=== PATIENT | female | born 1950 | race Caucasian/White ===

== ENCOUNTER 2020-10-28 12:54 | Outpatient (REF) | payer MEDICARE, MEDICAID, SELFPAY ==
--- NOTE | ~2020-10-28 | MM_ITS ---
EXAMINATION: MM SCREENING DIGITAL BREAST TOMOSYNTHESIS, BILATERAL CLINICAL INFORMATION: Screening. Asymptomatic. The lifetime risk of breast cancer based on the Tyrer-Cuzick Model is 3%. COMPARISON: Mammography: 02/25/2019, 12/25/2017, 11/30/2016 TECHNIQUE: Digital breast tomosynthesis is performed in both the craniocaudal and mediolateral oblique views along with computer-aided detection (CAD). Synthesized 2D images are generated from the tomosynthesis. FINDINGS: There are scattered areas of fibroglandular density (ACR BI-RADS breast composition Category b). There are new loosely grouped segmental calcifications mid 3:00 left breast. Patient will be recalled for additional imaging. The remainder of the bilateral breasts show no abnormal calcifications. There is no mass or architectural abnormality or developing density. The axilla and skin contours are unremarkable. MM/MM tomosynthesis screening BI IMPRESSION: 1. Left: New calcifications mid 3:00 left breast. 2. Right: No mammographic evidence of malignancy. ASSESSMENT: BI-RADS 0: Incomplete - Need Additional Imaging Evaluation RECOMMENDATION: 1. Additional views of the left breast (magnification CC, magnification ML). 2. Radiology department staff will contact the patient for additional imaging. This patient's information was entered into a reminder system with a target due date for their next mammogram.
== END 2020-10-28 12:55 | disposition home or self-care (01) ==
LOC: HO.MAMMO 12:54
PROVIDERS: Visit Provider Internal Medicine
DX: Z12.31 Encounter for screening mammogram for malignant neoplasm of breast (principal)
CPT/HCPCS: 77063; 77067

== ENCOUNTER → 2020-10-29 09:23 | Outpatient (BNVA) | payer MEDICARE, MEDICAID, SELFPAY | PROVIDERS: PCP Internal Medicine; Visit Provider Advanced Practice Midwife ==

== ENCOUNTER 2020-10-29 10:33 | Outpatient (REF) | payer MEDICARE, MEDICAID, SELFPAY ==
[2020-11-03 15:46] LABS: HPV mRNA E6/E7 rflx Not Detected (Not Detected)
== END 2020-10-29 10:34 | disposition home or self-care (01) ==
LOC: HO.LNP 10:33
PROVIDERS: Visit Provider Advanced Practice Midwife
DX: Z12.4 Encounter for screening for malignant neoplasm of cervix (principal); Z11.51 Encounter for screening for human papillomavirus (HPV)
CPT/HCPCS: 87624; 88142

== ENCOUNTER 2020-11-01 09:45 | Outpatient (REF) | payer MEDICARE, MEDICAID, SELFPAY ==
--- NOTE | ~2020-11-01 | XR_ITS ---
EXAMINATION: XR ABDOMEN KUB CLINICAL INDICATION: Diverticulitis COMPARISON: CT abdomen pelvis June 07, 2019 TECHNIQUE: AP view of the abdomen. FINDINGS: No dilated air-filled loops of small bowel to suggest an obstructive process. There is a mild stool burden throughout the colon. Mild dextroscoliosis of the lumbar spine. Vascular calcifications of the pelvis. XR/XR abdomen 1V IMPRESSION: Nonobstructing bowel gas pattern.
[2020-11-01 17:27] LABS: MANUAL DIFF FLAG NO
[2020-11-01 17:31] LABS: Basophils Percent Auto 0.4 % (0-2); Eosinophils Absolute Auto 0.1 X10*3/uL (0.0-0.4); Eosinophils Percent Auto 2.2 % (0-4); Hematocrit 26.1 % (37-47); Hemoglobin 8.2 g/dl (12.0-16.0); Imm Gran Abs Auto 0.02 X10*3/uL (0.00-0.03); Imm Gran Pct Auto 0.4 % (0.0-0.4); Lymphocytes Absolute Auto 0.9 X10*3/uL (1.2-4.9); Lymphocytes Percent Auto 16.7 % (20-40); Mean Corpuscular HGB Conc 31.4 g/dl (31.0-35.0); Mean Corpuscular Hemoglobin 30.1 pg (27.0-33.0); Mean Platelet Volume 12.6 fL (9.4-12.3); Monocytes Absolute Auto 0.4 X10*3/uL (0.1-1.2); Monocytes Percent Auto 7.3 % (2-11); Red Blood Count 2.72 X10*6/uL (4.20-5.50); Red Cell Distribution Width 15.7 % (11.0-16.0); White Blood Count 5.5 X10*3/uL (4.8-10.8)
[2020-11-01 17:32] LABS: Platelet Count 73 X10*3/uL (160-400)
[2020-11-01 17:40] LABS: Estimated Average Glucose 137 mg/dL; Hemoglobin A1c % 6.4 %
[2020-11-01 18:13] LABS: Alanine Aminotransferase 33 U/L (0-31); Albumin Level 3.4 g/dL (3.5-5.0); Alkaline Phosphatase 473 U/L (39-117); Anion Gap 20 (12-20); Aspartate Amino Transferase 25 U/L (5-31); Bilirubin Total 0.6 mg/dL (0.0-1.0); Calcium 8.7 mg/dL (8.4-10.2); Carbon Dioxide 29 mmol/L (22-29); Chloride 93 mmol/L (96-108); Estimated Glomerular Filt Rate 5; Glucose Random 142 mg/dL (60-115); Potassium 5.4 mmol/L (3.3-5.1); Sodium 137 mmol/L (135-145); Total Protein 6.1 g/dL (6.5-8.0)
[2020-11-01 18:22] LABS: TSH reflex Free T4 0.75 uIU/mL (0.32-4.0)
[2020-11-01 18:43] LABS: Erythrocyte Sedimentation Rate 75 MM/HR (0-20)
[2020-11-01 19:11] LABS: Blood Urea Nitrogen 81 mg/dL (9-16)
== END 2020-11-01 09:46 | disposition home or self-care (01) ==
LOC: HO.LAB 09:45
PROVIDERS: Absent Provider Internal Medicine; PCP Internal Medicine; Visit Provider Internal Medicine
DX: K57.92 Diverticulitis of intestine, part unspecified, without perforation or abscess without bleeding (principal); I12.9 Hypertensive chronic kidney disease with stage 1 through stage 4 chronic kidney disease, or unspecified chronic kidney disease; E11.22 Type 2 diabetes mellitus with diabetic chronic kidney disease; N18.9 Chronic kidney disease, unspecified; E78.00 Pure hypercholesterolemia, unspecified; M79.7 Fibromyalgia
CPT/HCPCS: 36415; 74018; 80053; 83036; 84443; 85025; 85652; 88142

== ENCOUNTER 2020-11-03 09:04 | Outpatient (REF) | payer MEDICARE, MEDICAID, SELFPAY ==
--- NOTE | ~2020-11-03 | MM_ITS ---
EXAMINATION: MM DIAGNOSTIC DIGITAL MAMMOGRAPHY, LEFT CLINICAL INFORMATION: Calcifications COMPARISON: Mammography: October 28, 2020 and studies dating back to February 14, 2012 TECHNIQUE: Digital mammography is performed in the following views: Spot magnification views in craniocaudal and 90 degree mediolateral injections. FINDINGS: There are scattered areas of fibroglandular density (ACR BI-RADS breast composition Category b). The grouping of calcifications within the upper outer aspect of the left breast have indeterminate appearance without evidence of tea cupping. Stereotactic biopsy is recommended. Results are discussed with the patient at time of visit. Leelee at the referring provider's office was notified of the above recommendation. MM/MM added views LT IMPRESSION: Indeterminate calcifications left breast for which stereotactic core biopsy is recommended. ASSESSMENT: BI-RADS 4: Suspicious RECOMMENDATION: Stereotactic core biopsy This patient's information was entered into a reminder system with a target due date for their next mammogram.
== END 2020-11-03 09:05 | disposition home or self-care (01) ==
LOC: HO.MAMMO 09:04
PROVIDERS: Visit Provider Internal Medicine
DX: R92.1 Mammographic calcification found on diagnostic imaging of breast (principal)
CPT/HCPCS: 77065; 99202

== ENCOUNTER 2020-11-05 07:58 | Outpatient (REF) | payer MEDICARE, MEDICAID, SELFPAY ==
--- NOTE | ~2020-11-05 | MM_ITS ---
EXAMINATION: STEREOTACTIC TOMOSYNTHESIS-GUIDED VACUUM-ASSISTED BREAST BIOPSY, LEFT SPECIMEN RADIOGRAPH, LEFT POST PROCEDURE DIGITAL MAMMOGRAM, LEFT CLINICAL INFORMATION: New punctate segmental calcifications mid 3:00 left breast. COMPARISON: Mammography 11/03/2020, 10/28/2020, 02/25/2019. TECHNIQUE/PROCEDURE: Informed consent was obtained from the patient after discussion of the benefits, risks, and alternatives to biopsy today. Patient appeared to understand. Gave opportunity for questions. Patient signed consent form. Hospital provided conference interpreter assisted for the consent and throughout the procedure. BIOPSY TABLE: ScubaTribe Prone Biopsy System. LESION: Calcifications mid 3:00 position. LOCAL ANESTHESIA: 8 mL 1% lidocaine; 10 mL 1% lidocaine with epinephrine. DERMATOTOMY: Single skin pepito dermatotomy performed. NEEDLE: SpinGoiva 9-gauge vacuum assisted core biopsy device. APPROACH: lateral medial. TARGETING: Digital breast tomosynthesis used for targeting. CORES: 6. CLIP: [employer] SecurMark Buckle-shaped marker. SPECIMEN RADIOGRAPH: Specimen radiograph is taken in separate room using digital mammography. The index calcifications are in the excised cores. There are over 15 calcifications in the cores. POST PROCEDURE UNILATERAL DIGITAL MAMMOGRAM: The post biopsy mammogram is performed in separate room using separate digital mammography equipment from the biopsy procedure. CC and ML views are obtained. There are scattered areas of fibroglandular density (breast composition category: b). The clip marker is in position. The calcifications are decreased at the biopsy site. No gross hematoma. The patient tolerated the procedure well. No immediate complications. Home instructions reviewed with the patient. Final pathology results are pending. MM/MM stereotactic biopsy LT IMPRESSION: 1. Digital tomosynthesis-guided core biopsy left breast with clip placement. 2. Specimen radiograph taken and post procedure mammogram. There is satisfactory positioning of the biopsy clip. 3. Final pathology results pending. An addendum report will be issued.
== END 2020-11-05 07:59 | disposition home or self-care (01) ==
LOC: HO.MAMMO 07:58
PROVIDERS: Visit Provider Surgery
DX: C50.812 Malignant neoplasm of overlapping sites of left female breast (principal); R92.0 Mammographic microcalcification found on diagnostic imaging of breast
CPT/HCPCS: 19081; 88305; 88341; 88342; 88360; A4648

== ENCOUNTER → 2020-11-10 15:51 | Outpatient (BNVA) | payer MEDICARE, MEDICAID, SELFPAY | PROVIDERS: PCP Internal Medicine; Referring Provider Internal Medicine; Visit Provider Surgery | DX: D05.12 Intraductal carcinoma in situ of left breast (principal) | CPT/HCPCS: 99212 ==

== ENCOUNTER 2020-11-16 14:47 | Emergency (ER) | payer MEDICARE, MEDICAID, SELFPAY ==
[2020-11-16 15:12] VITALS: BP 96/56; PULSE 80; RESP 18; TEMP 36.6; O2SAT 98; BMI 23.6
--- NOTE | 2020-11-16 15:51 | ED_ITS ---
HPI - Extremity Problem General Chief complaint: Extremity Problem Stated complaint: TOE INFECTION Time Seen by Provider: 11/16/20 15:51 History of Present Illness HPI Narrative: Patient complains of pain in left big toe from ingrown nail for several weeks getting gradually worse and worse, no fever no chills no injury Related Data Home Medications Medication Instructions Recorded Confirmed insulin aspart U-100 100 unit/mL 2 - 12 unit SUBCUT TID ml 08/02/20 11/16/20 (3 mL) subcutaneous pen miscellaneous medical supply #1 08/02/20 11/16/20 sevelamer carbonate 800 mg tablet 800 mg PO DAILY tab 08/02/20 11/16/20 omeprazole 20 mg capsule,delayed 20 mg PO DAILY 11/01/20 11/16/20 release insulin glargine [Lantus U-100 5 unit SUBCUT DAILY 11/16/20 11/16/20 Insulin] Previous Rx's Medication Instructions Recorded gabapentin 300 mg capsule 300 mg PO TID #90 cap 04/26/20 atorvastatin 80 mg tablet 80 mg PO BEDTIME #90 tab 06/30/20 blood sugar diagnostic #10 ea 08/02/20 blood-glucose meter #1 ea 08/02/20 LIGHTWEIGHT MANUAL WHEELCHAIR #1 ea 11/05/20 ergocalciferol (vitamin D2) 1,250 1,250 mcg PO QWEEK #14 cap 11/17/20 mcg (50,000 unit) capsule insulin syringe-needle U-100 0.5 #100 ea 11/17/20 mL 31 gauge x 5/16 diaper,brief,adult,disposable #100 ea 11/19/20 incontinence pad, liner, disp #100 ea 11/19/20 pen needle, diabetic 32 gauge x #100 ea 11/24/20 5/32 Allergies Allergy/AdvReac Type Severity Reaction Status Date / Time No Known Allergies Allergy Verified 11/10/20 15:59 Review of Systems Review of Systems: Left big toe ingrown the pain Negative no fever no chills no dizziness no weakness no numbness weakness or tingling no chest pain no shortness of breath no joint swelling no rash Yes all other systems are reviewed and are negative PMFSH Past Medical History Source: nursing notes reviewed Medical History (Updated 11/17/20 @ 02:19 by Uzair Huffman MD) Anxiety and depression Artery stenosis Arthritis Balance problem Breast calcification, left CAD (coronary artery disease) Cardiomyopathy CHF (congestive heart failure) COVID-19 vaccine series completed Diabetes mellitus Diabetic neuropathy Diverticulitis Ductal carcinoma in situ (DCIS) of left breast End stage renal disease Fistula Hemodialysis patient History of CVA (cerebrovascular accident) Hx of myocardial infarction Hypercholesteremia Hypertension Incontinence Peripheral vascular disease Urinary and bowel incontinence Surgical History (Updated 11/16/20 @ 15:18 by Mary Smith MD) Hx of CABG Hx of colonoscopy Hx of lumpectomy Hx of tubal ligation Family History Family History Paternal Grandmother Breast cancer Social History Social History (Updated 11/16/20 @ 14:01 by Cnoi Boss) Are you a primary in home caregiver to a significant other at home: No Alcohol intake: former Cigarette Packs Per Day: 1 Physical Exam Vital Signs: Vital Signs: Last Vital Signs Temp 97.8 F 11/16/20 15:12 Pulse 80 11/16/20 15:12 Resp 18 11/16/20 15:12 BP 96/56 L 11/16/20 15:12 Pulse Ox 98 11/16/20 15:12 Body Mass Index 23.6 General appearance no acute distress Head is normocephalic atraumatic Neck is supple Respiratory no distress Extremities the left big toe has ingrown sections of both medial and lateral, there is swelling, no redness no discharge, full range of motion in all joints Skin no obvious rash Neuro no gross motor deficit Course Course Course Narrative: Left big toe anesthesia is a digital block with good anesthesia, cleansed with Betadine, using scissors and forceps large ingrown sections of nail were removed both medial and lateral, no pus no discharge no signs of infection no antibiotics given at this time Discharge Plan Discharge Clinical Impression: Ingrown left big toenail Patient Disposition: Home, Self-Care Additional Instructions: I removed ingrown sections of both sides of the nail, there were large ingrown piece of the nail but there was no sign of any infection Follow with dietary clerk Return any time for redness swelling fever any sign of infection Prescriptions: No Action gabapentin 300 mg capsule 300 mg PO TID Qty: 90 RF: 2 atorvastatin 80 mg tablet 80 mg PO BEDTIME Qty: 90 RF: 5 (DME) LIGHTWEIGHT MANUAL WHEELCHAIR See Rx Instructions .Route .MEDSUPPLY Qty: 1 RF: 0 ergocalciferol (vitamin D2) 1,250 mcg (50,000 unit) capsule 1,250 mcg PO QWEEK Qty: 14 RF: 1 (DME) insulin syringe-needle U-100 [BD Insulin Syringe Ultra-Fine] 0.5 mL 31 gauge x 5/16 syringe See Rx Instructions .ROUTE .MEDSUPPLY Qty: 100 RF: 0 (DME) incontinence pad, liner, disp Pad See Rx Instructions .ROUTE .MEDSUPPLY Qty: 100 RF: 12 (DME) diaper,brief,adult,disposable Misc See Rx Instructions .ROUTE .MEDSUPPLY Qty: 100 RF: 12 (DME) pen needle, diabetic [BD Anna 2nd Gen Pen Needle] 32 gauge x 5 needle See Rx Instructions .ROUTE .MEDSUPPLY Qty: 100 RF: 12 Lantus U-100 Insulin 100 unit/mL Cartridge 5 unit SUBCUT DAILY RF: 0 omeprazole 20 mg capsule,delayed release(DR/EC) 20 mg PO DAILY RF: 0 sevelamer carbonate [Renvela] 800 mg tablet 800 mg PO DAILY RF: 0 insulin aspart U-100 [Novolog Flexpen U-100 Insulin] 100 unit/mL (3 mL) insulin pen 2 - 12 unit subcut TID RF: 0 (DME) miscellaneous medical supply Unit See Rx Instructions .ROUTE .MEDSUPPLY Qty: 1 RF: 0 (DME) blood-glucose meter [FreeStyle Lite Meter] Kit See Rx Instructions .ROUTE .MEDSUPPLY Qty: 1 RF: 0 (DME) Freestyle InsuLinx Test Strips Strip See Rx Instructions .ROUTE .MEDSUPPLY Qty: 10 RF: 0 Referrals: Sagar New [Physician] - 2 days (Diabetic with the painful toenail) Interventions: ED Discharge Assessment Last Done: 11/16/20 16:59 Discharge Date/Time: 11/16/20 17:01
[2020-11-16] MEDS: Lidocaine HCl 1 % MPF 5 ML VIAL SUBCUT ×2 (16:06)
== END 2020-11-16 17:01 | disposition home or self-care (01) ==
PROVIDERS: Emergency Provider Emergency Medicine; PCP Internal Medicine
DX: L60.0 Ingrowing nail (principal); M79.675 Pain in left toe(s); E11.22 Type 2 diabetes mellitus with diabetic chronic kidney disease; I13.2 Hypertensive heart and chronic kidney disease with heart failure and with stage 5 chronic kidney disease, or end stage renal disease; I50.9 Heart failure, unspecified; N18.6 End stage renal disease; Z99.2 Dependence on renal dialysis; Z79.4 Long term (current) use of insulin; Z86.73 Personal history of transient ischemic attack (TIA), and cerebral infarction without residual deficits
CPT/HCPCS: 11730; 99283; 99284

== ENCOUNTER 2020-12-21 07:03 | Day surgery (SDC) | payer MEDICARE, MEDICAID, SELFPAY ==
[2020-12-14 12:36] VITALS: BMI 22.8
--- NOTE | 2020-12-14 12:56 | P.CONAN_ITS ---
Documented by User: Ame Chappellney 12/14/20 12:59 HPI - Anesthesia Eval Consult details Narrative: 70yo F for Left Breast lumpectomy, needle loc Per cardiology, high risk, no further testing needed prior to surgery ESRD with HD (TuThSat - pt's daughter trying to reschedule dialysis for Mon before surgery) with RUE fistula PMFSH Active Problems Active Problems: All Active Problems (Updated 12/14/20 @ 12:41 by Isabella Robins) Ductal carcinoma in situ (DCIS) of left breast (Acute) Breast calcification, left (Acute) Urinary and bowel incontinence (Acute) CAD (coronary artery disease) (Acute) Cardiomyopathy (Acute) Diverticulitis (Acute) Diabetes mellitus (Acute) Past Medical History Medical History (Updated 12/14/20 @ 12:41 by Isabella Robins) Anxiety and depression Artery stenosis Arthritis Balance problem Breast calcification, left CAD (coronary artery disease) Cardiomyopathy CHF (congestive heart failure) COVID-19 vaccine series completed Diabetes mellitus Diabetic neuropathy Diverticulitis Ductal carcinoma in situ (DCIS) of left breast End stage renal disease Fistula Hemodialysis patient History of CVA (cerebrovascular accident) Hx of myocardial infarction Hypercholesteremia Hypertension Incontinence Peripheral vascular disease Urinary and bowel incontinence Family History Family History Paternal Grandmother Breast cancer Surgical History Surgical History (Updated 11/16/20 @ 15:18 by Mary Smith MD) Hx of CABG Hx of colonoscopy Hx of lumpectomy Hx of tubal ligation Social History Social History (Updated 11/16/20 @ 14:01 by Coni Boss) Are you a primary healthcare manager to a significant other at home: No Do you presently have visiting nurse or other home services: Yes ([facility] home care) Alcohol intake: former Patient Tobacco Use Status: Former Tobacco user Quit Date: years ago Tobacco use type: Cigarette Cigarette Packs Per Day: 1 Have you been hit, kicked, punched, or otherwise hurt by someone within the past year? If so, by whom?: No Are you DNR?: No Advance Directives: No Advance Directives Information Provided: No Advance Directives on File: No Recently lost weight without trying: No Meds Allergies Allergy/AdvReac Type Severity Reaction Status Date / Time No Known Allergies Allergy Verified 11/10/20 15:59 Home Medications Medication Instructions Recorded Confirmed Last Taken Type miscellaneous medical supply #1 08/02/20 11/16/20 Unknown History sevelamer carbonate 800 mg tablet 800 mg PO DAILY tab 08/02/20 11/16/20 Unknown History omeprazole 20 mg capsule,delayed 20 mg PO DAILY 11/01/20 11/16/20 12/21/20 History release insulin glargine [Lantus U-100 5 unit SUBCUT DAILY 11/16/20 11/16/20 Unknown History Insulin] fluoxetine 1 cap PO QAM 12/21/20 12/21/20 12/21/20 History Exam Exam Date and Time: December 14, 2020 1256 Height,Weight and Vital Signs: Height 5 ft 1 in Weight 54.885 kg Narrative Narrative: EKG 11/2020 SR with PACs @ 81 ?LAE T wave inversion (less evident than previous EKG) ECHO 2017 LVEF 55-60% No RWMA NO obvious valve pathology Assessment and Plan Assessment Anesthesia Assessment: Chart Reviewed Documented by User: Cory Garces MD 12/21/20 09:04 [facility] Past Medical History Medical History (Updated 12/14/20 @ 12:41 by Isabella Robins) Anxiety and depression Artery stenosis Arthritis Balance problem Breast calcification, left CAD (coronary artery disease) Cardiomyopathy CHF (congestive heart failure) COVID-19 vaccine series completed Diabetes mellitus Diabetic neuropathy Diverticulitis Ductal carcinoma in situ (DCIS) of left breast End stage renal disease Fistula Hemodialysis patient History of CVA (cerebrovascular accident) Hx of myocardial infarction Hypercholesteremia Hypertension Incontinence Peripheral vascular disease Urinary and bowel incontinence Family History Family History Paternal Grandmother Breast cancer Surgical History Surgical History (Updated 11/16/20 @ 15:18 by Mary Smith MD) Hx of CABG Hx of colonoscopy Hx of lumpectomy Hx of tubal ligation Social History Social History (Updated 11/16/20 @ 14:01 by Coni Boss) Are you a primary healthcare manager to a significant other at home: No Do you presently have visiting nurse or other home services: Yes ([facility]) Alcohol intake: former Patient Tobacco Use Status: Former Tobacco user Quit Date: years ago Tobacco use type: Cigarette Cigarette Packs Per Day: 1 Have you been hit, kicked, punched, or otherwise hurt by someone within the past year? If so, by whom?: No Are you DNR?: No Advance Directives: No Advance Directives Information Provided: No Advance Directives on File: No Recently lost weight without trying: No Meds Allergies Allergy/AdvReac Type Severity Reaction Status Date / Time No Known Allergies Allergy Verified 11/10/20 15:59 Home Medications Medication Instructions Recorded Confirmed Last Taken Type miscellaneous medical supply #1 08/02/20 11/16/20 Unknown History sevelamer carbonate 800 mg tablet 800 mg PO DAILY tab 08/02/20 11/16/20 Unknown History omeprazole 20 mg capsule,delayed 20 mg PO DAILY 11/01/20 11/16/20 12/21/20 History release insulin glargine [Lantus U-100 5 unit SUBCUT DAILY 11/16/20 11/16/20 Unknown History Insulin] fluoxetine 1 cap PO QAM 12/21/20 12/21/20 12/21/20 History Assessment and Plan Assessment Anesthesia Assessment: Anesthesia Plan Discussed and Chart Reviewed Final Anesthetic Review NPO: Yes ASA Class: IV Final Preanesthetic Review: No Changes in Pt Med Stat, Meds/Allgs Chart Reviewed, Consent Obtained/Reviewed and Anes Risks/Benef Reviewed Patient Risk: High Procedure Risk: Low Anesthetic Plan Anesthetic Plan: GA Disposition: Standard PACU
[2020-12-21] VITALS (7 sets, daily range): BP systolic 113–145; BP diastolic 62–86; PULSE 74–96; RESP 14–16; TEMP 36.4–36.6; O2SAT 96–100
--- NOTE | ~2020-12-21 | MM_ITS ---
EXAMINATION: MM MAMMOGRAM GUIDED NEEDLE LOCALIZATION BREAST, LEFT MM NEEDLE LOCALIZATION SPECIMEN FROM THE LEFT BREAST CLINICAL INFORMATION: Left breast DCIS with necrosis. COMPARISON: Mammography 10/28/2020, 11/03/2020, stereotactic biopsy 11/05/2020. TECHNIQUE NEEDLE LOC: Proper informed consent is obtained from the patient after discussion of the procedure, potential risks and complications, and alternatives including declining the procedure today. Patient was given an opportunity for questions. The patient appeared to understand. The patient consented to the procedure and signed the consent form. Hospital provided health care analyst assisted for the consent and throughout the procedure. GUIDANCE: Digital mammography. APPROACH: Lateral Medial. TARGET: Prior to the localization, digital mammography is performed in the CC and LM views in order to determine if there are segmental calcifications remaining for bracketing. These views fail to show calcifications to bracket. Therefore, the biopsy clip marker (Buckle-shaped) is used as the target. ANESTHESIA: lidocaine 1%: 7 mL. LOCALIZATION MARKER: [employer]. 7.5 cm length. The skin is prepped and local anesthesia administered. The needle is positioned and position assessed with mammography. The wire is hooked into position. [place] needle protector placed. The patient tolerated the procedure well and had no immediate complication. Procedure localization results discussed with Dr. Marin prior to surgery. TECHNIQUE SPECIMEN RADIOGRAPH: Imaging of the excised specimen is performed using digital mammography in 1 view. FINDINGS SPECIMEN RADIOGRAPH: The specimen shows the distal needle and distal hookwire are delivered intact. The biopsy clip marker resides in the periphery of the specimen. There are numerous fine punctate calcifications around the clip marker and adjacent to the localization wire. Results were called to Dr. Nikolas Marin in the operating room at the time of imaging. MM/MM needle loc LT IMPRESSION: 1. Status post left breast needle localization with wire hooked into position. 2. Post operative specimen radiograph obtained.
--- NOTE | 2020-12-21 07:31 | PC.NURSE ---
+ thrill and +brui to right arm. labs being drawn
[2020-12-21 07:51] LABS: Glucose, Whole Blood 151 mg/dL (60-115)
--- NOTE | 2020-12-21 08:04 | PC.NURSE ---
off unit for needle loc
[2020-12-21 08:14] LABS: Anion Gap 13 (12-20); Carbon Dioxide 33 mmol/L (22-29); Chloride 99 mmol/L (96-108); Potassium 3.4 mmol/L (3.3-5.1); Sodium 142 mmol/L (135-145)
--- NOTE | 2020-12-21 08:25 | MHC.SHP ---
Pre-Procedural Eval Section B Chief Complaint: intraductal carcinoma in situ Details of Present Illness: Had ductal carcinoma in situ on biopsy of left breast calcifications, no palpable mass. The patient had seen the radiation oncologist and oncologist prior to for her surgery. Relevant Family History (Specify if Yes): No Relevant Social History: None Present Medications: see Short Stay Collaborative assessment Medical History: Significant History (Diabetes, cardiomyopathy) History of Previous Operations: Relevant previous surgery/procedure and date(s) (Biopsy) Allergies: Allergies Allergy/AdvReac Type Severity Reaction Status Date / Time No Known Allergies Allergy Verified 11/10/20 15:59 Review of Systems Sugical H&P ROS: Negative: Constitution, Cardiovascular, Respiratory, Neurological, Psychiatric, Hem-Onc, Allergic/Immunologic, Gastrointestinal, Genitourinary, Musculoskeletal, Integumentary, Endocrine and Eyes/Ears/Nose/Throat Exam Surgical H&P Exam: Normal: HEENT, Normal: Heart, Normal: Lungs, Normal: Extremities, Normal: Abdomen, Normal: Skin and Normal: Neurological Plan Diagnosis/Plan: Unchanged I have reviewed the history and physical and performed a pertinent physical examination on my patient. No changes have occurred unless specified.
--- NOTE | 2020-12-21 08:52 | PC.NURSE ---
miguel back from needle loc.
[2020-12-21] MEDS: 0.9 % Sodium Chloride 1,000 ML 50 ML IVCONT (08:55)
--- NOTE | 2020-12-21 10:43 | P.OP_ITS ---
Operative Note Operative Note Date of Service: 12/21/20 Narrative: Preop diagnosis: DCIS left breast Postop diagnosis: DCIS left breast Procedure: Left breast lumpectomy with needle localization Surgeon: Nikolas Marin MD No school bus driver/teacher assistant The patient is a 70-year-old female who had a recent biopsy of left breast calcifications which turned out to be DCIS. I therefore schedule her for lumpectomy with needle localization as discussed with her and her daughter. He understood the technique of the procedure the. They were aware of the risks, benefits, and alternatives The patient was brought to the operating room after needle localization. The localizing wire was seen entering from laterally going medially. The localization images were discussed with the radiologist as well. She was placed under general anesthesia via laryngeal mask airway. The left breast was prepped and draped in the usual sterile fashion. A surgical time-out was done. Patient received cefazolin 2 g IV preoperatively. I infiltrated the planned line of incision using lidocaine 1%. The incision was made using a blade 15 tangential to the needle entry. This was carried down through the full-thickness of the skin and subcutaneous fat with electrocautery. I then proceeded to gently lift up the skin with retractors to expose the breast tissue. I used the curved León to divide through the breast tissue surrounding the needle. We followed the direction of the needle carefully as we advanced with dissection. I periodically palpated for the needle to make sure that we were including the entire needle itself way past the tip. I made sure that we had generous margins of breast tissue surrounding the needle. I continued to divide with León scissors scissors all the way past the the localizing wire. I marked the superior and lateral margins with sutures for orientation. I then completed dissection and the entire lumpectomy specimen was sent for immediate re-ray as well as for immediate gross exam. I proceeded to observe for hemostasis. I cauterized all visible oozing areas. The patient had significant oozing from the raw surfaces likely because of her end-stage renal disease. I had to apply multiple figure-eight sutures to achieve hemostasis on these oozing areas. There was no particular bleeding vessel that could be seen on any of these oozing areas. I then reapposed the deep breast tissue with interrupted Dexon 3- 0 sutures. We then waited for a call from the radiologist as well as from the pathologist. Eventually received a call from the radiologist confirming that the biopsy clip was the specimen and that the entire wire was in place. It appeared we had good margins radiographically. I then received a call from the pathologist stating that we may be close on the superior lateral margins although the margins appeared negative grossly. I then decided to open up the incision again and removed more margins on the superior and lateral aspect. This was sent as additional margins I then proceeded to insert hemostasis with electrocautery and figure-eight Dexon 3-0 sutures. Once hemostasis appeared adequate, I proceeded to reappose the deep tissues with Dexon 3-0 interrupted sutures. Skin closure was achieved with Dexon 4-0 subcuticular running stitch. I infiltrated the area with Marcaine 0.5% for postop ALANNA. Steri-Strips and dressings were applied and the procedure was completed. The patient tolerated procedure well with no complication noted. Initial fine counts of sponges and instruments were correct. Estimated blood loss was about 75 cc. The patient was extubated without difficulty and transferred to the recovery room with stable vital signs.
--- NOTE | 2020-12-21 10:52 | P.BOP_ITS ---
Brief Operative Note Date of Service: 12/21/20 Pre-op diagnosis: DCIS left breast Post-op diagnosis: same Procedure: Left breast lumpectomy with needle localization Surgeon: Nikolas Marin MD Anesthesia: GLMA Was an [employer] Writer used for this Procedure?: No Estimated blood loss (mL): 75 Pathology: other (Lumpectomy) Condition: stable Disposition: PACU
== END 2020-12-21 12:34 | disposition home or self-care (01) ==
PROVIDERS: Nurse Practitioner; PCP Internal Medicine; Visit Provider Surgery
PROC: (CPT 19301; principal; 2020-12-21 09:00)
PROC: (CPT 19301; 2020-12-21 09:00)
DX: D05.12 Intraductal carcinoma in situ of left breast (principal); Z17.0 Estrogen receptor positive status [ER+]; F32.9 Major depressive disorder, single episode, unspecified; R26.9 Unspecified abnormalities of gait and mobility; I13.2 Hypertensive heart and chronic kidney disease with heart failure and with stage 5 chronic kidney disease, or end stage renal disease; I50.9 Heart failure, unspecified; N18.6 End stage renal disease; E11.22 Type 2 diabetes mellitus with diabetic chronic kidney disease; E11.40 Type 2 diabetes mellitus with diabetic neuropathy, unspecified; I73.9 Peripheral vascular disease, unspecified; Z99.2 Dependence on renal dialysis; Z79.4 Long term (current) use of insulin; Z79.899 Other long term (current) drug therapy; Z87.891 Personal history of nicotine dependence
CPT/HCPCS: 19301; 19281; 36415; 80051; 82947; 88307; 88329; A4648; J0690; J1100; J2250; J2370; J2405; J3010

== ENCOUNTER → 2020-12-30 10:46 | Outpatient (BNVA) | payer MEDICARE, MEDICAID, SELFPAY | PROVIDERS: PCP Internal Medicine; Referring Provider Internal Medicine; Visit Provider Surgery | DX: D05.12 Intraductal carcinoma in situ of left breast (principal) | CPT/HCPCS: 99212 ==

== ENCOUNTER 2021-02-18 09:00 | Outpatient (REF) | payer MEDICARE, MEDICAID, SELFPAY ==
--- NOTE | ~2021-02-18 | XR_ITS ---
EXAMINATION: XR HAND, LEFT CLINICAL INFORMATION: Left thumb pain. Evaluate for a fracture. COMPARISON: None TECHNIQUE: PA, lateral, and oblique views of the left hand. FINDINGS: No acute fracture or dislocation. Minimal joint space narrowing with tiny marginal osteophytes at the 1st carpometacarpal, 1st metacarpophalangeal and 1st interphalangeal joints. No osseous erosion. No abnormal soft tissue calcification. XR/XR hand LT min 3V IMPRESSION: Minimal degenerative arthritis at the 1st carpometacarpal, 1st metacarpal phalangeal, and 1st interphalangeal joints.
== END 2021-02-18 09:01 | disposition home or self-care (01) ==
LOC: HO.XRAY 09:00
PROVIDERS: PCP Internal Medicine; Visit Provider Internal Medicine
DX: M79.645 Pain in left finger(s) (principal)
CPT/HCPCS: 73130

== ENCOUNTER 2021-04-14 10:00 | Outpatient (RCR) | payer MEDICARE, MEDICAID, SELFPAY | END 2021-05-03 15:34 | disposition home or self-care (01) | LOC: HO.PT 10:00 | PROVIDERS: PCP Internal Medicine; Visit Provider Podiatrist | DX: R26.81 Unsteadiness on feet (principal) | CPT/HCPCS: 97110; 97162; 97530 ==

== ENCOUNTER 2021-05-26 07:28 | Outpatient (REF) | payer MEDICARE, MEDICAID, SELFPAY ==
--- NOTE | ~2021-05-26 | MM_ITS ---
EXAMINATION: BONE DENSITOMETRY CLINICAL INDICATION: Encounter for screening for osteoporosis. Starting therapy. COMPARISON: Baseline BD dated 03/22/2012. TECHNIQUE: Using a [employer] DXA System (software version: 13.1) manufactured by [employer], dual-energy x-ray absorptiometry was performed of the lumbar spine and left hip. The images are of good technical quality. Summary results are attached. FINDINGS: AP SPINE L1-L4: Current: BMD 0.913 g/cm2, Z-score -0.2, T-score -2.2, osteopenia, 2.2% increase from baseline (<5% change is not significant). Baseline: BMD 0.893 g/cm2. LEFT FEMUR, NECK: Current: BMD 0.621 g/cm2, Z-score -1.1, T-score -3.0, osteoporosis. Baseline: BMD 0.702 g/cm2. LEFT FEMUR, TOTAL: Current: BMD 0.649 g/cm2, Z-score -1.2, T-score -2.8, osteoporosis, 11.8% decrease from baseline (<5% change is not significant). Baseline: BMD 0.736 g/cm2. IDENTIFIED RISK FACTORS: Rheumatoid arthritis, renal, recurrent falls. Early menopause, secondary osteoporosis, anticonvulsant. HISTORY OF FRACTURE: None listed. MEDICATIONS: Vitamin D. MM/XR DEXA axial skeleton IMPRESSION: 1. DIAGNOSIS: Osteoporosis based on the lowest T-score value of -3.0 in the femoral neck applying World Health Organization criteria. 2. 10 10-YEAR FRACTURE RISK PREDICTION, FRAX: According to the guidelines, FRAX calculation should only be performed on patients in the osteopenia bone density category. 3. Treatment Recommendations: NOF guidelines recommend consideration for treatment in postmenopausal women and men age 50 and older presenting with the following: -A hip or vertebral (clinical or morphometric) fracture. -T-score less than or equal to -2.5 at the femoral neck or spine after appropriate evaluation to exclude secondary causes. -Low bone mass at the hip or spine and a 10-year fracture probability by FRAX of greater than or equal to 3% for hip fracture or greater than or equal to 20% for major osteoporotic fracture based on the [place] adapted WHO algorithm. 4. Other Recommendations: All treatment decisions require clinical judgment and consideration of individual patient factors, including patient preferences, comorbidities, previous drug use, risk factors not captured in the FRAX model (e.g. frailty, falls, vitamin D deficiency, increased bone turnover, interval significant decline in bone density) and possible under or overestimation of fracture risk by FRAX. Additional medical evaluation for secondary cause of low bone mineral density may be appropriate. FUTURE SCAN RECOMMENDATION: People with diagnosed cases of osteoporosis or at high risk for fracture should have regular bone mineral density tests. For patients eligible for Medicare, routine testing is allowed once every 2 years. The testing frequency can be increased to one year for patients who have rapidly progressing disease, those who are receiving or discontinuing medical therapy to restore bone mass, or have additional risk factors.
== END 2021-05-26 07:29 | disposition home or self-care (01) ==
LOC: HO.MAMMO 07:28
PROVIDERS: Visit Provider Internal Medicine
DX: Z13.820 Encounter for screening for osteoporosis (principal); M81.0 Age-related osteoporosis without current pathological fracture; Z78.0 Asymptomatic menopausal state; Z79.899 Other long term (current) drug therapy
CPT/HCPCS: 77080

== ENCOUNTER 2021-09-06 13:50 | Outpatient (REF) | payer MEDICARE, MEDICAID, SELFPAY ==
--- NOTE | ~2021-09-06 | MM_ITS ---
EXAMINATION: MM DIAGNOSTIC DIGITAL BREAST TOMOSYNTHESIS, BILATERAL CLINICAL INFORMATION: Due for yearly. Left lumpectomy for DCIS 12/21/2020. COMPARISON: Needle localization 12/21/2020, stereotactic biopsy 11/05/2020; mammography 11/03/2020, 10/28/2020, 02/25/2019, 12/25/2017, 11/30/2016. TECHNIQUE: Digital breast tomosynthesis is performed in both the craniocaudal and mediolateral oblique views along with computer-aided detection (CAD). Synthesized 2D images are generated from the tomosynthesis. Additional views are obtained: Left MLO, magnification left CC x2, magnification left ML. FINDINGS: There are scattered areas of fibroglandular density (ACR BI-RADS breast composition Category b). There are post therapy changes left breast with mild reduced breast size and minor scarring. Neither breast shows interval mass or significant architectural changes or abnormal calcifications. The axilla are unremarkable. Right breast again shows benign heavily calcified nodule and some adjacent coarse calcifications subareolar region. Results are provided to the patient at time of visit by the technologist. MM/MM tomosynthesis diagnostic BI IMPRESSION: No mammographic evidence of malignancy. Post therapy changes left breast. ASSESSMENT: BI-RADS 2: Benign RECOMMENDATION: Annual bilateral mammography. This patient's information was entered into a reminder system with a target due date for their next mammogram.
== END 2021-09-06 13:51 | disposition home or self-care (01) ==
LOC: HO.MAMMO 13:50
PROVIDERS: Visit Provider Internal Medicine
DX: D05.12 Intraductal carcinoma in situ of left breast (principal)
CPT/HCPCS: 77062; 77066

== ENCOUNTER 2021-09-10 07:26 | Outpatient (REF) | payer MEDICARE, MEDICAID, SELFPAY ==
[2021-09-10 07:41] LABS: MANUAL DIFF FLAG NO
[2021-09-10 07:57] LABS: Basophils Percent Auto 0.4 % (0-2); Eosinophils Absolute Auto 0.1 X10*3/uL (0.0-0.4); Eosinophils Percent Auto 2.1 % (0-4); Hematocrit 29.1 % (37.0-47.0); Hemoglobin 8.8 g/dl (12.0-16.0); Imm Gran Abs Auto 0.01 X10*3/uL (0.00-0.03); Imm Gran Pct Auto 0.4 % (0.0-0.4); Lymphocytes Absolute Auto 0.5 X10*3/uL (1.2-4.9); Lymphocytes Percent Auto 16.4 % (20-40); Mean Corpuscular HGB Conc 30.2 g/dl (31.0-35.0); Mean Corpuscular Hemoglobin 31.1 pg (27.0-33.0); Mean Corpuscular Volume 102.8 fL (80.0-98.0); Mean Platelet Volume 12.6 fL (9.4-12.3); Monocytes Absolute Auto 0.4 X10*3/uL (0.1-1.2); Monocytes Percent Auto 12.9 % (2-11); Neutrophils Absolute Auto 1.9 x10*3/uL (2.0-8.3); Neutrophils Percent Auto 67.8 % (45-73); Red Blood Count 2.83 X10*6/uL (4.20-5.50); Red Cell Distribution Width 17.8 % (11.0-16.0); White Blood Count 2.8 X10*3/uL (4.8-10.8)
[2021-09-10 07:58] LABS: Platelet Count 65 X10*3/uL (160-400)
[2021-09-10 08:10] LABS: Estimated Average Glucose 171 mg/dL; Hemoglobin A1C 148.9512 umol/L; Hemoglobin A1c % 7.6 %
[2021-09-10 08:33] LABS: Alanine Aminotransferase 27 U/L (0-31); Albumin Level 3.1 g/dL (3.5-5.0); Alkaline Phosphatase 328 U/L (39-117); Anion Gap 17 (12-20); Aspartate Amino Transferase 28 U/L (5-31); Bilirubin Total 0.7 mg/dL (0.0-1.0); Blood Urea Nitrogen 33 mg/dL (9-16); Calcium 8.6 mg/dL (8.4-10.2); Carbon Dioxide 32 mmol/L (22-29); Chloride 95 mmol/L (96-108); Cholesterol 193 mg/dL; Glucose Random 289 mg/dL (60-115); HDL Cholesterol 81 mg/dL; LDL Cholesterol Calculated 100 mg/dl; Sodium 140 mmol/L (135-145); Total Protein 6.5 g/dL (6.5-8.0); Triglycerides 60 mg/dL
[2021-09-10 09:08] LABS: Estimated Glomerular Filt Rate 10
== END 2021-09-10 07:27 | disposition home or self-care (01) ==
LOC: HO.LAB 07:26
PROVIDERS: PCP Internal Medicine; Visit Provider Internal Medicine
DX: E11.319 Type 2 diabetes mellitus with unspecified diabetic retinopathy without macular edema (principal); E11.40 Type 2 diabetes mellitus with diabetic neuropathy, unspecified; E78.00 Pure hypercholesterolemia, unspecified; F32.89 Other specified depressive episodes; Z99.2 Dependence on renal dialysis
CPT/HCPCS: 36415; 80053; 80061; 83036; 85025

== ENCOUNTER → 2021-09-20 09:00 | Outpatient (BNVA) | payer MEDICARE, MEDICAID, SELFPAY | PROVIDERS: PCP Internal Medicine; Visit Provider Physician Assistant | DX: Z12.11 Encounter for screening for malignant neoplasm of colon (principal); K92.1 Melena; Z78.9 Other specified health status | CPT/HCPCS: 99202 ==

== ENCOUNTER → 2021-10-04 14:28 | Outpatient (BNVA) | payer MEDICARE, MEDICAID, SELFPAY | PROVIDERS: PCP Internal Medicine; Referring Provider Internal Medicine; Visit Provider Physician Assistant | DX: Z13.89 Encounter for screening for other disorder (principal) ==

== ENCOUNTER 2021-10-05 16:31 | Inpatient (IN) | payer MEDICARE, MEDICAID, SELFPAY ==
--- NOTE | ~2021-10-05 | US_ITS ---
EXAMINATION: ULTRASOUND-GUIDED PARACENTESIS CLINICAL INFORMATION: Ascites COMPARISON: Previous CT of the abdomen and pelvis from yesterday TECHNIQUE: Procedure and risks and benefits including bleeding and infection were discussed with the patient through an diplomatic interpreter/translator and informed consent was obtained. The right lower quadrant was prepped and draped in the usual sterile fashion. Skin and soft tissues were anesthetized with 1% lidocaine plain. Using ultrasound guidance and a 5 Serbian rapid centesis catheter, access to the ascitic fluid was obtained. 100 mL of clear yellow fluid was removed. Diagnostic specimen was sent as requested by the ordering physician. FINDINGS: There is a small amount of ascites. US/US paracentesis abd w/image IMPRESSION: Ultrasound-guided paracentesis.
--- NOTE | ~2021-10-05 | CT_ITS ---
EXAMINATION: CT BRAIN, CT CERVICAL SPINE, CT CHEST, ABDOMEN PELVIS. CLINICAL INFORMATION: Fall, neck pain, right chest wall pain and right-sided abdominal pain. Head strike. COMPARISON: CT brain 04/21/[address] abdomen pelvis 06/07/2019. TECHNIQUE: 5 mm thin axial and reformatted 2 mm thin sagittal coronal images of brain were obtained without contrast. Axial 3 mm thin and reformatted 2 mm thin sagittal coronal images of cervical spine were obtained without contrast. Lastly axial 5 minutes thin and reformatted 3 minutes thin sagittal coronal images of chest, abdomen and pelvis were obtained without contrast. DLP [id number]. FINDINGS: Brain: There is no acute intra-axial, extra-axial bleed, masses or midline shift. There is a subtle hypodensity in the left frontal cortical gyrus likely subacute or old infarct. It is unchanged since 2018. No acute infarction in evolution. No edema. There is a small lacunar infarction right posterior limb of internal capsule. The lateral ventricles are symmetrical in size and configuration but enlarged. There is diffuse periventricular hypodensity suggestive of chronic small vessel ischemic changes. Bone windows reveal no calvarial abnormality. There is no scalp soft tissue abnormality. Bilateral paranasal sinuses and mastoid air cells are well-aerated with mild mucoperiosteal thickening left maxillary sinus.. Cervical spine: On sagittal reconstructed images there is mild straightening of cervical lordosis. There is no visible acute fracture, dislocation or subluxation seen. The craniovertebral junction and the C1-C2 alignment is normal. There is no visible acute fracture, dislocation or subluxation seen. The prevertebral and paravertebral soft tissues are normal. The airway is widely patent. The lung apices are clear. No abnormal neck lymph nodes or mass seen. CHEST: The lungs are hyperinflated with patchy ill-defined opacities in left lower lobe, lingula and left upper lobe anterior segment likely atelectasis. Filled air bronchograms are seen in the left upper lobe anterior segment. No lung mass, contusion, pleural effusion or pneumothorax seen. The thyroid lobes are symmetrical and normal. The airway is widely patent. There is atherosclerotic changes of abdominal aorta without aneurysmal dilatation. No large mass or lymph nodes seen in the mediastinum. Moderate coronary artery calcifications are present. No pericardial effusion seen. The axilla and chest wall appears unremarkable. The right axillary stent in place. Abdomen and pelvis: There is diffuse ascites. There is mild splenomegaly with spleen measuring 12 cm in length. The liver is normal size with slightly lobulated contour. There is a calcification in the gallbladder fossa likely small gallstones. Visualized pancreas and bilateral adrenal glands unremarkable. The left kidney is small in the right with no radiopaque calculi seen. There is a hypodense cortical lesion lower pole right kidney measuring 1.2 x 1.5 cm. A smaller hypodense lesion is seen in the upper pole right kidney. There is scattered stool and gas seen throughout the colon without any distention. There is diffuse colonic diverticulosis with mild mural thickening. The small bowel loops are normal caliber. The appendix is likely normal caliber. The abdominal wall appears unremarkable. The uterus is retroverted and appears unremarkable. The urinary bladder is nondistended. Bone windows reveal spondylosis throughout dorsal and lumbar spine. No compression fracture. Endplate Schmorl's node with sclerosis of L5 vertebra is noted. CT/CT cervical spine wo con IMPRESSION: No acute intracranial process seen. There is old infarct left precentral frontal lobe and a lacunar infarction right posterior limb internal capsule unchanged since 04/21/2019. There is minimal mucoperiosteal thickening left maxillary sinus. There is no acute fracture, dislocation or subluxation of the cervical spine. There are degenerative disc changes. Hyperinflation with patchy opacities in left lower lobe, lingula and left upper lobe anterior segment. There is some air bronchogram in the left upper lobe question early infiltrate. Diffuse ascites. Suspect cirrhosis with splenomegaly. Cholelithiasis. Hypodense lesions in the upper and lower pole right kidney is likely a complex hemorrhagic or proteinaceous cyst.
--- NOTE | ~2021-10-05 | XR_ITS ---
EXAMINATION: XR KNEE, RIGHT CLINICAL INFORMATION: Fall with right knee pain COMPARISON: None TECHNIQUE: 5 views of the right knee. FINDINGS: Bones and soft tissues are unremarkable. No fracture or joint effusion. Alignment is anatomic. Joint spaces are well maintained. No abnormal soft tissue calcification. Marked vascular calcifications are seen. A single surgical clip is noted in the region of the great saphenous vein at the knee joint. XR/XR knee RT 4V IMPRESSION: No acute traumatic injury is seen.
--- NOTE | ~2021-10-05 | US_ITS ---
EXAMINATION: US ABDOMEN COMPLETE CLINICAL INFORMATION: Rule out portal vein thrombosis. COMPARISON: CT scan of the abdomen and pelvis dated 10/05/2021. TECHNIQUE: Real-time imaging of the abdominal viscera. FINDINGS: PANCREAS: Visualized portions unremarkable. ABDOMINAL AORTA: Unremarkable. INFERIOR VENA CAVA: Unremarkable. LIVER: Cirrhosis without focal abnormality. GALLBLADDER: Incompletely distended with moderate diffuse mural thickening. An echogenic focus near the neck measures 0.9 cm (image 52, series 1). COMMON BILE DUCT: Normal in caliber measuring 0.3 cm in diameter. RIGHT KIDNEY: 8.0 cm. Renal cortical thinning and increased echotexture. Anechoic cyst in the upper pole measuring 1.3 cm. Interpolar cyst measuring 2.2 cm. LEFT KIDNEY: 5.9 cm. Mild renal cortical thinning. Small anechoic cysts in the interpolar region measuring 0.9 cm. SPLEEN: 16.8 cm (image 97, series 1). Unremarkable. The splenic vein is patent. FREE FLUID: Mild peritoneal ascites. VASCULAR: The portal vein is patent demonstrating normal direction of flow. The hepatic arteries are patent. The hepatic veins are patent with normal direction of flow. US/US abdomen complete IMPRESSION: 1. No evidence for portal vein thrombosis. 2. Hepatic cirrhosis without focal abnormality. 3. Cholelithiasis. Mural thickening is likely secondary to distention/ascites. 4. Bilateral renal cortical atrophy with small cysts demonstrating benign features. 5. Splenomegaly.
--- NOTE | 2021-10-05 16:42 | ED_ITS ---
HPI - Fall General Chief Complaint: Fall Stated Complaint: FALL T-1,COMING FROM [facility](COMPLETED) PER EMS Time Seen by Provider: 10/05/21 16:37 Source: patient Mode of arrival: EMS Limitations: no limitations History of Present Illness HPI Narrative: This is a 71-year-old female past medical history significant for coronary artery disease, ductal carcinoma in situ, end-stage renal disease on dialysis Wednesdays, diabetes presenting to the emergency department with complaints of right-sided knee pain, right-sided anterior chest wall pain and right-sided abdominal pain status post fall X2 days. Patient tells me she fell yesterday down a few stairs approximately 4 stairs when she was leaving her doctor's appointment. She tells me when she fell she did not hit her head she does not think. She tells me that once she got home she fell again. She tells me both times she tripped and fell. No preceding symptoms. She is being brought in from dialysis where she was complaining of right-sided knee pain and right-sided anterior chest wall pain. Patient is not on blood thinners. She denies headache, dizziness, vision changes, neck pain, shortness of breath, chest pain, nausea, vomiting, abdominal pain. MD complaint: fall Onset (ago): day(s) (2) Fall from: standing Fall witnessed: no Place fall occurred: home and other ([facility] [address]) Loss of consciousness: none Prolonged down time: no Symptoms prior to fall: none Context: tripped/slipped Location of injury: chest, abdomen and other (Right knee) Severity: moderate Quality: sharp Associated symptoms (after fall): denies Related Data Home Medications Medication Instructions Recorded Confirmed miscellaneous medical supply #1 08/02/20 09/20/21 sevelamer carbonate 800 mg tablet 800 mg PO DAILY tab 08/02/20 09/20/21 (Renvela) insulin glargine 100 unit/mL 5 unit SUBCUT DAILY 11/16/20 09/20/21 subcutaneous cartridge fluoxetine 20 mg capsule 1 cap PO QAM 12/21/20 09/20/21 Previous Rx's Medication Instructions Recorded blood-glucose meter (FreeStyle #1 ea 08/02/20 Lite Meter) LIGHTWEIGHT MANUAL WHEELCHAIR #1 ea 11/05/20 ergocalciferol (vitamin D2) 1,250 1,250 mcg PO QWEEK #14 cap 11/17/20 mcg (50,000 unit) capsule insulin syringe-needle U-100 0.5 #100 ea 11/17/20 mL 31 gauge x 5/16 (BD Insulin Syringe Ultra-Fine) diaper,brief,adult,disposable #100 ea 11/19/20 incontinence pad, liner, disp #100 ea 11/19/20 pen needle, diabetic 32 gauge x #100 ea 11/24/20 5/32 (BD Anna 2nd Gen Pen Needle) oxycodone-acetaminophen 5 mg-325 1 - 2 tab PO Q4-6H PRN #30 tab 12/21/20 mg tablet (Percocet) omeprazole 20 mg capsule,delayed 20 mg PO DAILY 90 Days #90 cap 04/12/21 release blood sugar diagnostic (Accu-Chek 1 strip MISCELLANEOUS TID 90 Days 06/14/21 Salud Plus test strp) #300 strip atorvastatin 80 mg tablet 80 mg PO BEDTIME #90 tab 07/25/21 folic acid 1 mg tablet 1 mg PO DAILY #90 tab 08/19/21 gabapentin 300 mg capsule 300 mg PO TID #90 cap 08/19/21 tamoxifen 10 mg tablet 20 mg PO DAILY #30 tab 09/06/21 loperamide 2 mg capsule (Imodium 2 mg PO Q6H PRN #30 cap 09/20/21 A-D) peg 3350 240 gram-electrolytes 240 ml PO Q10M #4000 ml 09/26/21 22.72 gram-6.72 g-5.84 g powdr for soln insulin aspart U-100 100 unit/mL 2 - 12 unit (0.02 - 0.12 mL) 09/30/21 (3 mL) subcutaneous pen (Novolog SUBCUT TID #15 ml Flexpen U-100 Insulin aspart) loratadine 10 mg tablet 10 mg PO DAILY 90 Days #90 tab 09/30/21 Allergies Allergy/AdvReac Type Severity Reaction Status Date / Time No Known Allergies Allergy Verified 10/05/21 16:46 Review of Systems Review of Systems: Constitutional : No Weight loss, No Fever, No Chills, No Fatigue, No Malaise ENT/Mouth : No sore throat, No Rhinorrhea Eyes: No Eye Pain, No Swelling, No Redness Cardiovascular : No Chest Pain, No SOB, No Dyspnea on Exertion, No Orthopnea, No Edema, No Palpitations, + chest wall pain Respiratory : No Cough, No Sputum, No Wheezing Gastrointestinal : No Nausea, No Vomiting, No Diarrhea, No Constipation, No abdominal Pain, No Hematochezia, No Melena Genitourinary : No Dysuria, No Urinary Frequency, No Hematuria, Musculoskeletal : + joint pain, No Myalgias, No Joint Swelling Skin : No Skin Lesions, No rash Neuro : No Weakness, No Numbness, No Dizziness, No Headache Psych : No Anxiety/Panic, No Depression All other systems reviewed and are negative Yes all other systems are reviewed and are negative [facility] Past Medical History Attestation statement: The following information was validated with the patient. Source: old records reviewed and nursing notes reviewed Medical History (Updated 10/05/21 @ 19:31 by WES Prieto) Anxiety and depression Artery stenosis Arthritis Balance problem Breast calcification, left CAD (coronary artery disease) Cardiomyopathy CHF (congestive heart failure) COVID-19 vaccine series completed Diabetes mellitus Diabetic neuropathy Diverticulitis Ductal carcinoma in situ (DCIS) of left breast End stage renal disease Fistula Hemodialysis patient History of CVA (cerebrovascular accident) Hx of myocardial infarction Hypercholesteremia Hypertension Incontinence Melena Peripheral vascular disease Urinary and bowel incontinence Surgical History Hx of CABG Hx of colonoscopy Hx of lumpectomy Hx of tubal ligation Family History Family History Paternal Grandmother Breast cancer Social History Social History Are you a primary manager progressive care to a significant other at home: No Do you presently have visiting nurse or other home services: Yes ([facility]) Alcohol intake: former Patient Tobacco Use Status: Former Tobacco user Quit Date: years ago Tobacco use type: Cigarette Cigarette Packs Per Day: 1 Advance Directives: Yes Advance Directives on File: Yes Advance Directives Date on File: 10/06/20 Physical Exam Vital Signs: Vital Signs: Last Vital Signs Pulse 100 10/05/21 16:43 Resp 16 10/05/21 16:43 Pulse Ox 97 10/05/21 16:43 BMI result Body Mass Index 25.7 vss Appearance: Alert.? Oriented X3.? No acute distress.? Head: Normocephalic, atraumatic, no step-offs or deformities Eyes: Pupils equal, round and reactive to light.? ENT: Pharynx normal.? Neck: Normal inspection.? Neck supple.? CVS: Normal heart rate and rhythm.? Pulses normal.?+ pain with palpation to right anterior chest wall. No flail chest. Respiratory: No respiratory distress.? Breath sounds normal.? Abdomen: Soft and + tenderness to ruq & distended. Skin: Skin warm and dry.? Normal skin color.? Normal skin turgor.? Extremities: No lower extremity edema.? No calf ttp. Global/diffuse weakness. Back: No midline tenderness, no C-spine tenderness, full range of motion, no CVA tenderness bilaterally Neuro: Oriented X 3.? No motor deficit.? No sensory deficit. CN 2-12 intact Course Reevaluation(s) Reevaluation #1: Patient noted to have a chronic leukopenia, she is also noted to be anemic hemoglobin 6.7 hematocrit 21.9 she has been anemic in the past however this does not appear to be her baseline. She tells me she is not having any sort of re ctal bleeding that she knows of, she has had a colonoscopy which has been nondiagnostic per patient. At this time in OBS has been done and pending. Platelets are also noted to be chronically low. X-ray of right knee with no acute traumatic injury. Chemistry pending. CT of head, chest, abdomen and cervical spine pending. Time: 18:26 Reevaluation #2: OBS +, type and screen pending. Trop pending likely secondary to renal failure, repeat trop pending EKG non ischemic. I do not suspect ACS. Time: 19:06 Reevaluation #3: Repeat troponin pending. UA clean. Patient will be transfused with 1 unit packed red blood cells. CT shows no acute intracranial process. No acute fractures in the cervical spine or subluxations. Hyperinflation with patchy opacities in the left lower lobe. Patient tells me she always has shortness of breath, but she is not having any new symptoms, no upper respiratory symptoms at this time. Patient noted to have diffuse ascites with suspected cirrhosis and splenomegaly. Cholelithiasis noted. There is a hypodense lesion in upper and lower pole of the right kidney which is likely a complex hemorrhagic or protein aceous cyst. Patient will be admitted to the hospitalist team. Time: 19:29 MDM - Fall MDM Narrative Medical decision making narrative: 1645 71 yo f presents status post 2 falls over the past 2 days. Reporting right anterior chest wall pain, abdominal pain and right knee pain. Not on blood thinners. Physical exam significant for diffuse/global weakness, patient alert and oriented x4. Lungs clear. Regular rate and rhythm. Abdomen soft and tender to the right upper quadrant, distended. Reports pain to palpation of right anterior chest wall. No signs of flail chest. Unlikely that this is a pneumothorax. No neck pain. Unlikely cervical fracture. Plan at this time is to rule out ICH, fractures, rib fractures. Plan imaging, lab work, will rule out UTI and infection as well. Will rule out ACS. Medical Records Attestation: I reviewed the patient's medical records. Lab Data Attestation: I reviewed the patient's lab results. Result diagrams: 10/05/21 18:02 10/05/21 18:02 Labs: Lab Results 10/05/21 10/05/21 10/05/21 Range/Units 18:02 18:02 18:02 WBC 2.6 L (4.8-10.8) X10*3/uL RBC 2.15 L D (4.20-5.50) X10*6/uL Hgb 6.7 L* D (12.0-16.0) g/dl Hct 21.9 L D (37.0-47.0) % MCV 101.9 H (80.0-98.0) fL MCH 31.6 (27.0-33.0) pg MCHC 31.1 (31.0-35.0) g/dl RDW 15.5 (11.0-16.0) % Plt Count 72 L (160-400) X10*3/uL MPV 11.9 (9.4-12.3) fL Immature Gran % (Auto) 0.0 (0.0-0.4) % Neut % (Auto) 70.3 (45-73) % Lymph % (Auto) 18.7 L (20-40) % [place] % (Auto) 9.5 (2-11) % Eos % (Auto) 1.1 (0-4) % Baso % (Auto) 0.4 (0-2) % Lymph # (Auto) 0.5 L (1.2-4.9) X10*3/uL [place] # (Auto) 0.3 (0.1-1.2) X10*3/uL Eos # (Auto) 0.0 (0.0-0.4) X10*3/uL Baso # (Auto) 0.0 (0.0-0.2) X10*3/uL Abs Immat Gran (auto) 0.00 (0.00-0.03) X10*3/uL Absolute Neuts (auto) 1.8 L (2.0-8.3) x10*3/uL Absolute Nucleated RBC 0.000 (0.0-0.012) X10*3/uL Nucleated RBC % (auto) 0.0 (0.0-0.2) /100WBC Sodium 136 (135-145) mmol/L Potassium 3.3 (3.3-5.1) mmol/L Chloride 95 L (96-108) mmol/L Carbon Dioxide 33 H (22-29) mmol/L Anion Gap 11 L (12-20) BUN 29 H (9-16) mg/dL Creatinine 3.41 H (0.5-1.4) mg/dL Estim Creat Clear Calc 12.9 Estimated GFR 13 POC Glucose (60-115) mg/dL Random Glucose 366 H* (60-115) mg/dL Calcium 7.8 L D (8.4-10.2) mg/dL Magnesium 2.0 (1.6-2.6) mg/dL Total Bilirubin 0.5 (0.0-1.0) mg/dL AST 25 (5-31) U/L ALT 22 (0-31) U/L Alkaline Phosphatase 286 H (39-117) U/L Troponin I High Sens 64.7 H* (<3.5-17.0) ng/L Total Protein 5.6 L (6.5-8.0) g/dL Albumin 2.7 L (3.5-5.0) g/dL Stool Occult Blood (NEGATIVE) 10/05/21 10/05/21 Range/Units 18:38 18:41 WBC (4.8-10.8) X10*3/uL RBC (4.20-5.50) X10*6/uL Hgb (12.0-16.0) g/dl Hct (37.0-47.0) % MCV (80.0-98.0) fL MCH (27.0-33.0) pg MCHC (31.0-35.0) g/dl RDW (11.0-16.0) % Plt Count (160-400) X10*3/uL MPV (9.4-12.3) fL Immature Gran % (Auto) (0.0-0.4) % Neut % (Auto) (45-73) % Lymph % (Auto) (20-40) % [place] % (Auto) (2-11) % Eos % (Auto) (0-4) % Baso % (Auto) (0-2) % Lymph # (Auto) (1.2-4.9) X10*3/uL [place] # (Auto) (0.1-1.2) X10*3/uL Eos # (Auto) (0.0-0.4) X10*3/uL Baso # (Auto) (0.0-0.2) X10*3/uL Abs Immat Gran (auto) (0.00-0.03) X10*3/uL Absolute Neuts (auto) (2.0-8.3) x10*3/uL Absolute Nucleated RBC (0.0-0.012) X10*3/uL Nucleated RBC % (auto) (0.0-0.2) /100WBC Sodium (135-145) mmol/L Potassium (3.3-5.1) mmol/L Chloride (96-108) mmol/L Carbon Dioxide (22-29) mmol/L Anion Gap (12-20) BUN (9-16) mg/dL Creatinine (0.5-1.4) mg/dL Estim Creat Clear Calc Estimated GFR POC Glucose 312 H (60-115) mg/dL Random Glucose (60-115) mg/dL Calcium (8.4-10.2) mg/dL Magnesium (1.6-2.6) mg/dL Total Bilirubin (0.0-1.0) mg/dL AST (5-31) U/L ALT (0-31) U/L Alkaline Phosphatase (39-117) U/L Troponin I High Sens (<3.5-17.0) ng/L Total Protein (6.5-8.0) g/dL Albumin (3.5-5.0) g/dL Stool Occult Blood POSITIVE (NEGATIVE) ECG Data Attestation: I personally reviewed and interpreted this ECG as follows: ECG interpretation date: 10/05/21 ECG interpretation time: 17:10 Prior ECG tracings: available for review Interpretation: Ventricular rate of 95, NC normal, QRS normal, QT/QTC prolonged, EKG shows normal sinus rhythm with possible left atrial enlargement and left ventricular hypertrophy. QT is noted to be prolonged, no significant changes when compared to EKG from June 07 2020 Critical Care Time Critical Care Time Critical Care Time: Yes Total Critical Care Time: 35 Attestation: I attest to this time spent taking care of the patient, obtaining history, physical, reviewing labs, imaging, obtaining type and screen, giving blood products. Discharge Plan Discharge Clinical Impression: Fall, Knee pain, right, Prolonged QT interval, GI bleed, Chest wall pain, Anemia, Kidney lesion, Cholelithiasis, Ascites Patient Disposition: Admitted As Inpatient
[2021-10-05 16:43] VITALS: BP 120/69; BP 93/56; PULSE 100; PULSE 84; PULSE 98; RESP 14; RESP 16; TEMP 37.1; O2SAT 100; O2SAT 97; BMI 25.7
--- NOTE | 2021-10-05 16:44 | ECG_ITS ---
Test Reason : FALL Blood Pressure : / mmHG Vent. Rate : 095 BPM Atrial Rate : 095 BPM P-R Int : 138 ms QRS Dur : 096 ms QT Int : 400 ms P-R-T Axes : 055 -14 118 degrees QTc Int : 502 ms Normal sinus rhythm Possible Left atrial enlargement Left ventricular hypertrophy with repolarization abnormality ( R in aVL , Sokolow-Cavanaugh , Kyree product ) Prolonged QT Abnormal ECG When compared with ECG of 07-JUN-2019 03:13, ST more depressed Lateral leads T wave inversion more evident in Lateral leads Referred By: Baron Abreu Electronically Signed By:JANA RECINOS
[2021-10-05 18:18] LABS: Basophils Percent Auto 0.4 % (0-2); Lymphocytes Absolute Auto 0.5 X10*3/uL (1.2-4.9); Monocytes Absolute Auto 0.3 X10*3/uL (0.1-1.2); Neutrophils Absolute Auto 1.8 x10*3/uL (2.0-8.3); PLT CLUMP 1; SCAN SMEAR FLAG 1
[2021-10-05 18:19] LABS: Eosinophils Percent Auto 1.1 % (0-4); Hematocrit 21.9 % (37.0-47.0); Lymphocytes Percent Auto 18.7 % (20-40); Mean Corpuscular HGB Conc 31.1 g/dl (31.0-35.0); Mean Corpuscular Hemoglobin 31.6 pg (27.0-33.0); Mean Corpuscular Volume 101.9 fL (80.0-98.0); Mean Platelet Volume 11.9 fL (9.4-12.3); Monocytes Percent Auto 9.5 % (2-11); Neutrophils Percent Auto 70.3 % (45-73); Red Blood Count 2.15 X10*6/uL (4.20-5.50); Red Cell Distribution Width 15.5 % (11.0-16.0); White Blood Count 2.6 X10*3/uL (4.8-10.8)
[2021-10-05 18:22] LABS: Platelet Count 72 X10*3/uL (160-400)
[2021-10-05 18:23] LABS: Hemoglobin 6.7 g/dl (12.0-16.0); MANUAL DIFF FLAG NO
[2021-10-05 18:41] LABS: Alanine Aminotransferase 22 U/L (0-31); Albumin Level 2.7 g/dL (3.5-5.0); Alkaline Phosphatase 286 U/L (39-117); Anion Gap 11 (12-20); Aspartate Amino Transferase 25 U/L (5-31); Bilirubin Total 0.5 mg/dL (0.0-1.0); Blood Urea Nitrogen 29 mg/dL (9-16); Calcium 7.8 mg/dL (8.4-10.2); Carbon Dioxide 33 mmol/L (22-29); Chloride 95 mmol/L (96-108); Creatinine Clr Calc Pharmacy 12.9; Estimated Glomerular Filt Rate 13; Glucose Random 366 mg/dL (60-115); Potassium 3.3 mmol/L (3.3-5.1); Sodium 136 mmol/L (135-145); Total Protein 5.6 g/dL (6.5-8.0); Troponin-I High Sensitivity 64.7 ng/L (<3.5-17.0)
[2021-10-05 18:41] LABS: Glucose, Whole Blood 312 mg/dL (60-115)
[2021-10-05 18:49] LABS: OBS Int Ctl Valid YES; OBS1 POSITIVE (NEGATIVE)
--- NOTE | 2021-10-05 19:48 | PM.IMHP ---
History of Present Illness Date of Service: 10/05/21 Chief Complaint: Chest wall pain 71-year-old female with a past medical history of hyperlipidemia, diabetes, CAD, CHF, ESRD on hemodialysis, history of CVA, peripheral vascular disease, anxiety, depression, arthritis, history of GI bleed, anemia presented to the hospital today with a chief complaint of Right lateral chest wall pain. Patient reported that she fell of the states couple days ago; since that she has been having right lateral chest wall pain, worsens with deep inspiration. Denies any fever chills cough or sputum production. Today she went to have her routine hemodialysis session and post dialysis she was told to go to the ER for further evaluation. Patient denies any head strike or loss of consciousness when she had the fall. Denies any numbness tingling or focal weakness. Denies any GI symptoms. Review of all other systems is negative except mentioned above ER course: Per ER team patient exam was benign; noted to have reproducible chest pain on the right lateral chest wall; EKG was nonischemic; troponins are indeterminate-admitted to the reduced clearance from renal insufficiency. Imaging showed no acute fracture. On labs noted to have hemoglobin of 6.7. Stool guaiac was positive. Being transfused 1 unit of blood. Admitted for further management. [facility] Medical History (Updated 10/05/21 @ 19:49 by Lei Sneed MD) Anxiety and depression Artery stenosis Arthritis Balance problem Breast calcification, left CAD (coronary artery disease) Cardiomyopathy CHF (congestive heart failure) COVID-19 vaccine series completed Diabetes mellitus Diabetic neuropathy Diverticulitis Ductal carcinoma in situ (DCIS) of left breast End stage renal disease Fistula Hemodialysis patient History of CVA (cerebrovascular accident) Hx of myocardial infarction Hypercholesteremia Hypertension Incontinence Melena Peripheral vascular disease Urinary and bowel incontinence Family History Paternal Grandmother Breast cancer Surgical History Hx of CABG Hx of colonoscopy Hx of lumpectomy Hx of tubal ligation Social History Are you a primary manager progressive care to a significant other at home: No Do you presently have visiting nurse or other home services: Yes ([facility] care) Alcohol intake: former Patient Tobacco Use Status: Former Tobacco user Quit Date: years ago Tobacco use type: Cigarette Cigarette Packs Per Day: 1 Advance Directives: Yes Advance Directives on File: Yes Advance Directives Date on File: 10/06/20 Meds Allergies Allergy/AdvReac Type Severity Reaction Status Date / Time No Known Allergies Allergy Verified 10/05/21 16:46 Active Medications: Current Medications Acetaminophen (Acetaminophen 325 Mg Tablet) 650 mg PO Q6H PRN PRN Reason: Pain, Mild (Pain Scale 1-3) Dextrose (Dextrose 50 % 25 Gm/50 Ml Vial) 25 gm IVPUSH Q15M PRN; Protocol PRN Reason: per Hypoglycemia Standing Ord. Glucose (Glucose Gel 15 Gm Gel..Gram.) 15 gm PO Q15M PRN; Protocol PRN Reason: per Hypoglycemia Standing Ord. Hydromorphone HCl (Hydromorphone Hcl 1 Mg/Ml Syringe) 0.5 mg IVPUSH Q4H PRN; Protocol PRN Reason: Pain, Severe (Pain Scale 7-10) Insulin Human Lispro (Insulin Lispro 100 Unit/Ml 3 Ml Vial) 0 [facility]; Protocol Melatonin (Melatonin 3 Mg Tablet) 6 mg PO BEDTIME PRN PRN Reason: Insomnia Pantoprazole Sodium (Pantoprazole Sodium 40 Mg/10 Ml Vial) 40 mg IVPUSH DAILY@0630 [facility] Pharmacy Consult (Consult Rx Perform Med Rec) 1 each MISCELLANE ONCE STA Stop: 10/05/21 19:29 Senna (Sennosides 8.6 Mg Tablet) 17.2 mg PO BEDTIME PRN PRN Reason: Constipation Sodium Chloride (0.9 % Sodium Chloride Flush 3 Ml Syringe) 3 [facility] Home Medications Medication Instructions Recorded Confirmed Last Taken Type miscellaneous medical supply #1 08/02/20 09/20/21 Unknown History sevelamer carbonate 800 mg tablet 800 mg PO BID@0800,1200 tab 08/02/20 10/05/21 Unknown History (Renvela) insulin glargine 100 unit/mL 5 unit SUBCUT DAILY 11/16/20 09/20/21 Unknown History subcutaneous cartridge fluoxetine 20 mg capsule 1 cap PO QAM 12/21/20 09/20/21 12/21/20 History sevelamer carbonate 800 mg tablet 1,600 mg PO DAILY@1700 10/05/21 10/05/21 Unknown History Physical Exam Vital Signs and Narrative: Vital Signs: Last Vital Signs Pulse 100 10/05/21 16:43 Resp 16 10/05/21 16:43 Pulse Ox 97 10/05/21 16:43 BMI result Body Mass Index 25.7 Gen: Appears be in no acute distress HEENT: NCAT, Moist mucosa. Pulmonary: Vesicular breath sounds, fair air entry CVS: Normal S1-S2 Abdomen: BS+, Soft, Nontender Extremities: Warm well perfused Neuro: Alert and awake. Results Labs CBC and Chem 7: 10/05/21 18:02 10/05/21 18:02 Labs: Laboratory Results - last 24 hr 10/05/21 10/05/21 10/05/21 18:02 18:02 18:02 MCV 101.9 H MCH 31.6 MCHC 31.1 RDW 15.5 Plt Count 72 L MPV 11.9 Immature Gran % (Auto) 0.0 Neut % (Auto) 70.3 Lymph % (Auto) 18.7 L [place] % (Auto) 9.5 Eos % (Auto) 1.1 Baso % (Auto) 0.4 Lymph # (Auto) 0.5 L [place] # (Auto) 0.3 Eos # (Auto) 0.0 Baso # (Auto) 0.0 Abs Immat Gran (auto) 0.00 Absolute Neuts (auto) 1.8 L Absolute Nucleated RBC 0.000 Nucleated RBC % (auto) 0.0 Anion Gap 11 L Estim Creat Clear Calc 12.9 Estimated GFR 13 POC Glucose Random Glucose 366 H* Calcium 7.8 L D Magnesium 2.0 Total Bilirubin 0.5 AST 25 ALT 22 Alkaline Phosphatase 286 H Troponin I High Sens 64.7 H* Total Protein 5.6 L Albumin 2.7 L Stool Occult Blood 10/05/21 10/05/21 18:38 18:41 MCV MCH MCHC RDW Plt Count MPV Immature Gran % (Auto) Neut % (Auto) Lymph % (Auto) [place] % (Auto) Eos % (Auto) Baso % (Auto) Lymph # (Auto) [place] # (Auto) Eos # (Auto) Baso # (Auto) Abs Immat Gran (auto) Absolute Neuts (auto) Absolute Nucleated RBC Nucleated RBC % (auto) Anion Gap Estim Creat Clear Calc Estimated GFR POC Glucose 312 H Random Glucose Calcium Magnesium Total Bilirubin AST ALT Alkaline Phosphatase Troponin I High Sens Total Protein Albumin Stool Occult Blood POSITIVE Imaging Radiologist's Impressions: Impressions Abdomen/Pelvis CT 10/05/21 17:46 IMPRESSION: No acute intracranial process seen. There is old infarct left precentral frontal lobe and a lacunar infarction right posterior limb internal capsule unchanged since 04/21/2019. There is minimal mucoperiosteal thickening left maxillary sinus. There is no acute fracture, dislocation or subluxation of the cervical spine. There are degenerative disc changes. Hyperinflation with patchy opacities in left lower lobe, lingula and left upper lobe anterior segment. There is some air bronchogram in the left upper lobe question early infiltrate. Diffuse ascites. Suspect cirrhosis with splenomegaly. Cholelithiasis. Hypodense lesions in the upper and lower pole right kidney is likely a complex hemorrhagic or proteinaceous cyst. Cervical Spine CT 10/05/21 17:46 IMPRESSION: No acute intracranial process seen. There is old infarct left precentral frontal lobe and a lacunar infarction right posterior limb internal capsule unchanged since 04/21/2019. There is minimal mucoperiosteal thickening left maxillary sinus. There is no acute fracture, dislocation or subluxation of the cervical spine. There are degenerative disc changes. Hyperinflation with patchy opacities in left lower lobe, lingula and left upper lobe anterior segment. There is some air bronchogram in the left upper lobe question early infiltrate. Diffuse ascites. Suspect cirrhosis with splenomegaly. Cholelithiasis. Hypodense lesions in the upper and lower pole right kidney is likely a complex hemorrhagic or proteinaceous cyst. Chest CT 10/05/21 17:46 IMPRESSION: No acute intracranial process seen. There is old infarct left precentral frontal lobe and a lacunar infarction right posterior limb internal capsule unchanged since 04/21/2019. There is minimal mucoperiosteal thickening left maxillary sinus. There is no acute fracture, dislocation or subluxation of the cervical spine. There are degenerative disc changes. Hyperinflation with patchy opacities in left lower lobe, lingula and left upper lobe anterior segment. There is some air bronchogram in the left upper lobe question early infiltrate. Diffuse ascites. Suspect cirrhosis with splenomegaly. Cholelithiasis. Hypodense lesions in the upper and lower pole right kidney is likely a complex hemorrhagic or proteinaceous cyst. Head CT 10/05/21 17:46 IMPRESSION: No acute intracranial process seen. There is old infarct left precentral frontal lobe and a lacunar infarction right posterior limb internal capsule unchanged since 04/21/2019. There is minimal mucoperiosteal thickening left maxillary sinus. There is no acute fracture, dislocation or subluxation of the cervical spine. There are degenerative disc changes. Hyperinflation with patchy opacities in left lower lobe, lingula and left upper lobe anterior segment. There is some air bronchogram in the left upper lobe question early infiltrate. Diffuse ascites. Suspect cirrhosis with splenomegaly. Cholelithiasis. Hypodense lesions in the upper and lower pole right kidney is likely a complex hemorrhagic or proteinaceous cyst. Knee X-Ray 10/05/21 17:55 IMPRESSION: No acute traumatic injury is seen. Assessment and Plan (1) GI bleed: Status: Acute (2) Kidney lesion: Status: Acute (3) Anemia: Status: Acute (4) Chest wall pain: Status: Acute (5) Hemodialysis patient: Status: Acute (6) Diabetes mellitus: Qualifiers: Chronic kidney disease stage: unspecified stage Diabetes mellitus complication detail: with chronic kidney disease Diabetes mellitus complication status: with kidney complications Diabetes mellitus termite renewal inspector insulin use: with termite renewal inspector use Diabetes mellitus type: type 2 Qualified Code(s): E11.22 - Type 2 diabetes mellitus with diabetic chronic kidney disease; Z79.4 - intermediate (current) use of insulin Status: Acute Plan 71-year-old female with a past medical history of hyperlipidemia, diabetes, CAD, CHF, ESRD on hemodialysis, history of CVA, peripheral vascular disease, anxiety, depression, arthritis, history of GI bleed, anemia presented to the hospital today with a chief complaint of chest pain. Noted to have following Right lateral Chest pain: reproducible Atypical in nature. Initial troponin elevated to 64. Repeat troponin pending. EKG unchanged from prior. Troponin elevation likely reduced clearance from renal insufficiency. Pain control. Anemia: Baseline hemoglobin around 8.5. On presentation hemoglobin noted to be 6.7. Vitals stable. Likely secondary to occult GI bleed. Stool guaiac positive. IV ppi. GI consult. Patient being transfused 1 unit of blood. Will monitor for signs of fluid overload. Will also obtain iron studies, folate, B12. Diffuse ascites/cirrhosis as noted on the CT scan. GI follow-up. Right kidney cyst: Appears complex with hemorrhagic versus proteinaceous cyst. Nephrology follow-up. ESRD: Patient on hemodialysis. Sunday. Nephrology consult. Continue home sevelamer ?PNA: Patient denies any cough or sputum production. Will follow the fever curve. Will hold of antibiotics for now. Fall: Mechanical in nature. CT head and CT cervical spine showed no acute findings. Knee x-ray showed no acute findings. Exam grossly nonfocal History of diabetes: Insulin sliding scale. DVT prophylaxis: SCD boots. Code status: Full code Quality Stroke Does the patient have a stroke diagnosis?: No VTE Prior VTE?: No VTE Risk Level:: Medical - moderate - high VTE Device Contraindication: N/A - Device Ordered VTE Drug Contraindication: Treatment Not Indicated
[2021-10-05 20:26] VITALS: BP 106/71; PULSE 92; RESP 13; TEMP 36.9; O2SAT 96
[2021-10-05 20:56] LABS: Glucose, Whole Blood 292 mg/dL (60-115)
[2021-10-05 21:00] VITALS: BP 108/61; PULSE 88; RESP 15; TEMP 37.1
--- NOTE | 2021-10-05 21:02 | PHA.MEDREC ---
Patient does not know her medications, uses [facility], will try to contact in am, put in some meds based on pharmacy fill history Pharmacy Consult ? Medication Reconciliation Pharmacy has completed the medication reconciliation.
[2021-10-05 21:18] VITALS: BP 116/54; PULSE 88; RESP 15; TEMP 37.1
[2021-10-05 22:29] VITALS: BP 126/60; PULSE 87; RESP 14; TEMP 37.1
[2021-10-06] VITALS (8 sets, daily range): BP systolic 96–119; BP diastolic 49–71; PULSE 81–94; RESP 14–18; TEMP 36.6–37.6; O2SAT 90–99
[2021-10-06 00:15] LABS: Troponin-I High Sensitivity 84.2 ng/L (<3.5-17.0)
[2021-10-06] MEDS: 0.9 % Sodium Chloride Flush 3 ML SYRINGE IVFLUSH ×3 (00:32→21:35)
[2021-10-06 03:26] LABS: Iron 279 mcg/dL (30-160); Percent Iron Saturation 91 % (15-50); Total Iron Binding Capacity 305 mcg/dL (228-428); Unsaturated Iron Binding 26 ug/dL
[2021-10-06 03:35] LABS: COVID-19 Test Negative (Negative)
[2021-10-06 03:46] LABS: MANUAL DIFF FLAG NO
[2021-10-06 03:47] LABS: Basophils Percent Auto 0.7 % (0-2); Eosinophils Percent Auto 1.4 % (0-4); Hematocrit 26.7 % (37.0-47.0); Hemoglobin 8.4 g/dl (12.0-16.0); Imm Gran Abs Auto 0.01 X10*3/uL (0.00-0.03); Imm Gran Pct Auto 0.3 % (0.0-0.4); Lymphocytes Absolute Auto 0.5 X10*3/uL (1.2-4.9); Lymphocytes Percent Auto 15.4 % (20-40); Mean Corpuscular HGB Conc 31.5 g/dl (31.0-35.0); Mean Corpuscular Volume 98.5 fL (80.0-98.0); Mean Platelet Volume 11.7 fL (9.4-12.3); Monocytes Absolute Auto 0.3 X10*3/uL (0.1-1.2); Monocytes Percent Auto 8.6 % (2-11); Neutrophils Absolute Auto 2.2 x10*3/uL (2.0-8.3); Neutrophils Percent Auto 73.6 % (45-73); Red Blood Count 2.71 X10*6/uL (4.20-5.50); Red Cell Distribution Width 16.4 % (11.0-16.0); White Blood Count 2.9 X10*3/uL (4.8-10.8)
[2021-10-06 03:52] LABS: Platelet Count 69 X10*3/uL (160-400)
[2021-10-06 04:18] LABS: Anion Gap 16 (12-20); Blood Urea Nitrogen 36 mg/dL (9-16); Calcium 7.9 mg/dL (8.4-10.2); Carbon Dioxide 31 mmol/L (22-29); Chloride 96 mmol/L (96-108); Glucose Random 275 mg/dL (60-115); Potassium 3.6 mmol/L (3.3-5.1); Sodium 139 mmol/L (135-145)
[2021-10-06 04:19] LABS: Creatinine Clr Calc Pharmacy 10.5; Estimated Glomerular Filt Rate 11
[2021-10-06 04:29] LABS: Ferritin 1715 ng/mL (10-250)
[2021-10-06 05:20] LABS: Folate 9.7 ng/mL (> or = 4.0); Vitamin B12 652 pg/mL (200-900)
[2021-10-06] MEDS: Pantoprazole Sodium 40 MG/10 ML VIAL IVPUSH (06:59)
--- NOTE | 2021-10-06 08:28 | PC.NURSE ---
pt in bed in no outward distress. she remains NPO. spoke with pts daughter/HCP and provided an update.
[2021-10-06 08:42] LABS: Glucose, Whole Blood 233 mg/dL (60-115)
[2021-10-06] MEDS: Insulin Lispro 100 UNIT/ML 3 ML VIAL SUBCUT ×2 (09:36→20:52)
--- NOTE | 2021-10-06 10:45 | MHC.CM.PN ---
Met with patient and molder trimmer in regards to discharge planning. Patient lives with her son and [id number], ambulates with a walker, has a BELT MEASURER and goes to dialysis at [facility] on Sunday, and Sun. PCP verified. Patient received 3 Covid vaccines. Patient has a HCP at home and will attempt to obtain a copy. IMM explained and signed. Patient will need BLS transport when medically stable. Continue to monitor for d/c needs.
[2021-10-06 11:27] LABS: Glucose, Whole Blood 153 mg/dL (60-115)
--- NOTE | 2021-10-06 12:16 | PC.NURSE ---
TO [facility] FOR PENDING [facility] ADMISSION
[2021-10-06 13:42] LABS: Glucose, Whole Blood 120 mg/dL (60-115)
--- NOTE | 2021-10-06 15:58 | HO.PM.IMPN ---
Subjective Subjective Date of Service: 10/06/21 Interval History: being followed for right-sided chest pain after fall and anemia, patient awake alert complaining of right-sided chest discomfort with deep breathing and with palpation, provide history of on and off the dark-colored stools, denies hematemesis, no melena, denies fever chills. Review of Systems Review of Systems: Yes all other systems are reviewed and are negative Physical Exam Vital Signs: Vital Signs: Last Vital Signs Temp 98.7 F 10/06/21 11:38 Pulse 82 10/06/21 11:38 Resp 15 10/06/21 11:38 BP 109/49 L 10/06/21 11:38 Pulse Ox 99 10/06/21 11:38 BMI result Body Mass Index 25.7 Const: Other: General awake alert, in no acute distress. Neck supple no JVD. CVS regular rate rhythm, Respiratory lungs clear to auscultation, no respiratory distress, no wheeze, no rhonchi. Gastrointestinal abdomen soft, nontender, bowel sounds audible, no guarding , no rigidity. Extremities no edema. Neuro nonfocal , speech clear. Skin no rash psych appropriate affect musculoskeletal no deformity Objective Data Active Medications Acetaminophen (Acetaminophen 325 Mg Tablet) 650 mg PO Q6H PRN PRN Reason: Pain, Mild (Pain Scale 1-3) Dextrose (Dextrose 50 % 25 Gm/50 Ml Vial) 25 gm IVPUSH Q15M PRN; Protocol PRN Reason: per Hypoglycemia Standing Ord. Glucose (Glucose Gel 15 Gm Gel..Gram.) 15 gm PO Q15M PRN; Protocol PRN Reason: per Hypoglycemia Standing Ord. Hydromorphone HCl (Hydromorphone Hcl 1 Mg/Ml Syringe) 0.5 mg IVPUSH Q4H PRN; Protocol PRN Reason: Pain, Severe (Pain Scale 7-10) Insulin Human Lispro (Insulin Lispro 100 Unit/Ml 3 Ml Vial) 0 unit SUBCUT QIDACHS [facility]; Protocol Last Admin: 10/06/21 11:33 Dose: Not Given Documented by: SHANNON Non-Admin Reason: NPO Melatonin (Melatonin 3 Mg Tablet) 6 mg PO BEDTIME PRN PRN Reason: Insomnia Pantoprazole Sodium (Pantoprazole Sodium 40 Mg/10 Ml Vial) 40 mg IVPUSH DAILY@0630 [facility] Last Admin: 10/06/21 06:59 Dose: 40 mg Documented by: ARUN Senna (Sennosides 8.6 Mg Tablet) 17.2 mg PO BEDTIME PRN PRN Reason: Constipation Sodium Chloride (0.9 % Sodium Chloride Flush 3 Ml Syringe) 3 ml IVFLUSH QSHIFT [facility] Last Admin: 10/06/21 09:40 Dose: 3 ml Documented by: SHANNON Labs CBC & Chem 7: 10/06/21 03:41 10/06/21 03:41 Labs: Laboratory Results - last 24 hr 10/05/21 10/05/21 10/05/21 18:02 18:02 18:02 MCV 101.9 H MCH 31.6 MCHC 31.1 RDW 15.5 Plt Count 72 L MPV 11.9 Immature Gran % (Auto) 0.0 Neut % (Auto) 70.3 Lymph % (Auto) 18.7 L [place] % (Auto) 9.5 Eos % (Auto) 1.1 Baso % (Auto) 0.4 Lymph # (Auto) 0.5 L [place] # (Auto) 0.3 Eos # (Auto) 0.0 Baso # (Auto) 0.0 Abs Immat Gran (auto) 0.00 Absolute Neuts (auto) 1.8 L Absolute Nucleated RBC 0.000 Nucleated RBC % (auto) 0.0 Anion Gap 11 L Estim Creat Clear Calc 12.9 Estimated GFR 13 POC Glucose Random Glucose 366 H* Calcium 7.8 L D Magnesium 2.0 Iron 279 H TIBC 305 % Saturation 91 H Unsat Iron Binding 26 Ferritin 1715 H Total Bilirubin 0.5 AST 25 ALT 22 Alkaline Phosphatase 286 H Troponin I High Sens 64.7 H* Total Protein 5.6 L Albumin 2.7 L Vitamin B12 Folate Stool Occult Blood COVID-19 ([facility]) COVID-19 Clin Com Blood Type Antibody Screen Crossmatch 10/05/21 10/05/21 10/05/21 18:02 18:38 18:41 MCV MCH MCHC RDW Plt Count MPV Immature Gran % (Auto) Neut % (Auto) Lymph % (Auto) [place] % (Auto) Eos % (Auto) Baso % (Auto) Lymph # (Auto) [place] # (Auto) Eos # (Auto) Baso # (Auto) Abs Immat Gran (auto) Absolute Neuts (auto) Absolute Nucleated RBC Nucleated RBC % (auto) Anion Gap Estim Creat Clear Calc Estimated GFR POC Glucose 312 H Random Glucose Calcium Magnesium Iron TIBC % Saturation Unsat Iron Binding Ferritin Total Bilirubin AST ALT Alkaline Phosphatase Troponin I High Sens Total Protein Albumin Vitamin B12 652 Folate 9.7 Stool Occult Blood POSITIVE COVID-19 ([facility]) COVID-19 [facility] Com Blood Type Antibody Screen Crossmatch 10/05/21 10/05/21 10/05/21 19:36 20:51 23:48 MCV MCH MCHC RDW Plt Count MPV Immature Gran % (Auto) Neut % (Auto) Lymph % (Auto) [place] % (Auto) Eos % (Auto) Baso % (Auto) Lymph # (Auto) [place] # (Auto) Eos # (Auto) Baso # (Auto) Abs Immat Gran (auto) Absolute Neuts (auto) Absolute Nucleated RBC Nucleated RBC % (auto) Anion Gap Estim Creat Clear Calc Estimated GFR POC Glucose 292 H Random Glucose Calcium Magnesium Iron TIBC % Saturation Unsat Iron Binding Ferritin Total Bilirubin AST ALT Alkaline Phosphatase Troponin I High Sens 84.2 H* Total Protein Albumin Vitamin B12 Folate Stool Occult Blood COVID-19 ([facility]) COVID-19 [facility] Com Blood Type A Positive Antibody Screen NEGATIVE Crossmatch See Detail 10/06/21 10/06/21 10/06/21 03:17 03:41 03:41 MCV 98.5 H MCH 31.0 MCHC 31.5 RDW 16.4 H Plt Count 69 L MPV 11.7 Immature Gran % (Auto) 0.3 Neut % (Auto) 73.6 H Lymph % (Auto) 15.4 L [place] % (Auto) 8.6 Eos % (Auto) 1.4 Baso % (Auto) 0.7 Lymph # (Auto) 0.5 L [place] # (Auto) 0.3 Eos # (Auto) 0.0 Baso # (Auto) 0.0 Abs Immat Gran (auto) 0.01 Absolute Neuts (auto) 2.2 Absolute Nucleated RBC 0.000 Nucleated RBC % (auto) 0.0 Anion Gap 16 Estim Creat Clear Calc 10.5 Estimated GFR 11 POC Glucose Random Glucose 275 H Calcium 7.9 L Magnesium Iron TIBC % Saturation Unsat Iron Binding Ferritin Total Bilirubin AST ALT Alkaline Phosphatase Troponin I High Sens Total Protein Albumin Vitamin B12 Folate Stool Occult Blood COVID-19 ([facility]) Negative COVID-19 Clin Com See Note Blood Type Antibody Screen Crossmatch 10/06/21 10/06/21 10/06/21 08:35 11:23 13:38 MCV MCH MCHC RDW Plt Count MPV Immature Gran % (Auto) Neut % (Auto) Lymph % (Auto) [place] % (Auto) Eos % (Auto) Baso % (Auto) Lymph # (Auto) [place] # (Auto) Eos # (Auto) Baso # (Auto) Abs Immat Gran (auto) Absolute Neuts (auto) Absolute Nucleated RBC Nucleated RBC % (auto) Anion Gap Estim Creat Clear Calc Estimated GFR POC Glucose 233 H 153 H 120 H Random Glucose Calcium Magnesium Iron TIBC % Saturation Unsat Iron Binding Ferritin Total Bilirubin AST ALT Alkaline Phosphatase Troponin I High Sens Total Protein Albumin Vitamin B12 Folate Stool Occult Blood COVID-19 ([facility]) COVID-19 Clin Com Blood Type Antibody Screen Crossmatch Assessment and Plan (1) Anemia: Status: Acute Plan 71-year-old female with a past medical history of hyperlipidemia, diabetes, CAD, CHF, ESRD on hemodialysis, history of CVA, peripheral vascular disease, anxiety, depression, arthritis, history of GI bleed, anemia presented to the hospital today with a chief complaint of chest pain.? Noted to have following Right lateral Chest pain: likely musculoskeletal due to fall, chest x-ray showed no acute fractures, elevated troponin likely due to renal injury, good pain control, continue analgesics, no further cardiac workup acute on chronic Anemia:? likely due to chronic kidney disease and chronic GI loss, no acute GI bleed noted patient is status post extensive negative GI workup in the past Baseline hemoglobin around 8.5.? On presentation hemoglobin noted to be 6.7 status post blood transfusion hematocrit improved.? Vitals stable. normal iron studies B12 and folate on IV Protonix will transition to by mouth PPI Diffuse ascites/cirrhosis as noted on the CT scan.? no nausea vomiting, no abdominal pain,as per patient history of hepatitis-C previously treated , abdomen soft, no shortness of breath will discuss further management with GI and Nephrology Right kidney cyst:? Appears complex with hemorrhagic versus proteinaceous cyst.? Nephrology follow-up. ESRD:? continue hemodialysis.? Sunday.? Nephrology consult.? early infiltrate left lower lobe ? PNA:? Patient asymptomatic, no fevers, no cough or sputum production.? Will follow clinical course, hold of antibiotics for now. Fall: Mechanical in nature.? CT head and CT cervical spine showed no acute findings.? Knee x-ray showed no acute findings.? Exam grossly nonfocal, obtain PT eval History of diabetes: stable blood sugars continue? Insulin sliding scale, hold Lantus. hyperlipidemia continue Lipitor mood disorder no acute decompensation continue home meds DVT prophylaxis:? SCD boots. Code status: Full code Quality Stroke Does the patient have a stroke diagnosis?: No VTE Prior VTE?: No VTE Risk Level:: Medical - moderate - high VTE Device Contraindication: N/A - Device Ordered VTE Drug Contraindication: Treatment Not Indicated
[2021-10-06 17:09] LABS: Glucose, Whole Blood 145 mg/dL (60-115)
[2021-10-06] MEDS: Sevelamer Carbonate Tablet 800 MG TABLET 1600 MG PO (18:02)
--- NOTE | 2021-10-06 20:38 | PC.NURSE ---
PATIENT WAS ASSISTED TO BEDSIDE COMMODE WITH 2 ASST ,PATIENT VOID AND HAD LARGE BOWEL MOVEMENT .
[2021-10-06 20:51] LABS: Glucose, Whole Blood 175 mg/dL (60-115)
[2021-10-06] MEDS: Melatonin 3 MG TABLET 6 MG PO (20:52)
[2021-10-06] MEDS: Gabapentin 300 MG CAPSULE PO (20:52)
[2021-10-06] MEDS: Tamoxifen Citrate 10 MG TABLET PO (20:52)
[2021-10-06] MEDS: Atorvastatin Calcium 80 MG TABLET PO (20:52)
[2021-10-07 03:56] VITALS: BP 111/60; PULSE 97; RESP 13; TEMP 37.4; O2SAT 95
[2021-10-07] MEDS: Pantoprazole Sodium 40 MG/10 ML VIAL IVPUSH (05:37)
--- NOTE | 2021-10-07 06:56 | PM.GICN ---
History of Present Illness Data of Consult Service Date: 10/07/21 Requesting physician: Anson Grijalva Primary Care Provider: Unknown Physician HPI Reason for consult: anemia 71-year-old female with a past medical history of hyperlipidemia, diabetes, CAD, CHF, ESRD on hemodialysis, history of CVA, peripheral vascular disease, anxiety, depression, arthritis, chronic anemia and breast cancer with rx with XRT and tamoxifen who i am asked to see for assessment for anemia She had a mechanical fall few days ago onto her right side (slipped on the stairs without LOC) and since then has had lateral lower chest/abdominal wall pain, worse with breathing and movement. No fever, chills, cough or sputum. Denies LOC, limb weakness, back pain. she denies rectal bleeding, but does have periodic dark stools, no hematuria. As part of work up labs were checked and HGB was 6.7 g/dl. She has a hx of chronic recurrent anemia for many years and had seen Dr Clay in past. She has colonoscopy 2011 with small polyps removed. I could not find an EGD on file. Imaging this time also revealed a lobular appearing liver which is new as well as ascites and gallstones.. She did receive a unit of blood and hgb incremented appropriately to around 8. Trop has remained elevated. I saw the stool in the commode and appeared to be goo like and dark brown in color Ascites tapped and neg for SBP Review of Systems Review of Systems: Constitutional : No Weight loss, No Fever, No Chills, No Fatigue, No Malaise ENT/Mouth : No sore throat, No Rhinorrhea Eyes: No Eye Pain, No Swelling, No Redness Cardiovascular : No Chest Pain, No SOB, No Dyspnea on Exertion, No Orthopnea, No Edema, No Palpitations, + chest wall pain Respiratory : No Cough, No Sputum, No Wheezing Gastrointestinal : No Nausea, No Vomiting, No Diarrhea, No Constipation, No abdominal Pain, No Hematochezia, No Melena Genitourinary : No Dysuria, No Urinary Frequency, No Hematuria, Musculoskeletal : + joint pain, No Myalgias, No Joint Swelling Skin : No Skin Lesions, No rash Neuro : No Weakness, No Numbness, No Dizziness, No Headache Psych : No Anxiety/Panic, No Depression All other systems reviewed and are negative Yes all other systems are reviewed and are negative [facility] Past Medical History Medical History (Updated 10/05/21 @ 19:49 by Lei Sneed MD) Anxiety and depression Artery stenosis Arthritis Balance problem Breast calcification, left CAD (coronary artery disease) Cardiomyopathy CHF (congestive heart failure) COVID-19 vaccine series completed Diabetes mellitus Diabetic neuropathy Diverticulitis Ductal carcinoma in situ (DCIS) of left breast End stage renal disease Fistula Hemodialysis patient History of CVA (cerebrovascular accident) Hx of myocardial infarction Hypercholesteremia Hypertension Incontinence Melena Peripheral vascular disease Urinary and bowel incontinence Family History Family History Paternal Grandmother Breast cancer Surgical History Surgical History Hx of CABG Hx of colonoscopy Hx of lumpectomy Hx of tubal ligation Social History Social History Household Members: Children Household Members Other:: son Housing: House Are you a primary health care specialist to a significant other at home: No Do you presently have visiting nurse or other home services: Yes (DIRECTOR OF FIELD COORDINATION) Alcohol intake: former Patient Tobacco Use Status: Former Tobacco user Quit Date: years ago Tobacco use type: Cigarette Cigarette Packs Per Day: 1 Advance Directives Date on File: 10/06/20 service: No Current occupational status: disabled Meds Allergies Allergy/AdvReac Type Severity Reaction Status Date / Time No Known Allergies Allergy Verified 10/05/21 16:46 Active Medications: Current Medications Acetaminophen (Acetaminophen 325 Mg Tablet) 650 mg PO Q6H PRN PRN Reason: Pain, Mild (Pain Scale 1-3) Atorvastatin Calcium (Atorvastatin Calcium 80 Mg Tablet) 80 mg PO BEDTIME [facility] Last Admin: 10/06/21 20:52 Dose: 80 mg Documented by: Dextrose (Dextrose 50 % 25 Gm/50 Ml Vial) 25 gm IVPUSH Q15M PRN; Protocol PRN Reason: per Hypoglycemia Standing Ord. Ergocalciferol (Ergocalciferol (Vitamin D2) 1,250 Mcg Capsule) 1,250 mcg PO Sa [facility] Fluoxetine HCl (Fluoxetine Hcl 20 Mg Capsule) 20 mg PO DAILY [facility] Folic Acid (Folic Acid 1 Mg Tablet) 1 mg PO DAILY [facility] Gabapentin (Gabapentin 300 Mg Capsule) 300 mg PO TID [facility] Last Admin: 10/06/21 20:52 Dose: 300 mg Documented by: Glucose (Glucose Gel 15 Gm Gel..Gram.) 15 gm PO Q15M PRN; Protocol PRN Reason: per Hypoglycemia Standing Ord. Hydromorphone HCl (Hydromorphone Hcl 1 Mg/Ml Syringe) 0.5 mg IVPUSH Q4H PRN; Protocol PRN Reason: Pain, Severe (Pain Scale 7-10) Insulin Human Lispro (Insulin Lispro 100 Unit/Ml 3 Ml Vial) 0 unit SUBCUT QIDACHS [facility]; Protocol Last Admin: 10/06/21 20:52 Dose: 2 unit Documented by: Loratadine (Loratadine 10 Mg Tablet) 10 mg PO DAILY [facility] Melatonin (Melatonin 3 Mg Tablet) 6 mg PO BEDTIME PRN PRN Reason: Insomnia Last Admin: 10/06/21 20:52 Dose: 6 mg Documented by: Pantoprazole Sodium (Pantoprazole Sodium 40 Mg/10 Ml Vial) 40 mg IVPUSH DAILY@0630 [facility] Last Admin: 10/07/21 05:37 Dose: 40 mg Documented by: Senna (Sennosides 8.6 Mg Tablet) 17.2 mg PO BEDTIME PRN PRN Reason: Constipation Sevelamer Carbonate (Sevelamer Carbonate Tablet 800 Mg Tablet) 1,600 mg PO DAILY@1700 [facility] Last Admin: 10/06/21 18:02 Dose: 1,600 mg Documented by: Sevelamer Carbonate (Sevelamer Carbonate Tablet 800 Mg Tablet) 800 mg PO BID@0800,1200 [facility] Sodium Chloride (0.9 % Sodium Chloride Flush 3 Ml Syringe) 3 ml IVFLUSH QSHIFT [facility] Last Admin: 10/06/21 21:35 Dose: 3 ml Documented by: Tamoxifen Citrate (Tamoxifen Citrate 10 Mg Tablet) 10 mg PO BID [facility] Last Admin: 10/06/21 20:52 Dose: 10 mg Documented by: Home Medications Medication Instructions Recorded Confirmed Last Taken Type miscellaneous medical supply #1 08/02/20 09/20/21 Unknown History sevelamer carbonate 800 mg tablet 800 mg PO BID@0800,1200 tab 08/02/20 10/05/21 Unknown History (Renvela) insulin glargine 100 unit/mL 10 unit SUBCUT DAILY 11/16/20 10/06/21 Unknown History subcutaneous cartridge fluoxetine 20 mg capsule 1 cap PO QAM 12/21/20 10/06/21 10/05/21 History sevelamer carbonate 800 mg tablet 1,600 mg PO DAILY@1700 10/05/21 10/05/21 Unknown History insulin aspart U-100 100 unit/mL 2 - 10 unit SUBCUT TID 10/06/21 10/06/21 Unknown History (3 mL) subcutaneous pen (Novolog Flexpen U-100 Insulin aspart) tamoxifen 10 mg tablet 10 mg PO BID 10/06/21 10/06/21 Unknown History Physical Exam Vital Signs: Vital Signs: Last Vital Signs Temp 99.3 F 10/07/21 03:56 Pulse 97 10/07/21 03:56 Resp 13 10/07/21 03:56 BP 111/60 10/07/21 03:56 Pulse Ox 95 10/07/21 03:56 BMI result Body Mass Index 25.7 EXAM: GENERAL: The patient is well developed and nontoxic. VITAL SIGNS:see workflow HEENT: Nonicteric sclerae, PERRLA, EOMI. Oropharynx clear. Moist mucous membranes. Conjunctivae appear well perfused. No thyroid mass. CHEST: Chest wall is nontender. HEART: Regular rate and rhythm without murmurs. LUNGS: Clear to auscultation bilaterally. ABDOMEN: Soft, positive bowel sounds, tender, lower chest and upper lateral abdominal flank on right side, small bruise noted, no organomegaly.no flank tenderness SKIN: No rash, no excessive bruising, petechiae, or purpura. NEUROLOGIC: Cranial nerves II-XII intact without motor/sensory deficit. Psych-nml affect Const: Other: General awake alert, in no acute distress. Neck supple no JVD. CVS regular rate rhythm, Respiratory lungs clear to auscultation, no respiratory distress, no wheeze, no rhonchi. Gastrointestinal abdomen soft, nontender, bowel sounds audible, no guarding , no rigidity. Extremities no edema. Neuro nonfocal , speech clear. Skin no rash psych appropriate affect musculoskeletal no deformity Results Labs CBC & Chem 7: 10/06/21 03:41 10/06/21 03:41 Labs: Short CBC 10/05/21 10/05/21 Range/Units 18:02 23:48 Troponin I High Sens 64.7 H* 84.2 H* (<3.5-17.0) ng/L Assessment and Plan (1) Anemia: Status: Acute (2) Ascites: Status: Acute Plan 1/ Recurrent anemia, has pancytopenia, with raised MCV maybe related to nutritional def, bone marrow aplasia, or myelodysplasia. Imaging suggesting possible cirrhosis with ascites, but INR is nml range. Hypersplenism from portal htn can also cause pancytopenia but I would expect her INR to be much worse too. Portal veinous thrombosis also possible as is drug related reactions. PLAN: 1/ Will arrange EGD to assess for varices, or other lesions such as PUD, AVM for Sunday 2/ check folic acid, b12, iron studies, peripheral smear, haptoglobin, LDH 3/ check Hep B,C and HIV, MOISES, SMA, A1AT, Ig, celiac serologies 4/US doppler to r/o portal vein thrombosis 5/ consider hematology assessment Procedures Date of Service Date of Service: 10/07/21
[2021-10-07 07:20] VITALS: BP 109/59; PULSE 102; RESP 19; TEMP 37.6; O2SAT 96
[2021-10-07 07:35] LABS: Glucose, Whole Blood 161 mg/dL (60-115)
[2021-10-07] MEDS: 0.9 % Sodium Chloride Flush 3 ML SYRINGE IVFLUSH ×3 (08:19→20:45)
[2021-10-07] MEDS: Acetaminophen 325 MG TABLET 650 MG PO ×2 (08:21→17:12)
[2021-10-07] MEDS: Tamoxifen Citrate 10 MG TABLET PO ×2 (08:21→20:42)
[2021-10-07] MEDS: Folic Acid 1 MG TABLET PO (08:21)
[2021-10-07] MEDS: FLUoxetine HCl 20 MG CAPSULE PO (08:21)
[2021-10-07] MEDS: Loratadine 10 MG TABLET PO (08:21)
[2021-10-07] MEDS: Gabapentin 300 MG CAPSULE PO ×3 (08:21→20:42)
--- NOTE | 2021-10-07 10:10 | MHC.CM.PN ---
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 CM will follow.
--- NOTE | 2021-10-07 10:58 | CONS_ITS ---
DATE OF SERVICE: 10/06/2021 REASON FOR CONSULTATION: I was asked to see patient to assist in evaluation and management of patient's dialysis needs in the setting of presenting to the hospital with episode of falling and some chest discomfort from her falling episode. HISTORY OF PRESENT ILLNESS: In summary, patient is a 71-year-old ESRD patient, normally dialyzed Sunday, Sunday, Sunday at the [facility] and normally gets her care with the [facility] of Dr. Watson. I was asked to see the patient because the group was unable to get over to see the patient and so I saw her and I will arrange for dialysis tomorrow and continue to follow her in the hospital before she gets discharged and then hand her back off to Dr. Watson from [facility]. In summary, she is a 71-year-old female again with end-stage renal disease, dialyzed Sunday, Sunday, Sunday with multiple chronic medical problems including hyperlipidemia, diabetes, coronary artery disease, CHF, history of CVA, peripheral vascular disease, anxiety, depression, history of GI bleed, anemia, and hepatitis C in the past. Patient is a poor historian, but I did call the outpatient dialysis unit and they stated that she had a falling episode and she admits to having had a falling episode. It is unclear what precipitated the falling episode. There was no loss of consciousness with the falling episode. In the emergency room, she had some chest discomfort that seemed to be musculoskeletal in nature perhaps where she had a falling episode. She had x-rays, which showed no acute fracture. She was noted to have hemoglobin of 6.7 and she was transfused. PAST MEDICAL HISTORY: As noted above. MEDICATIONS: Her medications on admission are noted in the admitting notes. Her current medications are on the SEP. SOCIAL HISTORY: She is an ex-smoker as well as ex-alcohol user. REVIEW OF SYSTEMS: As noted above. ALLERGIES: SHE HAS NO KNOWN DRUG ALLERGIES. PHYSICAL EXAMINATION: VITAL SIGNS: Blood pressure of 96/65 with a heart rate in the 90s. Room air saturations are 97%. HEAD: Atraumatic, normocephalic. NECK: Supple. Mucous membranes are moist. LUNGS: Breath sounds bilaterally diminished at the bases. CARDIAC: Regular rate and rhythm. ABDOMEN: Soft. EXTREMITIES: Show no edema. LABORATORY DATA: Show hemoglobin 8.4, hematocrit 26.7 after 1 unit of packed red blood cells. White blood cell count 2.9, platelet count 69. Sodium 139, potassium 3.6, chloride 96, bicarb 31, BUN 36, creatinine 4.1. Reviewing outpatient records, her white blood cell count has been running in the 2 to 3 range going back to April of last year. Likewise, her platelet count has been running 50 to 75 over the past year. As part of workup, she had a CAT scan of the abdomen and pelvis. There is mention made of diffuse ascites and I suspect cirrhosis with splenomegaly. IMPRESSION: END-STAGE RENAL DISEASE PATIENT ADMITTED AFTER FALLING EPISODES WELL SIGNIFICANT ANEMIA AND GENERAL WEAKNESS. 1. End-stage renal disease. We will dialyze her tomorrow. Keep her on her Sunday, Sunday, Sunday schedule. 2. Anemia. She was transfused. We will need to continue monitoring hemoglobins. 3. Ascites. Would consider further evaluation including a diagnostic paracentesis. This may be due to cirrhosis as there is mention made that she appears to have cirrhosis and splenomegaly. 4. Unsteady gait. We will need to further evaluate. She needs to be safe to go home or needs to go to rehab because of the falling episodes. SUGGESTIONS: At this time include dialysis tomorrow. Monitor her labs. Consider diagnostic paracentesis. We will need to assess her gait to see if she is safe. We will follow the patient in the hospital for her dialysis needs and kidney care issues until she is discharged and then handed back off to Dr. 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 MD DEANA Bender/COOPER / [id number]
[2021-10-07 13:25] VITALS: BP 113/69; PULSE 92; RESP 18; TEMP 37.4; O2SAT 98
[2021-10-07 13:32] LABS: Glucose, Whole Blood 106 mg/dL (60-115)
--- NOTE | 2021-10-07 13:40 | HO.PM.IMPN ---
Subjective Subjective Date of Service: 10/07/21 Interval History: complaining of right lateral chest wall pain worse with movement and deep breathing, denies left-sided chest pain, no shortness of breath, noted to have black colored stools, no hematemesis, no melena, no abdominal pain, no other acute issues overnight. Review of Systems Review of Systems: Yes all other systems are reviewed and are negative Physical Exam Vital Signs: Vital Signs: Last Vital Signs Temp 99.4 F 10/07/21 13:25 Pulse 92 10/07/21 13:25 Resp 18 10/07/21 13:25 BP 113/69 10/07/21 13:25 Pulse Ox 98 10/07/21 13:25 BMI result Body Mass Index 25.7 Const: Other: General? awake jatinder rt, no acute distr ess.? Neck? supple no JVD. CVS? regu lar rate rhythm, R espiratory lungs c lear to auscultati on, no respiratory distress, no whee ze, no rhonchi. Ga strointestinal abd omen soft, nontend er, non distended, bowel sounds dutch ble, no guarding , no rigidity. Extr emities no edema. Neuro nonfocal , s peech clear. Skin no rash, small br uise right lateral chest wall psych appropriate affect musculoskeletal n o deformity Objective Data Active Medications Acetaminophen (Acetaminophen 325 Mg Tablet) 650 mg PO Q6H PRN PRN Reason: Pain, Mild (Pain Scale 1-3) Last Admin: 10/07/21 08:21 Dose: 650 mg Documented by: KATINA Atorvastatin Calcium (Atorvastatin Calcium 80 Mg Tablet) 80 mg PO BEDTIME [facility] Last Admin: 10/06/21 20:52 Dose: 80 mg Documented by: CALEB Dextrose (Dextrose 50 % 25 Gm/50 Ml Vial) 25 gm IVPUSH Q15M PRN; Protocol PRN Reason: per Hypoglycemia Standing Ord. Ergocalciferol (Ergocalciferol (Vitamin D2) 1,250 Mcg Capsule) 1,250 mcg PO [facility] Fluoxetine HCl (Fluoxetine Hcl 20 Mg Capsule) 20 mg PO DAILY [facility] Last Admin: 10/07/21 08:21 Dose: 20 mg Documented by: KATINA Folic Acid (Folic Acid 1 Mg Tablet) 1 mg PO DAILY [facility] Last Admin: 10/07/21 08:21 Dose: 1 mg Documented by: KATINA Gabapentin (Gabapentin 300 Mg Capsule) 300 mg PO TID [facility] Last Admin: 10/07/21 08:21 Dose: 300 mg Documented by: KATINA Glucose (Glucose Gel 15 Gm Gel..Gram.) 15 gm PO Q15M PRN; Protocol PRN Reason: per Hypoglycemia Standing Ord. Hydromorphone HCl (Hydromorphone Hcl 1 Mg/Ml Syringe) 0.5 mg IVPUSH Q4H PRN; Protocol PRN Reason: Pain, Severe (Pain Scale 7-10) Insulin Human Lispro (Insulin Lispro 100 Unit/Ml 3 Ml Vial) 0 unit SUBCUT QIDACHS [facility]; Protocol Last Admin: 10/07/21 13:24 Dose: Not Given Documented by: BRYAN Non-Admin Reason: Off unit: Dialysis Loratadine (Loratadine 10 Mg Tablet) 10 mg PO DAILY [facility] Last Admin: 10/07/21 08:21 Dose: 10 mg Documented by: KATINA Melatonin (Melatonin 3 Mg Tablet) 6 mg PO BEDTIME PRN PRN Reason: Insomnia Last Admin: 10/06/21 20:52 Dose: 6 mg Documented by: CALEB Pantoprazole Sodium (Pantoprazole Sodium 40 Mg/10 Ml Vial) 40 mg IVPUSH DAILY@0630 [facility] Last Admin: 10/07/21 05:37 Dose: 40 mg Documented by: ANTOIC Senna (Sennosides 8.6 Mg Tablet) 17.2 mg PO BEDTIME PRN PRN Reason: Constipation Sevelamer Carbonate (Sevelamer Carbonate Tablet 800 Mg Tablet) 1,600 mg PO DAILY@1700 [facility] Last Admin: 10/06/21 18:02 Dose: 1,600 mg Documented by: ROSEANNE Sevelamer Carbonate (Sevelamer Carbonate Tablet 800 Mg Tablet) 800 mg PO BID@0800,1200 [facility] Last Admin: 10/07/21 08:21 Dose: Not Given Documented by: KATINA Non-Admin Reason: NPO Sodium Chloride (0.9 % Sodium Chloride Flush 3 Ml Syringe) 3 ml IVFLUSH QSHIFT [facility] Last Admin: 10/07/21 08:19 Dose: 3 ml Documented by: KATINA Tamoxifen Citrate (Tamoxifen Citrate 10 Mg Tablet) 10 mg PO BID [facility] Last Admin: 10/07/21 08:21 Dose: 10 mg Documented by: KATINA Labs CBC & Chem 7: 10/06/21 03:41 10/06/21 03:41 Labs: Laboratory Results - last 24 hr 10/06/21 10/06/21 10/06/21 13:38 17:06 20:42 POC Glucose 120 H 145 H 175 H 10/07/21 10/07/21 07:22 13:28 POC Glucose 161 H 106 Assessment and Plan (1) Anemia: Status: Acute Plan 71-year-old female with a past medical history of hyperlipidemia, diabetes, CAD, CHF, ESRD on hemodialysis, history of CVA, peripheral vascular disease, anxiety, depression, arthritis, history of GI bleed, anemia presented to the hospital today with a chief complaint of chest pain.? Noted to have following Right lateral Chest pain: likely musculoskeletal due to fall, chest x-ray showed no acute fractures, elevated troponin likely due to renal injury, good pain control, continue analgesics, no further cardiac workup encourage out of bed to chair and incentive spirometry. acute on chronic Anemia likely due to chronic kidney disease and chronic GI loss, no acute GI bleed noted patient ,status post extensive negative GI workup in the past, noted to have dark stools this morning, stool guaiac positive Baseline hemoglobin around 8.5.? On presentation hemoglobin noted to be 6.7 status post blood transfusion hematocrit improved.? Vitals stable. normal iron studies B12 and folate cont.by mouth PPI seen by Dr. Wong, he recommend to follow CBC and if patient noted to have drop in hematocrit he recommend Octrretide drip since bleeding likely due to AVM/ and he will proceed with upper endoscopy early next week. Diffuse ascites/cirrhosis as noted on the CT scan.? no nausea vomiting, no abdominal pain,as per patient history of hepatitis-C previously treated , abdomen soft, no shortness of breath. low albumin added supplements/inr 1.1 discussed management with GI and Nephrology will proceed with diagnostic paracentesis. Right kidney cyst:? Appears complex with hemorrhagic versus proteinaceous cyst, await Nephrology input.? ESRD:? continue hemodialysis.? Sunday.? await Nephrology input. Early infiltrate left lower lobe ? PNA:? Patient asymptomatic, no fevers, no cough or sputum production,?follow clinical course, hold of antibiotics for now, encourage incentive spirometry. Fall: Mechanical in nature patient slipped from stairs, CT head and CT cervical spine showed no acute findings, Knee x-ray showed no acute findings.? Exam grossly nonfocal, obtain PT eval prior to discharge History of diabetes: stable blood sugars continue? Insulin sliding scale, hold Lantus. takes Lantus 10 units at night pre meal insulin hyperlipidemia continue Lipitor pancytopenia seems chronic likely related to history hepatitis-C / breast CA/ chronic kidney disease, no active bleed noted History of left breast DCIS completed adjuvant radiation therapy from 03/02/2021 to 03/30/2021 at [facility], being followed by Dr. Smith on tamoxifen. mood disorder no acute decompensation continue home meds. DVT prophylaxis:? SCD boots. Code status: Full code patient will need continued inpatient hospitalization due to ongoing dark-colored stools, need close follow-up on hemoglobin hematocrit and GI evaluation/ undergoing workup for ascites Quality Stroke Does the patient have a stroke diagnosis?: No VTE Prior VTE?: No VTE Risk Level:: Medical - moderate - high VTE Device Contraindication: N/A - Device Ordered VTE Drug Contraindication: Treatment Not Indicated
[2021-10-07 14:08] LABS: Lactate Dehydrogenase 308 U/L (122-220)
[2021-10-07 14:09] LABS: INTERNATIONAL NORM RATIO 1.1 (0.9-1.1)
--- NOTE | 2021-10-07 14:37 | PM.PNNEP ---
Subjective Subjective Date of Service: 10/07/21 Interval history: evaluated on HD Physical Exam Vital Signs: Vital Signs: Last Vital Signs Temp 99.4 F 10/07/21 13:25 Pulse 92 10/07/21 13:25 Resp 18 10/07/21 13:25 BP 113/69 10/07/21 13:25 Pulse Ox 98 10/07/21 13:25 BMI result Body Mass Index 25.7 Const: Other: General? awake jatinder rt, no acute distr ess.? Neck? supple no JVD. CVS? regu lar rate rhythm, R espiratory lungs c lear to auscultati on, no respiratory distress, no whee ze, no rhonchi. Ga strointestinal abd omen soft, nontend er, non distended, bowel sounds dutch ble, no guarding , no rigidity. Extr emities no edema. Neuro nonfocal , s peech clear. Skin no rash, small br uise right lateral chest wall psych appropriate affect musculoskeletal n o deformity Objective Data Labs CBC & Chem 7: 10/06/21 03:41 10/06/21 03:41 Labs: Laboratory Results - last 24 hr 10/06/21 10/06/21 10/07/21 17:06 20:42 07:22 PT INR POC Glucose 145 H 175 H 161 H Lactate Dehydrogenase Total Protein 10/07/21 10/07/21 10/07/21 13:28 13:46 13:46 PT 12.0 INR 1.1 POC Glucose 106 Lactate Dehydrogenase 308 H Total Protein 6.0 L Procedures Date of Service Date of Service: 10/07/21 Assessment & Plan Assessment and plan (1) Anemia: Status: Acute Plan 71-year-old female with a past medical history of hyperlipidemia, diabetes, CAD, CHF, ESRD on hemodialysis, history of CVA, peripheral vascular disease, anxiety, depression, arthritis, history of GI bleed, anemia presented to the hospital with chest pain. 1. End-stage renal disease.?HD MWF schedule. Follows Dr Watson in community for dialysis. 2. Anemia.? She was transfused.?EPO 20,000 dosed Time Spent With Patient Time: Total time spent is greater than 50% in coordination of care (as documented) at patient's floor/unit and/or counseling patient: Progress Note: Quality Stroke Does the patient have a stroke diagnosis?: No
[2021-10-07] MEDS: Lidocaine HCl 1 % MPF 5 ML VIAL SUBCUT (15:27)
[2021-10-07 15:31] VITALS: BP 112/65; PULSE 95; RESP 17; TEMP 36.9; O2SAT 98
[2021-10-07 15:44] LABS: MN% 46.6 %; PMN% 53.4 %; WBC Peritoneal Fluid 0.602 X10*3/uL
[2021-10-07 15:48] LABS: RBC Peritoneal Fluid < 0.002 X10*6/uL
[2021-10-07 16:01] LABS: BF Shift QC OK YES
[2021-10-07 16:02] LABS: Glucose, Whole Blood 126 mg/dL (60-115)
[2021-10-07 16:02] LABS: Lymphocyte Peritoneal Fl 10 %; Monocytes Peritoneal Fl 40 %; Neutrophils Peritoneal Fluid 45 %; Other Peritioneal Fl 5 %
[2021-10-07] MEDS: Omeprazole 20 MG CAPSULE.DR PO (17:07)
[2021-10-07 18:39] LABS: Hematocrit 31.8 % (37.0-47.0); Hemoglobin 9.8 g/dl (12.0-16.0); Mean Corpuscular HGB Conc 30.8 g/dl (31.0-35.0); Mean Corpuscular Volume 100.6 fL (80.0-98.0); Mean Platelet Volume 12.9 fL (9.4-12.3); Platelet Count 115 X10*3/uL (160-400); Red Blood Count 3.16 X10*6/uL (4.20-5.50); Red Cell Distribution Width 16.5 % (11.0-16.0); White Blood Count 5.1 X10*3/uL (4.8-10.8)
[2021-10-07 18:43] LABS: PLT ABN DIST 1
[2021-10-07 19:32] VITALS: BP 132/67; PULSE 98; RESP 17; TEMP 37.2; O2SAT 98
[2021-10-07 19:47] LABS: Glucose, Whole Blood 130 mg/dL (60-115)
[2021-10-07] MEDS: Atorvastatin Calcium 80 MG TABLET PO (20:42)
[2021-10-07 23:42] VITALS: BP 103/50; PULSE 84; RESP 17; TEMP 37.2; O2SAT 94
[2021-10-08] VITALS (9 sets, daily range): BP systolic 91–111; BP diastolic 58–67; PULSE 86–93; RESP 17–18; TEMP 36.9–37.4; O2SAT 95–100
[2021-10-08] MEDS: Omeprazole 20 MG CAPSULE.DR PO ×2 (05:47→16:57)
[2021-10-08] MEDS: HYDROmorphone HCl 1 MG/ML SYRINGE 0.5 MG IVPUSH ×2 (05:51→23:26)
[2021-10-08 07:10] LABS: Albumin Peritoneal Fluid 0.9
[2021-10-08 07:12] LABS: Hematocrit 29.5 % (37.0-47.0); Hemoglobin 9.2 g/dl (12.0-16.0); Mean Corpuscular HGB Conc 31.2 g/dl (31.0-35.0); Mean Corpuscular Hemoglobin 31.6 pg (27.0-33.0); Mean Corpuscular Volume 101.4 fL (80.0-98.0); Platelet Count 107 X10*3/uL (160-400); Red Blood Count 2.91 X10*6/uL (4.20-5.50); Red Cell Distribution Width 16.3 % (11.0-16.0); White Blood Count 4.2 X10*3/uL (4.8-10.8)
[2021-10-08 07:31] LABS: Glucose, Whole Blood 128 mg/dL (60-115)
--- NOTE | 2021-10-08 08:37 | P.PNIM_ITS ---
Subjective Subjective Date of Service: 10/08/21 Interval History: CC: f/u on GIB, chest pain Interval hisotry: has dark stool but no active bleeding, no chest ain, H/H stable. Review of Systems no abdominal pain, no chest pain, dark stools Physical Exam Vital Signs: Vital Signs: Last Vital Signs Temp 99.3 F 10/08/21 07:15 Pulse 86 10/08/21 07:15 Resp 18 10/08/21 07:15 BP 111/59 L 10/08/21 07:15 Pulse Ox 95 10/08/21 07:15 BMI result Body Mass Index 25.7 Const: Other: General: AO X 3, no acute distress Resp: CTA bilateral CVS: S1,S2,RRR GI: +BS, NT, no distention Skin: No rash Neuro: motor grossly intact Psych: appropriate affect Objective Data Active Medications Acetaminophen (Acetaminophen 325 Mg Tablet) 650 mg PO Q6H PRN PRN Reason: Pain, Mild (Pain Scale 1-3) Last Admin: 10/07/21 17:12 Dose: 650 mg Documented by: KATINA Atorvastatin Calcium (Atorvastatin Calcium 80 Mg Tablet) 80 mg PO BEDTIME [facility] Last Admin: 10/07/21 20:42 Dose: 80 mg Documented by: GERONIMO Dextrose (Dextrose 50 % 25 Gm/50 Ml Vial) 25 gm IVPUSH Q15M PRN; Protocol PRN Reason: per Hypoglycemia Standing Ord. Ergocalciferol (Ergocalciferol (Vitamin D2) 1,250 Mcg Capsule) 1,250 mcg PO [facility] Fluoxetine HCl (Fluoxetine Hcl 20 Mg Capsule) 20 mg PO DAILY [facility] Last Admin: 10/07/21 08:21 Dose: 20 mg Documented by: KATINA Folic Acid (Folic Acid 1 Mg Tablet) 1 mg PO DAILY [facility] Last Admin: 10/07/21 08:21 Dose: 1 mg Documented by: KATINA Gabapentin (Gabapentin 300 Mg Capsule) 300 mg PO TID [facility] Last Admin: 10/07/21 20:42 Dose: 300 mg Documented by: GERONIMO Glucose (Glucose Gel 15 Gm Gel..Gram.) 15 gm PO Q15M PRN; Protocol PRN Reason: per Hypoglycemia Standing Ord. Hydromorphone HCl (Hydromorphone Hcl 1 Mg/Ml Syringe) 0.5 mg IVPUSH Q4H PRN; Protocol PRN Reason: Pain, Severe (Pain Scale 7-10) Last Admin: 10/08/21 05:51 Dose: 0.5 mg Documented by: GERONIMO Insulin Human Lispro (Insulin Lispro 100 Unit/Ml 3 Ml Vial) 0 unit SUBCUT QIDACHS [facility]; Protocol Last Admin: 10/08/21 08:02 Dose: Not Given Documented by: BRYAN Non-Admin Reason: No Insulin Coverage Loratadine (Loratadine 10 Mg Tablet) 10 mg PO DAILY [facility] Last Admin: 10/07/21 08:21 Dose: 10 mg Documented by: KATINA Melatonin (Melatonin 3 Mg Tablet) 6 mg PO BEDTIME PRN PRN Reason: Insomnia Last Admin: 10/06/21 20:52 Dose: 6 mg Documented by: CALEB Omeprazole (Omeprazole 20 Mg Capsule.Dr) 20 mg PO BID@0630,1630 [facility] Last Admin: 10/08/21 05:47 Dose: 20 mg Documented by: GERONIMO Senna (Sennosides 8.6 Mg Tablet) 17.2 mg PO BEDTIME PRN PRN Reason: Constipation Sevelamer Carbonate (Sevelamer Carbonate Tablet 800 Mg Tablet) 1,600 mg PO DAILY@1700 [facility] Last Admin: 10/07/21 16:54 Dose: Not Given Documented by: KATINA Non-Admin Reason: NPO Sevelamer Carbonate (Sevelamer Carbonate Tablet 800 Mg Tablet) 800 mg PO BID@0800,1200 [facility] Last Admin: 10/07/21 15:05 Dose: Not Given Documented by: KATINA Non-Admin Reason: Off unit: Dialysis Sodium Chloride (0.9 % Sodium Chloride Flush 3 Ml Syringe) 3 ml IVFLUSH QSHIFT [facility] Last Admin: 10/07/21 20:45 Dose: 3 ml Documented by: GERONIMO Tamoxifen Citrate (Tamoxifen Citrate 10 Mg Tablet) 10 mg PO BID [facility] Last Admin: 10/07/21 20:42 Dose: 10 mg Documented by: GERONIMO Labs CBC & Chem 7: 10/08/21 06:19 10/06/21 03:41 Labs: Laboratory Results - last 24 hr 10/07/21 10/07/21 10/07/21 13:28 13:42 13:42 MCV MCH MCHC RDW Plt Count MPV Absolute Nucleated RBC Nucleated RBC % (auto) PT INR POC Glucose 106 Lactate Dehydrogenase Total Protein Peritoneal WBC 0.602 Peritoneal RBC < 0.002 Periton Neutrophils 45 Periton Lymphocytes 10 Peritoneal Monocytes 40 Peritoneal Other Cells 5 Peritoneal Albumin 0.9 10/07/21 10/07/21 10/07/21 13:46 13:46 14:04 MCV 100.6 H MCH 31.0 MCHC 30.8 L RDW 16.5 H Plt Count 115 L D MPV 12.9 H Absolute Nucleated RBC 0.000 Nucleated RBC % (auto) 0.0 PT 12.0 INR 1.1 POC Glucose Lactate Dehydrogenase 308 H Total Protein 6.0 L Peritoneal WBC Peritoneal RBC Periton Neutrophils Periton Lymphocytes Peritoneal Monocytes Peritoneal Other Cells Peritoneal Albumin 10/07/21 10/07/21 10/08/21 15:56 19:42 06:19 MCV 101.4 H MCH 31.6 MCHC 31.2 RDW 16.3 H Plt Count 107 L MPV 12.0 Absolute Nucleated RBC 0.000 Nucleated RBC % (auto) 0.0 PT INR POC Glucose 126 H 130 H Lactate Dehydrogenase Total Protein Peritoneal WBC Peritoneal RBC Periton Neutrophils Periton Lymphocytes Peritoneal Monocytes Peritoneal Other Cells Peritoneal Albumin 10/08/21 07:15 MCV MCH MCHC RDW Plt Count MPV Absolute Nucleated RBC Nucleated RBC % (auto) PT INR POC Glucose 128 H Lactate Dehydrogenase Total Protein Peritoneal WBC Peritoneal RBC Periton Neutrophils Periton Lymphocytes Peritoneal Monocytes Peritoneal Other Cells Peritoneal Albumin Microbiology Microbiology Results: Microbiology 10/07/21 13:42 Gram Stain - Final Peritoneal Fluid Assessment and Plan (1) Anemia: Status: Acute Plan 71-year-old female with a past medical history of hyperlipidemia, diabetes, CAD, CHF, ESRD on hemodialysis, history of CVA, peripheral vascular disease, anxiety, depression, arthritis, history of GI bleed, anemia presented to the hospital today with a chief complaint of chest pain.? Noted to have following #Right lateral Chest pain: likely musculoskeletal due to fall, chest x-ray showed no acute fractures, elevated troponin likely due to renal injury, good pain control, continue analgesics, no further cardiac workup encourage out of bed to chair and incentive spirometry. #acute on chronic Anemia likely due to chronic kidney disease and chronic GI loss, no acute GI bleed noted patient ,status post extensive negative GI workup in the past, noted to have dark stools this morning, stool guaiac positive Baseline hemoglobin around 8.5.? On presentation hemoglobin noted to be 6.7 status post blood transfusion hematocrit improved.? Vitals stable. normal iron studies B12 and folate cont.by mouth PPI seen by Dr. Wong, he recommend to follow CBC and if patient noted to have drop in hematocrit he recommend Octrretide drip since bleeding likely due to AVM/ and he will proceed with upper endoscopy on tuesday 10/10 Diffuse ascites/cirrhosis as noted on the CT scan.? no nausea vomiting, no abdominal pain,as per patient history of hepatitis-C previously treated , abdomen soft, no shortness of breath. low albumin added supplements/inr 1.1 discussed management with GI and Nephrology. Had diagnostic paracentesis on 10/07 results pending Right kidney cyst:? Appears complex with hemorrhagic versus proteinaceous cyst, Nephrology following ESRD:? continue hemodialysis.? Sunday.? await Nephrology input. Early infiltrate left lower lobe ? PNA:? Patient asymptomatic, no fevers, no cough or sputum production,?follow clinical course, hold of antibiotics for now, encourage incentive spirometry. Fall: Mechanical in nature patient slipped from stairs, CT head and CT cervical spine showed no acute findings, Knee x-ray showed no acute findings.? Exam grossly nonfocal, obtain PT eval prior to discharge History of diabetes: stable blood sugars continue? Insulin sliding scale, hold Lantus. takes Lantus 10 units at night pre meal insulin hyperlipidemia continue Lipitor pancytopenia seems chronic likely related to history hepatitis-C / breast CA/ chronic kidney disease, no active bleed noted History of left breast DCIS completed adjuvant radiation therapy from 03/02/2021 to 03/30/2021 at [facility], being followed by Dr. Smith on tamoxifen. mood disorder no acute decompensation continue home meds. DVT prophylaxis:? SCD boots. Code status: Full code patient will need continued inpatient hospitalization due to ongoing dark- colored stools, need close follow-up on hemoglobin hematocrit and GI evaluation/ undergoing workup for ascites Quality Stroke Does the patient have a stroke diagnosis?: No VTE Prior VTE?: No VTE Risk Level:: Medical - moderate - high VTE Device Contraindication: N/A - Device Ordered VTE Drug Contraindication: Treatment Not Indicated
[2021-10-08] MEDS: 0.9 % Sodium Chloride Flush 3 ML SYRINGE IVFLUSH ×3 (10:35→21:01)
[2021-10-08] MEDS: Gabapentin 300 MG CAPSULE PO ×3 (10:35→21:01)
[2021-10-08] MEDS: Folic Acid 1 MG TABLET PO (10:35)
[2021-10-08] MEDS: Acetaminophen 325 MG TABLET 650 MG PO ×2 (10:35→21:01)
[2021-10-08] MEDS: FLUoxetine HCl 20 MG CAPSULE PO (10:35)
[2021-10-08] MEDS: Loratadine 10 MG TABLET PO (10:36)
[2021-10-08] MEDS: Tamoxifen Citrate 10 MG TABLET PO ×2 (10:36→21:01)
[2021-10-08 11:09] LABS: Glucose, Whole Blood 152 mg/dL (60-115)
--- NOTE | 2021-10-08 14:26 | PM.PNNEP ---
Subjective Subjective Date of Service: 10/08/21 Interval history: no events EPO started Physical Exam Vital Signs: Vital Signs: Last Vital Signs Temp 98.9 F 10/08/21 10:59 Pulse 93 10/08/21 10:59 Resp 18 10/08/21 10:59 BP 100/64 10/08/21 10:59 Pulse Ox 98 10/08/21 10:59 BMI result Body Mass Index 25.7 Const: Other: General? awake jatinder rt, no acute distr ess.? Neck? supple no JVD. CVS? regu lar rate rhythm, R espiratory lungs c lear to auscultati on, no respiratory distress, no whee ze, no rhonchi. Ga strointestinal abd omen soft, nontend er, non distended, bowel sounds dutch ble, no guarding , no rigidity. Extr emities no edema. Neuro nonfocal , s peech clear. Skin no rash, small br uise right lateral chest wall psych appropriate affect musculoskeletal n o deformity Objective Data Labs CBC & Chem 7: 10/08/21 06:19 10/06/21 03:41 Labs: Laboratory Results - last 24 hr 10/07/21 10/07/21 10/07/21 13:42 13:42 14:04 WBC 5.1 RBC 3.16 L Hgb 9.8 L Hct 31.8 L MCV 100.6 H MCH 31.0 MCHC 30.8 L RDW 16.5 H Plt Count 115 L D MPV 12.9 H Absolute Nucleated RBC 0.000 Nucleated RBC % (auto) 0.0 POC Glucose Peritoneal WBC 0.602 Peritoneal RBC < 0.002 Periton Neutrophils 45 Periton Lymphocytes 10 Peritoneal Monocytes 40 Peritoneal Other Cells 5 Peritoneal Albumin 0.9 10/07/21 10/07/21 10/08/21 15:56 19:42 06:19 WBC 4.2 L RBC 2.91 L Hgb 9.2 L Hct 29.5 L MCV 101.4 H MCH 31.6 MCHC 31.2 RDW 16.3 H Plt Count 107 L MPV 12.0 Absolute Nucleated RBC 0.000 Nucleated RBC % (auto) 0.0 POC Glucose 126 H 130 H Peritoneal WBC Peritoneal RBC Periton Neutrophils Periton Lymphocytes Peritoneal Monocytes Peritoneal Other Cells Peritoneal Albumin 10/08/21 10/08/21 07:15 10:57 WBC RBC Hgb Hct MCV MCH MCHC RDW Plt Count MPV Absolute Nucleated RBC Nucleated RBC % (auto) POC Glucose 128 H 152 H Peritoneal WBC Peritoneal RBC Periton Neutrophils Periton Lymphocytes Peritoneal Monocytes Peritoneal Other Cells Peritoneal Albumin Microbiology Microbiology Results: Microbiology 10/07/21 13:42 Peritoneal Fluid Gram Stain - Final 10/07/21 13:42 Peritoneal Fluid Anaerobic Culture - Preliminary No growth to date. 10/07/21 13:42 Peritoneal Fluid Body Fluid Culture - Preliminary No growth to date. Procedures Date of Service Date of Service: 10/08/21 Assessment & Plan Assessment and plan (1) Anemia: Status: Acute Plan 71-year-old female with a past medical history of hyperlipidemia, diabetes, CAD, CHF, ESRD on hemodialysis, history of CVA, peripheral vascular disease, anxiety, depression, arthritis, history of GI bleed, anemia presented to the hospital with chest pain. 1. End-stage renal disease.?HD MWF schedule. Follows Dr Watson in on license of [facility] for dialysis. 2. Anemia.? She was transfused.?EPO 20,000 will be dosed Time Spent With Patient Time: Total time spent is greater than 50% in coordination of care (as documented) at patient's floor/unit and/or counseling patient: Progress Note: Quality Stroke Does the patient have a stroke diagnosis?: No
[2021-10-08 16:11] LABS: Glucose, Whole Blood 216 mg/dL (60-115)
[2021-10-08] MEDS: Insulin Lispro 100 UNIT/ML 3 ML VIAL SUBCUT ×2 (16:57→21:06)
[2021-10-08] MEDS: Ergocalciferol (Vitamin D2) 1,250 MCG CAPSULE 1250 MCG PO (16:58)
[2021-10-08] MEDS: Sevelamer Carbonate Tablet 800 MG TABLET 1600 MG PO (16:58)
[2021-10-08 21:00] LABS: Glucose, Whole Blood 201 mg/dL (60-115)
[2021-10-08] MEDS: Atorvastatin Calcium 80 MG TABLET PO (21:01)
[2021-10-09 04:00] VITALS: BP 106/72; PULSE 94; RESP 18; TEMP 37.6; O2SAT 97
[2021-10-09 06:06] LABS: Hematocrit 28.9 % (37.0-47.0); Hemoglobin 8.9 g/dl (12.0-16.0); Mean Corpuscular HGB Conc 30.8 g/dl (31.0-35.0); Mean Corpuscular Hemoglobin 31.8 pg (27.0-33.0); Mean Corpuscular Volume 103.2 fL (80.0-98.0); Mean Platelet Volume 11.9 fL (9.4-12.3); Platelet Count 104 X10*3/uL (160-400); Red Cell Distribution Width 16.3 % (11.0-16.0); White Blood Count 3.6 X10*3/uL (4.8-10.8)
[2021-10-09] MEDS: Omeprazole 20 MG CAPSULE.DR PO ×2 (06:16→17:53)
[2021-10-09 07:01] VITALS: BP 101/68; PULSE 86; RESP 18; TEMP 36.9; O2SAT 97
[2021-10-09 07:17] LABS: Glucose, Whole Blood 185 mg/dL (60-115)
[2021-10-09] MEDS: 0.9 % Sodium Chloride Flush 3 ML SYRINGE IVFLUSH ×2 (08:32→17:54)
[2021-10-09] MEDS: Tamoxifen Citrate 10 MG TABLET PO ×2 (08:32→21:40)
[2021-10-09] MEDS: Insulin Lispro 100 UNIT/ML 3 ML VIAL SUBCUT ×3 (08:32→21:40)
[2021-10-09] MEDS: Gabapentin 300 MG CAPSULE PO ×3 (08:33→21:40)
[2021-10-09] MEDS: Folic Acid 1 MG TABLET PO (08:33)
[2021-10-09] MEDS: Sevelamer Carbonate Tablet 800 MG TABLET PO ×2 (08:33→12:39)
[2021-10-09] MEDS: Loratadine 10 MG TABLET PO (08:33)
[2021-10-09] MEDS: FLUoxetine HCl 20 MG CAPSULE PO (08:33)
--- NOTE | 2021-10-09 10:53 | HO.PM.IMPN ---
Subjective Subjective Date of Service: 10/09/21 Interval History: CC: f/u on GIB, chest pain Interval hisotry: no bleeding, no other complaints Review of Systems no chest pain no sob Physical Exam Vital Signs: Vital Signs: Last Vital Signs Temp 98.5 F 10/09/21 07:01 Pulse 86 10/09/21 07:01 Resp 18 10/09/21 07:01 BP 101/68 10/09/21 07:01 Pulse Ox 97 10/09/21 07:01 BMI result Body Mass Index 25.7 Const: Other: General? awake jatinder rt, no acute distr ess.? Neck? supple no JVD. CVS? regu lar rate rhythm, R espiratory lungs c lear to auscultati on, no respiratory distress, no whee ze, no rhonchi. Ga strointestinal abd omen soft, nontend er, non distended, bowel sounds dutch ble, no guarding , no rigidity. Extr emities no edema. Neuro nonfocal , s peech clear. Skin no rash, small br uise right lateral chest wall psych appropriate affect musculoskeletal n o deformity Objective Data Active Medications Acetaminophen (Acetaminophen 325 Mg Tablet) 650 mg PO Q6H PRN PRN Reason: Pain, Mild (Pain Scale 1-3) Last Admin: 10/08/21 21:01 Dose: 650 mg Documented by: GERONIMO Atorvastatin Calcium (Atorvastatin Calcium 80 Mg Tablet) 80 mg PO BEDTIME [facility] Last Admin: 10/08/21 21:01 Dose: 80 mg Documented by: GERONIMO Dextrose (Dextrose 50 % 25 Gm/50 Ml Vial) 25 gm IVPUSH Q15M PRN; Protocol PRN Reason: per Hypoglycemia Standing Ord. Epoetin Lincoln (Epoetin Lincoln 20,000 Unit/Ml Vial) 20,000 unit IVPUSH MoWeFr@1600 [facility] Ergocalciferol (Ergocalciferol (Vitamin D2) 1,250 Mcg Capsule) 1,250 mcg PO Sa [facility] Last Admin: 10/08/21 16:58 Dose: 1,250 mcg Documented by: BRYAN Fluoxetine HCl (Fluoxetine Hcl 20 Mg Capsule) 20 mg PO DAILY [facility] Last Admin: 10/09/21 08:33 Dose: 20 mg Documented by: BRYAN Folic Acid (Folic Acid 1 Mg Tablet) 1 mg PO DAILY [facility] Last Admin: 10/09/21 08:33 Dose: 1 mg Documented by: BRYAN Gabapentin (Gabapentin 300 Mg Capsule) 300 mg PO TID [facility] Last Admin: 10/09/21 08:33 Dose: 300 mg Documented by: BRYAN Glucose (Glucose Gel 15 Gm Gel..Gram.) 15 gm PO Q15M PRN; Protocol PRN Reason: per Hypoglycemia Standing Ord. Hydromorphone HCl (Hydromorphone Hcl 1 Mg/Ml Syringe) 0.5 mg IVPUSH Q4H PRN; Protocol PRN Reason: Pain, Severe (Pain Scale 7-10) Last Admin: 10/08/21 23:26 Dose: 0.5 mg Documented by: GERONIMO Insulin Human Lispro (Insulin Lispro 100 Unit/Ml 3 Ml Vial) [address] [facility]; Protocol Last Admin: 10/09/21 08:32 Dose: 2 unit Documented by: BRYAN Loratadine (Loratadine 10 Mg Tablet) 10 mg PO DAILY [facility] Last Admin: 10/09/21 08:33 Dose: 10 mg Documented by: BRYAN Melatonin (Melatonin 3 Mg Tablet) 6 mg PO BEDTIME PRN PRN Reason: Insomnia Last Admin: 10/06/21 20:52 Dose: 6 mg Documented by: CALEB Omeprazole (Omeprazole 20 Mg Capsule.Dr) 20 mg PO BID@0630,1630 [facility] Last Admin: 10/09/21 06:16 Dose: 20 mg Documented by: GERONIMO Senna (Sennosides 8.6 Mg Tablet) 17.2 mg PO BEDTIME PRN PRN Reason: Constipation Sevelamer Carbonate (Sevelamer Carbonate Tablet 800 Mg Tablet) 1,600 mg PO DAILY@1700 [facility] Last Admin: 10/08/21 16:58 Dose: 1,600 mg Documented by: BRYAN Sevelamer Carbonate (Sevelamer Carbonate Tablet 800 Mg Tablet) 800 mg PO BID@0800,1200 [facility] Last Admin: 10/09/21 08:33 Dose: 800 mg Documented by: BRYAN Sodium Chloride (0.9 % Sodium Chloride Flush 3 Ml Syringe) [facility] Last Admin: 10/09/21 08:32 Dose: 3 ml Documented by: BRYAN Tamoxifen Citrate (Tamoxifen Citrate 10 Mg Tablet) 10 mg PO BID [facility] Last Admin: 10/09/21 08:32 Dose: 10 mg Documented by: BRYAN Labs CBC & Chem 7: 10/09/21 05:58 10/06/21 03:41 Labs: Laboratory Results - last 24 hr 10/08/21 10/08/21 10/08/21 10:57 16:04 20:52 MCV MCH MCHC RDW Plt Count MPV Absolute Nucleated RBC Nucleated RBC % (auto) POC Glucose 152 H 216 H 201 H 10/09/21 10/09/21 05:58 07:02 MCV 103.2 H MCH 31.8 MCHC 30.8 L RDW 16.3 H Plt Count 104 L MPV 11.9 Absolute Nucleated RBC 0.000 Nucleated RBC % (auto) 0.0 POC Glucose 185 H Microbiology Microbiology Results: Microbiology 10/07/21 13:42 Gram Stain - Final Peritoneal Fluid Anaerobic Culture - Preliminary No growth to date. Body Fluid Culture - Preliminary No growth to date. Assessment and Plan (1) Anemia: Status: Acute Plan 71-year-old female with a past medical history of hyperlipidemia, diabetes, CAD, CHF, ESRD on hemodialysis, history of CVA, peripheral vascular disease, anxiety, depression, arthritis, history of GI bleed, anemia presented to the hospital today with a chief complaint of chest pain.? Noted to have following #Right lateral Chest pain: likely musculoskeletal due to fall, chest x-ray showed no acute fractures, elevated troponin likely due to renal injury, good pain control, continue analgesics, no further cardiac workup encourage out of bed to chair and incentive spirometry. #acute on chronic Anemia likely due to chronic kidney disease and chronic GI loss, no acute GI bleed noted patient ,status post extensive negative GI workup in the past, noted to have dark stools this morning, stool guaiac positive Baseline hemoglobin around 8.5.? On presentation hemoglobin noted to be 6.7 status post blood transfusion hematocrit improved.? Vitals stable. normal iron studies B12 and folate cont.by mouth PPI seen by Dr. Wong, he recommend to follow CBC and if patient noted to have drop in hematocrit he recommend Octrretide drip since bleeding likely due to AVM/ and he will proceed with upper endoscopy on tuesday 10/10 Diffuse ascites/cirrhosis as noted on the CT scan.? no nausea vomiting, no abdominal pain,as per patient history of hepatitis-C previously treated , abdomen soft, no shortness of breath. low albumin added supplements/inr 1.1 discussed management with GI and Nephrology. Had diagnostic paracentesis on 10/07 results pending Right kidney cyst:? Appears complex with hemorrhagic versus proteinaceous cyst, Nephrology following ESRD:? continue hemodialysis.? Sunday.? await Nephrology input. Early infiltrate left lower lobe ? PNA:? Patient asymptomatic, no fevers, no cough or sputum production,?follow clinical course, hold of antibiotics for now, encourage incentive spirometry. Fall: Mechanical in nature patient slipped from stairs, CT head and CT cervical spine showed no acute findings, Knee x-ray showed no acute findings.? Exam grossly nonfocal, obtain PT eval prior to discharge History of diabetes: stable blood sugars continue? Insulin sliding scale, hold Lantus. 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 Smith on tamoxifen. mood disorder no acute decompensation continue home meds. DVT prophylaxis:? SCD boots. Code status: Full code patient will need continued inpatient hospitalization due to ongoing dark-colored stools, need close follow-up on hemoglobin hematocrit and GI evaluation/ undergoing workup for ascites, probaly home tomorrow Quality Stroke Does the patient have a stroke diagnosis?: No VTE Prior VTE?: No VTE Risk Level:: Medical - moderate - high VTE Device Contraindication: N/A - Device Ordered VTE Drug Contraindication: Treatment Not Indicated
[2021-10-09 11:06] VITALS: BP 112/59; PULSE 88; RESP 18; TEMP 37.2; O2SAT 97
[2021-10-09 11:21] LABS: Glucose, Whole Blood 306 mg/dL (60-115)
--- NOTE | 2021-10-09 14:33 | PM.PNNEP ---
Subjective Subjective Date of Service: 10/09/21 Interval history: No overnight events Physical Exam Vital Signs: Vital Signs: Last Vital Signs Temp 98.9 F 10/09/21 11:06 Pulse 88 10/09/21 11:06 Resp 18 10/09/21 11:06 BP 112/59 L 10/09/21 11:06 Pulse Ox 97 10/09/21 11:06 BMI result Body Mass Index 25.7 Const: Other: General? awake jatinder rt, no acute distr ess.? Neck? supple no JVD. CVS? regu lar rate rhythm, R espiratory lungs c lear to auscultati on, no respiratory distress, no whee ze, no rhonchi. Ga strointestinal abd omen soft, nontend er, non distended, bowel sounds dutch ble, no guarding , no rigidity. Extr emities no edema. Neuro nonfocal , s peech clear. Skin no rash, small br uise right lateral chest wall psych appropriate affect musculoskeletal n o deformity Objective Data Labs CBC & Chem 7: 10/09/21 05:58 10/06/21 03:41 Labs: Laboratory Results - last 24 hr 10/08/21 10/08/21 10/09/21 16:04 20:52 05:58 WBC 3.6 L RBC 2.80 L Hgb 8.9 L Hct 28.9 L MCV 103.2 H MCH 31.8 MCHC 30.8 L RDW 16.3 H Plt Count 104 L MPV 11.9 Absolute Nucleated RBC 0.000 Nucleated RBC % (auto) 0.0 POC Glucose 216 H 201 H 10/09/21 10/09/21 07:02 11:08 WBC RBC Hgb Hct MCV MCH MCHC RDW Plt Count MPV Absolute Nucleated RBC Nucleated RBC % (auto) POC Glucose 185 H 306 H Microbiology Microbiology Results: Microbiology 10/07/21 13:42 Peritoneal Fluid Gram Stain - Final 10/07/21 13:42 Peritoneal Fluid Anaerobic Culture - Preliminary No growth to date. 10/07/21 13:42 Peritoneal Fluid Body Fluid Culture - Preliminary No growth to date. Procedures Date of Service Date of Service: 10/09/21 Assessment & Plan Assessment and plan (1) Anemia: Status: Acute Plan 71-year-old female with a past medical history of hyperlipidemia, diabetes, CAD, CHF, ESRD on hemodialysis, history of CVA, peripheral vascular disease, anxiety, depression, arthritis, history of GI bleed, anemia presented to the hospital with chest pain. 1. End-stage renal disease.?HD MWF schedule. Follows Dr Watson in community for dialysis. 2. Anemia.? She was transfused.?EPO 20,000 will be dosed 3x weekly Time Spent With Patient Time: Total time spent is greater than 50% in coordination of care (as documented) at patient's floor/unit and/or counseling patient: Progress Note: Quality Stroke Does the patient have a stroke diagnosis?: No
[2021-10-09 15:42] VITALS: BP 106/61; PULSE 90; RESP 17; TEMP 36.2; O2SAT 98
[2021-10-09 16:09] LABS: Glucose, Whole Blood 134 mg/dL (60-115)
[2021-10-09] MEDS: Sevelamer Carbonate Tablet 800 MG TABLET 1600 MG PO (17:53)
[2021-10-09 19:51] VITALS: BP 131/84; PULSE 92; RESP 17; TEMP 37.7; O2SAT 97
[2021-10-09 20:50] LABS: Glucose, Whole Blood 235 mg/dL (60-115)
[2021-10-09] MEDS: Atorvastatin Calcium 80 MG TABLET PO (21:40)
[2021-10-09] MEDS: HYDROmorphone HCl 1 MG/ML SYRINGE 0.5 MG IVPUSH (21:42)
[2021-10-10] VITALS (12 sets, daily range): BP systolic 101–159; BP diastolic 55–98; PULSE 62–109; RESP 14–21; TEMP 36.1–37.6; O2SAT 92–98
[2021-10-10 07:40] LABS: Glucose, Whole Blood 177 mg/dL (60-115)
[2021-10-10] MEDS: 0.9 % Sodium Chloride Flush 3 ML SYRINGE IVFLUSH ×3 (08:05→20:57)
--- NOTE | 2021-10-10 08:09 | PC.NURSE ---
Patient scheduled for EGD today, has been NPO since midnight, per Dr. Grijalva morning medication held
--- NOTE | 2021-10-10 10:00 | PM.PNNEP ---
Subjective Subjective Date of Service: 10/10/21 Interval history: Currently on HD. Hemodynamics stable on HD. D/W HD RN Physical Exam Vital Signs: Vital Signs: Last Vital Signs Temp 98.2 F 10/10/21 07:21 Pulse 95 10/10/21 07:21 Resp 20 10/10/21 07:21 BP 115/59 L 10/10/21 07:21 Pulse Ox 95 10/10/21 07:21 BMI result Body Mass Index 25.7 Const: General: no acute distress Orientation/consciousness: patient oriented x3 Eyes: EOM: EOMs intact bilaterally Neck: Neck: Yes supple Resp: Auscultation: diminished lung sounds Cardio: Rate: regular rate GI: Palpation (GI): Soft to palpation Neuro: General: patient oriented x3 Objective Data Labs CBC & Chem 7: 10/09/21 05:58 10/06/21 03:41 Labs: Laboratory Results - last 24 hr 10/09/21 10/09/21 10/09/21 11:08 15:59 20:46 POC Glucose 306 H 134 H 235 H 10/10/21 07:20 POC Glucose 177 H Microbiology Microbiology Results: Microbiology 10/07/21 13:42 Peritoneal Fluid Gram Stain - Final 10/07/21 13:42 Peritoneal Fluid Anaerobic Culture - Preliminary No growth to date. 10/07/21 13:42 Peritoneal Fluid Body Fluid Culture - Final No growth after 2 days Procedures Date of Service Date of Service: 10/10/21 Assessment & Plan Assessment and plan (1) ESRD (end stage renal disease) on dialysis: Status: Acute Assessment and Plan: 71-year-old female with a past medical history of hyperlipidemia, diabetes, CAD, CHF, ESRD on hemodialysis, history of CVA, peripheral vascular disease, anxiety, depression, arthritis, history of GI bleed, anemia presented to the hospital with chest pain. 1. End-stage renal disease.?HD MWF schedule. Seen on HD. Tolerating HD. 2. Anemia.? She was transfused.?EPO 20,000 3x weekly as ordered Time Spent With Patient Time: Total time spent is greater than 50% in coordination of care (as documented) at patient's floor/unit and/or counseling patient: Progress Note: Quality Stroke Does the patient have a stroke diagnosis?: No
--- NOTE | 2021-10-10 12:08 | P.CONAN_ITS ---
HPI - Anesthesia Eval Consult details Narrative: Anemia w guiac pos stool. For EGD. 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) Breast calcification, left (Acute) Urinary and bowel incontinence (Acute) CAD (coronary artery disease) (Acute) Cardiomyopathy (Acute) Diverticulitis (Acute) Diabetes mellitus (Acute) Past Medical History Medical History (Updated 10/10/21 @ 10:02 by Uche Harrington MD) Anxiety and depression Artery stenosis Arthritis Balance problem Breast calcification, left CAD (coronary artery disease) Cardiomyopathy CHF (congestive heart failure) COVID-19 vaccine series completed Diabetes mellitus Diabetic neuropathy Diverticulitis Ductal carcinoma in situ (DCIS) of left breast End stage renal disease Fistula Hemodialysis patient History of CVA (cerebrovascular accident) Hx of myocardial infarction Hypercholesteremia Hypertension Incontinence Melena Peripheral vascular disease Urinary and bowel incontinence Patient : No Family History Family History Paternal Grandmother Breast cancer Family history of problems with anesthesia: No Surgical History Surgical History Hx of CABG Hx of colonoscopy Hx of lumpectomy Hx of tubal ligation History of Problems with Anesthesia: No Social History Social History Household Members: Children Household Members Other:: son Housing: House Are you a primary complex care nurse to a significant other at home: No Do you presently have 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) Alcohol intake: former Patient Tobacco Use Status: Former Tobacco user Quit Date: years ago Tobacco use type: Cigarette Cigarette Packs Per Day: 1 Advance Directives Date on File: 10/06/20 service: No Current occupational status: disabled Meds Allergies Allergy/AdvReac Type Severity Reaction Status Date / Time No Known Allergies Allergy Verified 10/05/21 16:46 Active Medications: Current Medications Acetaminophen (Acetaminophen 325 Mg Tablet) 650 mg PO Q6H PRN PRN Reason: Pain, Mild (Pain Scale 1-3) Last Admin: 10/08/21 21:01 Dose: 650 mg Documented by: Atorvastatin Calcium (Atorvastatin Calcium 80 Mg Tablet) 80 mg PO BEDTIME [facility] Last Admin: 10/09/21 21:40 Dose: 80 mg Documented by: Dextrose (Dextrose 50 % 25 Gm/50 Ml Vial) 25 gm IVPUSH Q15M PRN; Protocol PRN Reason: per Hypoglycemia Standing Ord. Epoetin Lincoln (Epoetin Lincoln 20,000 Unit/Ml Vial) 20,000 unit IVPUSH MoWeFr@1600 [facility] Ergocalciferol (Ergocalciferol (Vitamin D2) 1,250 Mcg Capsule) 1,250 mcg PO Sa [facility] Last Admin: 10/08/21 16:58 Dose: 1,250 mcg Documented by: Fluoxetine HCl (Fluoxetine Hcl 20 Mg Capsule) 20 mg PO DAILY [facility] Last Admin: 10/10/21 08:07 Dose: Not Given Documented by: Folic Acid (Folic Acid 1 Mg Tablet) 1 mg PO DAILY [facility] Last Admin: 10/10/21 08:07 Dose: Not Given Documented by: Gabapentin (Gabapentin 300 Mg Capsule) 300 mg PO TID [facility] Last Admin: 10/10/21 08:08 Dose: Not Given Documented by: Glucose (Glucose Gel 15 Gm Gel..Gram.) 15 gm PO Q15M PRN; Protocol PRN Reason: per Hypoglycemia Standing Ord. Hydromorphone HCl (Hydromorphone Hcl 1 Mg/Ml Syringe) 0.5 mg IVPUSH Q4H PRN; Protocol PRN Reason: Pain, Severe (Pain Scale 7-10) Last Admin: 10/09/21 21:42 Dose: 0.5 mg Documented by: Insulin Human Lispro (Insulin Lispro 100 Unit/Ml 3 Ml Vial) 0 unit SUBCUT QIDACHS [facility]; Protocol Last Admin: 10/10/21 11:38 Dose: Not Given Documented by: Loratadine (Loratadine 10 Mg Tablet) 10 mg PO DAILY [facility] Last Admin: 10/10/21 08:08 Dose: Not Given Documented by: Melatonin (Melatonin 3 Mg Tablet) 6 mg PO BEDTIME PRN PRN Reason: Insomnia Last Admin: 10/06/21 20:52 Dose: 6 mg Documented by: Omeprazole (Omeprazole 20 Mg Capsule.Dr) 20 mg PO BID@0630,1630 [facility] Last Admin: 10/10/21 01:33 Dose: Not Given Documented by: Senna (Sennosides 8.6 Mg Tablet) 17.2 mg PO BEDTIME PRN PRN Reason: Constipation Sevelamer Carbonate (Sevelamer Carbonate Tablet 800 Mg Tablet) 1,600 mg PO DAILY@1700 [facility] Last Admin: 10/09/21 17:53 Dose: 1,600 mg Documented by: Sevelamer Carbonate (Sevelamer Carbonate Tablet 800 Mg Tablet) 800 mg PO BID@0800,1200 [facility] Last Admin: 10/10/21 11:39 Dose: Not Given Documented by: Sodium Chloride (0.9 % Sodium Chloride Flush 3 Ml Syringe) 3 ml IVFLUSH QSHIFT [facility] Last Admin: 10/10/21 08:05 Dose: 3 ml Documented by: Tamoxifen Citrate (Tamoxifen Citrate 10 Mg Tablet) 10 mg PO BID [facility] Last Admin: 10/10/21 08:08 Dose: Not Given Documented by: Home Medications Medication Instructions Recorded Confirmed Last Taken Type miscellaneous medical supply #1 08/02/20 09/20/21 Unknown History sevelamer carbonate 800 mg tablet 800 mg PO BID@0800,1200 tab 08/02/20 10/05/21 Unknown History (Renvela) insulin glargine 100 unit/mL 10 unit SUBCUT DAILY 11/16/20 10/06/21 Unknown History subcutaneous cartridge fluoxetine 20 mg capsule 1 cap PO QAM 12/21/20 10/06/21 10/05/21 History sevelamer carbonate 800 mg tablet 1,600 mg PO DAILY@1700 10/05/21 10/05/21 Unknown History insulin aspart U-100 100 unit/mL 2 - 10 unit SUBCUT TID 10/06/21 10/06/21 Unknown History (3 mL) subcutaneous pen (Novolog Flexpen U-100 Insulin aspart) tamoxifen 10 mg tablet 10 mg PO BID 10/06/21 10/06/21 Unknown History Exam Exam Date and Time: October 10, 2021 1208 Height,Weight and Vital Signs: Height 5 ft 1 in Weight 61.9 kg Last Vital Signs Temp 98.2 F 10/10/21 07:21 Pulse 95 10/10/21 07:21 Resp 20 10/10/21 07:21 BP 115/59 L 10/10/21 07:21 Pulse Ox 95 10/10/21 07:21 Pertinent Lab Results Pertinent Lab Results: Laboratory Tests 10/05/21 10/05/21 10/05/21 18:02 18:02 18:02 WBC 2.6 L RBC 2.15 L D Hgb 6.7 L* D Hct 21.9 L D MCV 101.9 H MCH 31.6 MCHC 31.1 RDW 15.5 Plt Count 72 L MPV 11.9 Immature Gran % (Auto) 0.0 Neut % (Auto) 70.3 Lymph % (Auto) 18.7 L [place] % (Auto) 9.5 Eos % (Auto) 1.1 Baso % (Auto) 0.4 Lymph # (Auto) 0.5 L [place] # (Auto) 0.3 Eos # (Auto) 0.0 Baso # (Auto) 0.0 Abs Immat Gran (auto) 0.00 Absolute Neuts (auto) 1.8 L Absolute Nucleated RBC 0.000 Nucleated RBC % (auto) 0.0 PT INR Sodium 136 Potassium 3.3 Chloride 95 L Carbon Dioxide 33 H Anion Gap 11 L BUN 29 H Creatinine 3.41 H Estim Creat Clear Calc 12.9 Estimated GFR 13 POC Glucose Random Glucose 366 H* Calcium 7.8 L D Magnesium 2.0 Iron 279 H TIBC 305 % Saturation 91 H Unsat Iron Binding 26 Ferritin 1715 H Total Bilirubin 0.5 AST 25 ALT 22 Alkaline Phosphatase 286 H Lactate Dehydrogenase Troponin I High Sens 64.7 H* Total Protein 5.6 L Albumin 2.7 L Vitamin B12 Folate Peritoneal WBC Peritoneal RBC Periton Neutrophils Periton Lymphocytes Peritoneal Monocytes Peritoneal Other Cells Peritoneal Albumin Stool Occult Blood COVID-19 ([facility]) COVID-19 Clin Com Blood Type Antibody Screen Crossmatch 10/05/21 10/05/21 10/05/21 18:02 18:38 18:41 WBC RBC Hgb Hct MCV MCH MCHC RDW Plt Count MPV Immature Gran % (Auto) Neut % (Auto) Lymph % (Auto) [place] % (Auto) Eos % (Auto) Baso % (Auto) Lymph # (Auto) [place] # (Auto) Eos # (Auto) Baso # (Auto) Abs Immat Gran (auto) Absolute Neuts (auto) Absolute Nucleated RBC Nucleated RBC % (auto) PT INR Sodium Potassium Chloride Carbon Dioxide Anion Gap BUN Creatinine Estim Creat Clear Calc Estimated GFR POC Glucose 312 H Random Glucose Calcium Magnesium Iron TIBC % Saturation Unsat Iron Binding Ferritin Total Bilirubin AST ALT Alkaline Phosphatase Lactate Dehydrogenase Troponin I High Sens Total Protein Albumin Vitamin B12 652 Folate 9.7 Peritoneal WBC Peritoneal RBC Periton Neutrophils Periton Lymphocytes Peritoneal Monocytes Peritoneal Other Cells Peritoneal Albumin Stool Occult Blood POSITIVE COVID-19 ([facility]) COVID-[address] [facility] Blood Type Antibody Screen Crossmatch 10/05/21 10/05/21 10/05/21 19:36 20:51 23:48 WBC RBC Hgb Hct MCV MCH MCHC RDW Plt Count MPV Immature Gran % (Auto) Neut % (Auto) Lymph % (Auto) [place] % (Auto) Eos % (Auto) Baso % (Auto) Lymph # (Auto) [place] # (Auto) Eos # (Auto) Baso # (Auto) Abs Immat Gran (auto) Absolute Neuts (auto) Absolute Nucleated RBC Nucleated RBC % (auto) PT INR Sodium Potassium Chloride Carbon Dioxide Anion Gap BUN Creatinine Estim Creat Clear Calc Estimated GFR POC Glucose 292 H Random Glucose Calcium Magnesium Iron TIBC % Saturation Unsat Iron Binding Ferritin Total Bilirubin AST ALT Alkaline Phosphatase Lactate Dehydrogenase Troponin I High Sens 84.2 H* Total Protein Albumin Vitamin B12 Folate Peritoneal WBC Peritoneal RBC Periton Neutrophils Periton Lymphocytes Peritoneal Monocytes Peritoneal Other Cells Peritoneal Albumin Stool Occult Blood COVID-19 ([facility]) COVID-[address] [facility] Blood Type A Positive Antibody Screen NEGATIVE Crossmatch See Detail 10/06/21 10/06/21 10/06/21 03:17 03:41 03:41 WBC 2.9 L RBC 2.71 L D Hgb 8.4 L D Hct 26.7 L D MCV 98.5 H MCH 31.0 MCHC 31.5 RDW 16.4 H Plt Count 69 L MPV 11.7 Immature Gran % (Auto) 0.3 Neut % (Auto) 73.6 H Lymph % (Auto) 15.4 L [place] % (Auto) 8.6 Eos % (Auto) 1.4 Baso % (Auto) 0.7 Lymph # (Auto) 0.5 L [place] # (Auto) 0.3 Eos # (Auto) 0.0 Baso # (Auto) 0.0 Abs Immat Gran (auto) 0.01 Absolute Neuts (auto) 2.2 Absolute Nucleated RBC 0.000 Nucleated RBC % (auto) 0.0 PT INR Sodium 139 Potassium 3.6 Chloride 96 Carbon Dioxide 31 H Anion Gap 16 BUN 36 H Creatinine 4.17 H* Estim Creat Clear Calc 10.5 Estimated GFR 11 POC Glucose Random Glucose 275 H Calcium 7.9 L Magnesium Iron TIBC % Saturation Unsat Iron Binding Ferritin Total Bilirubin AST ALT Alkaline Phosphatase Lactate Dehydrogenase Troponin I High Sens Total Protein Albumin Vitamin B12 Folate Peritoneal WBC Peritoneal RBC Periton Neutrophils Periton Lymphocytes Peritoneal Monocytes Peritoneal Other Cells Peritoneal Albumin Stool Occult Blood COVID-19 ([facility]) Negative COVID-19 Clin Com See Note Blood Type Antibody Screen Crossmatch 10/06/21 10/06/21 10/06/21 08:35 11:23 13:38 WBC RBC Hgb Hct MCV MCH MCHC RDW Plt Count MPV Immature Gran % (Auto) Neut % (Auto) Lymph % (Auto) [place] % (Auto) Eos % (Auto) Baso % (Auto) Lymph # (Auto) [place] # (Auto) Eos # (Auto) Baso # (Auto) Abs Immat Gran (auto) Absolute Neuts (auto) Absolute Nucleated RBC Nucleated RBC % (auto) PT INR Sodium Potassium Chloride Carbon Dioxide Anion Gap BUN Creatinine Estim Creat Clear Calc Estimated GFR POC Glucose 233 H 153 H 120 H Random Glucose Calcium Magnesium Iron TIBC % Saturation Unsat Iron Binding Ferritin Total Bilirubin AST ALT Alkaline Phosphatase Lactate Dehydrogenase Troponin I High Sens Total Protein Albumin Vitamin B12 Folate Peritoneal WBC Peritoneal RBC Periton Neutrophils Periton Lymphocytes Peritoneal Monocytes Peritoneal Other Cells Peritoneal Albumin Stool Occult Blood COVID-19 ([facility]) COVID-19 [facility] Blood Type Antibody Screen Crossmatch 10/06/21 10/06/21 10/07/21 17:06 20:42 07:22 WBC RBC Hgb Hct MCV MCH MCHC RDW Plt Count MPV Immature Gran % (Auto) Neut % (Auto) Lymph % (Auto) [place] % (Auto) Eos % (Auto) Baso % (Auto) Lymph # (Auto) [place] # (Auto) Eos # (Auto) Baso # (Auto) Abs Immat Gran (auto) Absolute Neuts (auto) Absolute Nucleated RBC Nucleated RBC % (auto) PT INR Sodium Potassium Chloride Carbon Dioxide Anion Gap BUN Creatinine Estim Creat Clear Calc Estimated GFR POC Glucose 145 H 175 H 161 H Random Glucose Calcium Magnesium Iron TIBC % Saturation Unsat Iron Binding Ferritin Total Bilirubin AST ALT Alkaline Phosphatase Lactate Dehydrogenase Troponin I High Sens Total Protein Albumin Vitamin B12 Folate Peritoneal WBC Peritoneal RBC Periton Neutrophils Periton Lymphocytes Peritoneal Monocytes Peritoneal Other Cells Peritoneal Albumin Stool Occult Blood COVID-19 ([facility]) COVID-19 [facility] Blood Type Antibody Screen Crossmatch 10/07/21 10/07/21 10/07/21 13:28 13:42 13:42 WBC RBC Hgb Hct MCV MCH MCHC RDW Plt Count MPV Immature Gran % (Auto) Neut % (Auto) Lymph % (Auto) [place] % (Auto) Eos % (Auto) Baso % (Auto) Lymph # (Auto) [place] # (Auto) Eos # (Auto) Baso # (Auto) Abs Immat Gran (auto) Absolute Neuts (auto) Absolute Nucleated RBC Nucleated RBC % (auto) PT INR Sodium Potassium Chloride Carbon Dioxide Anion Gap BUN Creatinine Estim Creat Clear Calc Estimated GFR POC Glucose 106 Random Glucose Calcium Magnesium Iron TIBC % Saturation Unsat Iron Binding Ferritin Total Bilirubin AST ALT Alkaline Phosphatase Lactate Dehydrogenase Troponin I High Sens Total Protein Albumin Vitamin B12 Folate Peritoneal WBC 0.602 Peritoneal RBC < 0.002 Periton Neutrophils 45 Periton Lymphocytes 10 Peritoneal Monocytes 40 Peritoneal Other Cells 5 Peritoneal Albumin 0.9 Stool Occult Blood COVID-19 ([facility]) COVID-19 [facility] Blood Type Antibody Screen Crossmatch 10/07/21 10/07/21 10/07/21 13:46 13:46 14:04 WBC 5.1 RBC 3.16 L Hgb 9.8 L Hct 31.8 L MCV 100.6 H MCH 31.0 MCHC 30.8 L RDW 16.5 H Plt Count 115 L D MPV 12.9 H Immature Gran % (Auto) Neut % (Auto) Lymph % (Auto) [place] % (Auto) Eos % (Auto) Baso % (Auto) Lymph # (Auto) [place] # (Auto) Eos # (Auto) Baso # (Auto) Abs Immat Gran (auto) Absolute Neuts (auto) Absolute Nucleated RBC 0.000 Nucleated RBC % (auto) 0.0 PT 12.0 INR 1.1 Sodium Potassium Chloride Carbon Dioxide Anion Gap BUN Creatinine Estim Creat Clear Calc Estimated GFR POC Glucose Random Glucose Calcium Magnesium Iron TIBC % Saturation Unsat Iron Binding Ferritin Total Bilirubin AST ALT Alkaline Phosphatase Lactate Dehydrogenase 308 H Troponin I High Sens Total Protein 6.0 L Albumin Vitamin B12 Folate Peritoneal WBC Peritoneal RBC Periton Neutrophils Periton Lymphocytes Peritoneal Monocytes Peritoneal Other Cells Peritoneal Albumin Stool Occult Blood COVID-19 ([facility]) COVID-19 [facility] Blood Type Antibody Screen Crossmatch 10/07/21 10/07/21 10/08/21 15:56 19:42 06:19 WBC 4.2 L RBC 2.91 L Hgb 9.2 L Hct 29.5 L MCV 101.4 H MCH 31.6 MCHC 31.2 RDW 16.3 H Plt Count 107 L MPV 12.0 Immature Gran % (Auto) Neut % (Auto) Lymph % (Auto) [place] % (Auto) Eos % (Auto) Baso % (Auto) Lymph # (Auto) [place] # (Auto) Eos # (Auto) Baso # (Auto) Abs Immat Gran (auto) Absolute Neuts (auto) Absolute Nucleated RBC 0.000 Nucleated RBC % (auto) 0.0 PT INR Sodium Potassium Chloride Carbon Dioxide Anion Gap BUN Creatinine Estim Creat Clear Calc Estimated GFR POC Glucose 126 H 130 H Random Glucose Calcium Magnesium Iron TIBC % Saturation Unsat Iron Binding Ferritin Total Bilirubin AST ALT Alkaline Phosphatase Lactate Dehydrogenase Troponin I High Sens Total Protein Albumin Vitamin B12 Folate Peritoneal WBC Peritoneal RBC Periton Neutrophils Periton Lymphocytes Peritoneal Monocytes Peritoneal Other Cells Peritoneal Albumin Stool Occult Blood COVID-19 ([facility]) COVID-19 [facility] Blood Type Antibody Screen Crossmatch 10/08/21 10/08/21 10/08/21 07:15 10:57 16:04 WBC RBC Hgb Hct MCV MCH MCHC RDW Plt Count MPV Immature Gran % (Auto) Neut % (Auto) Lymph % (Auto) [place] % (Auto) Eos % (Auto) Baso % (Auto) Lymph # (Auto) [place] # (Auto) Eos # (Auto) Baso # (Auto) Abs Immat Gran (auto) Absolute Neuts (auto) Absolute Nucleated RBC Nucleated RBC % (auto) PT INR Sodium Potassium Chloride Carbon Dioxide Anion Gap BUN Creatinine Estim Creat Clear Calc Estimated GFR POC Glucose 128 H 152 H 216 H Random Glucose Calcium Magnesium Iron TIBC % Saturation Unsat Iron Binding Ferritin Total Bilirubin AST ALT Alkaline Phosphatase Lactate Dehydrogenase Troponin I High Sens Total Protein Albumin Vitamin B12 Folate Peritoneal WBC Peritoneal RBC Periton Neutrophils Periton Lymphocytes Peritoneal Monocytes Peritoneal Other Cells Peritoneal Albumin Stool Occult Blood COVID-19 ([facility]) [employer]19 [facility] Blood Type Antibody Screen Crossmatch 10/08/21 10/09/21 10/09/21 20:52 05:58 07:02 WBC 3.6 L RBC 2.80 L Hgb 8.9 L Hct 28.9 L MCV 103.2 H MCH 31.8 MCHC 30.8 L RDW 16.3 H Plt Count 104 L MPV 11.9 Immature Gran % (Auto) Neut % (Auto) Lymph % (Auto) [place] % (Auto) Eos % (Auto) Baso % (Auto) Lymph # (Auto) [place] # (Auto) Eos # (Auto) Baso # (Auto) Abs Immat Gran (auto) Absolute Neuts (auto) Absolute Nucleated RBC 0.000 Nucleated RBC % (auto) 0.0 PT INR Sodium Potassium Chloride Carbon Dioxide Anion Gap BUN Creatinine Estim Creat Clear Calc Estimated GFR POC Glucose 201 H 185 H Random Glucose Calcium Magnesium Iron TIBC % Saturation Unsat Iron Binding Ferritin Total Bilirubin AST ALT Alkaline Phosphatase Lactate Dehydrogenase Troponin I High Sens Total Protein Albumin Vitamin B12 Folate Peritoneal WBC Peritoneal RBC Periton Neutrophils Periton Lymphocytes Peritoneal Monocytes Peritoneal Other Cells Peritoneal Albumin Stool Occult Blood COVID-19 ([facility]) [employer] Blood Type Antibody Screen Crossmatch 10/09/21 10/09/21 10/09/21 11:08 15:59 20:46 WBC RBC Hgb Hct MCV MCH MCHC RDW Plt Count MPV Immature Gran % (Auto) Neut % (Auto) Lymph % (Auto) [place] % (Auto) Eos % (Auto) Baso % (Auto) Lymph # (Auto) [place] # (Auto) Eos # (Auto) Baso # (Auto) Abs Immat Gran (auto) Absolute Neuts (auto) Absolute Nucleated RBC Nucleated RBC % (auto) PT INR Sodium Potassium Chloride Carbon Dioxide Anion Gap BUN Creatinine Estim Creat Clear Calc Estimated GFR POC Glucose 306 H 134 H 235 H Random Glucose Calcium Magnesium Iron TIBC % Saturation Unsat Iron Binding Ferritin Total Bilirubin AST ALT Alkaline Phosphatase Lactate Dehydrogenase Troponin I High Sens Total Protein Albumin Vitamin B12 Folate Peritoneal WBC Peritoneal RBC Periton Neutrophils Periton Lymphocytes Peritoneal Monocytes Peritoneal Other Cells Peritoneal Albumin Stool Occult Blood COVID-19 ([facility]) [facility] Blood Type Antibody Screen Crossmatch 10/10/21 07:20 WBC RBC Hgb Hct MCV MCH MCHC RDW Plt Count MPV Immature Gran % (Auto) Neut % (Auto) Lymph % (Auto) [place] % (Auto) Eos % (Auto) Baso % (Auto) Lymph # (Auto) [place] # (Auto) Eos # (Auto) Baso # (Auto) Abs Immat Gran (auto) Absolute Neuts (auto) Absolute Nucleated RBC Nucleated RBC % (auto) PT INR Sodium Potassium Chloride Carbon Dioxide Anion Gap BUN Creatinine Estim Creat Clear Calc Estimated GFR POC Glucose 177 H Random Glucose Calcium Magnesium Iron TIBC % Saturation Unsat Iron Binding Ferritin Total Bilirubin AST ALT Alkaline Phosphatase Lactate Dehydrogenase Troponin I High Sens Total Protein Albumin Vitamin B12 Folate Peritoneal WBC Peritoneal RBC Periton Neutrophils Periton Lymphocytes Peritoneal Monocytes Peritoneal Other Cells Peritoneal Albumin Stool Occult Blood COVID-19 ([facility]) COVID-19 Clin Com Blood Type Antibody Screen Crossmatch Airway Mallampati Class: I TM Dist: >3cm Neck ROM: Full Denture: Upper and Lower Loose/Missing/Broken Teeth: Yes Heart: Marked JVD, prob RHF. Lungs: oK Assessment and Plan Final Anesthetic Review Family History of Problems with Anesthesia: No History of Problems with Anesthesia: No NPO: Yes ASA Class: IV Final Preanesthetic Review: No Changes in Pt Med Stat, Meds/Allgs Chart Reviewed, Consent Obtained/Reviewed and Anes Risks/Benef Reviewed Patient Risk: High Procedure Risk: High Anesthetic Plan Anesthetic Plan: MAC: and Agree w/ Assess. and Plan Disposition: Standard PACU
--- NOTE | 2021-10-10 13:04 | MHC.SHP ---
Pre-Procedural Eval Section A Date of Service: 10/10/21 The patient is an INPATIENT: Yes The History & Physical has been completed within 30 days and I have reviewed it.: Yes Section B Chief Complaint: Anemia Allergies: Allergies Allergy/AdvReac Type Severity Reaction Status Date / Time No Known Allergies Allergy Verified 10/05/21 16:46 Plan Diagnosis/Plan: Unchanged I have reviewed the history and physical and performed a pertinent physical examination on my patient. No changes have occurred unless specified.
--- NOTE | 2021-10-10 14:15 | P.BOP_ITS ---
Brief Operative Note Date of Service: 10/10/21 Pre-op diagnosis: acute blood loss anemia Post-op diagnosis: same Procedure: see op note Surgeon: Tamiko Chirinos MD Anesthesia: MAC Was an Cloud Engagement Partner used for this Procedure?: No Estimated blood loss (mL): 0 Condition: stable Disposition: PACU
--- NOTE | 2021-10-10 14:15 | P.OP_ITS ---
Operative Note Operative Note Date of Service: 10/10/21 Narrative: Procedure Description: EGD Indication: acute blood loss anemia, possible cirrhosis Anesthesia: MAC FLEXIBLE TRANSORAL UPPER GASTROINTESTINAL ENDOSCOPY UPPER ENDOSCOPY Consent: Indications for the procedure and potential complications of bleeding, perforation, reaction to medications and missed diagnosis were discussed with the patient and informed consent was obtained. Instrument: Olympus GIF H 190 J mid size upper endoscope Monitoring: Vital signs and clinical assessment, continuous EKG monitoring, Pulse oximetry, Carbon Dioxide monitoring and blood pressure monitoring were done throughout the procedure. Procedure: The patient was placed in the left lateral decubitis position and pre-procedure medications were administered and a bite block was placed. The endoscope was inserted into the mouth and advanced under direct vision to the third part of duodenum. A careful inspection was made as the upper endoscope was withdrawn including a retroflexed examination of the proximal stomach; Findings and interventions are described below. Findings: Larynx:normal Esophagus: GE junction at 38 cm, diaphragm hiatus at 38 cm, three cords of grad e III esophageal varices noted, not actively bleeding. These were banded x 3 bands with good collapse, some mucosal bleeding noted and hemospray was applied Stomach: Patchy gastric erythema with nodular appearing mucosa, possibly consistent with portal hypertensive gastropathy. Biopsies were obtained. Grade 2 flap valve on retroflexed examination of the cardia. No gastric varices noted. Duodenum: Edematous and swollen, inflammed mucosa. There was persistent oozing of blood from an area in the distal bulb from what appeared to be an inflammed Liliana gland. A OTC clip was applied but the area was still bleeding. A TTC clip was applied and bleeding seemed to cease. Hemospray was applied for extra security. Intervention: Biopsies as noted above, control of acute GI bleeding, Variceal banding Impression/Findings: esophageal varices dieulafoy lesion, duodenum portal hypertensive gastropathy gastritis PLAN: NPO for next 4-6 hours, then can advance to liquids with full diet tomorrow high dose PPI, pantoprazole 40 mg BID carafate 1 g QID for 2 weeks iF BP allows and no CI then can try low dose beta marilyn like carvedilol or nadolol. repeat EGD in about 4-6 weeks
--- NOTE | 2021-10-10 14:50 | P.PNIM_ITS ---
Subjective Subjective Date of Service: 10/10/21 Interval History: receiving hemodialysis, denies nausea, vomiting, abdominal pain, NPO for upper endoscopy this afternoon, no acute events overnight. Review of Systems Review of Systems: Yes all other systems are reviewed and are negative Physical Exam Vital Signs: Vital Signs: Last Vital Signs Temp 99.4 F 10/10/21 14:25 Pulse 98 10/10/21 14:39 Resp 18 10/10/21 14:39 BP 128/84 10/10/21 14:39 Pulse Ox 97 10/10/21 14:39 BMI result Body Mass Index 25.7 Const: Other: General? awake alert, in no acute distress.? Neck? supple no JVD. CVS? regular rate rhythm, Respiratory lungs clear to auscultation, no respiratory distress, no wheeze, no rhonchi. Gastrointestinal abdomen soft, nontender, bowel sounds audible, no guarding , no rigidity. Extremities no edema. Neuro nonfocal , speech clear. Skin no rash, small bruise right lateral chest wall fading. psych appropriate affect musculoskeletal no deformity Objective Data Active Medications Acetaminophen (Acetaminophen 325 Mg Tablet) 650 mg PO Q6H PRN PRN Reason: Pain, Mild (Pain Scale 1-3) Last Admin: 10/08/21 21:01 Dose: 650 mg Documented by: GERONIMO Acetaminophen (Acetaminophen 325 Mg Tablet) 650 mg PO ONCE PRN PRN Reason: Pain, Mild (Pain Scale 1-3) Atorvastatin Calcium (Atorvastatin Calcium 80 Mg Tablet) 80 mg PO BEDTIME [facility] Last Admin: 10/09/21 21:40 Dose: 80 mg Documented by: HELEN Dextrose (Dextrose 50 % 25 Gm/50 Ml Vial) 25 gm IVPUSH Q15M PRN; Protocol PRN Reason: per Hypoglycemia Standing Ord. Epoetin Lincoln (Epoetin Lincoln 20,000 Unit/Ml Vial) 20,000 unit IVPUSH MoWeFr@1600 [facility] Ergocalciferol (Ergocalciferol (Vitamin D2) 1,250 Mcg Capsule) 1,250 mcg PO Sa [facility] Last Admin: 10/08/21 16:58 Dose: 1,250 mcg Documented by: BRYAN Fluoxetine HCl (Fluoxetine Hcl 20 Mg Capsule) 20 mg PO DAILY [facility] Last Admin: 10/10/21 08:07 Dose: Not Given Documented by: NILSON Non-Admin Reason: Physician Held Med Folic Acid (Folic Acid 1 Mg Tablet) 1 mg PO DAILY [facility] Last Admin: 10/10/21 08:07 Dose: Not Given Documented by: NILSON Non-Admin Reason: Physician Held Med Gabapentin (Gabapentin 300 Mg Capsule) 300 mg PO TID [facility] Last Admin: 10/10/21 08:08 Dose: Not Given Documented by: NILSON Non-Admin Reason: Physician Held Med Glucose (Glucose Gel 15 Gm Gel..Gram.) 15 gm PO Q15M PRN; Protocol PRN Reason: per Hypoglycemia Standing Ord. Hydromorphone HCl (Hydromorphone Hcl 1 Mg/Ml Syringe) 0.5 mg IVPUSH Q4H PRN; Protocol PRN Reason: Pain, Severe (Pain Scale 7-10) Last Admin: 10/09/21 21:42 Dose: 0.5 mg Documented by: HELEN Insulin Human Lispro (Insulin Lispro 100 Unit/Ml 3 Ml Vial) 0 unit SUBCUT QIDACHS [facility]; Protocol Last Admin: 10/10/21 11:38 Dose: Not Given Documented by: NILSON Non-Admin Reason: Not In Room Loratadine (Loratadine 10 Mg Tablet) 10 mg PO DAILY [facility] Last Admin: 10/10/21 08:08 Dose: Not Given Documented by: NILSON Non-Admin Reason: Physician Held Med Melatonin (Melatonin 3 Mg Tablet) 6 mg PO BEDTIME PRN PRN Reason: Insomnia Last Admin: 10/06/21 20:52 Dose: 6 mg Documented by: CALEB Omeprazole (Omeprazole 20 Mg Sophia.) 20 mg PO BID@0630,1630 [facility] Last Admin: 10/10/21 01:33 Dose: Not Given Documented by: HELEN Non-Admin Reason: NPO Ondansetron HCl (Ondansetron Hcl 4 Mg/2 Ml Vial) 4 mg IVPUSH ONCE PRN PRN Reason: Nausea and Vomiting Senna (Sennosides 8.6 Mg Tablet) 17.2 mg PO BEDTIME PRN PRN Reason: Constipation Sevelamer Carbonate (Sevelamer Carbonate Tablet 800 Mg Tablet) 1,600 mg PO DAILY@1700 [facility] Last Admin: 10/09/21 17:53 Dose: 1,600 mg Documented by: BRYAN Sevelamer Carbonate (Sevelamer Carbonate Tablet 800 Mg Tablet) 800 mg PO BID@0800,1200 [facility] Last Admin: 10/10/21 11:39 Dose: Not Given Documented by: NILSON Non-Admin Reason: Physician Held Med Sodium Chloride (0.9 % Sodium Chloride Flush 3 Ml Syringe) 3 ml IVFLUSH QSHIFT [facility] Last Admin: 10/10/21 08:05 Dose: 3 ml Documented by: NILSON Tamoxifen Citrate (Tamoxifen Citrate 10 Mg Tablet) 10 mg PO BID [facility] Last Admin: 10/10/21 08:08 Dose: Not Given Documented by: NILSON Non-Admin Reason: Physician Held Med Labs CBC & Chem 7: 10/09/21 05:58 10/06/21 03:41 Labs: Laboratory Results - last 24 hr 10/09/21 10/09/21 10/10/21 15:59 20:46 07:20 POC Glucose 134 H 235 H 177 H Microbiology Microbiology Results: Microbiology 10/07/21 13:42 Gram Stain - Final Peritoneal Fluid Anaerobic Culture - Preliminary No growth to date. Body Fluid Culture - Final No growth after 2 days Assessment and Plan (1) Anemia: Status: Acute Plan 71-year-old female with a past medical history of hyperlipidemia, diabetes, CAD, CHF, ESRD on hemodialysis, history of CVA, peripheral vascular disease, anxiety, depression, arthritis, history of GI bleed, anemia presented to the hospital today with a chief complaint of chest pain.? Noted to have following #Right lateral Chest pain: improved, likely musculoskeletal due to fall, chest x-ray showed no acute fractures, elevated troponin likely due to renal injury, good pain control, continue analgesics, no further cardiac workup encourage out of bed to chair and incentive spirometry. #acute on chronic Anemia Baseline hemoglobin around 8.5.? On presentation hemoglobin noted to be 6.7 status post blood transfusion hematocrit improved.? Vitals stable. normal iron studies, B12 and folate cont.by mouth PPI underwent upper endoscopy this morning by Dr. Mike son that showed esophageal varices, dieulafoy lesion, duodenum, portal hypertensive gastropathy, gastritis, GI recommend NPO for next 4-6 hours, then advance to liquids with full diet tomorrow,high dose PPI, pantoprazole 40 mg BID carafate 1 g QID for 2 weeks, if BP allows and no CI then rec. low dose beta bl ocker like carvedilol or nadolol. rec. repeat EGD in about 4-6 weeks. Diffuse ascites/cirrhosis as noted on the CT scan.? no nausea, vomiting, no abdominal pain,as per patient history of hepatitis-C previously treated , abdomen soft, no shortness of breath. low albumin added supplements/inr 1.1 discussed management with GI and Nephrology. Had diagnostic paracentesis on 10/07, SAAG >1.1 portal hypertension is likely cause of ascites, fluid culture sensitivity showed no growth. Right kidney cyst:? Appears complex with hemorrhagic versus proteinaceous cyst, Nephrology following ESRD:? continue hemodialysis.? Sunday, being followed by Nephrology Early infiltrate left lower lobe ? PNA:? Patient asymptomatic, no fevers, no cough or sputum production,?follow clinical course, hold of antibiotics for now, encourage incentive spirometry. Fall: Mechanical in nature patient slipped from stairs, CT head and CT cervical spine showed no acute findings, Knee x-ray showed no acute findings.? Exam grossly nonfocal, seen by PT they recommend short-term rehab in order to maximi ze safety strength and endurance History of diabetes: stable blood sugars continue? Insulin sliding scale, hold Lantus since patient NPO and will be started on clear liquids tonight. ( takes Lantus 10 units at night pre meal insulin) hyperlipidemia continue Lipitor pancytopenia seems chronic likely related to history hepatitis-C / breast CA/ chronic kidney disease, no active bleed noted outpatient hematology follow-up History of left breast DCIS completed adjuvant radiation therapy from 03/02/2021 to 03/30/2021 at [facility], being followed by Dr. Smith on tamoxifen. mood disorder no acute decompensation continue home meds. DVT prophylaxis:? SCD boots. Code status: Full code patient will need continued inpatient hospitalization due to upper endoscopy on clear liquid diet due to esophageal varices and dieulafoy lesion,portal hypertensive gastropathy and gastritis, will advance diet as tolerated. Quality Stroke Does the patient have a stroke diagnosis?: No VTE Prior VTE?: No VTE Risk Level:: Medical - moderate - high VTE Device Contraindication: N/A - Device Ordered VTE Drug Contraindication: Treatment Not Indicated
[2021-10-10 16:34] LABS: Glucose, Whole Blood 182 mg/dL (60-115)
[2021-10-10 19:49] LABS: Glucose, Whole Blood 185 mg/dL (60-115)
[2021-10-10] MEDS: Melatonin 3 MG TABLET 6 MG PO (20:57)
[2021-10-10] MEDS: Tamoxifen Citrate 10 MG TABLET PO (20:57)
[2021-10-10] MEDS: Gabapentin 300 MG CAPSULE PO (20:57)
[2021-10-10] MEDS: Atorvastatin Calcium 80 MG TABLET PO (20:57)
[2021-10-11] VITALS (7 sets, daily range): BP systolic 112–158; BP diastolic 55–90; PULSE 68–88; RESP 18; TEMP 36.6–37.3; O2SAT 95–99
[2021-10-11] MEDS: Omeprazole 20 MG CAPSULE.DR PO (06:07)
[2021-10-11] MEDS: Sucralfate 1 GM TABLET PO ×4 (06:07→21:11)
[2021-10-11 06:20] LABS: Glucose, Whole Blood 181 mg/dL (60-115)
[2021-10-11 07:05] LABS: Glucose, Whole Blood 171 mg/dL (60-115)
[2021-10-11] MEDS: Insulin Lispro 100 UNIT/ML 3 ML VIAL SUBCUT ×3 (07:48→21:11)
[2021-10-11] MEDS: Loratadine 10 MG TABLET PO (07:48)
[2021-10-11] MEDS: FLUoxetine HCl 20 MG CAPSULE PO (07:48)
[2021-10-11] MEDS: 0.9 % Sodium Chloride Flush 3 ML SYRINGE IVFLUSH ×2 (07:49→15:46)
[2021-10-11] MEDS: Tamoxifen Citrate 10 MG TABLET PO ×2 (07:49→21:11)
[2021-10-11] MEDS: Gabapentin 300 MG CAPSULE PO ×2 (07:49→21:11)
[2021-10-11] MEDS: Folic Acid 1 MG TABLET PO (07:49)
[2021-10-11] MEDS: Sevelamer Carbonate Tablet 800 MG TABLET PO ×2 (07:49→11:41)
--- NOTE | 2021-10-11 10:15 | MHC.CM.PN ---
Female 71 DP home with resumption of [facility] services and HD. BLS transport will be arranged at OR.
[2021-10-11 11:35] LABS: Glucose, Whole Blood 213 mg/dL (60-115)
--- NOTE | 2021-10-11 11:51 | PM.PNNEP ---
Subjective Subjective Date of Service: 10/11/21 Interval history: Events noted. All recent data reviewed Physical Exam Vital Signs: Vital Signs: Last Vital Signs Temp 98 F 10/11/21 11:01 Pulse 83 10/11/21 11:01 Resp 18 10/11/21 11:01 BP 158/90 H 10/11/21 11:01 Pulse Ox 97 10/11/21 11:01 BMI result Body Mass Index 25.7 Const: General: no acute distress Eyes: EOM: EOMs intact bilaterally Resp: Auscultation: diminished lung sounds Cardio: Rate: regular rate GI: Palpation (GI): Soft to palpation Neuro: General: moves all extremities Objective Data Labs CBC & Chem 7: 10/09/21 05:58 10/06/21 03:41 Labs: Laboratory Results - last 24 hr 10/10/21 10/10/21 10/10/21 13:11 16:30 19:44 POC Glucose 181 H 182 H 185 H 10/11/21 10/11/21 06:59 11:32 POC Glucose 171 H 213 H Microbiology Microbiology Results: Microbiology 10/07/21 13:42 Peritoneal Fluid Gram Stain - Final 10/07/21 13:42 Peritoneal Fluid Anaerobic Culture - Preliminary No growth to date. 10/07/21 13:42 Peritoneal Fluid Body Fluid Culture - Final No growth after 2 days Procedures Date of Service Date of Service: 10/11/21 Assessment & Plan Assessment and plan (1) ESRD (end stage renal disease) on dialysis: Status: Acute Assessment and Plan: 71-year-old female with a past medical history of hyperlipidemia, diabetes, CAD, CHF, ESRD on hemodialysis, history of CVA, peripheral vascular disease, anxiety, depression, arthritis, history of GI bleed, anemia presented to the hospital with chest pain. 1. End-stage renal disease.?HD MWF schedule. Has been tolerating HD.Next HD tomorrow 2. Anemia.? She was transfused.?EPO 20,000 3x weekly as ordered; Had EGD Time Spent With Patient Time: Total time spent is greater than 50% in coordination of care (as documented) at patient's floor/unit and/or counseling patient: Progress Note: Quality Stroke Does the patient have a stroke diagnosis?: No
--- NOTE | 2021-10-11 12:48 | MHC.CM.PN ---
PATIENT TOLERATING CLEARS PLAN IS TO ADVANCE DIET TOLERATED. EVENTUAL DC PLAN IS HOME WITH [facility] AND RESUMPTION OF M-W- HEMO-DIALYSIS
--- NOTE | 2021-10-11 14:17 | HO.POSTANES ---
Post Anesthesia Evaluation Post Anesthesia Evaluation Vital Signs: Vital Signs Temp Pulse Resp BP Pulse Ox 10/11/21 11:01 98 F 83 18 158/90 H 97 10/11/21 06:59 97.8 F 88 18 112/63 96 10/11/21 03:48 99 F 88 18 123/55 L 95 Anesthesia: Monitored Mental Status: Awake Pain Control: Satisfactory Nausea/Vomiting: None Hydration: Adequate Anesthesia-Related Issues: No Anes. Related Issues
--- NOTE | 2021-10-11 14:54 | HO.PM.IMPN ---
Subjective Subjective Date of Service: 10/11/21 Interval History: feeling better minimal right chest wall pain with movement otherwise denies chest pain, no shortness of breath no heartburn, no acidity, no other acute issues overnight, tolerating clear liquid diet no hematemesis or melena. Review of Systems Review of Systems: Yes all other systems are reviewed and are negative Physical Exam Vital Signs: Vital Signs: Last Vital Signs Temp 98 F 10/11/21 11:01 Pulse 83 10/11/21 11:01 Resp 18 10/11/21 11:01 BP 158/90 H 10/11/21 11:01 Pulse Ox 97 10/11/21 11:01 BMI result Body Mass Index 25.7 Const: Other: General? awake alert, in no acute distress.? Neck? supple no JVD. CVS? regular rate rhythm, Respiratory lungs clear to auscultation, no respiratory distress, no wheeze, no rhonchi. Gastrointestinal abdomen soft, nontender, bowel sounds audible, no guarding , no rigidity. Extremities no edema. Neuro nonfocal , speech clear. Skin no rash,? psych appropriate affect musculoskeletal no deformity Objective Data Active Medications Acetaminophen (Acetaminophen 325 Mg Tablet) 650 mg PO Q6H PRN PRN Reason: Pain, Mild (Pain Scale 1-3) Last Admin: 10/08/21 21:01 Dose: 650 mg Documented by: GERONIMO Acetaminophen (Acetaminophen 325 Mg Tablet) 650 mg PO ONCE PRN PRN Reason: Pain, Mild (Pain Scale 1-3) Atorvastatin Calcium (Atorvastatin Calcium 80 Mg Tablet) 80 mg PO BEDTIME [facility] Last Admin: 10/10/21 20:57 Dose: 80 mg Documented by: CASTILM Dextrose (Dextrose 50 % 25 Gm/50 Ml Vial) 25 gm IVPUSH Q15M PRN; Protocol PRN Reason: per Hypoglycemia Standing Ord. Epoetin Lincoln (Epoetin Lincoln 20,000 Unit/Ml Vial) 20,000 unit IVPUSH MoWeFr@1600 [facility] Last Admin: 10/10/21 17:39 Dose: 20,000 unit Documented by: DOBROB Ergocalciferol (Ergocalciferol (Vitamin D2) 1,250 Mcg Capsule) 1,250 mcg PO Sa [facility] Last Admin: 10/08/21 16:58 Dose: 1,250 mcg Documented by: BRYAN Fluoxetine HCl (Fluoxetine Hcl 20 Mg Capsule) 20 mg PO DAILY [facility] Last Admin: 10/11/21 07:48 Dose: 20 mg Documented by: ANNA Folic Acid (Folic Acid 1 Mg Tablet) 1 mg PO DAILY [facility] Last Admin: 10/11/21 07:49 Dose: 1 mg Documented by: ANNA Gabapentin (Gabapentin 300 Mg Capsule) 300 mg PO TID [facility] Last Admin: 10/11/21 07:49 Dose: 300 mg Documented by: ANNA Glucose (Glucose Gel 15 Gm Gel..Gram.) 15 gm PO Q15M PRN; Protocol PRN Reason: per Hypoglycemia Standing Ord. Insulin Human Lispro (Insulin Lispro 100 Unit/Ml 3 Ml Vial) 0 unit SUBCUT QIDACHS [facility]; Protocol Last Admin: 10/11/21 11:40 Dose: 4 unit Documented by: ANNA Loratadine (Loratadine 10 Mg Tablet) 10 mg PO DAILY [facility] Last Admin: 10/11/21 07:48 Dose: 10 mg Documented by: ANNA Melatonin (Melatonin 3 Mg Tablet) 6 mg PO BEDTIME PRN PRN Reason: Insomnia Last Admin: 10/10/21 20:57 Dose: 6 mg Documented by: CASTILViktor Omeprazole (Omeprazole 40 Mg Capsule.Dr) 40 mg PO BID@0630,1630 [facility] Ondansetron HCl (Ondansetron Hcl 4 Mg/2 Ml Vial) 4 mg IVPUSH ONCE PRN PRN Reason: Nausea and Vomiting Senna (Sennosides 8.6 Mg Tablet) 17.2 mg PO BEDTIME PRN PRN Reason: Constipation Sevelamer Carbonate (Sevelamer Carbonate Tablet 800 Mg Tablet) 1,600 mg PO DAILY@1700 [facility] Last Admin: 10/10/21 17:40 Dose: Not Given Documented by: DOBROB Non-Admin Reason: NPO Sevelamer Carbonate (Sevelamer Carbonate Tablet 800 Mg Tablet) 800 mg PO BID@0800,1200 [facility] Last Admin: 10/11/21 11:41 Dose: 800 mg Documented by: ANNA Sodium Chloride (0.9 % Sodium Chloride Flush 3 Ml Syringe) 3 ml IVFLUSH QSHIFT [facility] Last Admin: 10/11/21 07:49 Dose: 3 ml Documented by: ANNA Sucralfate (Sucralfate 1 Gm Tablet) 1 gm PO QIDACHS [facility] Last Admin: 10/11/21 11:41 Dose: 1 gm Documented by: ANNA Tamoxifen Citrate (Tamoxifen Citrate 10 Mg Tablet) 10 mg PO BID [facility] Last Admin: 10/11/21 07:49 Dose: 10 mg Documented by: ANNA Labs CBC & Chem 7: 10/09/21 05:58 10/06/21 03:41 Labs: Laboratory Results - last 24 hr 10/10/21 10/10/21 10/10/21 13:11 16:30 19:44 POC Glucose 181 H 182 H 185 H 10/11/21 10/11/21 06:59 11:32 POC Glucose 171 H 213 H Microbiology Microbiology Results: Microbiology 10/07/21 13:42 Gram Stain - Final Peritoneal Fluid Anaerobic Culture - Preliminary No growth to date. Body Fluid Culture - Final No growth after 2 days Assessment and Plan (1) Anemia: Status: Acute Plan 71-year-old female with a past medical history of hyperlipidemia, diabetes, CAD, CHF, ESRD on hemodialysis, history of CVA, peripheral vascular disease, anxiety, depression, arthritis, history of GI bleed, anemia presented to the hospital today with a chief complaint of chest pain.? Noted to have following #Right lateral Chest pain: improved, likely musculoskeletal due to fall, chest x-ray showed no acute fractures, elevated troponin likely due to renal injury, good pain control, continue analgesics, no further cardiac workup encourage out of bed to chair and incentive spirometry. #acute on chronic Anemia Baseline hemoglobin around 8.5.? On presentation hemoglobin noted to be 6.7 status post blood transfusion hematocrit improved.? Vitals stable. normal iron studies, B12 and folate cont.by mouth PPI underwent upper endoscopy 10/10/21 by Has son that showed esophageal varices, dieulafoy lesion, duodenum, portal hypertensive gastropathy, gastritis, Diet gradually advanced patient tolerating regular diet with no bout of hematemesis or melena, continue PPI,40 mg BID, carafate 1 g QID for 2 weeks GI recommend low dose beta marilyn like carvedilol or nadolol if BP allows and rec. repeat EGD in about 4-6 weeks, inform plan of care to patient. Diffuse ascites/cirrhosis as noted on the CT scan.? no nausea, vomiting, no abdominal pain,as per patient history of hepatitis-C not treated , abdomen soft, no shortness of breath. low albumin added supplements/inr 1.1 discussed management with GI and Nephrology. Had diagnostic paracentesis on 10/07, SAAG >1.1 portal hypertension is likely cause of ascites, fluid culture sensitivity showed no growth. will obtain abdominal Doppler study to rule out portal vein thrombosis/ hepatitis serology, HIV, MOISES send. Right kidney cyst:? Appears complex with hemorrhagic versus proteinaceous cyst, Nephrology following ESRD:? continue hemodialysis.? Sunday, being followed by Nephrology Early infiltrate left lower lobe ? PNA:? Patient asymptomatic, no fevers, no cough or sputum production,?follow clinical course, hold of antibiotics for now, encourage incentive spirometry. Fall: Mechanical in nature patient slipped from stairs, CT head and CT cervical spine showed no acute findings, Knee x-ray showed no acute findings.? Exam grossly nonfocal, seen by PT they recommend short-term rehab in order to maximize safety strength and endurance, patient is agreeable for rehab. History of diabetes: stable blood sugars continue? Insulin sliding scale, will add Lantus 8 units at bedtime( takes Lantus 10 units at night pre meal insulin) hyperlipidemia continue Lipitor pancytopenia seems chronic likely related to history hepatitis-C / breast CA/ chronic kidney disease, no active bleed noted outpatient hematology follow-up History of left breast DCIS completed adjuvant radiation therapy from 03/02/2021 to 03/30/2021 at [facility], being followed by Dr. Smith on tamoxifen. mood disorder no acute decompensation continue home meds. DVT prophylaxis:? SCD boots. Code status: Full code Disposition to short-term rehab patient will need continued inpatient hospitalization due to upper endoscopy diet advanced to regular today, due to esophageal varices and dieulafoy lesion,portal hypertensive gastropathy and gastritis, need close monitoring. Quality Stroke Does the patient have a stroke diagnosis?: No VTE Prior VTE?: No VTE Risk Level:: Medical - moderate - high VTE Device Contraindication: N/A - Device Ordered VTE Drug Contraindication: Treatment Not Indicated
[2021-10-11 15:33] LABS: Glucose, Whole Blood 218 mg/dL (60-115)
[2021-10-11 20:07] LABS: Glucose, Whole Blood 192 mg/dL (60-115)
[2021-10-11] MEDS: Atorvastatin Calcium 80 MG TABLET PO (21:11)
[2021-10-11] MEDS: Insulin Glargine,Hum.rec.anlog 100 UNIT/ML 10 ML VIAL 8 UNIT SUBCUT (21:11)
--- NOTE | 2021-10-12 | ECG_ITS ---
Test Reason : ABN RHYTHM Blood Pressure : / mmHG Vent. Rate : 084 BPM Atrial Rate : 084 BPM P-R Int : 142 ms QRS Dur : 112 ms QT Int : 384 ms P-R-T Axes : 012 -21 102 degrees QTc Int : 453 ms Sinus rhythm with occasional Premature ventricular complexes and Premature atrial complexes Left ventricular hypertrophy with repolarization abnormality ( R in aVL , Sokolow-Cavanaugh , Sidney product , Romhilt-Solorzano ) Abnormal ECG When compared with ECG of 05-OCT-2021 17:05, Premature ventricular complexes are now Present Premature atrial complexes are now Present QT has shortened Referred By: Anson Grijalva Electronically Signed By:KALYN ROY MD
[2021-10-12] MEDS: 0.9 % Sodium Chloride Flush 3 ML SYRINGE IVFLUSH ×4 (02:29→21:24)
[2021-10-12] MEDS: Omeprazole 40 MG CAPSULE.DR PO ×2 (05:40→17:13)
[2021-10-12 06:57] VITALS: BP 102/68; PULSE 79; RESP 18; TEMP 36; O2SAT 99
[2021-10-12 06:58] VITALS: BP 102/68; PULSE 79; RESP 18; O2SAT 99
[2021-10-12 07:08] LABS: Glucose, Whole Blood 155 mg/dL (60-115)
[2021-10-12] MEDS: FLUoxetine HCl 20 MG CAPSULE PO (08:32)
[2021-10-12] MEDS: Tamoxifen Citrate 10 MG TABLET PO ×2 (08:32→21:23)
[2021-10-12] MEDS: Folic Acid 1 MG TABLET PO (08:33)
[2021-10-12] MEDS: Sucralfate 1 GM TABLET PO ×3 (08:33→21:23)
[2021-10-12] MEDS: Insulin Lispro 100 UNIT/ML 3 ML VIAL SUBCUT ×3 (08:34→21:23)
[2021-10-12] MEDS: Loratadine 10 MG TABLET PO (08:34)
[2021-10-12] MEDS: Sevelamer Carbonate Tablet 800 MG TABLET 1600 MG PO ×2 (08:37→15:59)
[2021-10-12 08:53] LABS: ~HepC Num1 0.06 S/CO (0.00-0.79); ~Hepatitis B Surface Antibody REACTIVE (Nonreactive); ~Hepatitis C Antibody Nonreactive (Nonreactive)
[2021-10-12 09:01] LABS: HBc Num1 0.07 S/CO (0.00-0.79); HBsAGNum1 0.15 S/CO (0.00-0.99); HIV AB/AG Nonreactive (Nonreactive); HIV Num 1 0.08 S/CO (0.00-0.99); Hepatitis A Antibody IgM 0.43 Index (0-0.79); Hepatitis B Core Antibody Nonreactive (Nonreactive); Hepatitis B Surface Antigen Negative (Negative); ~Hepatitis A Antibody IgM Nonreactive (Nonreactive)
[2021-10-12] MEDS: Gabapentin 300 MG CAPSULE PO ×3 (09:16→21:23)
[2021-10-12] MEDS: Sevelamer Carbonate Tablet 800 MG TABLET PO (09:20)
--- NOTE | 2021-10-12 12:27 | PM.PNNEP ---
Subjective Subjective Date of Service: 10/12/21 Interval history: Seen on HD AM. Events noted. All recent data reviewed Physical Exam Vital Signs: Vital Signs: Last Vital Signs Temp 96.8 F 10/12/21 06:57 Pulse 79 10/12/21 06:58 Resp 18 10/12/21 06:58 BP 102/68 10/12/21 06:58 Pulse Ox 99 10/12/21 06:58 BMI result Body Mass Index 25.7 Const: General: no acute distress Eyes: EOM: EOMs intact bilaterally Neck: Neck: Yes supple Resp: Auscultation: diminished lung sounds Cardio: Rate: regular rate GI: Palpation (GI): Soft to palpation Neuro: General: moves all extremities Objective Data Labs CBC & Chem 7: 10/09/21 05:58 10/06/21 03:41 Labs: Laboratory Results - last 24 hr 10/11/21 10/11/21 10/11/21 11:58 15:10 19:38 POC Glucose 218 H 192 H Hepatitis A IgM Ab Nonreactive Hep Bs Antigen Negative Hep Bs Antibody REACTIVE Hep B Core Total Ab Nonreactive Hepatitis C Ab (EIA) Nonreactive HIV 1&2 Ab/P24 Ag 4thGn Nonreactive 10/12/21 06:57 POC Glucose 155 H Hepatitis A IgM Ab Hep Bs Antigen Hep Bs Antibody Hep B Core Total Ab Hepatitis C Ab (EIA) HIV 1&2 Ab/P24 Ag 4thGn Microbiology Microbiology Results: Microbiology 10/07/21 13:42 Peritoneal Fluid Gram Stain - Final 10/07/21 13:42 Peritoneal Fluid Anaerobic Culture - Preliminary No growth to date. 10/07/21 13:42 Peritoneal Fluid Body Fluid Culture - Final No growth after 2 days Procedures Date of Service Date of Service: 10/12/21 Assessment & Plan Assessment and plan (1) ESRD (end stage renal disease) on dialysis: Status: Acute Assessment and Plan: 71-year-old female with a past medical history of hyperlipidemia, diabetes, CAD, CHF, ESRD on hemodialysis, history of CVA, peripheral vascular disease, anxiety, depression, arthritis, history of GI bleed, anemia presented to the hospital with chest pain. 1. End-stage renal disease.?HD MWF schedule. Seen on HD; Has been tolerating HD 2. Anemia.? She was transfused.?EPO 20,000 3x weekly as ordered; Had EGD Could start Carvedilol 3.125 mg bid but needs to hold AM dose on HD days Time Spent With Patient Time: Total time spent is greater than 50% in coordination of care (as documented) at patient's floor/unit and/or counseling patient: Progress Note: Quality Stroke Does the patient have a stroke diagnosis?: No
--- NOTE | 2021-10-12 12:58 | MHC.CM.PN ---
PATIENT OFF UNIT. CASE MANAGEMENT TO MEET WITH PATIENT TO DISCUSS SNF OPTIONS AND PREFERENCES
--- NOTE | 2021-10-12 13:42 | MHC.CM.PN ---
Addendum entered by Lore Dawson 10/12/21 14:28: [facility] OFFERING A BED FOR TOMORROW (PLANNED DISCHARGE) WILL NEED COVID SWAB. Original Note: CALL FROM GUARDIAN BRODIE SHE ASKS FOR A REFERRAL TO [facility], NOW PLACED HCP EXPECTED TO BE FAXED TO CASE MANAGEMENT OFFICE
[2021-10-12 14:46] LABS: Troponin-I High Sensitivity 46.8 ng/L (<3.5-17.0)
[2021-10-12 15:10] VITALS: BP 117/72; PULSE 90; RESP 18; TEMP 36.6; O2SAT 98
[2021-10-12 15:36] LABS: Glucose, Whole Blood 181 mg/dL (60-115)
--- NOTE | 2021-10-12 16:23 | P.PNIM_ITS ---
Subjective Subjective Date of Service: 10/12/21 Interval History: history obtained via seismic interpreter, patient offers no acute complaints of chest pain, palpitation no lightheadedness no dizziness, tele monitor showed short runs of nonsustained V-tach, frequent PVCs, PACs patient remained asymptomatic. Review of Systems TECHNOLOGIST INFECTIOUS DISEASE no headache, no dizziness CVS no chest pain, no palpitation GI no nausea no vomiting, no diarrhea Review of Systems: Yes all other systems are reviewed and are negative Physical Exam Vital Signs: Vital Signs: Last Vital Signs Temp 97.8 F 10/12/21 15:10 Pulse 90 10/12/21 15:10 Resp 18 10/12/21 15:10 BP 117/72 10/12/21 15:10 Pulse Ox 98 10/12/21 15:10 BMI result Body Mass Index 25.7 Const: Other: General? awake alert,no acute distress.? Neck? supple no JVD. CVS? regular rate rhythm, Respiratory lungs clear to auscultation, no respiratory distress, no wheeze, no rhonchi. Gastrointestinal abdomen soft, nontender, bowel sounds audible, no guarding , no rigidity. Extremities no edema. Neuro nonfocal , speech clear. Skin no rash,? psych appropriate affect musculoskeletal no deformity Objective Data Active Medications Acetaminophen (Acetaminophen 325 Mg Tablet) 650 mg PO Q6H PRN PRN Reason: Pain, Mild (Pain Scale 1-3) Last Admin: 10/08/21 21:01 Dose: 650 mg Documented by: GERONIMO Acetaminophen (Acetaminophen 325 Mg Tablet) 650 mg PO ONCE PRN PRN Reason: Pain, Mild (Pain Scale 1-3) Atorvastatin Calcium (Atorvastatin Calcium 80 Mg Tablet) 80 mg PO BEDTIME [facility] Last Admin: 10/11/21 21:11 Dose: 80 mg Documented by: WENDY Dextrose (Dextrose 50 % 25 Gm/50 Ml Vial) 25 gm IVPUSH Q15M PRN; Protocol PRN Reason: per Hypoglycemia Standing Ord. Epoetin Lincoln (Epoetin Lincoln 20,000 Unit/Ml Vial) 20,000 unit IVPUSH MoWeFr@1600 [facility] Last Admin: 10/12/21 16:20 Dose: 20,000 unit Documented by: HILLARY Ergocalciferol (Ergocalciferol (Vitamin D2) 1,250 Mcg Capsule) 1,[address] mcg [address] [facility] Last Admin: 10/08/21 16:58 Dose: 1,250 mcg Documented by: BRYAN Fluoxetine HCl (Fluoxetine Hcl 20 Mg Capsule) 20 mg PO DAILY [facility] Last Admin: 10/12/21 08:32 Dose: 20 mg Documented by: HILLARY Folic Acid (Folic Acid 1 Mg Tablet) 1 mg PO DAILY [facility] Last Admin: 10/12/21 08:33 Dose: 1 mg Documented by: HILLARY Gabapentin (Gabapentin 300 Mg Capsule) 300 mg PO TID [facility] Last Admin: 10/12/21 15:59 Dose: 300 mg Documented by: HILLARY Glucose (Glucose Gel 15 Gm Gel..Gram.) 15 gm PO Q15M PRN; Protocol PRN Reason: per Hypoglycemia Standing Ord. Insulin Glargine (Insulin Glargine,Hum.Rec.Anlog 100 Unit/Ml 10 Ml Vial) 8 unit SUBCUT BEDTIME [facility] Last Admin: 10/11/21 21:11 Dose: 8 unit Documented by: WENDY Insulin Human Lispro (Insulin Lispro 100 Unit/Ml 3 Ml Vial) 0 unit SUBCUT QIDACHS [facility]; Protocol Last Admin: 10/12/21 12:39 Dose: Not Given Documented by: HILLARY Non-Admin Reason: Off unit: Dialysis Loratadine (Loratadine 10 Mg Tablet) 10 mg PO DAILY [facility] Last Admin: 10/12/21 08:34 Dose: 10 mg Documented by: HILLARY Melatonin (Melatonin 3 Mg Tablet) 6 mg PO BEDTIME PRN PRN Reason: Insomnia Last Admin: 10/10/21 20:57 Dose: 6 mg Documented by: SHIMA Omeprazole (Omeprazole 40 Mg Sophia.) 40 mg PO BID@0630,1630 [facility] Last Admin: 10/12/21 05:40 Dose: 40 mg Documented by: WENDY Ondansetron HCl (Ondansetron Hcl 4 Mg/2 Ml Vial) 4 mg IVPUSH ONCE PRN PRN Reason: Nausea and Vomiting Senna (Sennosides 8.6 Mg Tablet) 17.2 mg PO BEDTIME PRN PRN Reason: Constipation Sevelamer Carbonate (Sevelamer Carbonate Tablet 800 Mg Tablet) 1,600 mg PO DAILY@1700 [facility] Last Admin: 10/12/21 15:59 Dose: 1,600 mg Documented by: HILLARY Sevelamer Carbonate (Sevelamer Carbonate Tablet 800 Mg Tablet) 800 mg PO BID@0800,1200 [facility] Last Admin: 10/12/21 12:39 Dose: Not Given Documented by: HILLARY Non-Admin Reason: Off unit: Dialysis Sodium Chloride (0.9 % Sodium Chloride Flush 3 Ml Syringe) 3 ml IVFLUSH QSHIFT [facility] Last Admin: 10/12/21 16:01 Dose: 3 ml Documented by: HILLARY Sucralfate (Sucralfate 1 Gm Tablet) 1 gm PO QIDACHS [facility] Last Admin: 10/12/21 12:39 Dose: Not Given Documented by: HILLARY Non-Admin Reason: Off unit: Dialysis Tamoxifen Citrate (Tamoxifen Citrate 10 Mg Tablet) 10 mg PO BID [facility] Last Admin: 10/12/21 08:32 Dose: 10 mg Documented by: HILLARY Labs CBC & Chem 7: 10/09/21 05:58 10/06/21 03:41 Labs: Laboratory Results - last 24 hr 10/11/21 10/11/21 10/12/21 11:58 19:38 06:57 POC Glucose 192 H 155 H Troponin I High Sens Hepatitis A IgM Ab Nonreactive Hep Bs Antigen Negative Hep Bs Antibody REACTIVE Hep B Core Total Ab Nonreactive Hepatitis C Ab (EIA) Nonreactive HIV 1&2 Ab/P24 Ag 4thGn Nonreactive 10/12/21 10/12/21 14:16 15:09 POC Glucose 181 H Troponin I High Sens 46.8 H Hepatitis A IgM Ab Hep Bs Antigen Hep Bs Antibody Hep B Core Total Ab Hepatitis C Ab (EIA) HIV 1&2 Ab/P24 Ag 4thGn Microbiology Microbiology Results: Microbiology 10/07/21 13:42 Gram Stain - Final Peritoneal Fluid Anaerobic Culture - Preliminary No growth to date. Body Fluid Culture - Final No growth after 2 days Assessment and Plan (1) Anemia: Status: Acute Plan 71-year-old female with a past medical history of hyperlipidemia, diabetes, CAD, CHF, ESRD on hemodialysis, history of CVA, peripheral vascular disease, anxiety, depression, arthritis, history of GI bleed, anemia presented to the hospital today with a chief complaint of chest pain.? Noted to have following # multiple short run of nonsustained V-tach patient remained asymptomatic with no chest pain or palpitation EKG showed no acute ischemic change, troponin 46.8 , will check electrolytes, magnesium, will start patient on Coreg 3.125 twice daily and on dialysis days will place on Coreg 3.125 after hemodialysis. #Right lateral Chest pain: improved, likely musculoskeletal due to fall, chest x-ray showed no acute fractures, elevated troponin likely due to renal injury, good pain control, continue analgesics, no further cardiac workup encourage out of bed to chair and incentive spirometry. #acute on chronic Anemia Baseline hemoglobin around 8.5.? On presentation hemoglobin noted to be 6.7 st atus post blood transfusion hematocrit improved.? Vitals stable. normal iron studies, B12 and folate cont.by mouth PPI underwent upper endoscopy 10/10/[address] Wong that showed esophageal varices, dieulafoy lesion, duodenum, portal hypertensive gastropathy, gastritis, Diet gradually advanced patient tolerating regular diet with no bout of hematemesis or melena, continue PPI,40 mg BID, carafate 1 g QID for 2 weeks GI recommend low dose beta marilyn and rec. repeat EGD in about 4-6 weeks, inform plan of care to patient. #Diffuse ascites/cirrhosis as noted on the CT scan.? no nausea, vomiting, no abdominal pain,as per patient history of hepatitis-C not treated , abdomen soft, no shortness of breath. low albumin added supplements/inr 1.1 discussed management with GI and Nephrology. Had diagnostic paracentesis on 10/07, SAAG >1.1 portal hypertension is likely cause of ascites, fluid culture sensitivity showed no growth. abdominal Doppler study showed no portal vein thrombosis, showed hepatic cirrhosis without focal abnormality and spleenomegaly, hepatitis serology,/ HIV, non reactive , hepatitis C nonreactive, MOISES pending. #Right kidney cyst:? Appears complex with hemorrhagic versus proteinaceous cyst, Nephrology following #ESRD:? continue hemodialysis.? Sunday, being followed by Nephrology #Early infiltrate left lower lobe ? PNA:? Patient asymptomatic, no fevers, no cough or sputum production,?follow clinical course, hold of antibiotics for now, encourage incentive spirometry. #Fall: Mechanical in nature patient slipped from stairs, CT head and CT cervical spine showed no acute findings, Knee x-ray showed no acute findings.? Exam grossly nonfocal, seen by PT they recommend short-term rehab in order to maximize safety strength and endurance, patient is agreeable for rehab. #History of diabetes: stable blood sugars 155 today, continue? Insulin sliding scale, Lantus 8 units at bedtime( takes Lantus 10 units at night pre meal insulin) #hyperlipidemia continue Lipitor #pancytopenia seems chronic likely related to history hepatitis-C / breast CA/ chronic kidney disease, no active bleed noted outpatient hematology follow-up #History of left breast DCIS completed adjuvant radiation therapy from 03/02/2021 to 03/30/2021 at [facility], being followed by Dr. Smith on tamoxifen. #mood disorder no acute decompensation continue home meds. DVT prophylaxis:? SCD boots. Code status: Full code Disposition to short-term rehab patient will need continued inpatient hospitalization due to frequent run of nonsustained V-tach on tele monitor , will continue tele monitoring x 24 hrs . Quality Stroke Does the patient have a stroke diagnosis?: No VTE Prior VTE?: No VTE Risk Level:: Medical - moderate - high VTE Device Contraindication: N/A - Device Ordered VTE Drug Contraindication: Treatment Not Indicated
[2021-10-12] MEDS: carvediloL 3.125 MG TABLET PO (17:13)
[2021-10-12 17:43] LABS: Anion Gap 16 (12-20); Blood Urea Nitrogen 12 mg/dL (9-16); Calcium 9.1 mg/dL (8.4-10.2); Carbon Dioxide 20 mmol/L (22-29); Chloride 97 mmol/L (96-108); Creatinine Clr Calc Pharmacy 11.5; Estimated Glomerular Filt Rate 12; Glucose Random 216 mg/dL (60-115); Magnesium 2.1 mg/dL (1.6-2.6); Potassium 4.1 mmol/L (3.3-5.1); Sodium 129 mmol/L (135-145)
[2021-10-12 19:16] VITALS: BP 107/64; PULSE 85; RESP 18; TEMP 37; O2SAT 100
[2021-10-12 19:19] VITALS: BP 107/64; PULSE 85; RESP 18; O2SAT 100
[2021-10-12 21:00] LABS: Glucose, Whole Blood 209 mg/dL (60-115)
[2021-10-12] MEDS: Melatonin 3 MG TABLET 6 MG PO (21:22)
[2021-10-12] MEDS: Insulin Glargine,Hum.rec.anlog 100 UNIT/ML 10 ML VIAL 8 UNIT SUBCUT (21:23)
[2021-10-12] MEDS: Atorvastatin Calcium 80 MG TABLET PO (21:23)
[2021-10-12 23:43] VITALS: BP 119/56; PULSE 88; RESP 17; TEMP 36.2; O2SAT 99
[2021-10-13 03:45] VITALS: BP 112/60; PULSE 84; RESP 17; TEMP 36.2; O2SAT 96
[2021-10-13] MEDS: Omeprazole 40 MG CAPSULE.DR PO (06:01)
[2021-10-13 07:07] VITALS: BP 101/56; PULSE 81; RESP 17; TEMP 36.6; O2SAT 96
[2021-10-13 07:30] LABS: Glucose, Whole Blood 146 mg/dL (60-115)
[2021-10-13 08:00] VITALS: BP 101/54; PULSE 64; RESP 17; TEMP 36.2; O2SAT 94
[2021-10-13] MEDS: 0.9 % Sodium Chloride Flush 3 ML SYRINGE IVFLUSH (08:53)
[2021-10-13] MEDS: FLUoxetine HCl 20 MG CAPSULE PO (08:54)
[2021-10-13] MEDS: Sucralfate 1 GM TABLET PO ×2 (08:54→11:48)
[2021-10-13] MEDS: Gabapentin 300 MG CAPSULE PO (08:54)
[2021-10-13] MEDS: Tamoxifen Citrate 10 MG TABLET PO (08:54)
[2021-10-13] MEDS: Sevelamer Carbonate Tablet 800 MG TABLET PO ×2 (08:54→11:48)
[2021-10-13] MEDS: Folic Acid 1 MG TABLET PO (08:54)
[2021-10-13] MEDS: Loratadine 10 MG TABLET PO (08:54)
--- NOTE | 2021-10-13 10:19 | MHC.CM.PN ---
PATIENT IS DICHARGED TO [facility] TO PLASTICS FABRICATION SUPERVISOR TO BE MADE AWARE AND TIME FOR TRANSPORT TO BE RELAYED TO UNIT, PATIENT, AND HCP/DAUGHTER IMM 10/12 COMPLETED YESTERDAY AND IN CHART
--- NOTE | 2021-10-13 10:21 | PM.DS ---
DS: Providers Provider Date of Service: 10/13/21 Date of admission: 10/05/21 19:28 Primary care physician: Unknown Physician Consults: 10/05/21 19:35 Consult to Nephrology Routine Consulting Provider: Uche Harrington Reason for consultation: ESRD DS: Diagnosis Discharge Diagnosis (1) Anemia: Status: Acute DS: Summary Hospital Course Hospital Course: Chief Complaint: Chest wall pain 71-year-old female with a past medical history of hyperlipidemia, diabetes, CAD, CHF, ESRD on hemodialysis, history of CVA, peripheral vascular disease, anxiety, depression, arthritis, history of GI bleed, anemia presented to the hospital today with a chief complaint of Right lateral chest wall pain. Patient reported that she fell of the states couple days ago; since that she has been having right lateral chest wall pain, worsens with deep inspiration.? Denies any fever chills cough or sputum production.? Today she went to have her routine hemodialysis session and post dialysis she was told to go to the ER for further evaluation.? Patient denies any head strike or loss of consciousness when she had the fall.? Denies any numbness tingling or focal weakness.? Denies any GI symptoms.? Review of all other systems is negative except mentioned above ER course: Per ER team patient exam was benign; noted to have reproducible chest pain on the right lateral chest wall; EKG was nonischemic; troponins are indeterminate-admitted to the reduced clearance from renal insufficiency.? Imaging showed no acute fracture. On labs noted to have hemoglobin of 6.7.? Stool guaiac was positive.? Being transfused 1 unit of blood. Admitted for further management. Hospital course 71-year-old female with a past medical history of hyperlipidemia, diabetes, CAD, CHF, ESRD on hemodialysis, history of CVA, peripheral vascular disease, anxiety, depression, arthritis, history of GI bleed, anemia presented to the hospital today with a chief complaint of chest pain.? Noted to have following # multiple short run of nonsustained V-tach/PAC/PVCs, patient remained asymptomatic with no chest pain, or palpitation EKG showed no acute ischemic change, troponin 46.8 , is stable magnesium and electrolytes, patient placed on Coreg 3.125 twice daily and on dialysis days Coreg 3.125 after hemodialysis. #Right lateral Chest pain, likely musculoskeletal due to fall, chest x-ray showed no acute fractures, elevated troponin likely due to renal injury, good pain control, continue analgesics, no further cardiac workup ?encourage out of bed to chair and incentive spirometry. #acute on chronic Anemia baseline hemoglobin around 8.5.? On presentation hemoglobin noted to be 6.7 status post blood transfusion hematocrit improved, normal iron studies, B12 and folate underwent upper endoscopy 10/10/[address] Wong that showed esophageal varices, dieulafoy lesion, duodenum, portal hypertensive gastropathy, gastritis,Diet gradually advanced patient tolerating regular diet with no bout of hematemesis or melena, continue PPI,40 mg BID, carafate 1 g QID for 2 weeks, patient placed on Coreg, gastroenterology recommend repeat EGD in about 4-6 weeks. #Diffuse ascites/cirrhosis noted on the CT scan, patient had no nausea, vomiting, no abdominal pain,inr 1.1, patient underwent diagnostic paracentesis on 10/07, SAAG >1.1 portal hypertension is likely cause of ascites, fluid culture sensitivity showed no growth, abdominal Doppler study? showed no portal vein thrombosis, showed hepatic cirrhosis without focal abnormality and spleenomegaly, hepatitis serology,/ HIV, non reactive , hepatitis C nonreactive, MOISES pending, case discussed with Dr. 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 ? #Right kidney cyst:? Appears complex with hemorrhagic versus proteinaceous cyst, close outpatient follow-up with Nephrology. #ESRD:? continue hemodialysis, Sunday, Sunday. #Early infiltrate left lower lobe likely atelectasis, patient remained asymptomatic did not require treatment with antibiotic #Fall: Mechanical in nature patient slipped from stairs, CT head and CT cervical spine showed no acute findings, Knee x-ray showed no acute findings.? Exam grossly nonfocal,? seen by PT they recommend short-term rehab in order to maximize safety strength and endurance. #History of diabetes: stable blood sugars ,continue? Insulin sliding scale, and Lantus 10 units at night #hyperlipidemia continue Lipitor #pancytopenia seems chronic likely related to history of breast CA/ chronic kidney disease, no active bleed noted outpatient hematology follow-up. #History of left breast DCIS completed adjuvant radiation therapy from 03/02/2021 to 03/30/2021 at [facility], being followed by Dr. Smith on tamoxifen. #mood disorder no acute decompensation continue home meds. Time Spent with Patient Time attestation: Total time spent providing and/or coordinating discharge services: Discharge coordination time: Greater than 30 minutes Quality: Safe Use of Opioids Does Pt have an Active Cancer Diagnosis on the Problem List?: No Quality: Stroke Does the patient have a stroke diagnosis?: No Physical Exam Vital Signs: Vital Signs: Last Vital Signs Temp 97.2 F 10/13/21 08:00 Pulse 64 10/13/21 08:00 Resp 17 10/13/21 08:00 BP 101/54 L 10/13/21 08:00 Pulse Ox 94 10/13/21 08:00 BMI result Body Mass Index 25.7 Const: Other: General? awake alert,no acute distress.? Neck? supple no JVD. CVS? regular rate rhythm, Respiratory lungs clear to auscultation, no respiratory distress, no wheeze, no rhonchi. Gastrointestinal abdomen soft, nontender, bowel sounds audible, no guarding , no rigidity. Extremities no edema. Neuro nonfocal , speech clear. Skin no rash,? psych appropriate affect musculoskeletal no deformity DS: Data Data Completed and Pending Completed studies during hospitalization [Text1]: Pending at discharge 10/10/21 14:23 Surgical [PTH] Routine Labs on day of discharge: Laboratory Results - last 24 hr 10/11/21 10/12/21 10/12/21 11:58 14:16 15:09 Sodium Potassium Chloride Carbon Dioxide Anion Gap BUN Creatinine Estim Creat Clear Calc Estimated GFR POC Glucose 181 H Random Glucose Calcium Magnesium Troponin I High Sens 46.8 H Hepatitis A IgM Ab Nonreactive Hep Bs Antigen Negative Hep Bs Antibody REACTIVE Hep B Core Total Ab Nonreactive Hepatitis C Ab (EIA) Nonreactive HIV 1&2 Ab/P24 Ag 4thGn Nonreactive 10/12/21 10/12/21 10/13/21 16:52 19:18 07:09 Sodium 129 L Potassium 4.1 Chloride 97 Carbon Dioxide 20 L Anion Gap 16 BUN 12 D Creatinine 3.83 H Estim Creat Clear Calc 11.5 Estimated GFR 12 POC Glucose 209 H 146 H Random Glucose 216 H Calcium 9.1 D Magnesium 2.1 Troponin I High Sens Hepatitis A IgM Ab Hep Bs Antigen Hep Bs Antibody Hep B Core Total Ab Hepatitis C Ab (EIA) HIV 1&2 Ab/P24 Ag 4thGn Preliminary micro results at discharge 10/07/21 13:42 Anaerobic Culture - Preliminary Peritoneal Fluid No growth to date. Discharge Plan Discharge Patient Disposition: Xfer SNF Discharge Diagnosis: acute on chronic anemia right sided chest wall pain ascites pancytopenia end-stage renal disease on hemodialysis multiple PACs/PVC Referrals: [facility] [Outside] - 1 Week Physician,Unknown J [Physician] - 1 Week Discharge Medications: New sucralfate 1 gram Tablet 1 g PO QIDACHS Qty: 48 0RF Rx Instructions: take for 12 more days omeprazole 40 mg Capsule,Delayed Release(Dr/Ec) 40 mg PO BID@0630,1630 Qty: 60 0RF carvedilol 3.125 mg Tablet 3.125 mg PO MoWeFr@1645 Qty: 20 0RF carvedilol 3.125 mg Tablet 3.125 mg PO SuTuThSa@0900,2100 Qty: 60 0RF Continued (DME) LIGHTWEIGHT MANUAL WHEELCHAIR See Rx Instructions .Route .MEDSUPPLY Qty: 1 0RF Rx Instructions: As directed ergocalciferol (vitamin D2) 1,250 mcg (50,000 unit) capsule 1,250 mcg PO QWEEK Qty: 14 1RF (DME) insulin syringe-needle U-100 [BD Insulin Syringe Ultra-Fine] 0.5 mL 31 gauge x 5/16 syringe See Rx Instructions .ROUTE .MEDSUPPLY Qty: 100 0RF Rx Instructions: TID (DME) incontinence pad, liner, disp Pad See Rx Instructions .ROUTE .MEDSUPPLY Qty: 100 12RF Rx Instructions: As directed (DME) diaper,brief,adult,disposable Misc See Rx Instructions .ROUTE .MEDSUPPLY Qty: 100 12RF Rx Instructions: As directed (DME) pen needle, diabetic [BD Anna 2nd Gen Pen Needle] 32 gauge x 5/32 needle See Rx Instructions .ROUTE .MEDSUPPLY Qty: 100 12RF Rx Instructions: As directed use with insulin 3x day atorvastatin 80 mg tablet 80 mg PO BEDTIME Qty: 90 5RF gabapentin 300 mg capsule 300 mg PO TID Qty: 90 2RF loratadine 10 mg tablet 10 mg PO DAILY 90 Days Qty: 90 1RF insulin glargine 100 unit/mL Cartridge 10 unit SUBCUT DAILY 0RF folic acid 1 mg Tablet 1 mg PO DAILY Qty: 90 6RF fluoxetine 20 mg capsule 1 cap PO QAM 0RF sevelamer carbonate 800 mg Tablet 1,600 mg PO DAILY@1700 0RF Rx Instructions: must administer with a meal/food tamoxifen 10 mg tablet 10 mg PO BID 0RF sevelamer carbonate [Renvela] 800 mg tablet 800 mg PO BID@0800,1200 0RF Rx Instructions: must administer with a meal/food (DME) miscellaneous medical supply Unit See Rx Instructions .ROUTE .MEDSUPPLY Qty: 1 0RF Rx Instructions: one touch verio test strip 3 times daily As directed (DME) blood-glucose meter [FreeStyle Lite Meter] Kit See Rx Instructions .ROUTE .MEDSUPPLY Qty: 1 0RF Rx Instructions: As directed Discontinued omeprazole 20 mg capsule,delayed release(DR/EC) 20 mg PO DAILY 90 Days Qty: 90 2RF insulin aspart U-100 [Novolog Flexpen U-100 Insulin] 100 unit/mL (3 mL) insulin pen 2 - 10 unit subcut TID 0RF Discharge Orders: Discharge Order (Routine); Ordered 10/13/21 Ordered By: Anson Grijalva Diet: diabetic diet and low fat, low cholesterol Activity on Discharge: As tolerated Stand Alone Forms: Patient Portal Discharge page Care Plan Goals: being transferred to snf, noted to have acute on chronic anemia diagnosed to have esophageal varices, portal hypertensive gastropathy, gastritis and dieulafoy lesion, take Prilosec 40 mg twice daily and Carafate 1 g q.i.d. for 2 more weeks follow-up with Dr. Wong, in regard to short runs of V-tach, PAC and PVCs started on Coreg 3.125 monitor point of care blood sugar q.i.d. and use insulin sliding scale Health Concerns: diabetes mellitus/ hyperlipidemia continue all home medication Plan of Treatment: outpatient follow-up with Nephrology, Gastroenterology Dr. Wong for repeat upper endoscopy in 4-6 weeks Assessment: per discharge summary
[2021-10-13 11:24] VITALS: BP 104/62; PULSE 80; RESP 17; TEMP 36.6; O2SAT 95
--- NOTE | 2021-10-13 11:37 | MHC.CM.PN ---
PATIENT'S DAUGHTER -IN-LAW, ZACH, CALLED THIS ASSISTANT COMMISSIONER [facility] UPDATED ON PLAN FOR FACILITY AND TRANSPORT TIME OF 1500 FROM [facility] WILL BRING PATIENT'S BELONGINGS TO FACILITY
[2021-10-13 11:40] LABS: Glucose, Whole Blood 230 mg/dL (60-115)
[2021-10-13] MEDS: carvediloL 3.125 MG TABLET PO (11:48)
--- NOTE | 2021-10-13 11:49 | PM.PNNEP ---
Subjective Subjective Date of Service: 10/13/21 Interval history: Events noted. All recent data reviewed. Due HD tomorrow. Physical Exam Vital Signs: Vital Signs: Last Vital Signs Temp 98 F 10/13/21 11:24 Pulse 80 10/13/21 11:24 Resp 17 10/13/21 11:24 BP 104/62 10/13/21 11:24 Pulse Ox 95 10/13/21 11:24 BMI result Body Mass Index 25.7 Const: General: no acute distress Orientation/consciousness: patient oriented x3 HEENT: Head: Yes normocephalic Mouth: moist mucous membranes Eyes: EOM: EOMs intact bilaterally Resp: Auscultation: diminished lung sounds Cardio: Rate: regular rate GI: Palpation (GI): Soft to palpation Neuro: General: patient oriented x3 and moves all extremities Objective Data Labs CBC & Chem 7: 10/09/21 05:58 10/12/21 16:52 Labs: Laboratory Results - last 24 hr 10/12/21 10/12/21 10/12/21 14:16 15:09 16:52 Sodium 129 L Potassium 4.1 Chloride 97 Carbon Dioxide 20 L Anion Gap 16 BUN 12 D Creatinine 3.83 H Estim Creat Clear Calc 11.5 Estimated GFR 12 POC Glucose 181 H Random Glucose 216 H Calcium 9.1 D Magnesium 2.1 Troponin I High Sens 46.8 H 10/12/21 10/13/21 10/13/21 19:18 07:09 10:56 Sodium Potassium Chloride Carbon Dioxide Anion Gap BUN Creatinine Estim Creat Clear Calc Estimated GFR POC Glucose 209 H 146 H 230 H Random Glucose Calcium Magnesium Troponin I High Sens Microbiology Microbiology Results: Microbiology 10/07/21 13:42 Peritoneal Fluid Gram Stain - Final 10/07/21 13:42 Peritoneal Fluid Anaerobic Culture - Final NO GROWTH AFTER 5 DAYS 10/07/21 13:42 Peritoneal Fluid Body Fluid Culture - Final No growth after 2 days Procedures Date of Service Date of Service: 10/13/21 Assessment & Plan Assessment and plan (1) ESRD (end stage renal disease) on dialysis: Status: Acute Assessment and Plan: 71-year-old female with a past medical history of hyperlipidemia, diabetes, CAD, CHF, ESRD on hemodialysis, history of CVA, peripheral vascular disease, anxiety, depression, arthritis, history of GI bleed, anemia presented to the hospital with chest pain. 1. End-stage renal disease.?HD MWF schedule. Has been tolerating HD 2. Anemia.? She was transfused.?EPO 20,000 3x weekly as ordered; Had EGD Started Carvedilol 3.125 mg bid but needs to hold AM dose on HD days Next HD tomorrow. Shall closely F/U Time Spent With Patient Time: Total time spent is greater than 50% in coordination of care (as documented) at patient's floor/unit and/or counseling patient: Progress Note: Quality Stroke Does the patient have a stroke diagnosis?: No
[2021-10-13] MEDS: Insulin Lispro 100 UNIT/ML 3 ML VIAL SUBCUT (11:54)
[2021-10-13 12:00] VITALS: BP 115/60; PULSE 80; RESP 15; TEMP 36.6; O2SAT 95
[2021-10-13 13:00] VITALS: O2SAT 95
[2021-10-14 23:28] LABS: Anti Nuclear Antibody Screen POSITIVE (NEGATIVE); Anti Nuclear Antibody Titer 1:40 titer
== END 2021-10-13 14:56 | disposition skilled nursing facility (03) | DRG 377 ==
LOC: HO.ED 19:21 → HO.EDOVER 19:37 → HO.IMC 10-06 18:57 → HO.S3 10-10 16:08
PROVIDERS: Internal Medicine; Internal Medicine Gastroenterology; Physician Assistant; Radiology Diagnostic Radiology; Admitting Provider Hospitalist; Emergency Provider Internal Medicine; PCP Internal Medicine; Visit Provider Hospitalist
PROC: 0W9G3ZZ Drainage of Peritoneal Cavity, Percutaneous Approach (ICD-10-PCS; principal; 2021-10-07 14:30)
PROC: 0DJ08ZZ Inspection of Upper Intestinal Tract, Via Natural or Artificial Opening Endoscopic (ICD-10-PCS; CPT 43235; principal; 2021-10-10 12:30)
DX: K31.82 Dieulafoy lesion (hemorrhagic) of stomach and duodenum (principal); N18.6 End stage renal disease; I85.11 Secondary esophageal varices with bleeding; K29.71 Gastritis, unspecified, with bleeding; I13.2 Hypertensive heart and chronic kidney disease with heart failure and with stage 5 chronic kidney disease, or end stage renal disease; D61.818 Other pancytopenia; R18.8 Other ascites; D62 Acute posthemorrhagic anemia; K76.6 Portal hypertension; I47.1 Supraventricular tachycardia; I25.10 Atherosclerotic heart disease of native coronary artery without angina pectoris; F41.9 Anxiety disorder, unspecified; F32.A Depression, unspecified; I25.2 Old myocardial infarction; E11.40 Type 2 diabetes mellitus with diabetic neuropathy, unspecified; Z20.822 Contact with and (suspected) exposure to COVID-19; Z86.73 Personal history of transient ischemic attack (TIA), and cerebral infarction without residual deficits; K74.60 Unspecified cirrhosis of liver; Z95.1 Presence of aortocoronary bypass graft; E78.5 Hyperlipidemia, unspecified; R29.6 Repeated falls; Z91.81 History of falling; C50.912 Malignant neoplasm of unspecified site of left female breast; E11.22 Type 2 diabetes mellitus with diabetic chronic kidney disease; N28.1 Cyst of kidney, acquired; I50.9 Heart failure, unspecified; Z92.3 Personal history of irradiation; K31.89 Other diseases of stomach and duodenum; Z99.2 Dependence on renal dialysis; Z87.891 Personal history of nicotine dependence; Z79.4 Long term (current) use of insulin; Z79.810 Long term (current) use of selective estrogen receptor modulators (SERMs); Z79.899 Other long term (current) drug therapy
CPT/HCPCS: 36415; 36430; 49083; 70450; 71250; 72125; 73564; 74176; 76700; 80048; 80053; 82042; 82272; 82607; 82728; 82746; 82947; 83540; 83615; 83735; 84155; 84484; 85025; 85027; 85610; 86038; 86039; 86704; 86706; 86709; 86803; 86850; 86900; 86901; 86923; 87070; 87071; 87073; 87205; 87340; 87389; 87635; 88305; 88313; 88342; 89051; 90999; 93005; 97162; 97530; 99285; 99291; J0885; J1170; J3010; P9016

== ENCOUNTER 2021-10-13 21:59 | Inpatient (IN) | payer MEDICARE, MEDICAID, SELFPAY ==
--- NOTE | ~2021-10-13 | XR_ITS ---
EXAMINATION: XR CHEST CLINICAL INFORMATION: Weakness and cough. COMPARISON: CT chest dated from 10/05/2021. Chest radiograph dated from 09/12/2018. TECHNIQUE: AP view of the chest was obtained. FINDINGS: Stable cardiomegaly with sternotomy wires and mediastinal surgical clips. A large bore dialysis catheter terminates in the right atrium. Right axillary and brachial vascular stent are again noted. New patchy airspace opacities in the retrocardiac region/left lower lobe with increased coarsening of the interstitium in the remaining of the lungs. No pleural effusion or pneumothorax. No acute osseous abnormalities. Cholelithiasis. XR/XR chest 1V IMPRESSION: Patchy airspace opacities in the left lower lobe with diffuse interstitial thickening raising the possibility of an atypical infectious process in the appropriate clinical context. Recommend a follow-up examination after appropriate treatment to ensure resolution.
--- NOTE | 2021-10-13 22:21 | ED.WEAKNESS ---
HPI - Weakness General Chief complaint: General Medical Stated complaint: LETHARGIC Time Seen by Provider: 10/13/21 22:20 Source: patient, old records reviewed and documentation liaison Mode of arrival: EMS Limitations: other (poor historian) History of Present Illness HPI Narrative: 71 yo female with ESRD on HD MWF, GID from ? upper source or duelefoy lesion s/p tranfusion, s/p paracentesis no SBP on 10/07, recently put on coreg for PVCs and nonsustained vtach just DC this morning from hospital notes she doesn't feel well at this time and was found to have lower BPs at facility. She has no other complaints other than I haven't felt well in a week. MD Complaint: generalized weakness Onset (ago): week(s) (1) Duration: constant Location: generalized Migration: none Severity: moderate Relieving factors: none Exacerbating factors: movement Context: recent illness Associated symptoms: loss of appetite, nausea/vomiting and myalgias Related Data Home Medications Medication Instructions Recorded Confirmed miscellaneous medical supply #1 08/02/20 09/20/21 sevelamer carbonate 800 mg tablet 800 mg PO BID@0800,1200 tab 08/02/20 10/05/21 (Renvela) insulin glargine 100 unit/mL 10 unit SUBCUT DAILY 11/16/20 10/06/21 subcutaneous cartridge fluoxetine 20 mg capsule 1 cap PO QAM 12/21/20 10/06/21 sevelamer carbonate 800 mg tablet 1,600 mg PO DAILY@1700 10/05/21 10/05/21 tamoxifen 10 mg tablet 10 mg PO BID 10/06/21 10/06/21 Previous Rx's Medication Instructions Recorded blood-glucose meter (FreeStyle #1 ea 08/02/20 Lite Meter) LIGHTWEIGHT MANUAL WHEELCHAIR #1 ea 11/05/20 ergocalciferol (vitamin D2) 1,250 1,250 mcg PO QWEEK #14 cap 11/17/20 mcg (50,000 unit) capsule insulin syringe-needle U-100 0.5 #100 ea 11/17/20 mL 31 gauge x 5/16 (BD Insulin Syringe Ultra-Fine) diaper,brief,adult,disposable #100 ea 11/19/20 incontinence pad, liner, disp #100 ea 11/19/20 pen needle, diabetic 32 gauge x #100 ea 11/24/20 (BD Anna 2nd Gen Pen Needle) atorvastatin 80 mg tablet 80 mg PO BEDTIME #90 tab 07/25/21 folic acid 1 mg tablet 1 mg PO DAILY #90 tab 08/19/21 gabapentin 300 mg capsule 300 mg PO TID #90 cap 08/19/21 loratadine 10 mg tablet 10 mg PO DAILY 90 Days #90 tab 09/30/21 carvedilol 3.125 mg tablet 3.125 mg PO MoWeFr@1645 #20 tab 10/13/21 carvedilol 3.125 mg tablet 3.125 mg PO SuTuThSa@0900,2100 #60 10/13/21 tab omeprazole 40 mg capsule,delayed 40 mg PO BID@0630,1630 #60 cap 10/13/21 release sucralfate 1 gram tablet 1 g PO QIDACHS #48 tab 10/13/21 Allergies Allergy/AdvReac Type Severity Reaction Status Date / Time No Known Allergies Allergy Verified 10/05/21 16:46 Review of Systems Review of Systems: Constitutional : No Weight loss, No Fever,pos Chills, pos Fatigue, pos Malaise ENT/Mouth : No sore throat, No Rhinorrhea Eyes: No Eye Pain, No Swelling, No Redness Cardiovascular : No Chest Pain, No SOB, No Dyspnea on Exertion, No Orthopnea, No Edema, No Palpitations Respiratory : No Cough, No Sputum, No Wheezing Gastrointestinal : No Nausea, No Vomiting, No Diarrhea, No Constipation, No abdominal Pain, No Hematochezia, No Melena Genitourinary : No Dysuria, No Urinary Frequency, No Hematuria, Musculoskeletal : No joint pain, pos Myalgias, No Joint Swelling Skin : No Skin Lesions, No rash Neuro : pos Weakness, No Numbness, No Dizziness, No Headache Psych : No Anxiety/Panic, No Depression Heme/Lymph: No Bruising, No Bleeding,No Lymphadenopathy Endocrine : No Polyuria, No Polydipsia All other systems reviewed and are negative [facility] Past Medical History Attestation statement: The following information was validated with the patient. Source: old records reviewed Medical History Anxiety and depression Artery stenosis Arthritis Balance problem Breast calcification, left CAD (coronary artery disease) Cardiomyopathy CHF (congestive heart failure) COVID-19 vaccine series completed Diabetes mellitus Diabetic neuropathy Diverticulitis Ductal carcinoma in situ (DCIS) of left breast End stage renal disease Fistula Hemodialysis patient History of CVA (cerebrovascular accident) Hx of myocardial infarction Hypercholesteremia Hypertension Incontinence Melena Peripheral vascular disease Urinary and bowel incontinence Surgical History Hx of CABG Hx of colonoscopy Hx of lumpectomy Hx of tubal ligation Family History Family History Paternal Grandmother Breast cancer Social History Social History Household Members: Children Household Members Other:: son Housing: House Are you a primary childcare attendant to a significant other at home: No Do you presently have visiting nurse or other home services: Yes ([employer]) Alcohol intake: former Patient Tobacco Use Status: Former Tobacco user Quit Date: years ago Tobacco use type: Cigarette Cigarette Packs Per Day: 1 Advance Directives: Yes Advance Directives on File: Yes Advance Directives Date on File: 10/06/20 service: No Current occupational status: disabled Physical Exam Vital Signs: Vital Signs: Last Vital Signs Temp 99.5 F 10/13/21 22:38 Pulse 78 10/14/21 00:09 Resp 12 10/14/21 00:09 BP 92/58 L 10/14/21 00:09 Pulse Ox 99 10/14/21 00:09 BMI result Body Mass Index 23.6 Appearance: Alert. Oriented X3. No acute distress. Eyes: Pupils equal, round and reactive to light. ENT: Pharynx normal. Neck: Normal inspection. Neck supple. CVS: Normal heart rate and rhythm. Pulses normal. Respiratory: No respiratory distress. Breath sounds normal decreased at bases, coarse left lung Chest wall: ttp along R chest wall Abdomen: Soft and nontender. Ascites noted Skin: Skin warm and dry. Normal skin color. Normal skin turgor. Extremities: No lower extremity edema. Neuro: Oriented X 3. No motor deficit. No sensory deficit. Course Course Course Narrative: given 500cc bolus, treated for possible pneumonia with cefepime, lactic acid normal, albumin ordered, Na low likely dehydration plan to admit MDM - Weakness MDM Narrative Medical decision making narrative: 71 yo female with hx of GI bleed, anemia, ESRD, ascites, CAD, cardiomyopathy, DM just DC today after issues with ascites, anemia s/p GIB and transfusion, PVCs at this time she notes she still doesn't feel well and hasn't felt well in 1 week will need basic labs, cultures, evaluation for UTI and pneumonia. has no abdominal pain to suggest SBP - BP slightly low IVF 500 cc bolus ordered. Infectious vs anemia. Dispo per results and fidnings. Lab Data Result diagrams: 10/13/21 23:58 10/13/21 23:58 Labs: Lab Results 10/13/21 10/13/21 10/13/21 Range/Units 23:55 23:56 23:57 WBC (4.8-10.8) X10*3/uL RBC (4.20-5.50) X10*6/uL Hgb (12.0-16.0) g/dl Hct (37.0-47.0) % MCV (80.0-98.0) fL MCH (27.0-33.0) pg MCHC (31.0-35.0) g/dl RDW (11.0-16.0) % Plt Count (160-400) X10*3/uL MPV (9.4-12.3) fL Immature Gran % (Auto) (0.0-0.4) % Neut % (Auto) (45-73) % Lymph % (Auto) (20-40) % [place] % (Auto) (2-11) % Eos % (Auto) (0-4) % Baso % (Auto) (0-2) % Lymph # (Auto) (1.2-4.9) X10*3/uL [place] # (Auto) (0.1-1.2) X10*3/uL Eos # (Auto) (0.0-0.4) X10*3/uL Baso # (Auto) (0.0-0.2) X10*3/uL Abs Immat Gran (auto) (0.00-0.03) X10*3/uL Absolute Neuts (auto) (2.0-8.3) x10*3/uL Absolute Nucleated RBC (0.0-0.012) X10*3/uL Nucleated RBC % (auto) (0.0-0.2) /100WBC PT (9.9-13.0) SEC INR (0.9-1.1) Sodium (135-145) mmol/L Potassium (3.3-5.1) mmol/L Chloride (96-108) mmol/L Carbon Dioxide (22-29) mmol/L Anion Gap (12-20) BUN (9-16) mg/dL Creatinine (0.5-1.4) mg/dL Estim Creat Clear Calc Estimated GFR Random Glucose (60-115) mg/dL Lactic Acid (0.5-2.0) mmol/L Calcium (8.4-10.2) mg/dL Magnesium (1.6-2.6) mg/dL Total Bilirubin (0.0-1.0) mg/dL Direct Bilirubin (0.0-0.5) mg/dL AST (5-31) U/L ALT (0-31) U/L Alkaline Phosphatase (39-117) U/L Ammonia 50 (13-55) umol/L Troponin I High Sens 36.8 H (<3.5-17.0) ng/L Total Protein (6.5-8.0) g/dL Albumin (3.5-5.0) g/dL Lipase (8-78) U/L COVID-19 (SIMA) (Negative) COVID-19 Clin Com Influenza Type A (ARLENE) (Negative) Influenza Type B (ARLENE) (Negative) Influenza A & B Note Blood Type A Positive 10/13/21 10/13/21 10/13/21 Range/Units 23:57 23:58 23:58 WBC 4.4 L (4.8-10.8) X10*3/uL RBC 2.87 L (4.20-5.50) X10*6/uL Hgb 8.9 L (12.0-16.0) g/dl Hct 28.4 L (37.0-47.0) % MCV 99.0 H (80.0-98.0) fL MCH 31.0 (27.0-33.0) pg MCHC 31.3 (31.0-35.0) g/dl RDW 16.2 H (11.0-16.0) % Plt Count 75 L D (160-400) X10*3/uL MPV 11.8 (9.4-12.3) fL Immature Gran % (Auto) 0.2 (0.0-0.4) % Neut % (Auto) 70.8 (45-73) % Lymph % (Auto) 15.4 L (20-40) % [place] % (Auto) 11.8 H (2-11) % Eos % (Auto) 1.6 (0-4) % Baso % (Auto) 0.2 (0-2) % Lymph # (Auto) 0.7 L (1.2-4.9) X10*3/uL [place] # (Auto) 0.5 (0.1-1.2) X10*3/uL Eos # (Auto) 0.1 (0.0-0.4) X10*3/uL Baso # (Auto) 0.0 (0.0-0.2) X10*3/uL Abs Immat Gran (auto) 0.01 (0.00-0.03) X10*3/uL Absolute Neuts (auto) 3.1 (2.0-8.3) x10*3/uL Absolute Nucleated RBC 0.000 (0.0-0.012) X10*3/uL Nucleated RBC % (auto) 0.0 (0.0-0.2) /100WBC PT (9.9-13.0) SEC INR (0.9-1.1) Sodium 126 L (135-145) mmol/L Potassium 4.1 (3.3-5.1) mmol/L Chloride 96 (96-108) mmol/L Carbon Dioxide 19 L (22-29) mmol/L Anion Gap 15 (12-20) BUN 30 H D (9-16) mg/dL Creatinine 6.41 H* (0.5-1.4) mg/dL Estim Creat Clear Calc 6.1 Estimated GFR 6 Random Glucose 253 H (60-115) mg/dL Lactic Acid 1.2 (0.5-2.0) mmol/L Calcium 7.8 L D (8.4-10.2) mg/dL Magnesium 2.2 (1.6-2.6) mg/dL Total Bilirubin 0.7 (0.0-1.0) mg/dL Direct Bilirubin 0.4 (0.0-0.5) mg/dL AST 18 (5-31) U/L ALT 15 (0-31) U/L Alkaline Phosphatase 388 H D (39-117) U/L Ammonia (13-55) umol/L Troponin I High Sens (<3.5-17.0) ng/L Total Protein 6.0 L (6.5-8.0) g/dL Albumin 2.8 L (3.5-5.0) g/dL Lipase 57 (8-78) U/L COVID-19 (SIAM) (Negative) COVID-19 Clin Com Influenza Type A (ARLENE) (Negative) Influenza Type B (ARLENE) (Negative) Influenza A & B Note Blood Type 10/13/21 10/13/21 10/13/21 Range/Units 23:58 23:58 23:58 WBC (4.8-10.8) X10*3/uL RBC (4.20-5.50) X10*6/uL Hgb (12.0-16.0) g/dl Hct (37.0-47.0) % MCV (80.0-98.0) fL MCH (27.0-33.0) pg MCHC (31.0-35.0) g/dl RDW (11.0-16.0) % Plt Count (160-400) X10*3/uL MPV (9.4-12.3) fL Immature Gran % (Auto) (0.0-0.4) % Neut % (Auto) (45-73) % Lymph % (Auto) (20-40) % [place] % (Auto) (2-11) % Eos % (Auto) (0-4) % Baso % (Auto) (0-2) % Lymph # (Auto) (1.2-4.9) X10*3/uL [place] # (Auto) (0.1-1.2) X10*3/uL Eos # (Auto) (0.0-0.4) X10*3/uL Baso # (Auto) (0.0-0.2) X10*3/uL Abs Immat Gran (auto) (0.00-0.03) X10*3/uL Absolute Neuts (auto) (2.0-8.3) x10*3/uL Absolute Nucleated RBC (0.0-0.012) X10*3/uL Nucleated RBC % (auto) (0.0-0.2) /100WBC PT 12.5 (9.9-13.0) SEC INR 1.1 (0.9-1.1) Sodium (135-145) mmol/L Potassium (3.3-5.1) mmol/L Chloride (96-108) mmol/L Carbon Dioxide (22-29) mmol/L Anion Gap (12-20) BUN (9-16) mg/dL Creatinine (0.5-1.4) mg/dL Estim Creat Clear Calc Estimated GFR Random Glucose (60-115) mg/dL Lactic Acid (0.5-2.0) mmol/L Calcium (8.4-10.2) mg/dL Magnesium (1.6-2.6) mg/dL Total Bilirubin (0.0-1.0) mg/dL Direct Bilirubin (0.0-0.5) mg/dL AST (5-31) U/L ALT (0-31) U/L Alkaline Phosphatase (39-117) U/L Ammonia (13-55) umol/L Troponin I High Sens (<3.5-17.0) ng/L Total Protein (6.5-8.0) g/dL Albumin (3.5-5.0) g/dL Lipase (8-78) U/L COVID-19 (SIMA) Negative (Negative) COVID-19 Clin Com See Note Influenza Type A (ARLENE) Negative (Negative) Influenza Type B (ARLENE) Negative (Negative) Influenza A & B Note See Note Blood Type ECG Data Attestation: I personally reviewed and interpreted this ECG as follows: ECG interpretation date: 10/13/21 ECG interpretation time: 23:28 Interpretation: Rate: 82 Rhythm: NSR Seney: left, LVH Normal P waves. Normal JEWELL. Normal QRS complex. ST T wave : inverted t waves I and aVL, ST depressions and inversions V5 and V6 - LVH qTC: normal prior studies: no change from priors The study has been interpreted contemporaneously by me. . Discharge Plan Discharge Clinical Impression: Weakness, Acute hyponatremia, Pneumonia Prescriptions: No Action (DME) LIGHTWEIGHT MANUAL WHEELCHAIR See Rx Instructions .Route .MEDSUPPLY Qty: 1 0RF Rx Instructions: As directed ergocalciferol (vitamin D2) 1,250 mcg (50,000 unit) capsule 1,250 mcg PO QWEEK Qty: 14 1RF (DME) insulin syringe-needle U-100 [BD Insulin Syringe Ultra-Fine] 0.5 mL 31 gauge x 5/16 syringe See Rx Instructions .ROUTE .MEDSUPPLY Qty: 100 0RF Rx Instructions: TID (DME) incontinence pad, liner, disp Pad See Rx Instructions .ROUTE .MEDSUPPLY Qty: 100 12RF Rx Instructions: As directed (DME) diaper,brief,adult,disposable Misc See Rx Instructions .ROUTE .MEDSUPPLY Qty: 100 12RF Rx Instructions: As directed (DME) pen needle, diabetic [BD Anna 2nd Gen Pen Needle] 32 gauge x 5/32 needle See Rx Instructions .ROUTE .MEDSUPPLY Qty: 100 12RF Rx Instructions: As directed use with insulin 3x day atorvastatin 80 mg tablet 80 mg PO BEDTIME Qty: 90 5RF gabapentin 300 mg capsule 300 mg PO TID Qty: 90 2RF loratadine 10 mg tablet 10 mg PO DAILY 90 Days Qty: 90 1RF insulin glargine 100 unit/mL Cartridge 10 unit SUBCUT DAILY 0RF folic acid 1 mg Tablet 1 mg PO DAILY Qty: 90 6RF fluoxetine 20 mg capsule 1 cap PO QAM 0RF sevelamer carbonate 800 mg Tablet 1,600 mg PO DAILY@1700 0RF Rx Instructions: must administer with a meal/food tamoxifen 10 mg tablet 10 mg PO BID 0RF sucralfate 1 gram Tablet 1 g PO QIDACHS Qty: 48 0RF Rx Instructions: take for 12 more days omeprazole 40 mg Capsule,Delayed Release(Dr/Ec) 40 mg PO BID@0630,1630 Qty: 60 0RF carvedilol 3.125 mg Tablet 3.125 mg PO MoWeFr@1645 Qty: 20 0RF carvedilol 3.125 mg Tablet 3.125 mg PO SuTuThSa@0900,2100 Qty: 60 0RF sevelamer carbonate [Renvela] 800 mg tablet 800 mg PO BID@0800,1200 0RF Rx Instructions: must administer with a meal/food (DME) miscellaneous medical supply Unit See Rx Instructions .ROUTE .MEDSUPPLY Qty: 1 0RF Rx Instructions: one touch verio test strip 3 times daily As directed (DME) blood-glucose meter [FreeStyle Lite Meter] Kit See Rx Instructions .ROUTE .MEDSUAtBizz Qty: 1 0RF Rx Instructions: As directed
--- NOTE | 2021-10-13 22:35 | ECG_ITS ---
Test Reason : WEAKNESS Blood Pressure : / mmHG Vent. Rate : 082 BPM Atrial Rate : 082 BPM P-R Int : 146 ms QRS Dur : 098 ms QT Int : 398 ms P-R-T Axes : 039 -17 124 degrees QTc Int : 464 ms Normal sinus rhythm with sinus arrhythmia Left ventricular hypertrophy with repolarization abnormality ( R in aVL , Sokolow-Cavanaugh , Kyree product ) Abnormal ECG When compared with ECG of 12-OCT-2021 10:53, Premature ventricular complexes are no longer Present Premature atrial complexes are no longer Present Referred By: Amy Martinez Electronically Signed By:KALYN ROY MD
[2021-10-13 22:38] VITALS: BP 88/52; BP 98/59; PULSE 75; PULSE 76; RESP 18; TEMP 37.5; O2SAT 99; BMI 23.6
[2021-10-13] MEDS: 0.9 % Sodium Chloride 500 ML IV (22:44)
[2021-10-14] VITALS (7 sets, daily range): BP systolic 92–131; BP diastolic 51–75; PULSE 71–86; RESP 12–16; TEMP 37.3; O2SAT 98–99
[2021-10-14 00:12] LABS: MANUAL DIFF FLAG NO
[2021-10-14 00:16] LABS: Basophils Percent Auto 0.2 % (0-2); Eosinophils Absolute Auto 0.1 X10*3/uL (0.0-0.4); Eosinophils Percent Auto 1.6 % (0-4); Hematocrit 28.4 % (37.0-47.0); Hemoglobin 8.9 g/dl (12.0-16.0); Imm Gran Abs Auto 0.01 X10*3/uL (0.00-0.03); Imm Gran Pct Auto 0.2 % (0.0-0.4); Lymphocytes Absolute Auto 0.7 X10*3/uL (1.2-4.9); Lymphocytes Percent Auto 15.4 % (20-40); Mean Corpuscular HGB Conc 31.3 g/dl (31.0-35.0); Mean Platelet Volume 11.8 fL (9.4-12.3); Monocytes Absolute Auto 0.5 X10*3/uL (0.1-1.2); Monocytes Percent Auto 11.8 % (2-11); Neutrophils Absolute Auto 3.1 x10*3/uL (2.0-8.3); Neutrophils Percent Auto 70.8 % (45-73); Platelet Count 75 X10*3/uL (160-400); Red Blood Count 2.87 X10*6/uL (4.20-5.50); Red Cell Distribution Width 16.2 % (11.0-16.0); White Blood Count 4.4 X10*3/uL (4.8-10.8)
[2021-10-14 00:22] LABS: INTERNATIONAL NORM RATIO 1.1 (0.9-1.1); Prothrombin Time 12.5 SEC (9.9-13.0)
[2021-10-14 00:22] LABS: Ammonia 50 umol/L (13-55)
[2021-10-14 00:26] LABS: Lactic Acid 1.2 mmol/L (0.5-2.0)
[2021-10-14 00:38] LABS: IDNOW Serial# 08D9AD1C; Influenza A Negative (Negative); Influenza B2 Negative (Negative)
[2021-10-14 00:39] LABS: COVID-19 Test Negative (Negative)
[2021-10-14 00:40] LABS: Alanine Aminotransferase 15 U/L (0-31); Albumin Level 2.8 g/dL (3.5-5.0); Alkaline Phosphatase 388 U/L (39-117); Anion Gap 15 (12-20); Aspartate Amino Transferase 18 U/L (5-31); Bilirubin Direct 0.4 mg/dL (0.0-0.5); Bilirubin Total 0.7 mg/dL (0.0-1.0); Blood Urea Nitrogen 30 mg/dL (9-16); Calcium 7.8 mg/dL (8.4-10.2); Carbon Dioxide 19 mmol/L (22-29); Chloride 96 mmol/L (96-108); Creatinine Clr Calc Pharmacy 6.1; Estimated Glomerular Filt Rate 6; Glucose Random 253 mg/dL (60-115); Lipase 57 U/L (8-78); Magnesium 2.2 mg/dL (1.6-2.6); Potassium 4.1 mmol/L (3.3-5.1); Sodium 126 mmol/L (135-145)
[2021-10-14 00:43] LABS: Troponin-I High Sensitivity 36.8 ng/L (<3.5-17.0)
[2021-10-14] MEDS: cefEPime HCl 2 GM in 0.9 % Sodium Chloride 50 ML IV (01:05)
--- NOTE | 2021-10-14 01:29 | P.HPHOSP_ITS ---
History of Present Illness Date of Service: 10/14/21 Chief Complaint: weakness, lethargy this is a 71-year-old female who is Somali-speaking only, history is obtained with the help of track repairer helper, has a past medical history of hyperlipidemia, diabetes, CAD, CHF, ESRD on dialysis, history of CVA, PVD, anxiety depression, among others who was discharged from the hospital on 10/12 after being managed for multiple issues including acute on chronic anemia secondary to esophageal varices gastritis, gastropathy, patient at the time also had multiple short runs of nonsustained V-tach, right lateral chest pain which was secondary to musculoskeletal pain, diffuse ascites/cirrhosis and she underwent diagnostic paracentesis on for 1 which was found portal hypertension to be the likely cause of her ascites, patient was stabilized and discharged to rehab, according to patient she feels better than on discharge but according to nursing seeing staff at rehab patient was found to have a low BP, weak, lethargic and therefore they sent her to the ED. on arrival to the ED patient was noted to have a blood pressure of 98/59, other vitals stable Labs was noted to be WBC count of 4.4, hemoglobin of 8.9 which seems to be stable since discharge, sodium of 126 ( 129 and discharged), BUN of 30, creatinine of 6.41, troponin of 36 which has improved since previous admission Chest x-ray shows patchy airspace opacities in the left lower lobe with diffuse interstitial thickening raising the possibility of an atypical infection process patient given IV fluids and will be admitted for further management. Review of Systems Review of Systems: Yes all other systems are reviewed and are negative [facility] Medical History Anxiety and depression Artery stenosis Arthritis Balance problem Breast calcification, left CAD (coronary artery disease) Cardiomyopathy CHF (congestive heart failure) COVID-19 vaccine series completed Diabetes mellitus Diabetic neuropathy Diverticulitis Ductal carcinoma in situ (DCIS) of left breast End stage renal disease Fistula Hemodialysis patient History of CVA (cerebrovascular accident) Hx of myocardial infarction Hypercholesteremia Hypertension Incontinence Melena Peripheral vascular disease Urinary and bowel incontinence Family History Paternal Grandmother Breast cancer Surgical History Hx of CABG Hx of colonoscopy Hx of lumpectomy Hx of tubal ligation Social History Household Members: Children Household Members Other:: son Housing: House Are you a primary career center director to a significant other at home: No Do you presently have visiting nurse or other home services: Yes (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) Alcohol intake: former Patient Tobacco Use Status: Former Tobacco user Quit Date: years ago Tobacco use type: Cigarette Cigarette Packs Per Day: 1 Advance Directives: Yes Advance Directives on File: Yes Advance Directives Date on File: 10/06/20 service: No Current occupational status: disabled Meds Allergies Allergy/AdvReac Type Severity Reaction Status Date / Time No Known Allergies Allergy Verified 10/05/21 16:46 Active Medications: Current Medications Acetaminophen (Acetaminophen 325 Mg Tablet) 650 mg PO Q6H PRN PRN Reason: Pain, Mild (Pain Scale 1-3) Dextrose (Dextrose 50 % 25 Gm/50 Ml Syringe) 25 gm IVPUSH Q15M PRN; Protocol PRN Reason: per Hypoglycemia Standing Ord. Docusate Sodium (Docusate Sodium 100 Mg Capsule) 100 mg PO DAILY PRN PRN Reason: Constipation Glucose (Glucose Gel 15 Gm Gel..Gram.) 15 gm PO Q15M PRN; Protocol PRN Reason: per Hypoglycemia Standing Ord. Albumin Human (Kedbumin 25 %) 100 mls @ 100 mls/hr IV ONCE ONE Stop: 10/14/21 01:36 Piperacillin Sod/Tazobactam (Sod 3.375 gm/ Sodium Chloride) 50 mls @ 100 mls/hr IV Q8H [facility] Vancomycin HCl 1,250 mg/ (Sodium Chloride) 250 mls @ 166.667 mls/hr IV Q12H [facility] Insulin Human Lispro (Insulin Lispro 100 Unit/Ml 3 Ml Vial) 0 unit SUBCUT QIDACHS [facility]; Protocol Ondansetron HCl (Ondansetron Hcl 4 Mg/2 Ml Vial) 4 mg IVPUSH Q8H PRN PRN Reason: Nausea and Vomiting Pharmacy Consult (Consult Rx Vancomycin Dosing) 1 each MISCELLANE DAILY PRN PRN Reason: Consult order Sodium Chloride (0.9 % Sodium Chloride Flush 3 Ml Syringe) 3 ml IVFLUSH QSHIFT [facility] Home Medications Medication Instructions Recorded Confirmed Last Taken Type miscellaneous medical supply #1 08/02/20 09/20/21 Unknown History sevelamer carbonate 800 mg tablet 800 mg PO BID@0800,1200 tab 08/02/20 10/05/21 Unknown History (Renvela) insulin glargine 100 unit/mL 10 unit SUBCUT DAILY 11/16/20 10/06/21 Unknown History subcutaneous cartridge fluoxetine 20 mg capsule 1 cap PO QAM 12/21/20 10/06/21 10/05/21 History sevelamer carbonate 800 mg tablet 1,600 mg PO DAILY@1700 10/05/21 10/05/21 Unknown History tamoxifen 10 mg tablet 10 mg PO BID 10/06/21 10/06/21 Unknown History Physical Exam Vital Signs and Narrative: Vital Signs: Last Vital Signs Temp 99.5 F 10/13/21 22:38 Pulse 71 10/14/21 01:00 Resp 12 10/14/21 01:00 BP 96/60 10/14/21 01:00 Pulse Ox 98 10/14/21 01:00 BMI result Body Mass Index 23.6 Const: General: cooperative and no acute distress Orientation/consciousness: patient oriented x3 Eyes: General: appearance normal, both eyes and all related structures Pupils: Equal, round and reactive pupils present Resp: Effort & Inspection: normal respiratory effort and able to speak in complete sentences Auscultation: clear to auscultation bilaterally Cardio: Rate: regular rate Rhythm: regular rhythm GI: Palpation (GI): Soft to palpation Auscultation: normal bowel sounds Skin: General skin exam: no rashes or lesions noted Neuro: General: patient oriented x3 Cranial nerves: Yes Equal, round and reactive pupils present Cognition (Neuro): normal cognition Extrem: General: Yes normal to inspection and Yes no pedal edema Results Labs CBC and Chem 7: 10/13/21 23:58 10/14/21 03:08 Labs: Laboratory Results - last 24 hr 10/13/21 10/13/21 10/13/21 23:55 23:56 23:57 MCV MCH MCHC RDW Plt Count MPV Immature Gran % (Auto) Neut % (Auto) Lymph % (Auto) [place] % (Auto) Eos % (Auto) Baso % (Auto) Lymph # (Auto) Jera[place] # (Auto) Eos # (Auto) Baso # (Auto) Abs Immat Gran (auto) Absolute Neuts (auto) Absolute Nucleated RBC Nucleated RBC % (auto) PT INR Anion Gap Estim Creat Clear Calc Estimated GFR Random Glucose Lactic Acid Calcium Magnesium Total Bilirubin Direct Bilirubin AST ALT Alkaline Phosphatase Ammonia 50 Troponin I High Sens 36.8 H Total Protein Albumin Lipase COVID-19 (SIMA) COVID-19 Clin Com Influenza Type A (ARLENE) Influenza Type B (ARLENE) Influenza A & B Note Blood Type A Positive Antibody Screen NEGATIVE 10/13/21 10/13/21 10/13/21 23:57 23:58 23:58 MCV 99.0 H MCH 31.0 MCHC 31.3 RDW 16.2 H Plt Count 75 L D MPV 11.8 Immature Gran % (Auto) 0.2 Neut % (Auto) 70.8 Lymph % (Auto) 15.4 L J[place] % (Auto) 11.8 H Eos % (Auto) 1.6 Baso % (Auto) 0.2 Lymph # (Auto) 0.7 L J[place] # (Auto) 0.5 Eos # (Auto) 0.1 Baso # (Auto) 0.0 Abs Immat Gran (auto) 0.01 Absolute Neuts (auto) 3.1 Absolute Nucleated RBC 0.000 Nucleated RBC % (auto) 0.0 PT INR Anion Gap 15 Estim Creat Clear Calc 6.1 Estimated GFR 6 Random Glucose 253 H Lactic Acid 1.2 Calcium 7.8 L D Magnesium 2.2 Total Bilirubin 0.7 Direct Bilirubin 0.4 AST 18 ALT 15 Alkaline Phosphatase 388 H D Ammonia Troponin I High Sens Total Protein 6.0 L Albumin 2.8 L Lipase 57 COVID-19 (SMIA) COVID-19 Clin Com Influenza Type A (ARLENE) Influenza Type B (ARLENE) Influenza A & B Note Blood Type Antibody Screen 10/13/21 10/13/21 10/13/21 23:58 23:58 23:58 MCV MCH MCHC RDW Plt Count MPV Immature Gran % (Auto) Neut % (Auto) Lymph % (Auto) [place] % (Auto) Eos % (Auto) Baso % (Auto) Lymph # (Auto) J[place] # (Auto) Eos # (Auto) Baso # (Auto) Abs Immat Gran (auto) Absolute Neuts (auto) Absolute Nucleated RBC Nucleated RBC % (auto) PT 12.5 INR 1.1 Anion Gap Estim Creat Clear Calc Estimated GFR Random Glucose Lactic Acid Calcium Magnesium Total Bilirubin Direct Bilirubin AST ALT Alkaline Phosphatase Ammonia Troponin I High Sens Total Protein Albumin Lipase COVID-19 (SIMA) Negative COVID-19 Clin Com See Note Influenza Type A (ARLENE) Negative Influenza Type B (ARLENE) Negative Influenza A & B Note See Note Blood Type Antibody Screen Imaging Radiologist's Impressions: Impressions Chest X-Ray 10/13/21 23:05 IMPRESSION: Patchy airspace opacities in the left lower lobe with diffuse interstitial thickening raising the possibility of an atypical infectious process in the appropriate clinical context. Recommend a follow-up examination after appropriate treatment to ensure resolution. Assessment and Plan (1) Pneumonia: Qualifiers: Laterality: left Lung location: unspecified part of lung Pneumonia type: due to unspecified organism Qualified Code(s): J18.9 - Pneumonia, unspecified organism Status: Acute (2) Acute hyponatremia: Status: Acute (3) Weakness: Status: Acute (4) ESRD (end stage renal disease) on dialysis: Status: Acute Plan 71-year-old female with past medical history as mentioned above who presents to the hospital after being discharged to rehab found to have pneumonia, and acute hyponatremia # pneumonia - as seen on chest x-ray - has leukopenia, hypertension, not hypoxic, afebrile - will treat with broad-spectrum antibiotics given her recent hospitalization - follow cultures # acute hyponatremia - patient will be treated with NS - follow BMP closely - nephrology consulted - urine studies # weakness - likely multifactorial secondary to recent hospitalization, as well as acute hyponatremia and pneumonia - PT OT # ESRD on dialysis - nephrology consulted # recent GI bleed - stable hemoglobin - no evidence of GI bleed at this time - monitor all other chronic issues stable, will continue her home medications once they were reviewed by pharmacy DVT prophylaxis SCDs in the setting of recent GI bleed given acute pneumonia, as well as acute hyponatremia patient will require a minimum 2 night inpatient stay for further management and monitoring Quality Stroke Does the patient have a stroke diagnosis?: No VTE Prior VTE?: No VTE Risk Level:: Medical - moderate - high VTE Device Contraindication: N/A - Device Ordered VTE Drug Contraindication: Treatment Not Indicated
[2021-10-14] MEDS: Albumin Human 25 % 100 ML IV (01:58)
[2021-10-14] MEDS: Piperacillin Sodium/Tazobactam 3.375 GM in 0.9 % Sodium Chloride 50 ML IV ×3 (03:09→17:42)
[2021-10-14 03:29] LABS: Potassium 4.1 mmol/L (3.3-5.1)
[2021-10-14 03:30] LABS: Anion Gap 17 (12-20); Blood Urea Nitrogen 33 mg/dL (9-16); Calcium 7.6 mg/dL (8.4-10.2); Carbon Dioxide 17 mmol/L (22-29); Chloride 97 mmol/L (96-108); Creatinine Clr Calc Pharmacy 6.1; Estimated Glomerular Filt Rate 6; Glucose Random 216 mg/dL (60-115); Sodium 127 mmol/L (135-145)
[2021-10-14 04:12] LABS: Procalcitonin 1.79 ng/mL
[2021-10-14] MEDS: vancomycin HCL 1,250 MG in 0.9 % Sodium Chloride 250 ML 166.67 MG IV (04:36)
--- NOTE | 2021-10-14 04:37 | PC.NURSE ---
pt medicated per Sep. delay in antibiotic due to one line available. No blood pressure or venipuncture right.
[2021-10-14] MEDS: 0.9 % Sodium Chloride 1,000 ML 75 ML IVCONT ×2 (07:01→17:46)
[2021-10-14 07:18] LABS: Glucose, Whole Blood 226 mg/dL (60-115)
[2021-10-14] MEDS: Insulin Lispro 100 UNIT/ML 3 ML VIAL SUBCUT ×4 (07:42→21:44)
--- NOTE | 2021-10-14 08:59 | PHA.MEDREC ---
Pharmacy Consult ? Medication Reconciliation Pharmacy has completed the medication reconciliation. No remarkable issues. Nighat Paz, TravonD
--- NOTE | 2021-10-14 09:24 | PHA.PROG ---
Admission Date/Time: October 14, 2021 01:25 Indication: Respiratory Weight in k.699 kg Adjusted body weight in Kg: [place] body weight in Kg: Obesity Dosing Indication % IBW: Serum Creatinine - Last 168 Hours 10/13/21 10/14/21 23:58 03:08 Creatinine 6.41 H* 6.41 H* Estimated CrCl and GFR - Last 168 Hours 10/13/21 10/14/21 23:58 03:08 Estim Creat Clear Calc 6.1 6.1 Estimated GFR 6 6 Vancomycin Loading Dose: 1250mg X 1 Current Vancomycin Dosing Regimen: Vancomycin Monitoring using AUC goal of 400 - 600 range with trough as surrogate marker: Date and Time for next Vancomycin Level to be drawn: Pharmacist Comments on Vancomycin Plan: Patient is on dialysis, waiting on nursing to confirm dialysis schedule. As of now putting vanco doses on MWF @2000 based on regular dialysis schedule. Will confirm daily with nursing if schedule changes. Vancomycin dosing will take advantage of [employer] as a clinical decision support tool that uses Bayesian modeling to calculate individual patient's pharmacokinetic parameters and forecast the patient's drug concentration time course with the target goal AUC 24 range of 400 - 600 mg/L/hr.
[2021-10-14 09:50] LABS: MANUAL DIFF FLAG NO
[2021-10-14 09:54] LABS: Basophils Percent Auto 0.5 % (0-2); Eosinophils Absolute Auto 0.1 X10*3/uL (0.0-0.4); Eosinophils Percent Auto 2.1 % (0-4); Hematocrit 29.7 % (37.0-47.0); Hemoglobin 8.9 g/dl (12.0-16.0); Imm Gran Abs Auto 0.01 X10*3/uL (0.00-0.03); Imm Gran Pct Auto 0.3 % (0.0-0.4); Lymphocytes Absolute Auto 0.4 X10*3/uL (1.2-4.9); Lymphocytes Percent Auto 11.4 % (20-40); Mean Corpuscular Hemoglobin 30.1 pg (27.0-33.0); Mean Corpuscular Volume 100.3 fL (80.0-98.0); Mean Platelet Volume 11.7 fL (9.4-12.3); Monocytes Absolute Auto 0.3 X10*3/uL (0.1-1.2); Neutrophils Absolute Auto 2.9 x10*3/uL (2.0-8.3); Neutrophils Percent Auto 76.7 % (45-73); Red Blood Count 2.96 X10*6/uL (4.20-5.50); Red Cell Distribution Width 16.1 % (11.0-16.0); White Blood Count 3.8 X10*3/uL (4.8-10.8)
[2021-10-14 09:55] LABS: Platelet Count 74 X10*3/uL (160-400)
[2021-10-14 10:29] LABS: Anion Gap 16 (12-20); Blood Urea Nitrogen 37 mg/dL (9-16); Calcium 7.4 mg/dL (8.4-10.2); Carbon Dioxide 19 mmol/L (22-29); Chloride 95 mmol/L (96-108); Creatinine Clr Calc Pharmacy 5.8; Estimated Glomerular Filt Rate 6; Glucose Random 286 mg/dL (60-115); Potassium 4.3 mmol/L (3.3-5.1); Sodium 126 mmol/L (135-145)
[2021-10-14 10:47] LABS: Osmolality, Serum 285 mosm/kg (281-305)
--- NOTE | 2021-10-14 11:31 | MHC.CM.PN ---
MESSAGE RECEIVED FROM FOSTER ANDREW, PT IS A BED HOLD AT THEIR FACILITY
[2021-10-14] MEDS: FLUoxetine HCl 20 MG CAPSULE PO (11:40)
[2021-10-14] MEDS: Folic Acid 1 MG TABLET PO (11:40)
[2021-10-14] MEDS: Insulin Glargine,Hum.rec.anlog 100 UNIT/ML 10 ML VIAL 10 UNIT SUBCUT (11:40)
[2021-10-14 12:57] LABS: Glucose, Whole Blood 223 mg/dL (60-115)
[2021-10-14] MEDS: Sucralfate 1 GM TABLET PO ×3 (13:26→21:44)
[2021-10-14] MEDS: Gabapentin 300 MG CAPSULE PO ×2 (13:26→21:44)
[2021-10-14] MEDS: Sevelamer Carbonate Tablet 800 MG TABLET PO (14:00)
[2021-10-14] MEDS: Tamoxifen Citrate 10 MG TABLET PO ×2 (14:00→21:44)
--- NOTE | 2021-10-14 16:30 | MHC.CM.PN ---
Addendum entered by Miri Ragsdale 10/15/21 09:51: CM RECEIVED A RETURN CALL FROM PTS HCP, ZACH GARCIA. 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 CM EXPLAINED THE DIFFERENCES BETWEEN [facility] AND LTC IN A SNF. ZACH REPORTS THE PT WOULD NEED LTC IN A SNF THE CURRENT PLAN IS FOR PT TO RETURN TO [facility] TO CONTINUE STR ZACH IS AWARE IF PT DOES NOT SEEM MANAGEABLE AT HOME AFTER REHAB, SHE SHOULD DISCUSS LTC PLACEMENT WITH [facility] SW PT IS COVID-19 VACCINATED POA AND HCP ON FILE DCP: RETURN TO [facility] (BED HOLD) VIA [facility] Original Note: CM ATTEMPTED TO CONTACT PTS GUARDIAN (PER NOTES), ZACH PAINTERA [phone]. VM MESSAGE LEFT DELIVERING MEDICARE RIGHTS AND REQUESTING A RETURN CALL PT IS A BED HOLD AT [facility]
[2021-10-14 16:41] LABS: Glucose, Whole Blood 249 mg/dL (60-115)
[2021-10-14] MEDS: carvediloL 3.125 MG TABLET PO (17:42)
[2021-10-14] MEDS: Sevelamer Carbonate Tablet 800 MG TABLET 1600 MG PO (17:42)
[2021-10-14] MEDS: Omeprazole 40 MG CAPSULE.DR PO (17:42)
[2021-10-14 19:24] LABS: Anion Gap 19 (12-20); Blood Urea Nitrogen 41 mg/dL (9-16); Calcium 7.3 mg/dL (8.4-10.2); Carbon Dioxide 13 mmol/L (22-29); Chloride 98 mmol/L (96-108); Creatinine Clr Calc Pharmacy 5.5; Estimated Glomerular Filt Rate 6; Glucose Random 241 mg/dL (60-115); Potassium 5.1 mmol/L (3.3-5.1); Sodium 125 mmol/L (135-145)
--- NOTE | 2021-10-14 20:21 | PC.NURSE ---
Took report from Patt to assume care of Pt. Pt resting, Pt needs met, safety maintained, call light in reach, this RN continues to monitor.
[2021-10-14 21:03] LABS: Glucose, Whole Blood 186 mg/dL (60-115)
[2021-10-14] MEDS: Atorvastatin Calcium 80 MG TABLET PO (21:47)
[2021-10-15] VITALS (8 sets, daily range): BP systolic 70–118; BP diastolic 54–68; PULSE 76–101; RESP 15–20; TEMP 36.4–37.2; O2SAT 96–99
[2021-10-15 00:26] LABS: Anion Gap 17 (12-20); Blood Urea Nitrogen 47 mg/dL (9-16); Calcium 7.3 mg/dL (8.4-10.2); Carbon Dioxide 16 mmol/L (22-29); Chloride 99 mmol/L (96-108); Creatinine Clr Calc Pharmacy 5.1; Estimated Glomerular Filt Rate 5; Glucose Random 139 mg/dL (60-115); Sodium 127 mmol/L (135-145)
[2021-10-15] MEDS: Piperacillin Sodium/Tazobactam 3.375 GM in 0.9 % Sodium Chloride 50 ML IV ×3 (01:37→18:22)
[2021-10-15] MEDS: Omeprazole 40 MG CAPSULE.DR PO ×2 (06:19→16:26)
[2021-10-15] MEDS: 0.9 % Sodium Chloride 1,000 ML 75 ML IVCONT (06:20)
[2021-10-15 07:49] LABS: Hematocrit 28.3 % (37.0-47.0); Mean Corpuscular HGB Conc 31.8 g/dl (31.0-35.0); Mean Corpuscular Hemoglobin 30.7 pg (27.0-33.0); Mean Corpuscular Volume 96.6 fL (80.0-98.0); Mean Platelet Volume 10.9 fL (9.4-12.3); Red Blood Count 2.93 X10*6/uL (4.20-5.50); White Blood Count 4.7 X10*3/uL (4.8-10.8)
[2021-10-15 07:50] LABS: Platelet Count 63 X10*3/uL (160-400)
[2021-10-15 08:57] LABS: Blood Urea Nitrogen 26 mg/dL (9-16); Calcium 7.6 mg/dL (8.4-10.2); Creatinine Clr Calc Pharmacy 9.4; Estimated Glomerular Filt Rate 11; Glucose Random 128 mg/dL (60-115)
[2021-10-15 09:15] LABS: Anion Gap 17 (12-20); Carbon Dioxide 17 mmol/L (22-29); Chloride 98 mmol/L (96-108); Potassium 3.6 mmol/L (3.3-5.1); Sodium 128 mmol/L (135-145)
--- NOTE | 2021-10-15 10:58 | HO.PM.IMPN ---
Subjective Subjective Date of Service: 10/15/21 Interval History: the patient was seen and evaluated this morning Laying in bed, feels little better but still weak overall Denies any fever or shortness of breath No reported other overnight events. Systemic review: No fever, Report improving chills but still feeling fatigued No chest pain, palpitation No shortness of breath or coughing No abdominal pain, nausea or vomiting No urinary symptoms No any rash or wounds Physical Exam Vital Signs: Vital Signs: Last Vital Signs Temp 98.1 F 10/15/21 04:00 Pulse 85 10/15/21 04:00 Resp 18 10/15/21 04:00 BP 107/56 L 10/15/21 04:00 Pulse Ox 98 10/15/21 04:00 BMI result Body Mass Index 23.6 Const: Other: Constitutional : Alert, oriented, not in distress Neck : Normal inspection, Supple Cardiovascular : RRR, no JVP, no lower extremity edema Respiratory : fair bilateral air entry, basal fine crackles, wheezes or rhonchi Gastrointestinal: soft, lax, Normal bowel sounds, Non tender Skin : Warm, Dry Neurological : Alert & oriented, No focal deficit , CN 2-12 within normal Objective Data Active Medications Acetaminophen (Acetaminophen 325 Mg Tablet) 650 mg PO Q6H PRN PRN Reason: Pain, Mild (Pain Scale 1-3) Atorvastatin Calcium (Atorvastatin Calcium 80 Mg Tablet) 80 mg PO BEDTIME [facility] Last Admin: 10/14/21 21:47 Dose: 80 mg Documented by: XIAO Carvedilol (Carvedilol 3.125 Mg Tablet) 3.125 mg PO MoWeFr@1645 [facility]; Protocol Last Admin: 10/14/21 17:42 Dose: 3.125 mg Documented by: JUAN Carvedilol (Carvedilol 3.125 Mg Tablet) 3.125 mg PO SuTuThSa@0900,2100 [facility]; Protocol Dextrose (Dextrose 50 % 25 Gm/50 Ml Syringe) 25 gm IVPUSH Q15M PRN; Protocol PRN Reason: per Hypoglycemia Standing Ord. Docusate Sodium (Docusate Sodium 100 Mg Capsule) 100 mg PO DAILY PRN PRN Reason: Constipation Ergocalciferol (Ergocalciferol (Vitamin D2) 1,250 Mcg Capsule) 1,250 mcg PO Sa@0900 [facility] Fluoxetine HCl (Fluoxetine Hcl 20 Mg Capsule) 20 mg PO DAILY [facility] Last Admin: 10/14/21 11:40 Dose: 20 mg Documented by: POWER Folic Acid (Folic Acid 1 Mg Tablet) 1 mg PO DAILY [facility] Last Admin: 10/14/21 11:40 Dose: 1 mg Documented by: POWER Gabapentin (Gabapentin 300 Mg Capsule) 300 mg PO TID [facility] Last Admin: 10/14/21 21:44 Dose: 300 mg Documented by: XIAO Glucose (Glucose Gel 15 Gm Gel..Gram.) 15 gm PO Q15M PRN; Protocol PRN Reason: per Hypoglycemia Standing Ord. Piperacillin Sod/Tazobactam (Sod 3.375 gm/ Sodium Chloride) 50 mls @ 100 mls/hr IV Q8H [facility] Last Infusion: 10/15/21 02:19 Dose: 0 mls/hr Documented by: SYD Vancomycin HCl 500 mg/ Sodium (Chloride) 110 mls @ 110 mls/hr IV MOWEFR@2000 [facility] Insulin Glargine (Insulin Glargine,Hum.Rec.Anlog 100 Unit/Ml 10 Ml Vial) 10 unit SUBCUT DAILY [facility] Last Admin: 10/14/21 11:40 Dose: 10 unit Documented by: POWER Insulin Human Lispro (Insulin Lispro 100 Unit/Ml 3 Ml Vial) 0.1 - 10 unit SUBCUT QIDACHS [facility]; Protocol Last Admin: 10/14/21 21:44 Dose: 2 unit Documented by: XIAO Loratadine (Loratadine 10 Mg Tablet) 10 mg PO DAILY [facility] Omeprazole (Omeprazole 40 Mg Sophia.) 40 mg PO BID@0630,1630 [facility] Last Admin: 10/15/21 06:19 Dose: 40 mg Documented by: SHIRLEY Ondansetron HCl (Ondansetron Hcl 4 Mg/2 Ml Vial) 4 mg IVPUSH Q8H PRN PRN Reason: Nausea and Vomiting Pharmacy Consult (Consult Rx Vancomycin Dosing) 1 each MISCELLANE DAILY PRN PRN Reason: Consult order Pharmacy Consult (Consult Rx Perform Med Rec) 1 each MISCELLANE ONCE PRN PRN Reason: Consult order Sevelamer Carbonate (Sevelamer Carbonate Tablet 800 Mg Tablet) 800 mg PO BID@0800,1200 [facility] Last Admin: 10/14/21 14:00 Dose: 800 mg Documented by: AKIN Sevelamer Carbonate (Sevelamer Carbonate Tablet 800 Mg Tablet) 1,600 mg PO DAILY@1700 [facility] Last Admin: 10/14/21 17:42 Dose: 1,600 mg Documented by: JUAN Sodium Chloride (0.9 % Sodium Chloride Flush 3 Ml Syringe) 3 ml IVFLUSH QSHIFT [facility] Last Admin: 10/14/21 23:49 Dose: Not Given Documented by: SYD Non-Admin Reason: IV Running Sucralfate (Sucralfate 1 Gm Tablet) 1 gm PO QIDACHS [facility] Last Admin: 10/14/21 21:44 Dose: 1 gm Documented by: XIAO Tamoxifen Citrate (Tamoxifen Citrate 10 Mg Tablet) 10 mg PO BID [facility] Last Admin: 10/14/21 21:44 Dose: 10 mg Documented by: XIAO Labs CBC & Chem 7: 10/15/21 07:34 10/15/21 07:34 Labs: Laboratory Results - last 24 hr 10/14/21 10/14/21 10/14/21 12:54 16:38 18:30 MCV MCH MCHC RDW Plt Count MPV Absolute Nucleated RBC Nucleated RBC % (auto) Anion Gap 19 Estim Creat Clear Calc 5.5 Estimated GFR 6 POC Glucose 223 H 249 H Random Glucose 241 H Calcium 7.3 L 10/14/21 10/15/21 10/15/21 20:59 00:03 07:34 MCV 96.6 MCH 30.7 MCHC 31.8 RDW 16.0 Plt Count 63 L MPV 10.9 Absolute Nucleated RBC 0.000 Nucleated RBC % (auto) 0.0 Anion Gap 17 Estim Creat Clear Calc 5.1 Estimated GFR 5 POC Glucose 186 H Random Glucose 139 H Calcium 7.3 L 10/15/21 07:34 MCV MCH MCHC RDW Plt Count MPV Absolute Nucleated RBC Nucleated RBC % (auto) Anion Gap 17 Estim Creat Clear Calc 9.4 Estimated GFR 11 POC Glucose Random Glucose 128 H Calcium 7.6 L Microbiology Microbiology Results: Microbiology 10/13/21 23:55 Blood Culture - Preliminary Blood - Venous No growth after 24 hours. 10/13/21 23:55 Blood Culture - Preliminary Blood - Venous No growth after 24 hours. Assessment and Plan (1) Weakness: Status: Acute (2) Acute hyponatremia: Status: Acute (3) ESRD (end stage renal disease) on dialysis: Status: Acute (4) Pneumonia: Status: Acute Plan 71-year-old female with past medical history as mentioned above who presents to the hospital after being discharged to rehab found to have pneumonia, and acute hyponatremia # pneumonia seen on chest x-ray continue broad-spectrum antibiotics given her recent hospitalization pending final cultures # acute hyponatremia received NS improved to 128 urine studies nephrology following # weakness likely multifactorial secondary to recent hospitalization, as well as acute hyponatremia and pneumonia PT OT # ESRD on dialysis nephrology following, # recent GI bleed no evidence of GI bleed at this time monitor hemoglobin level continue her home medications for the rest of her chronic problems DVT prophylaxis SCDs in the setting of recent GI bleed given acute pneumonia, as well as acute hyponatremia patient will require overnight hospital stay for further management and monitoring Quality Stroke Does the patient have a stroke diagnosis?: No VTE Prior VTE?: No VTE Risk Level:: Medical - moderate - high VTE Device Contraindication: N/A - Device Ordered VTE Drug Contraindication: Treatment Not Indicated
[2021-10-15 11:24] LABS: Glucose, Whole Blood 109 mg/dL (60-115)
[2021-10-15] MEDS: 0.9 % Sodium Chloride 500 ML IV (11:38)
[2021-10-15] MEDS: Loratadine 10 MG TABLET PO (12:37)
[2021-10-15] MEDS: FLUoxetine HCl 20 MG CAPSULE PO (12:37)
[2021-10-15] MEDS: Ergocalciferol (Vitamin D2) 1,250 MCG CAPSULE 1250 MCG PO (12:38)
[2021-10-15] MEDS: Insulin Glargine,Hum.rec.anlog 100 UNIT/ML 10 ML VIAL 10 UNIT SUBCUT (12:38)
[2021-10-15] MEDS: Sevelamer Carbonate Tablet 800 MG TABLET PO (12:38)
[2021-10-15] MEDS: Folic Acid 1 MG TABLET PO (12:38)
[2021-10-15] MEDS: Tamoxifen Citrate 10 MG TABLET PO ×2 (12:38→21:50)
[2021-10-15] MEDS: Sucralfate 1 GM TABLET PO ×2 (12:38→21:49)
[2021-10-15 13:58] LABS: Vancomycin Random 12.1 mcg/mL (15-20)
[2021-10-15 16:08] LABS: Glucose, Whole Blood 226 mg/dL (60-115)
[2021-10-15] MEDS: 0.9 % Sodium Chloride Flush 3 ML SYRINGE IVFLUSH ×2 (16:26→23:49)
[2021-10-15] MEDS: vancomycin HCL 500 MG in 0.9 % Sodium Chloride 100 ML 110 MG IV (16:26)
[2021-10-15] MEDS: Gabapentin 300 MG CAPSULE PO ×2 (16:36→21:49)
[2021-10-15] MEDS: Acetaminophen 325 MG TABLET 650 MG PO (16:36)
[2021-10-15] MEDS: Sevelamer Carbonate Tablet 800 MG TABLET 1600 MG PO (16:41)
[2021-10-15] MEDS: Insulin Lispro 100 UNIT/ML 3 ML VIAL SUBCUT ×2 (16:41→21:49)
[2021-10-15 20:45] LABS: Glucose, Whole Blood 156 mg/dL (60-115)
[2021-10-15] MEDS: Atorvastatin Calcium 80 MG TABLET PO (21:49)
[2021-10-16] MEDS: Piperacillin Sodium/Tazobactam 3.375 GM in 0.9 % Sodium Chloride 50 ML IV (01:54)
[2021-10-16 03:16] VITALS: BP 105/58; PULSE 84; RESP 15; TEMP 36.3; O2SAT 95
[2021-10-16 05:56] LABS: Anion Gap 16 (12-20); Blood Urea Nitrogen 26 mg/dL (9-16); Calcium 7.7 mg/dL (8.4-10.2); Carbon Dioxide 21 mmol/L (22-29); Chloride 97 mmol/L (96-108); Creatinine Clr Calc Pharmacy 8.5; Estimated Glomerular Filt Rate 9; Glucose Random 79 mg/dL (60-115); Potassium 3.7 mmol/L (3.3-5.1); Sodium 130 mmol/L (135-145)
[2021-10-16] MEDS: Omeprazole 40 MG CAPSULE.DR PO ×2 (06:03→16:43)
[2021-10-16 07:35] LABS: Glucose, Whole Blood 87 mg/dL (60-115)
[2021-10-16] MEDS: Tamoxifen Citrate 10 MG TABLET PO ×2 (07:39→21:07)
[2021-10-16] MEDS: Sucralfate 1 GM TABLET PO ×4 (07:40→21:07)
[2021-10-16] MEDS: Loratadine 10 MG TABLET PO (07:40)
[2021-10-16] MEDS: Folic Acid 1 MG TABLET PO (07:40)
[2021-10-16] MEDS: FLUoxetine HCl 20 MG CAPSULE PO (07:40)
[2021-10-16] MEDS: Sevelamer Carbonate Tablet 800 MG TABLET PO ×2 (07:40→11:09)
[2021-10-16] MEDS: 0.9 % Sodium Chloride Flush 3 ML SYRINGE IVFLUSH ×2 (07:41→16:43)
[2021-10-16] MEDS: Gabapentin 300 MG CAPSULE PO ×3 (07:41→21:07)
[2021-10-16 07:58] VITALS: BP 91/54; PULSE 74; RESP 20; TEMP 36.2; O2SAT 96
[2021-10-16] MEDS: Azithromycin 250 MG TABLET PO (09:52)
[2021-10-16 11:03] LABS: Glucose, Whole Blood 148 mg/dL (60-115)
[2021-10-16 11:08] VITALS: BP 110/59; PULSE 79; RESP 20; TEMP 36.6; O2SAT 100
[2021-10-16] MEDS: Midodrine HCl 5 MG TABLET PO ×2 (11:09→16:43)
--- NOTE | 2021-10-16 12:28 | HO.PM.IMPN ---
Subjective Subjective Date of Service: 10/16/21 Interval History: the patient was seen and evaluated this morning Laying in bed, feels little better but still weak overall An complaining of generalized pain Blood pressure still running solved Denies any fever or shortness of breath No reported other overnight events. Systemic review: No fever, Report improving chills but still feeling weak and tired No chest pain, palpitation No shortness of breath or coughing No abdominal pain, nausea or vomiting No urinary symptoms No any rash or wounds Physical Exam Vital Signs: Vital Signs: Last Vital Signs Temp 97.8 F 10/16/21 11:08 Pulse 79 10/16/21 11:08 Resp 20 10/16/21 11:08 BP 110/59 L 10/16/21 11:08 Pulse Ox 100 10/16/21 11:08 BMI result Body Mass Index 23.6 Const: Other: Constitutional : Alert, oriented, not in distress Neck : Normal inspection, Supple Cardiovascular : RRR, no JVP, no lower extremity edema Respiratory : fair bilateral air entry, basal fine crackles, wheezes or rhonchi Gastrointestinal: soft, lax, Normal bowel sounds, Non tender Skin : Warm, Dry Neurological : Alert & oriented, No focal deficit , CN 2-12 within normal Objective Data Active Medications Acetaminophen (Acetaminophen 325 Mg Tablet) 650 mg PO Q6H PRN PRN Reason: Pain, Mild (Pain Scale 1-3) Last Admin: 10/15/21 16:36 Dose: 650 mg Documented by: JOSEFA Atorvastatin Calcium (Atorvastatin Calcium 80 Mg Tablet) 80 mg PO BEDTIME [facility] Last Admin: 10/15/21 21:49 Dose: 80 mg Documented by: JOSEFA Azithromycin (Azithromycin 250 Mg Tablet) 250 mg PO Q24H [facility] Last Admin: 10/16/21 09:52 Dose: 250 mg Documented by: CHRIS Carvedilol (Carvedilol 3.125 Mg Tablet) 3.125 mg PO MoWeFr@1645 [facility]; Protocol Last Admin: 10/14/21 17:42 Dose: 3.125 mg Documented by: JUAN Carvedilol (Carvedilol 3.125 Mg Tablet) 3.125 mg PO SuTuThSa@0900,2100 [facility]; Protocol Last Admin: 10/15/21 21:49 Dose: Not Given Documented by: JOSEFA Non-Admin Reason: Decreased Blood Pressure Cefuroxime Axetil (Cefuroxime Axetil 250 Mg Tablet) 250 mg PO Q24H [facility] Last Admin: 10/16/21 09:52 Dose: 250 mg Documented by: CHRIS Dextrose (Dextrose 50 % 25 Gm/50 Ml Syringe) 25 gm IVPUSH Q15M PRN; Protocol PRN Reason: per Hypoglycemia Standing Ord. Docusate Sodium (Docusate Sodium 100 Mg Capsule) 100 mg PO DAILY PRN PRN Reason: Constipation Ergocalciferol (Ergocalciferol (Vitamin D2) 1,250 Mcg Capsule) 1,250 mcg PO Sa@0900 [facility] Last Admin: 10/15/21 12:38 Dose: 1,250 mcg Documented by: CHRIS Fluoxetine HCl (Fluoxetine Hcl 20 Mg Capsule) 20 mg PO DAILY [facility] Last Admin: 10/16/21 07:40 Dose: 20 mg Documented by: CHRIS Folic Acid (Folic Acid 1 Mg Tablet) 1 mg PO DAILY [facility] Last Admin: 10/16/21 07:40 Dose: 1 mg Documented by: CHRIS Gabapentin (Gabapentin 300 Mg Capsule) 300 mg PO TID [facility] Last Admin: 10/16/21 07:41 Dose: 300 mg Documented by: CHRIS Glucose (Glucose Gel 15 Gm Gel..Gram.) 15 gm PO Q15M PRN; Protocol PRN Reason: per Hypoglycemia Standing Ord. Insulin Glargine (Insulin Glargine,Hum.Rec.Anlog 100 Unit/Ml 10 Ml Vial) 10 unit SUBCUT DAILY [facility] Last Admin: 10/16/21 09:52 Dose: Not Given Documented by: CHRIS Non-Admin Reason: No Insulin Coverage Insulin Human Lispro (Insulin Lispro 100 Unit/Ml 3 Ml Vial) 0.1 - 10 unit SUBCUT QIDACHS [facility]; Protocol Last Admin: 10/16/21 11:09 Dose: Not Given Documented by: CHRIS Non-Admin Reason: No Insulin Coverage Loratadine (Loratadine 10 Mg Tablet) 10 mg PO DAILY [facility] Last Admin: 10/16/21 07:40 Dose: 10 mg Documented by: CHRIS Midodrine (Midodrine Hcl 5 Mg Tablet) 5 mg PO TIDAC [facility] Last Admin: 10/16/21 11:09 Dose: 5 mg Documented by: CHRIS Omeprazole (Omeprazole 40 Mg Capsule.) 40 mg PO BID@0630,1630 [facility] Last Admin: 10/16/21 06:03 Dose: 40 mg Documented by: FAWAD Ondansetron HCl (Ondansetron Hcl 4 Mg/2 Ml Vial) 4 mg IVPUSH Q8H PRN PRN Reason: Nausea and Vomiting Pharmacy Consult (Consult Rx Vancomycin Dosing) 1 each MISCELLANE DAILY PRN PRN Reason: Consult order Pharmacy Consult (Consult Rx Perform Med Rec) 1 each MISCELLANE ONCE PRN PRN Reason: Consult order Sevelamer Carbonate (Sevelamer Carbonate Tablet 800 Mg Tablet) 800 mg PO BID@0800,1200 [facility] Last Admin: 10/16/21 11:09 Dose: 800 mg Documented by: CHRIS Sevelamer Carbonate (Sevelamer Carbonate Tablet 800 Mg Tablet) 1,600 mg PO DAILY@1700 [facility] Last Admin: 10/15/21 16:41 Dose: 1,600 mg Documented by: JOSEFA Sodium Chloride (0.9 % Sodium Chloride Flush 3 Ml Syringe) 3 ml IVFLUSH QSHIFT [facility] Last Admin: 10/16/21 07:41 Dose: 3 ml Documented by: CHRIS Sucralfate (Sucralfate 1 Gm Tablet) 1 gm PO QIDACHS [facility] Last Admin: 10/16/21 11:09 Dose: 1 gm Documented by: CHRIS Tamoxifen Citrate (Tamoxifen Citrate 10 Mg Tablet) 10 mg PO BID [facility] Last Admin: 10/16/21 07:39 Dose: 10 mg Documented by: CHRIS Labs CBC & Chem 7: 10/15/21 07:34 10/16/21 04:55 Labs: Laboratory Results - last 24 hr 10/15/21 10/15/21 10/15/21 13:15 16:03 20:42 Anion Gap Estim Creat Clear Calc Estimated GFR POC Glucose 226 H 156 H Random Glucose Calcium Random Vancomycin 12.1 L 10/16/21 10/16/21 10/16/21 04:55 07:25 10:56 Anion Gap 16 Estim Creat Clear Calc 8.5 Estimated GFR 9 POC Glucose 87 148 H Random Glucose 79 Calcium 7.7 L Random Vancomycin Microbiology Microbiology Results: Microbiology 10/13/21 23:55 Blood Culture - Preliminary Blood - Venous No growth after 48 hours. 10/13/21 23:55 Blood Culture - Preliminary Blood - Venous No growth after 48 hours. Assessment and Plan (1) Acute hyponatremia: Status: Acute (2) Weakness: Status: Acute (3) Pneumonia: Status: Acute Plan 71-year-old female with past medical history as mentioned above who presents to the hospital after being discharged to rehab found to have pneumonia, and acute hyponatremia # pneumonia seen on chest x-ray cultures are negative Deescalate antibiotic to oral doxycycline and Ceftin # acute hyponatremia received NS improved to 130 urine studies nephrology following # weakness/ physical deconditioning likely multifactorial secondary to recent hospitalization, as well as acute hyponatremia and pneumonia PT # ESRD on dialysis nephrology following, # recent GI bleed no evidence of GI bleed at this time monitor hemoglobin level continue her home medications for the rest of her chronic problems DVT prophylaxis SCDs in the setting of recent GI bleed given acute pneumonia, as well as acute hyponatremia and physical deconditioning patient will require overnight hospital stay for further management and monitoring to arrange for safe discharge plan Quality Stroke Does the patient have a stroke diagnosis?: No VTE Prior VTE?: No VTE Risk Level:: Medical - moderate - high VTE Device Contraindication: N/A - Device Ordered VTE Drug Contraindication: Treatment Not Indicated
[2021-10-16 15:06] VITALS: BP 90/63; PULSE 89; RESP 18; TEMP 36.7; O2SAT 98
[2021-10-16 15:39] LABS: Glucose, Whole Blood 182 mg/dL (60-115)
[2021-10-16] MEDS: Insulin Lispro 100 UNIT/ML 3 ML VIAL SUBCUT ×2 (16:43→21:08)
[2021-10-16] MEDS: Sevelamer Carbonate Tablet 800 MG TABLET 1600 MG PO (16:43)
[2021-10-16 20:00] VITALS: BP 97/68; PULSE 89; RESP 18; TEMP 37.1; O2SAT 98
[2021-10-16 20:33] LABS: Glucose, Whole Blood 178 mg/dL (60-115)
[2021-10-16] MEDS: Atorvastatin Calcium 80 MG TABLET PO (21:07)
[2021-10-16 23:28] VITALS: BP 127/82; PULSE 75; RESP 19; TEMP 36.8; O2SAT 100
[2021-10-17] MEDS: 0.9 % Sodium Chloride Flush 3 ML SYRINGE IVFLUSH ×2 (00:44→08:03)
[2021-10-17 03:18] VITALS: BP 108/68; PULSE 83; RESP 20; TEMP 36.6; O2SAT 98
[2021-10-17] MEDS: Omeprazole 40 MG CAPSULE.DR PO (06:23)
[2021-10-17 06:57] LABS: Anion Gap 18 (12-20); Blood Urea Nitrogen 40 mg/dL (9-16); Calcium 7.8 mg/dL (8.4-10.2); Carbon Dioxide 21 mmol/L (22-29); Chloride 93 mmol/L (96-108); Creatinine Clr Calc Pharmacy 6.4; Estimated Glomerular Filt Rate 7; Glucose Random 174 mg/dL (60-115); Potassium 4.5 mmol/L (3.3-5.1); Sodium 127 mmol/L (135-145)
[2021-10-17 07:29] LABS: Glucose, Whole Blood 159 mg/dL (60-115)
[2021-10-17 07:33] VITALS: BP 114/81; PULSE 82; RESP 20; TEMP 36.6; O2SAT 98
[2021-10-17] MEDS: Midodrine HCl 5 MG TABLET PO (07:57)
[2021-10-17] MEDS: Azithromycin 250 MG TABLET PO (07:58)
[2021-10-17] MEDS: Gabapentin 300 MG CAPSULE PO (07:58)
[2021-10-17] MEDS: Sevelamer Carbonate Tablet 800 MG TABLET PO (07:58)
[2021-10-17] MEDS: FLUoxetine HCl 20 MG CAPSULE PO (07:59)
[2021-10-17] MEDS: Loratadine 10 MG TABLET PO (07:59)
[2021-10-17] MEDS: Folic Acid 1 MG TABLET PO (07:59)
[2021-10-17] MEDS: Sucralfate 1 GM TABLET PO (07:59)
[2021-10-17] MEDS: Insulin Lispro 100 UNIT/ML 3 ML VIAL SUBCUT (08:02)
[2021-10-17] MEDS: Insulin Glargine,Hum.rec.anlog 100 UNIT/ML 10 ML VIAL 10 UNIT SUBCUT (08:02)
[2021-10-17] MEDS: Tamoxifen Citrate 10 MG TABLET PO (08:04)
--- NOTE | 2021-10-17 10:18 | MHC.CM.PN ---
pt to be dcd today at 1:00 via [facility] message left for hcp jonn charlton re dc to ruddy avendaño
[2021-10-17 11:04] LABS: COVID-19 Test Negative (Negative)
--- NOTE | 2021-10-17 11:04 | PM.PNNEP ---
Subjective Subjective Date of Service: 10/17/21 Interval history: Seen on HD. Events noted. All recent data reviewed; D/W HD RN and Hospitalist Physical Exam Vital Signs: Vital Signs: Last Vital Signs Temp 97.9 F 10/17/21 07:33 Pulse 82 10/17/21 07:33 Resp 20 10/17/21 07:33 BP 114/81 10/17/21 07:33 Pulse Ox 98 10/17/21 07:33 BMI result Body Mass Index 23.6 Const: General: no acute distress Orientation/consciousness: patient oriented x3 Eyes: EOM: EOMs intact bilaterally Resp: Auscultation: diminished lung sounds Cardio: Rate: regular rate GI: Palpation (GI): Soft to palpation Neuro: General: patient oriented x3 and moves all extremities Objective Data Labs CBC & Chem 7: 10/15/21 07:34 10/17/21 06:20 Labs: Laboratory Results - last 24 hr 10/16/21 10/16/21 10/17/21 15:08 20:30 06:20 Sodium 127 L Potassium 4.5 D Chloride 93 L Carbon Dioxide 21 L Anion Gap 18 BUN 40 H D Creatinine 6.13 H* Estim Creat Clear Calc 6.4 Estimated GFR 7 POC Glucose 182 H 178 H Random Glucose 174 H Calcium 7.8 L 10/17/21 07:05 Sodium Potassium Chloride Carbon Dioxide Anion Gap BUN Creatinine Estim Creat Clear Calc Estimated GFR POC Glucose 159 H Random Glucose Calcium Microbiology Microbiology Results: Microbiology 10/13/21 23:55 Blood - Venous Blood Culture - Preliminary No growth after 48 hours. 10/13/21 23:55 Blood - Venous Blood Culture - Preliminary No growth after 48 hours. Procedures Date of Service Date of Service: 10/17/21 Assessment & Plan Assessment and plan (1) ESRD (end stage renal disease) on dialysis: Status: Acute Assessment and Plan: 71-year-old female with a past medical history of hyperlipidemia, diabetes, CAD, CHF, ESRD on hemodialysis, history of CVA, peripheral vascular disease, anxiety, depression, arthritis, history of GI bleed, anemia presented to the hospital with pneumonia. 1. End-stage renal disease.?HD MWF schedule. Has been tolerating HD Seen on HD 2. Anemia.? She was transfused at last admission.?EPO 20,000 3x weekly; Had EGD at last visit OK to have Carvedilol 3.125 mg bid but needs to hold AM dose on HD days Shall arrange HD F/U if D/Sharath Time Spent With Patient Time: Total time spent is greater than 50% in coordination of care (as documented) at patient's floor/unit and/or counseling patient: Progress Note: Quality Stroke Does the patient have a stroke diagnosis?: No
[2021-10-17 11:30] LABS: Glucose, Whole Blood 159 mg/dL (60-115)
--- NOTE | 2021-10-17 11:49 | P.DS_ITS ---
DS: Providers Provider Date of Service: 10/17/21 Date of admission: 10/14/21 01:25 Primary care physician: Uzair Huffman MD Consults: 10/14/21 01:23 Consult to Nephrology Routine Consulting [facility] Reason for consultation: hyponatremia, esrd of dialysis Has provider been notified: No DS: Diagnosis Discharge Diagnosis (1) ESRD (end stage renal disease) on dialysis: Status: Acute (2) Acute hyponatremia: Status: Acute (3) Pneumonia: Status: Acute (4) Weakness: Status: Acute DS: Summary Hospital Course Hospital Course: Admission note HPI ?this is a 71-year-old female who is Amharic-speaking only, history is obtained with the help of drafter tool design, has a past medical history of hyperlipidemia, diabetes, CAD, CHF, ESRD on dialysis, history of CVA, PVD, anxiety depression, among others who was discharged from the hospital on 10/12 after being managed for multiple issues including acute on chronic anemia secondary to esophageal varices gastritis, gastropathy, patient at the time also had multiple short runs of nonsustained V-tach, right lateral chest pain which was secondary to musculoskeletal pain, diffuse ascites/cirrhosis and she underwent diagnostic paracentesis on for 1 which was found portal hypertension to be the likely cause of her ascites, patient was stabilized and discharged to rehab, according to patient she feels better than on discharge but according to nursing seeing staff at rehab patient was found to have a low BP, weak, lethargic and therefore they sent her to the ED. ?on arrival to the ED patient was noted to have a blood pressure of 98/59, other vitals stable Labs was noted to be WBC count of 4.4, hemoglobin of 8.9? which seems to be stable? since discharge, sodium of 126 ( 129 and discharged), BUN of 30, creatinine of 6.41,? troponin of 36 which has improved since previous admission ? Chest x-ray shows patchy airspace opacities in the left lower lobe with diffuse interstitial thickening raising the possibility of an atypical infection? process patient given IV fluids and will be admitted for further management. Hospital course The patient was admitted for treatment of pneumonia. Started on broad-spectrum antibiotic of vancomycin and Zosyn that was discussed dated to oral azithromycin Ceftin after her blood cultures remain negative as she was maintaining O2 sat in 90s on room. Evaluated for hyponatremia by Nephrology team who recommended extra removal of fluid during dialysis and to follow up with Nephrology team as outpatient. Evaluated by physical team therapy who recommended short-term rehab. The patient continue with her dialysis session with the last 1 a earlier this morning SundayOctober 17. Time Spent with Patient Time attestation: Total time spent providing and/or coordinating discharge services: Discharge coordination time: Greater than 30 minutes Quality: Safe Use of Opioids Does Pt have an Active Cancer Diagnosis on the Problem List?: No Quality: Stroke Does the patient have a stroke diagnosis?: No Physical Exam Vital Signs: Vital Signs: Last Vital Signs Temp 97.9 F 10/17/21 07:33 Pulse 82 10/17/21 07:33 Resp 20 10/17/21 07:33 BP 114/81 10/17/21 07:33 Pulse Ox 98 10/17/21 07:33 BMI result Body Mass Index 23.6 Const: Other: Constitutional : Alert, oriented, not in distress Neck : Normal inspection, Supple Cardiovascular : RRR, no JVP, no lower extremity edema Respiratory : fair bilateral air entry, basal fine crackles, wheezes or rhonchi Gastrointestinal: soft, lax, Normal bowel sounds, Non tender Skin : Warm, Dry Neurological : Alert & oriented, No focal deficit , CN 2-12 within normal DS: Data Data Completed and Pending Completed studies during hospitalization [Text1]: Procedures Drainage of Peritoneal Cavity, Percutaneous Approach (10/05/21) Excision of Stomach, Pylorus, Via Natural or Artificial Opening Endoscopic, Diagnostic (10/05/21) Introduction of Mineral-based Topical Hemostatic Agent into Upper GI, Via Natural or Artificial Opening Endoscopic, [employer] 6 (10/05/21) Occlusion of Esophageal Vein with Extraluminal Device, Via Natural or Artificial Opening Endoscopic (10/05/21) Performance of Urinary Filtration, Intermittent, Less than 6 Hours Per Day (10/05/21) Transfusion of Nonautologous Red Blood Cells into Peripheral Vein, Percutaneous Approach (10/05/21) Labs on day of discharge: Laboratory Results - last 24 hr 10/16/21 10/16/21 10/17/21 15:08 20:30 06:20 Sodium 127 L Potassium 4.5 D Chloride 93 L Carbon Dioxide 21 L Anion Gap 18 BUN 40 H D Creatinine 6.13 H* Estim Creat Clear Calc 6.4 Estimated GFR 7 POC Glucose 182 H 178 H Random Glucose 174 H Calcium 7.8 L COVID-19 ([facility]) COVID-19 Clin Com 10/17/21 10/17/21 10/17/21 07:05 10:30 11:26 Sodium Potassium Chloride Carbon Dioxide Anion Gap BUN Creatinine Estim Creat Clear Calc Estimated GFR POC Glucose 159 H 159 H Random Glucose Calcium COVID-19 ([facility]) Negative COVID-19 Clin Com See Note Preliminary micro results at discharge 10/13/21 23:55 Blood Culture - Preliminary Blood - Venous No growth after 48 hours. 10/13/21 23:55 Blood Culture - Preliminary Blood - Venous No growth after 48 hours. Discharge Plan Discharge Patient Disposition: [facility] Discharge Diagnosis: A pneumonia Hyponatremia Referrals: ruddy avendaño [Other] - 1 Week Uzair Huffman MD [Primary Care Provider] - 1 Week Discharge Medications: New cefuroxime axetil 250 mg Tablet 250 mg PO Q24H 5 Days Qty: 5 0RF azithromycin 250 mg Tablet 250 mg PO Q24H 5 Days Qty: 5 0RF midodrine 5 mg Tablet 5 mg PO TIDAC Qty: 90 0RF Continued (DME) LIGHTWEIGHT MANUAL WHEELCHAIR See Rx Instructions .Route .MEDSUPPLY Qty: 1 0RF Rx Instructions: As directed ergocalciferol (vitamin D2) 1,250 mcg (50,000 unit) capsule 1,250 mcg PO QWEEK Qty: 14 1RF (DME) insulin syringe-needle U-100 [BD Insulin Syringe Ultra-Fine] 0.5 mL 31 gauge x 5/16 syringe See Rx Instructions .ROUTE .MEDSUPPLY Qty: 100 0RF Rx Instructions: TID (DME) incontinence pad, liner, disp Pad See Rx Instructions .ROUTE .MEDSUPPLY Qty: 100 12RF Rx Instructions: As directed (DME) diaper,brief,adult,disposable Misc See Rx Instructions .ROUTE .MEDSUPPLY Qty: 100 12RF Rx Instructions: As directed (DME) pen needle, diabetic [BD Anna 2nd Gen Pen Needle] 32 gauge x 5/32 needle See Rx Instructions .ROUTE .MEDSUPPLY Qty: 100 12RF Rx Instructions: As directed use with insulin 3x day atorvastatin 80 mg tablet 80 mg PO BEDTIME Qty: 90 5RF gabapentin 300 mg capsule 300 mg PO TID Qty: 90 2RF loratadine 10 mg tablet 10 mg PO DAILY 90 Days Qty: 90 1RF folic acid 1 mg Tablet 1 mg PO DAILY Qty: 90 6RF fluoxetine 20 mg capsule 1 cap PO DAILY 0RF sevelamer carbonate 800 mg Tablet 1,600 mg PO DAILY@1700 0RF Rx Instructions: must administer with a meal/food tamoxifen 10 mg tablet 10 mg PO BID 0RF sucralfate 1 gram Tablet 1 g PO QIDACHS Qty: 48 0RF Rx Instructions: take for 12 more days omeprazole 40 mg Capsule,Delayed Release(Dr/Ec) 40 mg PO BID@0630,1630 Qty: 60 0RF carvedilol 3.125 mg Tablet 3.125 mg PO MoWeFr@1645 Qty: 20 0RF carvedilol 3.125 mg Tablet 3.125 mg PO SuTuThSa@0900,2100 Qty: 60 0RF Lantus U-100 Insulin 100 unit/mL Solution 10 unit SUBCUT DAILY 0RF sevelamer carbonate [Renvela] 800 mg tablet 800 mg PO BID@0800,1200 0RF Rx Instructions: must administer with a meal/food (DME) miscellaneous medical supply Unit See Rx Instructions .ROUTE .MEDSUPPLY Qty: 1 0RF Rx Instructions: one touch verio test strip 3 times daily As directed (DME) blood-glucose meter [FreeStyle Lite Meter] Kit See Rx Instructions .ROUTE .MEDSUPPLY Qty: 1 0RF Rx Instructions: As directed Discharge Orders: Discharge Order (Routine); Ordered 10/17/21 Ordered By: Ladonna Echols Activity on Discharge: As tolerated Stand Alone Forms: Patient Portal Discharge page Care Plan Goals: Read below Health Concerns: Read below Plan of Treatment: Read below Assessment: You were admitted to the hospital for evaluation of weakness and difficulty breathing. Chest x-ray showed evidence of pneumonia and drop in your sodium level. Evaluated by Nephrology team was started you on dialysis for sodium management and treated with IV antibiotics for the pneumonia. Midodrine was used for persistent hypotension with fair response. continue azithromycin and Ceftin for 5 more days as prescribed. Monitor your water intake and follow-up with dialysis as planned Start midodrine to improve your blood pressure
[2021-10-17 12:00] VITALS: BP 124/75; PULSE 83; RESP 20; TEMP 36.4; O2SAT 98
[2021-10-17 15:04] VITALS: BP 133/61; PULSE 100; RESP 16; TEMP 36.6; O2SAT 98
== END 2021-10-17 15:55 | disposition skilled nursing facility (03) | DRG 193 ==
LOC: HO.ED 22:47 → HO.EDOVER 10-14 01:56 → HO.IMC 10-15 04:16
PROVIDERS: Admitting Provider Internal Medicine; Emergency Provider Emergency Medicine; PCP Internal Medicine; Visit Provider Student in an Organized Health Care Education/Training Program
DX: J18.9 Pneumonia, unspecified organism (principal); N18.6 End stage renal disease; E87.1 Hypo-osmolality and hyponatremia; I13.2 Hypertensive heart and chronic kidney disease with heart failure and with stage 5 chronic kidney disease, or end stage renal disease; I25.10 Atherosclerotic heart disease of native coronary artery without angina pectoris; Z86.73 Personal history of transient ischemic attack (TIA), and cerebral infarction without residual deficits; I25.2 Old myocardial infarction; Z20.822 Contact with and (suspected) exposure to COVID-19; Z99.2 Dependence on renal dialysis; E11.22 Type 2 diabetes mellitus with diabetic chronic kidney disease; E11.40 Type 2 diabetes mellitus with diabetic neuropathy, unspecified; I95.3 Hypotension of hemodialysis; E78.5 Hyperlipidemia, unspecified; I50.9 Heart failure, unspecified; F32.A Depression, unspecified; F41.9 Anxiety disorder, unspecified; E86.0 Dehydration; D63.1 Anemia in chronic kidney disease; C50.912 Malignant neoplasm of unspecified site of left female breast; Z87.891 Personal history of nicotine dependence; Z79.810 Long term (current) use of selective estrogen receptor modulators (SERMs); Z79.4 Long term (current) use of insulin; Z79.899 Other long term (current) drug therapy
CPT/HCPCS: 36415; 71045; 80048; 80076; 80202; 82140; 82947; 83605; 83690; 83735; 83930; 84145; 84484; 85025; 85027; 85610; 86850; 86900; 86901; 87040; 87502; 87635; 90999; 93005; 96361; 96374; 96375; 97162; 99285; J0692; J2543; J3370; P9047

== ENCOUNTER 2021-10-18 07:00 | Outpatient (REF) | payer MEDICARE, MEDICAID, SELFPAY ==
[2021-10-18 07:06] LABS: MANUAL DIFF FLAG NO
[2021-10-18 07:23] LABS: Basophils Percent Auto 0.5 % (0-2); Eosinophils Absolute Auto 0.1 X10*3/uL (0.0-0.4); Eosinophils Percent Auto 1.5 % (0-4); Hemoglobin 8.2 g/dl (12.0-16.0); Imm Gran Abs Auto 0.01 X10*3/uL (0.00-0.03); Imm Gran Pct Auto 0.3 % (0.0-0.4); Lymphocytes Absolute Auto 0.5 X10*3/uL (1.2-4.9); Lymphocytes Percent Auto 13.8 % (20-40); Mean Corpuscular HGB Conc 30.4 g/dl (31.0-35.0); Mean Corpuscular Hemoglobin 29.9 pg (27.0-33.0); Mean Corpuscular Volume 98.5 fL (80.0-98.0); Mean Platelet Volume 11.4 fL (9.4-12.3); Monocytes Absolute Auto 0.6 X10*3/uL (0.1-1.2); Monocytes Percent Auto 14.4 % (2-11); Neutrophils Absolute Auto 2.7 x10*3/uL (2.0-8.3); Neutrophils Percent Auto 69.5 % (45-73); Platelet Count 100 X10*3/uL (160-400); Red Blood Count 2.74 X10*6/uL (4.20-5.50); Red Cell Distribution Width 15.9 % (11.0-16.0); White Blood Count 3.9 X10*3/uL (4.8-10.8)
[2021-10-18 07:42] LABS: Alanine Aminotransferase 11 U/L (0-31); Albumin Level 2.6 g/dL (3.5-5.0); Alkaline Phosphatase 294 U/L (39-117); Anion Gap 16 (12-20); Aspartate Amino Transferase 14 U/L (5-31); Bilirubin Total 0.5 mg/dL (0.0-1.0); Blood Urea Nitrogen 25 mg/dL (9-16); Calcium 8.1 mg/dL (8.4-10.2); Carbon Dioxide 22 mmol/L (22-29); Chloride 97 mmol/L (96-108); Estimated Glomerular Filt Rate 10; Glucose Fasting 222 mg/dL (60-99); Potassium 3.8 mmol/L (3.3-5.1); Sodium 131 mmol/L (135-145); Total Protein 5.4 g/dL (6.5-8.0)
== END 2021-10-18 07:01 | disposition home or self-care (01) ==
LOC: HO.MMNH1L 07:00
PROVIDERS: Visit Provider Family Medicine
DX: Z02.2 Encounter for examination for admission to residential institution (principal)
CPT/HCPCS: 36415; 80053; 85025

== ENCOUNTER 2021-10-24 | Outpatient (REF) | payer SELFPAY ==
[2021-10-24 06:55] LABS: MANUAL DIFF FLAG NO
[2021-10-24 07:02] LABS: Basophils Percent Auto 0.6 % (0-2); Eosinophils Absolute Auto 0.1 X10*3/uL (0.0-0.4); Eosinophils Percent Auto 2.3 % (0-4); Hematocrit 27.6 % (37.0-47.0); Hemoglobin 8.3 g/dl (12.0-16.0); Imm Gran Abs Auto 0.01 X10*3/uL (0.00-0.03); Imm Gran Pct Auto 0.2 % (0.0-0.4); Lymphocytes Absolute Auto 0.7 X10*3/uL (1.2-4.9); Lymphocytes Percent Auto 13.5 % (20-40); Mean Corpuscular HGB Conc 30.1 g/dl (31.0-35.0); Mean Corpuscular Hemoglobin 29.6 pg (27.0-33.0); Mean Corpuscular Volume 98.6 fL (80.0-98.0); Monocytes Absolute Auto 0.5 X10*3/uL (0.1-1.2); Monocytes Percent Auto 9.9 % (2-11); Neutrophils Absolute Auto 3.6 x10*3/uL (2.0-8.3); Neutrophils Percent Auto 73.5 % (45-73); Platelet Count 114 X10*3/uL (160-400); Red Cell Distribution Width 15.5 % (11.0-16.0); White Blood Count 4.8 X10*3/uL (4.8-10.8)
[2021-10-24 07:33] LABS: Anion Gap 17 (12-20); Blood Urea Nitrogen 51 mg/dL (9-16); Carbon Dioxide 27 mmol/L (22-29); Chloride 94 mmol/L (96-108); Estimated Glomerular Filt Rate 6; Glucose Random 200 mg/dL (60-115); Potassium 3.4 mmol/L (3.3-5.1); Sodium 135 mmol/L (135-145)
== END 2021-10-24 00:01 | disposition home or self-care (01) ==
LOC: HO.MMNH1L
PROVIDERS: Visit Provider Family Medicine
DX: Z02.2 Encounter for examination for admission to residential institution (principal)
CPT/HCPCS: 36415; 80048; 85025

== ENCOUNTER 2021-10-31 | Outpatient (REF) | payer SELFPAY ==
[2021-10-31 07:07] LABS: MANUAL DIFF FLAG NO
[2021-10-31 07:22] LABS: Basophils Percent Auto 0.7 % (0-2); Eosinophils Absolute Auto 0.1 X10*3/uL (0.0-0.4); Eosinophils Percent Auto 2.1 % (0-4); Hematocrit 27.6 % (37.0-47.0); Hemoglobin 8.4 g/dl (12.0-16.0); Imm Gran Abs Auto 0.01 X10*3/uL (0.00-0.03); Imm Gran Pct Auto 0.2 % (0.0-0.4); Lymphocytes Absolute Auto 0.7 X10*3/uL (1.2-4.9); Lymphocytes Percent Auto 15.8 % (20-40); Mean Corpuscular HGB Conc 30.4 g/dl (31.0-35.0); Mean Corpuscular Hemoglobin 28.8 pg (27.0-33.0); Mean Corpuscular Volume 94.5 fL (80.0-98.0); Mean Platelet Volume 12.1 fL (9.4-12.3); Monocytes Absolute Auto 0.5 X10*3/uL (0.1-1.2); Monocytes Percent Auto 12.2 % (2-11); Neutrophils Absolute Auto 2.9 x10*3/uL (2.0-8.3); Platelet Count 123 X10*3/uL (160-400); Red Blood Count 2.92 X10*6/uL (4.20-5.50); Red Cell Distribution Width 14.6 % (11.0-16.0); White Blood Count 4.3 X10*3/uL (4.8-10.8)
[2021-10-31 07:39] LABS: Anion Gap 15 (12-20); Blood Urea Nitrogen 43 mg/dL (9-16); Calcium 7.5 mg/dL (8.4-10.2); Carbon Dioxide 25 mmol/L (22-29); Chloride 95 mmol/L (96-108); Estimated Glomerular Filt Rate 7; Glucose Random 150 mg/dL (60-115); Potassium 3.5 mmol/L (3.3-5.1); Sodium 131 mmol/L (135-145)
== END 2021-10-31 00:01 | disposition home or self-care (01) ==
LOC: HO.MMNH1L
PROVIDERS: Visit Provider Family Medicine
DX: I25.10 Atherosclerotic heart disease of native coronary artery without angina pectoris (principal)
CPT/HCPCS: 36415; 80048; 85025

== ENCOUNTER 2021-11-07 | Outpatient (REF) | payer MEDICARE, MEDICAID, SELFPAY ==
[2021-11-07 06:59] LABS: Hematocrit 27.5 % (37.0-47.0); Hemoglobin 8.2 g/dl (12.0-16.0); Mean Corpuscular HGB Conc 29.8 g/dl (31.0-35.0); Mean Corpuscular Hemoglobin 28.3 pg (27.0-33.0); Mean Corpuscular Volume 94.8 fL (80.0-98.0); Mean Platelet Volume 11.9 fL (9.4-12.3); Platelet Count 112 X10*3/uL (160-400); Red Cell Distribution Width 14.7 % (11.0-16.0); White Blood Count 4.5 X10*3/uL (4.8-10.8)
[2021-11-07 07:19] LABS: Anion Gap 18 (12-20); Blood Urea Nitrogen 45 mg/dL (9-16); Calcium 7.8 mg/dL (8.4-10.2); Carbon Dioxide 27 mmol/L (22-29); Chloride 95 mmol/L (96-108); Estimated Glomerular Filt Rate 7; Glucose Random 232 mg/dL (60-115); Sodium 136 mmol/L (135-145)
== END 2021-11-07 00:01 ==
LOC: HO.MMNH1L
PROVIDERS: Visit Provider Family Medicine
DX: I25.10 Atherosclerotic heart disease of native coronary artery without angina pectoris (principal)
CPT/HCPCS: 36415; 80048; 85027

== ENCOUNTER 2021-11-11 14:11 | Emergency (ER) | payer MEDICARE, MEDICAID, SELFPAY ==
--- NOTE | ~2021-11-11 | CT_ITS ---
EXAMINATION: CT CHEST, ABDOMEN AND PELVIS WITHOUT CONTRAST CLINICAL INFORMATION: Reason for Exam Right sided rib/RUQ pain. fracture? Pneumonia? COMPARISON: CT of the chest and abdomen and pelvis done on 09/18/2021. TECHNIQUE: Multidetector volumetric imaging was performed from the thoracic inlet through the pubic symphysis without intravenous contrast. Oral contrast: No Sagittal and coronal reformatted images were obtained on the technologist workstation. This CT examination was performed using dose optimization techniques as appropriate, variously including the following: *Automated exposure control. *Adjustment of mA and/or kV according to patient size (this includes techniques or standardized protocols for targeted exams where dose is matched to indication/reason for exam; i.e. extremities or head). *Use of iterative reconstruction technique. Total exam dose-length product 475 mGy-cm FINDINGS: Limited study due to lack of body fat and intravenous contrast. LUNG: Biapical cystic changes are noted, similar to prior study. Subpleural airspace disease associated with peribronchial thickening and mild bronchiectasis involving the left upper lobe appear unchanged. The tracheobronchial tree is patent. PLEURA: No pleural effusion or pneumothorax. MEDIASTINUM: Moderate enlargement of the heart is noted. Evaluation for mediastinal as well as hilar lymph nodes is technically limited due to lack of body fat and lack of intravenous contrast. Grossly no significant change since prior study. VASCULAR: Diffuse atherosclerotic disease of the aorta and is branches including significant coronary artery calcifications appears similar to prior study. CHEST WALL/AXILLA: Diffuse subcutaneous edema pattern is noted, similar to prior study. There are no pathologically enlarged axillary lymphadenopathy present. Right axillary vascular stent is noted, unchanged. LIVER, GALLBLADDER AND BILIARY TREE: The liver is normal in size, shape, and attenuation. No focal hepatic lesion or biliary ductal dilatation is present. The gallbladder is surgically absent. PANCREAS: Normal; no mass or surrounding fluid. SPLEEN: Mildly enlarged, unchanged. ADRENAL GLANDS: Normal; no mass. KIDNEYS AND URETERS: Both kidneys appear atrophic. GASTROINTESTINAL TRACT: Decompressed small and large bowel. Colonic diverticulosis. Unremarkable appendix. The stomach is decompressed. [ ABDOMINAL WALL: No significant hernia is appreciated. Diffuse subcutaneous edema pattern, consistent with anasarca is noted. LYMPHOVASCULAR STRUCTURES: Diffuse atherosclerotic disease of the aorta and is branches. No definite evidence of any lymphadenopathy. BLADDER: Suboptimally distended, grossly unremarkable. PELVIC VISCERA: No definite pelvic mass. PERITONEAL CAVITY: Large volume simple appearing ascites fluid is noted, shows significant interval increase since the prior study. OSSEOUS STRUCTURES: Marked diffuse osteopenia is noted. Postop changes of sternotomy is noted. Subtle focal area of sclerosis is seen at T3 vertebral body. Schmorl's node related endplate changes are noted at lower thoracic spine and at L4-L5. Healing rib fractures are present involving right 10th and 11th ribs, CT/CT abdomen pelvis wo con unchanged since 10/05/2021. IMPRESSION: 1. The CT of the chest shows no significant interval change since most recent prior study dated 09/18/2021. Note is made of healing right hemithoracic rib fractures involving the right 10th and 11th ribs. 2. CT of the abdomen and pelvis shows large volume simple appearing ascites, shows significant interval increase in prior study dated 10/05/2021. No other significant change.
--- NOTE | ~2021-11-11 | NM_ITS ---
EXAMINATION: NM LUNG IMAGE PERFUSION CLINICAL INFORMATION: Right-sided pain. COMPARISON: CT chest no contrast 11/11/2021 TECHNIQUE: 4.0 mCi technetium 99m MAA injected intravenously. Multiple images obtained of the lungs. FINDINGS: No perfusion defect in either the right or left lung. Normal perfusion scan. No evidence of pulmonary embolism. NM/NM pul perfusion IMPRESSION: Normal lung perfusion scan. No evidence of pulmonary embolism.
[2021-11-11 14:48] VITALS: BP 123/72; PULSE 96; RESP 16; TEMP 37.4; O2SAT 96; BMI 22.8
--- NOTE | 2021-11-11 15:28 | ED_ITS ---
HPI - General Adult General Chief complaint: Back Pain/Injury Stated complaint: abdominal pain Time Seen by Provider: 11/11/21 18:12 Source: patient Mode of arrival: ambulatory Limitations: no limitations History of Present Illness HPI narrative: 71 yold female presents to the ED for right rib/right costal and right upper quadrant pain that began today while receiving dialysis. Patient's secondary complaint is right foot chronic pain described as tingling strangling pain. Patient denies any nausea, vomiting, leg swelling, calf pain, fever, chills, or any recent trauma. Related Data Home Medications Medication Instructions Recorded Confirmed miscellaneous medical supply #1 08/02/20 09/20/21 sevelamer carbonate 800 mg tablet 800 mg PO BID@0800,1200 tab 08/02/20 10/14/21 (Renvela) fluoxetine 20 mg capsule 1 cap PO DAILY 12/21/20 10/14/21 sevelamer carbonate 800 mg tablet 1,600 mg PO DAILY@1700 10/05/21 10/14/21 tamoxifen 10 mg tablet 10 mg PO BID 10/06/21 10/14/21 insulin glargine 100 unit/mL 10 unit SUBCUT DAILY 10/14/21 10/14/21 subcutaneous solution (Lantus U-100 Insulin) Previous Rx's Medication Instructions Recorded blood-glucose meter (FreeStyle #1 ea 08/02/20 Lite Meter) LIGHTWEIGHT MANUAL WHEELCHAIR #1 ea 11/05/20 insulin syringe-needle U-100 0.5 #100 ea 11/17/20 mL 31 gauge x 5/16 (BD Insulin Syringe Ultra-Fine) diaper,brief,adult,disposable #100 ea 11/19/20 incontinence pad, liner, disp #100 ea 11/19/20 pen needle, diabetic 32 gauge x #100 ea 11/24/20 5/32 (BD Anna 2nd Gen Pen Needle) atorvastatin 80 mg tablet 80 mg PO BEDTIME #90 tab 07/25/21 folic acid 1 mg tablet 1 mg PO DAILY #90 tab 08/19/21 gabapentin 300 mg capsule 300 mg PO TID #90 cap 08/19/21 loratadine 10 mg tablet 10 mg PO DAILY 90 Days #90 tab 09/30/21 carvedilol 3.125 mg tablet 3.125 mg PO MoWeFr@1645 #20 tab 10/13/21 carvedilol 3.125 mg tablet 3.125 mg PO SuTuThSa@0900,2100 #60 10/13/21 tab omeprazole 40 mg capsule,delayed 40 mg PO BID@0630,1630 #60 cap 10/13/21 release sucralfate 1 gram tablet 1 g PO QIDACHS #48 tab 10/13/21 azithromycin 250 mg tablet 250 mg PO Q24H 5 Days #5 tab 10/17/21 cefuroxime axetil 250 mg tablet 250 mg PO Q24H 5 Days #5 tab 10/17/21 midodrine 5 mg tablet 5 mg PO TIDAC #90 tab 10/17/21 ergocalciferol (vitamin D2) 1,250 1,250 mcg PO QWEEK #4 cap 11/07/21 mcg (50,000 unit) capsule oxycodone-acetaminophen 5 mg-325 1 tab PO Q8H PRN 3 Days #9 tab 11/11/21 mg tablet (Percocet) Allergies Allergy/AdvReac Type Severity Reaction Status Date / Time No Known Allergies Allergy Verified 10/05/21 16:46 Review of Systems Review of Systems: Right ribs right upper quadrant pain began today. Right tingling pain as chronic Yes all other systems are reviewed and are negative PMFSH Past Medical History Medical History Anxiety and depression Artery stenosis Arthritis Balance problem Breast calcification, left CAD (coronary artery disease) Cardiomyopathy CHF (congestive heart failure) COVID-19 vaccine series completed Diabetes mellitus Diabetic neuropathy Diverticulitis Ductal carcinoma in situ (DCIS) of left breast End stage renal disease Fistula Hemodialysis patient History of CVA (cerebrovascular accident) Hx of myocardial infarction Hypercholesteremia Hypertension Incontinence Melena Peripheral vascular disease Urinary and bowel incontinence Surgical History Hx of CABG Hx of colonoscopy Hx of lumpectomy Hx of tubal ligation Family History Family History Paternal Grandmother Breast cancer Social History Social History Household Members: Family and Children Household Members Other:: son Housing: House Are you a primary rn complex care to a significant other at home: No Do you presently have visiting nurse or other home services: No (currently one week in rehab) Alcohol intake: former Patient Tobacco Use Status: Former Tobacco user Quit Date: years ago Tobacco use type: Cigarette Cigarette Packs Per Day: 1 Cigarettes Per Day: 20.0 Years Smoked: 20 Advance Directives: Yes Advance Directives on File: Yes Advance Directives Date on File: 10/06/20 service: No Current occupational status: disabled Physical Exam ED Vital Signs: Vital Signs - 24 hr 11/11/21 14:48 11/11/21 18:34 11/11/21 18:36 Temperature 99.4 F Pulse Rate 96 93 Respiratory Rate 16 15 15 Blood Pressure 123/72 110/65 Pulse Oximetry 96 94 BMI result Body Mass Index 22.8 Const General: cooperative, healthy appearing, comfortable, no acute distress, well developed, alert and awake Orientation/consciousness: oriented to time and patient oriented x3 HENMT Head: Yes normal to inspection, Yes No palpable skull fracture present, Yes normocephalic and Yes atraumatic Eyes General: appearance normal, both eyes and all related structures Neck Neck: Yes normal visual inspection, Yes full ROM, Yes no lymphadenopathy, Yes no meningeal signs, Yes trachea midline, Yes supple, No anterior neck swelling and No tender Chest Chest palpation & inspection: normal inspection of the chest Chest/axillae images: 1. positive for tenderness on palpation. negative for any ecchymosis, rash, or erythema Resp Effort & Inspection: normal respiratory effort and able to speak in complete sentences Auscultation: clear to auscultation bilaterally Cardio Jugular venous distension: no JVD Heart sounds: S1 normal heart sound present and S2 normal heart sound present GI Inspection: Yes normal to inspection and No abdominal wall ecchymosis Palpation (GI): Tenderness to palpation present (GI) in the RUQ (mild), no guarding and not rigid General: No CVA tenderness and Yes no CVA tenderness Back/Spine/Pelvis Back: no CVA tenderness, No CVA tenderness and No back tenderness Skin General skin exam: no rashes or lesions noted and elasticity normal Neuro General: oriented to time, patient oriented x3, gait normal, no meningeal signs and CN's II-XI intact bilaterally Cranial nerves: Yes CN's II-XII intact bilaterally Extrem Other: Right lower extremity negative for any swelling, pitting edema, calf pain, foot ulcers, ecchymosis, deformity, hotness, coolness, or erythema. All of right lower extremity normal temperature and motor/nose/vascular exam intact. Left lower extremity normal and motor/neuro/vascular exam intact General: Yes normal to inspection and Yes full ROM Psych Appearance: grossly normal, well kempt and not disheveled Course Course Course Narrative: Labs drawn. Patient sent for chest CT abdominal CT check for fracture, pneumonia, or gallstones. Patient had ultrasound in September earlier this month which showed cholecystitis and mild cirrhosis. Reevaluation(s) Reevaluation #1: Patient chest CT abdominal CT shows chronic ascites due to renal failure and healing rib fractures. Due to patient history of cancer and being bed-bound. Nuclear scan will be ordered to rule out PE. Not able to do CT scan of chest due to kidney failure Time: 18:25 Reevaluation #2: Pending EKG and nuclear scan to rule out PE due to right rib pain with pleurisy that is worse on movement but due to history of resolved breast cancer and patient being bed-bound will do nuclear scan. Most likely systems form old fracture and right 10th and 11th rib will will do nuclear scan. Patient's right foot pain is chronic and is due to neuropathy no need for imaging.. 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 Rib pain Lab Data Result diagrams: 11/11/21 17:38 11/11/21 17:38 Labs: Lab Results 11/11/21 11/11/21 11/11/21 Range/Units 17:38 17:38 17:38 WBC 4.7 L (4.8-10.8) X10*3/uL RBC 3.18 L (4.20-5.50) X10*6/uL Hgb 8.9 L (12.0-16.0) g/dl Hct 30.2 L (37.0-47.0) % MCV 95.0 (80.0-98.0) fL MCH 28.0 (27.0-33.0) pg MCHC 29.5 L (31.0-35.0) g/dl RDW 15.2 (11.0-16.0) % Plt Count 102 L (160-400) X10*3/uL MPV 10.7 (9.4-12.3) fL Immature Gran % (Auto) 0.4 (0.0-0.4) % Neut % (Auto) 75.9 H (45-73) % Lymph % (Auto) 11.6 L (20-40) % [place] % (Auto) 10.8 (2-11) % Eos % (Auto) 0.9 (0-4) % Baso % (Auto) 0.4 (0-2) % Lymph # (Auto) 0.5 L (1.2-4.9) X10*3/uL [place] # (Auto) 0.5 (0.1-1.2) X10*3/uL Eos # (Auto) 0.0 (0.0-0.4) X10*3/uL Baso # (Auto) 0.0 (0.0-0.2) X10*3/uL Abs Immat Gran (auto) 0.02 (0.00-0.03) X10*3/uL Absolute Neuts (auto) 3.5 (2.0-8.3) x10*3/uL Absolute Nucleated RBC 0.000 (0.0-0.012) X10*3/uL Nucleated RBC % (auto) 0.0 (0.0-0.2) /100WBC Smear Tech's Comments VERIFIED PT 13.0 (9.9-13.0) SEC INR 1.1 (0.9-1.1) APTT 30.7 (24.1-38.0) SEC Sodium 139 (135-145) mmol/L Potassium 3.7 (3.3-5.1) mmol/L Chloride 96 (96-108) mmol/L Carbon Dioxide 31 H (22-29) mmol/L Anion Gap 16 (12-20) BUN 24 H (9-16) mg/dL Creatinine 3.78 H (0.5-1.4) mg/dL Estim Creat Clear Calc 10.4 Estimated GFR 12 Random Glucose 240 H (60-115) mg/dL Calcium 7.8 L (8.4-10.2) mg/dL Total Bilirubin 0.7 (0.0-1.0) mg/dL AST 39 H D (5-31) U/L ALT 16 (0-31) U/L Alkaline Phosphatase 414 H D (39-117) U/L Total Protein 6.4 L (6.5-8.0) g/dL Albumin 2.6 L (3.5-5.0) g/dL Lipase 38 (8-78) U/L Discharge Plan Discharge Clinical Impression: Abdominal pain, acute, right upper quadrant, Rib pain on right side, Neuropathy, Muscle strain of anterior chest wall Patient Disposition: Home, Self-Care Instructions: Muscle Strain (ED), Peripheral Neuropathy (ED), Abdominal Pain (ED), Chest Wall Pain (ED) Additional Instructions: Lo eval?an en la leslie de emergencias por dolor en la sarita derecha. La tomograf?a computarizada del t?rax mostr? fracturas de costillas en proceso de curaci?n. La tomograf?a computarizada de t?rax result? negativa para neumon?a. Louie esc?ner nuclear result? negativo para co?gulos de randi. Louie tomograf?a computarizada abdominal no mostr? ninguna etiolog?a aguda. Shikha s?ntomas se deben a la distensi?n de la pared tor?cica ya la curaci?n de fracturas de costillas. Por favor, sean un seguimiento con louie proveedor de atenci?n primaria. Louie dolor en el pie derecho probablemente se deba a sarah neuropat?a debido a la diabetes. Regrese al servicio de urgencias de inmediato por cualquier dolor en el pecho, dificultad para respirar, v?mitos con randi, sangrado rectal, hinchaz?n de las piernas, dolor en la pantorrilla, debilidad, mareos, tos con randi, cierre de sesi?n, enrojecimiento, secreci?n de pus, mal olor o cualquier otra preocupaci?n. s?ntomas. Prescriptions: New oxycodone-acetaminophen [Percocet] 5-325 mg tablet 1 tab PO Q8H PRN (Reason: pain) 3 Days Qty: 9 0RF No Action (DME) LIGHTWEIGHT MANUAL WHEELCHAIR See Rx Instructions .Route .MEDSUPPLY Qty: 1 0RF Rx Instructions: As directed (DME) insulin syringe-needle U-100 [BD Insulin Syringe Ultra-Fine] 0.5 mL 31 gauge x 5/16 syringe See Rx Instructions .ROUTE .MEDSUPPLY Qty: 100 0RF Rx Instructions: TID (DME) incontinence pad, liner, disp Pad See Rx Instructions .ROUTE .MEDSUPPLY Qty: 100 12RF Rx Instructions: As directed (DME) diaper,brief,adult,disposable Misc See Rx Instructions .ROUTE .MEDSUPPLY Qty: 100 12RF Rx Instructions: As directed (DME) pen needle, diabetic [BD Anna 2nd Gen Pen Needle] 32 gauge x 5/32 needle See Rx Instructions .ROUTE .MEDSUPPLY Qty: 100 12RF Rx Instructions: As directed use with insulin 3x day atorvastatin 80 mg tablet 80 mg PO BEDTIME Qty: 90 5RF gabapentin 300 mg capsule 300 mg PO TID Qty: 90 2RF loratadine 10 mg tablet 10 mg PO DAILY 90 Days Qty: 90 1RF ergocalciferol (vitamin D2) 1,250 mcg (50,000 unit) capsule 1,250 mcg PO QWEEK Qty: 4 0RF Rx Instructions: needs an appointment for refills folic acid 1 mg Tablet 1 mg PO DAILY Qty: 90 6RF fluoxetine 20 mg capsule 1 cap PO DAILY 0RF sevelamer carbonate 800 mg Tablet 1,600 mg PO DAILY@1700 0RF Rx Instructions: must administer with a meal/food tamoxifen 10 mg tablet 10 mg PO BID 0RF sucralfate 1 gram Tablet 1 g PO QIDACHS Qty: 48 0RF Rx Instructions: take for 12 more days omeprazole 40 mg Capsule,Delayed Release(Dr/Ec) 40 mg PO BID@0630,1630 Qty: 60 0RF carvedilol 3.125 mg Tablet 3.125 mg PO MoWeFr@1645 Qty: 20 0RF carvedilol 3.125 mg Tablet 3.125 mg PO SuTuThSa@0900,2100 Qty: 60 0RF Lantus U-100 Insulin 100 unit/mL Solution 10 unit SUBCUT DAILY 0RF cefuroxime axetil 250 mg Tablet 250 mg PO Q24H 5 Days Qty: 5 0RF azithromycin 250 mg Tablet 250 mg PO Q24H 5 Days Qty: 5 0RF midodrine 5 mg Tablet 5 mg PO TIDAC Qty: 90 0RF sevelamer carbonate [Renvela] 800 mg tablet 800 mg PO BID@0800,1200 0RF Rx Instructions: must administer with a meal/food (DME) miscellaneous medical supply Unit See Rx Instructions .ROUTE .MEDSUPPLY Qty: 1 0RF Rx Instructions: one touch verio test strip 3 times daily As directed (DME) blood-glucose meter [FreeStyle Lite Meter] Kit See Rx Instructions .ROUTE .MEDSUPPLY Qty: 1 0RF Rx Instructions: As directed Print Language: Vietnamese
[2021-11-11 17:48] LABS: Hematocrit 30.2 % (37.0-47.0); Hemoglobin 8.9 g/dl (12.0-16.0); Imm Gran Abs Auto 0.02 X10*3/uL (0.00-0.03); Imm Gran Pct Auto 0.4 % (0.0-0.4); Lymphocytes Absolute Auto 0.5 X10*3/uL (1.2-4.9); MANUAL DIFF FLAG SCAN; Mean Corpuscular HGB Conc 29.5 g/dl (31.0-35.0); PLT CLUMP 1; Red Blood Count 3.18 X10*6/uL (4.20-5.50); Red Cell Distribution Width 15.2 % (11.0-16.0); SCAN SMEAR FLAG 1
[2021-11-11 17:50] LABS: Basophils Percent Auto 0.4 % (0-2); Eosinophils Percent Auto 0.9 % (0-4); Lymphocytes Percent Auto 11.6 % (20-40); Mean Platelet Volume 10.7 fL (9.4-12.3); Monocytes Absolute Auto 0.5 X10*3/uL (0.1-1.2); Monocytes Percent Auto 10.8 % (2-11); Neutrophils Absolute Auto 3.5 x10*3/uL (2.0-8.3); Neutrophils Percent Auto 75.9 % (45-73)
[2021-11-11 17:58] LABS: Alanine Aminotransferase 16 U/L (0-31); Albumin Level 2.6 g/dL (3.5-5.0); Alkaline Phosphatase 414 U/L (39-117); Anion Gap 16 (12-20); Aspartate Amino Transferase 39 U/L (5-31); Bilirubin Total 0.7 mg/dL (0.0-1.0); Blood Urea Nitrogen 24 mg/dL (9-16); Calcium 7.8 mg/dL (8.4-10.2); Carbon Dioxide 31 mmol/L (22-29); Chloride 96 mmol/L (96-108); Creatinine Clr Calc Pharmacy 10.4; Estimated Glomerular Filt Rate 12; Glucose Random 240 mg/dL (60-115); Lipase 38 U/L (8-78); Potassium 3.7 mmol/L (3.3-5.1); Sodium 139 mmol/L (135-145); Total Protein 6.4 g/dL (6.5-8.0)
[2021-11-11 18:08] LABS: INTERNATIONAL NORM RATIO 1.1 (0.9-1.1)
[2021-11-11 18:11] LABS: Partial Thromboplastin Time 30.7 SEC (24.1-38.0)
[2021-11-11 18:12] LABS: Platelet Count 102 X10*3/uL (160-400); White Blood Count 4.7 X10*3/uL (4.8-10.8)
[2021-11-11 18:22] LABS: SLIDE REVIEW VERIFIED
[2021-11-11 18:34] VITALS: BP 110/65; PULSE 93; RESP 15; O2SAT 94
[2021-11-11 18:36] VITALS: RESP 15
[2021-11-11] MEDS: Morphine Sulfate 4 MG/ML CARTRIDGE IVPUSH (18:36)
--- NOTE | 2021-11-11 18:55 | ECG_ITS ---
Test Reason : BACK PAIN Blood Pressure : / mmHG Vent. Rate : 090 BPM Atrial Rate : 090 BPM P-R Int : 132 ms QRS Dur : 090 ms QT Int : 400 ms P-R-T Axes : 043 -25 133 degrees QTc Int : 489 ms Normal sinus rhythm with sinus arrhythmia Moderate voltage criteria for LVH, may be normal variant ( R in aVL , [place] product ) ST & T wave abnormality, consider lateral ischemia Prolonged QT Abnormal ECG When compared with ECG of 13-OCT-2021 22:46, No significant change was found Referred By: Ziyad Medina Electronically Signed By:Sebas Howell
[2021-11-11 19:48] LABS: D Dimer High Sensitivity 14860 NG/ML
[2021-11-11 21:31] VITALS: BP 102/55; PULSE 93; RESP 13; TEMP 36.8; O2SAT 93
== END 2021-11-11 23:09 | disposition home or self-care (01) ==
PROVIDERS: Physician Assistant; Emergency Provider Emergency Medicine Emergency Medical Services; PCP Internal Medicine
DX: R10.11 Right upper quadrant pain (principal); R07.81 Pleurodynia; G62.9 Polyneuropathy, unspecified; S29.011A Strain of muscle and tendon of front wall of thorax, initial encounter; I13.2 Hypertensive heart and chronic kidney disease with heart failure and with stage 5 chronic kidney disease, or end stage renal disease; I50.9 Heart failure, unspecified; N18.6 End stage renal disease; E11.22 Type 2 diabetes mellitus with diabetic chronic kidney disease; F17.210 Nicotine dependence, cigarettes, uncomplicated; Z86.73 Personal history of transient ischemic attack (TIA), and cerebral infarction without residual deficits; I25.2 Old myocardial infarction; Z85.3 Personal history of malignant neoplasm of breast; Z74.01 Bed confinement status; Z99.2 Dependence on renal dialysis; X58.XXXA Exposure to other specified factors, initial encounter; Y93.9 Activity, unspecified; Y92.9 Unspecified place or not applicable; Y99.9 Unspecified external cause status
CPT/HCPCS: 36415; 71250; 74176; 78580; 80053; 83690; 85025; 85379; 85610; 85730; 93005; 96374; 99284; 99285; A9540; J2270

== ENCOUNTER 2021-11-16 15:44 | Inpatient (IN) | payer MEDICARE, MEDICAID, SELFPAY ==
[2021-11-16] VITALS (7 sets, daily range): BP systolic 91–158; BP diastolic 50–82; PULSE 87–103; RESP 12–20; TEMP 36.6–36.8; O2SAT 94–99; BMI 23.8
--- NOTE | ~2021-11-16 | CT_ITS ---
EXAMINATION: CT ABDOMEN AND PELVIS WITHOUT CONTRAST CLINICAL INFORMATION: Abdominal distention with hematemesis COMPARISON: 11/11/2021 TECHNIQUE: Multidetector volumetric imaging was performed from the superior aspect of the liver through the pubic symphysis. Sagittal and coronal reformatted images were obtained on the technologist's workstation. This CT examination was performed using dose optimization techniques as appropriate, variously including the following: *Automated exposure control *Adjustment of mA and/or kV according to patient size (this includes techniques or standardized protocols for targeted exams where dose is matched to indication/reason for exam; i.e. extremities or head) *Use of iterative reconstruction technique DLP: 490 mGy-cm FINDINGS: LUNG BASES: The visualized lung bases are unremarkable. Coronary calcifications LIVER, GALLBLADDER, AND BILIARY TREE: Mildly irregular margins liver. May be consistent with cirrhosis. Gallbladder is incompletely evaluated. This is likely due to adjacent ascites. Possible gallstones PANCREAS: Unremarkable. SPLEEN: Splenomegaly ADRENAL GLANDS: Unremarkable. KIDNEYS AND URETERS: Kidneys are atrophic BLADDER: Bladder is decompressed. GASTROINTESTINAL TRACT: Nonobstructive bowel pattern. There is ascites here. Moderate in the upper abdomen. Moderate in the pelvis bordering marked. Similar to previous. There is once again seen a device intimately associated with the second portion of the duodenum. Etiology is indeterminate. Mesenteric densities may represent engorgement. Carcinomatosis cannot be excluded ABDOMINAL WALL: No significant hernia is appreciated. LYMPH NODES: Normal. VASCULAR: Atherosclerotic changes PELVIC VISCERA: Unremarkable. OSSEOUS STRUCTURES: Similar appearance. Some areas of lucency may represent Schmorl's node formation CT/CT abdomen pelvis wo con IMPRESSION: Once again there is moderate bordering marked ascites. The bowel pattern is overall nonobstructing. Again some mesenteric soft tissue stranding. May represent edema. Carcinomatosis cannot be excluded Once again splenomegaly and irregular margin of the liver is seen. Consistent with cirrhosis Nonobstructive bowel pattern Once again device intimately associated with the second portion of the duodenum is unchanged in position. Etiology indeterminate. Atrophic kidneys once again seen. Fleischner guidelines were followed.
--- NOTE | ~2021-11-16 | US_ITS ---
EXAMINATION: ULTRASOUND-GUIDED PARACENTESIS. CLINICAL INFORMATION: Abdominal pain and ascites. COMPARISON: None TECHNIQUE: Following explaining ultrasound-guided paracentesis procedure, benefits and risk via a television operator, a written consent was obtained. Patient was placed supine on ultrasound stretcher and preliminary ultrasound imaging was performed. An optimal site was selected along the right midabdomen and marked. The marked site was cleaned and draped in usual sterile manner. 1% lidocaine was injected puncture site. Through a small skin incision a 5 [employer] catheter was advanced into the peritoneal space. After observing fluid return, stylet was withdrawn and catheter connected to vacuum bottle via connecting cannula. After obtaining all fluid and observing no more fluid return,, the catheter was withdrawn and complete hemostasis achieved at puncture site. Sterile Band-Aid applied postprocedure. Patient tolerated procedure extremely well. She was monitored by IR nurse during the exam. FINDINGS: On preliminary ultrasound imaging there is moderate fluid seen throughout the abdomen. Approximately 4 L of clear yellowish fluid was drained from right lower quadrant. Part of this fluid was sent to lab for further analysis. US/US paracentesis abd w/image IMPRESSION: Successful ultrasound-guided therapeutic and diagnostic paracentesis performed without immediate complications.
--- NOTE | 2021-11-16 15:52 | ECG_ITS ---
Test Reason : NAUSEA/VOMIT Blood Pressure : / mmHG Vent. Rate : 102 BPM Atrial Rate : 102 BPM P-R Int : 152 ms QRS Dur : 094 ms QT Int : 390 ms P-R-T Axes : 065 -25 124 degrees QTc Int : 508 ms Sinus tachycardia Possible Left atrial enlargement Left ventricular hypertrophy with repolarization abnormality ( R in aVL , [place] product , Romhilt-Solorzano ) Abnormal ECG When compared with ECG of 11-NOV-2021 20:18, No significant change was found Referred By: Cora Chinchilla Electronically Signed By:KALYN ROY MD
--- NOTE | 2021-11-16 16:06 | ED_ITS ---
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 She is a poor historian. She reports feeling fine yesterday and earlier today. She developed sudden nausea with 10 minutes left of her HD and had bright red blood in her vomit. EMS arrived and she had no further vomiting, mildly tachycardic 102. She denies any abdominal pain. She is not on anticoagulation. MD elicited complaint: nausea and vomiting Onset (ago): minute(s) Description of vomiting: bloody Associated nausea: Yes Associated abdominal pain: No Location of pain: none Severity: moderate Exacerbating factors: none Relieving factors: none Associated symptoms: denies other symptoms Related Data Home Medications Medication Instructions Recorded Confirmed miscellaneous medical supply #1 08/02/20 09/20/21 sevelamer carbonate 800 mg tablet 800 mg PO BID@0800,1200 tab 08/02/20 11/16/21 (Renvela) fluoxetine 20 mg capsule 1 cap PO DAILY 12/21/20 11/16/21 sevelamer carbonate 800 mg tablet 1,600 mg PO DAILY@1700 10/05/21 11/16/21 tamoxifen 10 mg tablet 10 mg PO BID 10/06/21 11/16/21 insulin glargine 100 unit/mL 10 unit SUBCUT DAILY 10/14/21 11/16/21 subcutaneous solution (Lantus U-100 Insulin) Previous Rx's Medication Instructions Recorded blood-glucose meter (FreeStyle #1 ea 08/02/20 Lite Meter) LIGHTWEIGHT MANUAL WHEELCHAIR #1 ea 04/30/21 insulin syringe-needle U-100 0.5 #100 ea 11/17/20 mL 31 gauge x /16 (BD Insulin Syringe Ultra-Fine) diaper,brief,adult,disposable #100 ea 11/19/20 incontinence pad, liner, disp #100 ea 11/19/20 pen needle, diabetic 32 gauge x #100 ea 11/24/20 (BD Anna 2nd Gen Pen Needle) atorvastatin 80 mg tablet 80 mg PO BEDTIME #90 tab 07/25/21 folic acid 1 mg tablet 1 mg PO DAILY #90 tab 08/19/21 gabapentin 300 mg capsule 300 mg PO TID #90 cap 08/19/21 loratadine 10 mg tablet 10 mg PO DAILY 90 Days #90 tab 09/30/21 carvedilol 3.125 mg tablet 3.125 mg PO MoWeFr@1645 #20 tab 10/13/21 carvedilol 3.125 mg tablet 3.125 mg PO SuTuThSa@0900,2100 #60 10/13/21 tab omeprazole 40 mg capsule,delayed 40 mg PO BID@0630,1630 #60 cap 10/13/21 release sucralfate 1 gram tablet 1 g PO QIDACHS #48 tab 10/13/21 azithromycin 250 mg tablet 250 mg PO Q24H 5 Days #5 tab 10/17/21 cefuroxime axetil 250 mg tablet 250 mg PO Q24H 5 Days #5 tab 10/17/21 midodrine 5 mg tablet 5 mg PO TIDAC #90 tab 10/17/21 ergocalciferol (vitamin D2) 1,250 1,250 mcg PO QWEEK #4 cap 11/07/21 mcg (50,000 unit) capsule oxycodone-acetaminophen 5 mg-325 1 tab PO Q8H PRN 3 Days #9 tab 11/11/21 mg tablet (Percocet) Allergies Allergy/AdvReac Type Severity Reaction Status Date / Time No Known Allergies Allergy Verified 11/16/21 16:09 Review of Systems Review of Systems: Constitutional: No Fever, No Chills ENT/Mouth: No sore throat, No Rhinorrhea, No Swallowing Difficulty Eyes: No Eye Pain, No Swelling, No Redness Cardiovascular: No Chest Pain, No SOB, No Orthopnea, No Edema Respiratory: No Cough, No Sputum, No Wheezing, No dyspnea Gastrointestinal: + Nausea, + Vomiting, No Diarrhea, No abdominal Pain, No Hematochezia, No Melena, +Hematemesis Musculoskeletal: No joint pain, No Myalgias Skin: No Skin Lesions, No rash Neuro: No Weakness, No Numbness, No Dizziness, No Headache Psych: + Anxiety/Panic, No Depression Heme/Lymph: No Bruising, No Lymphadenopathy Endocrine: No Polyuria, No Polydipsia Gastrointestinal: Gastrointestinal: Reports nausea PMFSH Past Medical History Medical History (Updated 11/16/21 @ 20:28 by WES Palumbo) Anemia Anxiety and depression Artery stenosis Arthritis Balance problem Breast calcification, left CAD (coronary artery disease) Cardiomyopathy CHF (congestive heart failure) COVID-19 vaccine series completed Diabetes mellitus Diabetic neuropathy Diverticulitis Ductal carcinoma in situ (DCIS) of left breast End stage renal disease ESRD (end stage renal disease) on dialysis [facility] Hemodialysis patient History of CVA (cerebrovascular accident) Hx of myocardial infarction Hypercholesteremia Hypertension Incontinence Knee pain, right Melena Peripheral vascular disease Prolonged QT interval Urinary and bowel incontinence Surgical History (Updated 11/16/21 @ 16:12 by Lee Ann Martinez RN) History of lumpectomy of left breast Hx of CABG Hx of colonoscopy Hx of esophagogastroduodenoscopy Hx of lumpectomy Hx of tubal ligation Family History Family History Paternal Grandmother Breast cancer Social History Social History Household Members: Family and Children Household Members Other:: son Housing: House Are you a primary care navigator to a significant other at home: No Do you presently have visiting nurse or other home services: No (currently one week in rehab) Alcohol intake: former Patient Tobacco Use Status: Former Tobacco user Quit Date: years ago Tobacco use type: Cigarette Cigarette Packs Per Day: 1 Cigarettes Per Day: 20.0 Years Smoked: 20 Advance Directives: Yes Advance Directives on File: Yes Advance Directives Date on File: 10/06/20 service: No Current occupational status: disabled Physical Exam Vital Signs: Vital Signs: Last Vital Signs Temp 98.0 F 11/16/21 19:03 Pulse 99 11/16/21 19:03 Resp 20 11/16/21 19:03 BP 107/63 11/16/21 19:03 Pulse Ox 97 11/16/21 19:03 BMI result Body Mass Index 23.8 Appearance: Alert. Oriented X2. No acute distress. Eyes: Pupils equal, round and reactive to light. ENT: Pharynx normal. Neck: Normal inspection. Neck supple. CVS: tachycardic, regular rhythm. Pulses normal. Respiratory: No respiratory distress. Breath sounds normal. Abdomen: Softly distended and nontender. decreased +BS x4 Skin: Skin warm and dry. Normal skin color. Normal skin turgor. No rashes. Extremities: No lower extremity edema. Neuro: Oriented X 2. No motor deficit. No sensory deficit. Very poor historian Course Course Course Narrative: 71 y/o female with history of ESRD of HD, HTN, HLD, cardiomyopathy, CAD s/p CABG, hx GI bleed who presents with acute onset of nausea and hematemesis x1 at HD today. Mildly tachycardic, abd soft and nontender but distended. Will get labs and CT scan for further evaluation. Will place 2 18G PIV and give dose of protonix and zofran. No witnessed hematemesis. Hold off on octreotide for now. Reevaluation(s) Reevaluation #1: CT scan showing stable moderate/marked ascites, unchanged. H/H increased from prior 9.8/32.6 from 8.9/30.2. Chronic elevation of Alk phos noted as well as slightly elevated bilirubins and AST. CT showing liver is cirrhotic. No further vomiting while in the ER. HR remain low 100s, now sleeping. Reevaluation #2: Case d/w Dr. Clay from GI - recommending clears tonight, NPO after midnight for scope tomorrow. OK to start octreotide 50 mcg IV x1 and infusion in the event this may be variceal bleed, although less likely given she seems stable with no evidence of active bleeding here in the ER. Dr. Sneed to admit. Consultations Consultation #1: Dr. Clay - GI MDM - Nausea/Vomiting/Diarrhea Lab Data Result diagrams: 11/16/21 16:33 11/16/21 16:33 Labs: Lab Results 11/16/21 11/16/21 11/16/21 Range/Units 16:33 16:33 16:33 WBC 5.4 (4.8-10.8) X10*3/uL RBC 3.52 L (4.20-5.50) X10*6/uL Hgb 9.8 L (12.0-16.0) g/dl Hct 32.6 L (37.0-47.0) % MCV 92.6 (80.0-98.0) fL MCH 27.8 (27.0-33.0) pg MCHC 30.1 L (31.0-35.0) g/dl RDW 15.4 (11.0-16.0) % Plt Count 133 L D (160-400) X10*3/uL MPV 10.8 (9.4-12.3) fL Immature Gran % (Auto) 1.1 H (0.0-0.4) % Neut % (Auto) 82.7 H (45-73) % Lymph % (Auto) 6.9 L (20-40) % [place] % (Auto) 8.2 (2-11) % Eos % (Auto) 0.7 (0-4) % Baso % (Auto) 0.4 (0-2) % Lymph # (Auto) 0.4 L (1.2-4.9) X10*3/uL [place] # (Auto) 0.4 (0.1-1.2) X10*3/uL Eos # (Auto) 0.0 (0.0-0.4) X10*3/uL Baso # (Auto) 0.0 (0.0-0.2) X10*3/uL Abs Immat Gran (auto) 0.06 H (0.00-0.03) X10*3/uL Absolute Neuts (auto) 4.4 (2.0-8.3) x10*3/uL Absolute Nucleated RBC 0.000 (0.0-0.012) X10*3/uL Nucleated RBC % (auto) 0.0 (0.0-0.2) /100WBC PT 12.2 (9.9-13.0) SEC INR 1.1 (0.9-1.1) APTT 30.7 (24.1-38.0) SEC Sodium 136 (135-145) mmol/L Potassium 3.0 L (3.3-5.1) mmol/L Chloride 91 L (96-108) mmol/L Carbon Dioxide 29 (22-29) mmol/L Anion Gap 19 (12-20) BUN 19 H (9-16) mg/dL Creatinine 3.02 H (0.5-1.4) mg/dL Estim Creat Clear Calc 13.0 Estimated GFR 15 Random Glucose 232 H (60-115) mg/dL Lactic Acid (0.5-2.0) mmol/L Calcium 8.4 D (8.4-10.2) mg/dL Magnesium 1.8 (1.6-2.6) mg/dL Total Bilirubin 1.3 H (0.0-1.0) mg/dL Direct Bilirubin 0.9 H (0.0-0.5) mg/dL AST 48 H (5-31) U/L ALT 18 (0-31) U/L Alkaline Phosphatase 557 H D (39-117) U/L Total Protein 7.5 (6.5-8.0) g/dL Albumin 3.0 L (3.5-5.0) g/dL Lipase 41 (8-78) U/L COVID-19 (SIMA) (Negative) COVID-19 Clin Com 11/16/21 11/16/21 Range/Units 16:33 16:33 WBC (4.8-10.8) X10*3/uL RBC (4.20-5.50) X10*6/uL Hgb (12.0-16.0) g/dl Hct (37.0-47.0) % MCV (80.0-98.0) fL MCH (27.0-33.0) pg MCHC (31.0-35.0) g/dl RDW (11.0-16.0) % Plt Count (160-400) X10*3/uL MPV (9.4-12.3) fL Immature Gran % (Auto) (0.0-0.4) % Neut % (Auto) (45-73) % Lymph % (Auto) (20-40) % [place] % (Auto) (2-11) % Eos % (Auto) (0-4) % Baso % (Auto) (0-2) % Lymph # (Auto) (1.2-4.9) X10*3/uL [place] # (Auto) (0.1-1.2) X10*3/uL Eos # (Auto) (0.0-0.4) X10*3/uL Baso # (Auto) (0.0-0.2) X10*3/uL Abs Immat Gran (auto) (0.00-0.03) X10*3/uL Absolute Neuts (auto) (2.0-8.3) x10*3/uL Absolute Nucleated RBC (0.0-0.012) X10*3/uL Nucleated RBC % (auto) (0.0-0.2) /100WBC PT (9.9-13.0) SEC INR (0.9-1.1) APTT (24.1-38.0) SEC Sodium (135-145) mmol/L Potassium (3.3-5.1) mmol/L Chloride (96-108) mmol/L Carbon Dioxide (22-29) mmol/L Anion Gap (12-20) BUN (9-16) mg/dL Creatinine (0.5-1.4) mg/dL Estim Creat Clear Calc Estimated GFR Random Glucose (60-115) mg/dL Lactic Acid 1.5 (0.5-2.0) mmol/L Calcium (8.4-10.2) mg/dL Magnesium (1.6-2.6) mg/dL Total Bilirubin (0.0-1.0) mg/dL Direct Bilirubin (0.0-0.5) mg/dL AST (5-31) U/L ALT (0-31) U/L Alkaline Phosphatase (39-117) U/L Total Protein (6.5-8.0) g/dL Albumin (3.5-5.0) g/dL Lipase (8-78) U/L COVID-19 (SIMA) Negative (Negative) COVID-19 Clin Com See Note Discharge Plan Discharge Clinical Impression: Hematemesis Patient Disposition: Admitted As Inpatient
[2021-11-16 16:38] LABS: MANUAL DIFF FLAG NO
[2021-11-16 16:39] LABS: Basophils Percent Auto 0.4 % (0-2); Eosinophils Percent Auto 0.7 % (0-4); Hematocrit 32.6 % (37.0-47.0); Hemoglobin 9.8 g/dl (12.0-16.0); Imm Gran Abs Auto 0.06 X10*3/uL (0.00-0.03); Imm Gran Pct Auto 1.1 % (0.0-0.4); Lymphocytes Absolute Auto 0.4 X10*3/uL (1.2-4.9); Lymphocytes Percent Auto 6.9 % (20-40); Mean Corpuscular HGB Conc 30.1 g/dl (31.0-35.0); Mean Corpuscular Hemoglobin 27.8 pg (27.0-33.0); Mean Corpuscular Volume 92.6 fL (80.0-98.0); Mean Platelet Volume 10.8 fL (9.4-12.3); Monocytes Absolute Auto 0.4 X10*3/uL (0.1-1.2); Monocytes Percent Auto 8.2 % (2-11); Neutrophils Absolute Auto 4.4 x10*3/uL (2.0-8.3); Neutrophils Percent Auto 82.7 % (45-73); Platelet Count 133 X10*3/uL (160-400); Red Blood Count 3.52 X10*6/uL (4.20-5.50); Red Cell Distribution Width 15.4 % (11.0-16.0); White Blood Count 5.4 X10*3/uL (4.8-10.8)
[2021-11-16] MEDS: Pantoprazole Sodium 40 MG/10 ML VIAL IVPUSH (16:40)
[2021-11-16] MEDS: ondansetron HCL 4 MG/2 ML VIAL IVPUSH (16:40)
[2021-11-16 16:47] LABS: INTERNATIONAL NORM RATIO 1.1 (0.9-1.1); Prothrombin Time 12.2 SEC (9.9-13.0)
[2021-11-16 16:48] LABS: Lactic Acid 1.5 mmol/L (0.5-2.0)
[2021-11-16 16:49] LABS: Partial Thromboplastin Time 30.7 SEC (24.1-38.0)
[2021-11-16 16:55] LABS: COVID-19 Test Negative (Negative); IDNOW Serial# 16C4AD1C
[2021-11-16 17:04] LABS: Alanine Aminotransferase 18 U/L (0-31); Alkaline Phosphatase 557 U/L (39-117); Anion Gap 19 (12-20); Aspartate Amino Transferase 48 U/L (5-31); Bilirubin Direct 0.9 mg/dL (0.0-0.5); Bilirubin Total 1.3 mg/dL (0.0-1.0); Blood Urea Nitrogen 19 mg/dL (9-16); Calcium 8.4 mg/dL (8.4-10.2); Carbon Dioxide 29 mmol/L (22-29); Chloride 91 mmol/L (96-108); Estimated Glomerular Filt Rate 15; Glucose Random 232 mg/dL (60-115); Lipase 41 U/L (8-78); Magnesium 1.8 mg/dL (1.6-2.6); Sodium 136 mmol/L (135-145); Total Protein 7.5 g/dL (6.5-8.0)
--- NOTE | 2021-11-16 19:01 | PC.NURSE ---
Addendum entered by Zayda Pickering 11/17/21 06:53: Report given to OCTAVIA Haney Addendum entered by Zayda Pickering 11/16/21 22:08: Pt family Sadia update on plan of care Original Note: report received from OCTAVIA Ferrer. pt is alert and oriented. resting in bed. no signs of acute distress notice. pt on continuos cardiac monitoring. denies any chest pain or sob.
[2021-11-16] MEDS: Octreotide Acetate 100 MCG/ML AMPUL 50 MCG IVPUSH (20:24)
--- NOTE | 2021-11-16 20:36 | PHA.MEDREC ---
Pharmacy Consult ? Medication Reconciliation Pharmacy has completed the medication reconciliation.
[2021-11-16] MEDS: Octreotide Acetate 500 MCG in 0.9 % Sodium Chloride 500 ML 50.1 MCG IVCONT (21:02)
[2021-11-16 21:17] LABS: Hematocrit 29.4 % (37.0-47.0); Hemoglobin 8.8 g/dl (12.0-16.0)
--- NOTE | 2021-11-16 21:56 | PM.IMHP ---
History of Present Illness Date of Service: 11/16/21 Chief Complaint: Hematemesis 71-year-old female with a past medical history of hypertension, hyperlipidemia, diabetes, diabetic neuropathy, CAD status post CABG CHF, history of CVA, history of GI bleed, history of breast cancer, anxiety, depression, COVID-19 vaccinated, ESRD on hemodialysis, history of esophageal varices, gastritis, portal hypertensive gastropathy; presented to the hospital today with a chief complaint of hematemesis. Per EMS, ER staff patient reportedly had episode of hematemesis vitals she was almost finishing that dialysis session at the dialysis center today hence she was sent to the ER for further evaluation. Patient mentioned that she had at least 4 episodes of vomiting but mentions brown colored vomitus. Denies any bright red blood. Denies any lightheadedness dizziness. Denies any chest pain or palpitations. Denies any nausea vomiting or abdominal discomfort. Review of all other systems is negative except mentioned above ER course: Per ER team patient was reportedly had hematemesis; but H&H stable; vitals stable; patient did not have any further episodes after she came to the ER. Discussed with Gastroenterology who suggested to keep the patient NPO, start octreotide drip, admitted to medicine service. [facility] Medical History (Updated 11/16/21 @ 21:57 by Lei Sneed MD) Anemia Anxiety and depression Artery stenosis Arthritis Balance problem Breast calcification, left CAD (coronary artery disease) Cardiomyopathy CHF (congestive heart failure) COVID-19 vaccine series completed Diabetes mellitus Diabetic neuropathy Diverticulitis Ductal carcinoma in situ (DCIS) of left breast End stage renal disease ESRD (end stage renal disease) on dialysis [facility] Hemodialysis patient History of CVA (cerebrovascular accident) Hx of myocardial infarction Hypercholesteremia Hypertension Incontinence Knee pain, right Melena Peripheral vascular disease Prolonged QT interval Urinary and bowel incontinence Family History Paternal Grandmother Breast cancer Surgical History (Updated 11/16/21 @ 16:12 by LeeA nn Martinez RN) History of lumpectomy of left breast Hx of CABG Hx of colonoscopy Hx of esophagogastroduodenoscopy Hx of lumpectomy Hx of tubal ligation Social History Household Members: Family and Children Household Members Other:: son Housing: House Are you a primary home care manager rn to a significant other at home: No Do you presently have visiting nurse or other home services: No (currently one week in rehab) Alcohol intake: former Patient Tobacco Use Status: Former Tobacco user Quit Date: years ago Tobacco use type: Cigarette Cigarette Packs Per Day: 1 Cigarettes Per Day: 20.0 Years Smoked: 20 Advance Directives: Yes Advance Directives on File: Yes Advance Directives Date on File: 10/06/20 service: No Current occupational status: disabled Meds Allergies Allergy/AdvReac Type Severity Reaction Status Date / Time No Known Allergies Allergy Verified 11/16/21 16:09 Active Medications: Current Medications Acetaminophen (Acetaminophen 325 Mg Tablet) 650 mg PO Q6H PRN PRN Reason: Pain, Mild (Pain Scale 1-3) Dextrose (Dextrose 50 % 25 Gm/50 Ml Syringe) 25 gm IVPUSH Q15M PRN; Protocol PRN Reason: per Hypoglycemia Standing Ord. Glucose (Glucose Gel 15 Gm Gel..Gram.) 15 gm PO Q15M PRN; Protocol PRN Reason: per Hypoglycemia Standing Ord. Octreotide Acetate 500 mcg/ (Sodium Chloride) 501 mls @ 50.1 mls/hr IVCONT .Q10H [facility] Last Admin: 11/16/21 21:02 Dose: 50 mcg/hr, 50.1 mls/hr Documented by: Insulin Human Lispro (Insulin Lispro 100 Unit/Ml 3 Ml Vial) 0 unit SUBCUT QIDACHS [facility]; Protocol Melatonin (Melatonin 3 Mg Tablet) 6 mg PO BEDTIME PRN PRN Reason: Insomnia Pantoprazole Sodium (Pantoprazole Sodium 40 Mg/10 Ml Vial) 40 mg IVPUSH BID@0630,1630 [facility] Pharmacy Consult (Consult Rx Perform Med Rec) 1 each MISCELLANE ONCE PRN PRN Reason: Consult order Senna (Sennosides 8.6 Mg Tablet) 17.2 mg PO BEDTIME PRN PRN Reason: Constipation Sodium Chloride (0.9 % Sodium Chloride Flush 3 Ml Syringe) 3 ml IVFLUSH QSHIFT [facility] Home Medications Medication Instructions Recorded Confirmed Last Taken Type miscellaneous medical supply #1 08/02/20 09/20/21 Unknown History sevelamer carbonate 800 mg tablet 800 mg PO BID@0800,1200 tab 08/02/20 11/16/21 10/13/21 History (Renvela) fluoxetine 20 mg capsule 1 cap PO DAILY 12/21/20 11/16/21 10/13/21 History sevelamer carbonate 800 mg tablet 1,600 mg PO DAILY@1700 10/05/21 11/16/21 10/12/21 History tamoxifen 10 mg tablet 10 mg PO BID 10/06/21 11/16/21 10/13/21 History insulin glargine 100 unit/mL 10 unit SUBCUT DAILY 10/14/21 11/16/21 Unknown History subcutaneous solution (Lantus U-100 Insulin) diclofenac sodium 1 % topical gel 1 g TOPICAL BID 11/16/21 11/16/21 Unknown History insulin lispro 100 unit/mL See Protocol SUBCUT QIDACHS 11/16/21 11/16/21 Unknown History subcutaneous pen Physical Exam Vital Signs and Narrative: Vital Signs: Last Vital Signs Temp 98.0 F 11/16/21 19:03 Pulse 91 11/16/21 20:00 Resp 15 11/16/21 20:00 BP 98/65 11/16/21 20:00 Pulse Ox 95 11/16/21 20:00 BMI result Body Mass Index 23.8 Gen: Appears be in no acute distress HEENT: NCAT, Moist mucosa. Pulmonary: Vesicular breath sounds, fair air entry CVS: Normal S1-S2 Abdomen: BS+, Soft, Nontender Extremities: Warm well perfused; fistula has good thrill Neuro: Alert and awake. Results Labs CBC and Chem 7: 11/16/21 21:11 11/16/21 16:33 Labs: Laboratory Results - last 24 hr 11/16/21 11/16/21 11/16/21 16:33 16:33 16:33 MCV 92.6 MCH 27.8 MCHC 30.1 L RDW 15.4 Plt Count 133 L D MPV 10.8 Immature Gran % (Auto) 1.1 H Neut % (Auto) 82.7 H Lymph % (Auto) 6.9 L [place] % (Auto) 8.2 Eos % (Auto) 0.7 Baso % (Auto) 0.4 Lymph # (Auto) 0.4 L [place] # (Auto) 0.4 Eos # (Auto) 0.0 Baso # (Auto) 0.0 Abs Immat Gran (auto) 0.06 H Absolute Neuts (auto) 4.4 Absolute Nucleated RBC 0.000 Nucleated RBC % (auto) 0.0 PT 12.2 INR 1.1 APTT 30.7 Anion Gap 19 Estim Creat Clear Calc 13.0 Estimated GFR 15 Random Glucose 232 H Lactic Acid Calcium 8.4 D Magnesium 1.8 Total Bilirubin 1.3 H Direct Bilirubin 0.9 H AST 48 H ALT 18 Alkaline Phosphatase 557 H D Total Protein 7.5 Albumin 3.0 L Lipase 41 COVID-19 (SIMA) COVID-19 Clin Com 11/16/21 11/16/21 16:33 16:33 MCV MCH MCHC RDW Plt Count MPV Immature Gran % (Auto) Neut % (Auto) Lymph % (Auto) [place] % (Auto) Eos % (Auto) Baso % (Auto) Lymph # (Auto) [place] # (Auto) Eos # (Auto) Baso # (Auto) Abs Immat Gran (auto) Absolute Neuts (auto) Absolute Nucleated RBC Nucleated RBC % (auto) PT INR APTT Anion Gap Estim Creat Clear Calc Estimated GFR Random Glucose Lactic Acid 1.5 Calcium Magnesium Total Bilirubin Direct Bilirubin AST ALT Alkaline Phosphatase Total Protein Albumin Lipase COVID-19 (SIMA) Negative COVID-19 Clin Com See Note Imaging Radiologist's Impressions: Impressions Abdomen/Pelvis CT 11/16/21 17:18 IMPRESSION: Once again there is moderate bordering marked ascites. The bowel pattern is overall nonobstructing. Again some mesenteric soft tissue stranding. May represent edema. Carcinomatosis cannot be excluded Once again splenomegaly and irregular margin of the liver is seen. Consistent with cirrhosis Nonobstructive bowel pattern Once again device intimately associated with the second portion of the duodenum is unchanged in position. Etiology indeterminate. Atrophic kidneys once again seen. Fleischner guidelines were followed. Assessment and Plan (1) Upper GI bleed: Status: Acute Plan 71-year-old female with a past medical history of hypertension, hyperlipidemia, diabetes, diabetic neuropathy, CAD status post CABG CHF, history of CVA, history of GI bleed, history of breast cancer, anxiety, depression, COVID-19 vaccinated, ESRD on hemodialysis, history of esophageal varices, gastritis, portal hypertensive gastropathy; presented to the hospital today with a chief complaint of hematemesis. Admitted for following Upper GI bleed: Patient reported brown colored vomitus. No further episodes of she came to the ER. Hemodialysis staff reported hematemesis-bright red blood. Currently vitals and hemoglobin stable. Serial H&H IV PPI Gastroenterology Dr. Clay was notified- suggested to keep the patient on octreotide drip, NPO after midnight. Octreotide was started. History of diabetes: Insulin sliding scale History of cardiomyopathy: Hold carvedilol for now given concerns for GI bleed. Monitor vitals closely. History of ESRD: Has good thrill on the fistula. Continue home sevelamer. Nephrology consult. History of hyperlipidemia: Continue home statin History of a neuropathy: Continue home gabapentin History of depression: Continue home fluoxetine DVT prophylaxis: SCD boots Code status: Full code Quality Stroke Does the patient have a stroke diagnosis?: No VTE Prior VTE?: No VTE Risk Level:: Medical - moderate - high VTE Device Contraindication: N/A - Device Ordered VTE Drug Contraindication: Treatment Not Indicated
[2021-11-17] VITALS (18 sets, daily range): BP systolic 88–111; BP diastolic 52–69; PULSE 72–92; RESP 12–34; TEMP 36.3–36.8; O2SAT 94–100
[2021-11-17 04:51] LABS: Basophils Percent Auto 0.7 % (0-2); Eosinophils Absolute Auto 0.1 X10*3/uL (0.0-0.4); Eosinophils Percent Auto 1.6 % (0-4); Hematocrit 28.2 % (37.0-47.0); Hemoglobin 8.6 g/dl (12.0-16.0); Imm Gran Abs Auto 0.03 X10*3/uL (0.00-0.03); Imm Gran Pct Auto 0.7 % (0.0-0.4); Lymphocytes Absolute Auto 0.7 X10*3/uL (1.2-4.9); Lymphocytes Percent Auto 16.8 % (20-40); MANUAL DIFF FLAG SCAN; Mean Corpuscular HGB Conc 30.5 g/dl (31.0-35.0); Mean Corpuscular Volume 91.9 fL (80.0-98.0); Mean Platelet Volume 11.5 fL (9.4-12.3); Monocytes Absolute Auto 0.6 X10*3/uL (0.1-1.2); Neutrophils Absolute Auto 2.8 x10*3/uL (2.0-8.3); Neutrophils Percent Auto 66.2 % (45-73); PLT CLUMP 1; Red Blood Count 3.07 X10*6/uL (4.20-5.50); Red Cell Distribution Width 15.3 % (11.0-16.0); SCAN SMEAR FLAG 1
[2021-11-17 05:16] LABS: Platelet Count 117 X10*3/uL (160-400); SLIDE REVIEW VERIFIED; White Blood Count 4.3 X10*3/uL (4.8-10.8)
[2021-11-17] MEDS: Pantoprazole Sodium 40 MG/10 ML VIAL IVPUSH ×2 (06:15→16:39)
[2021-11-17] MEDS: Sevelamer Carbonate Tablet 800 MG TABLET PO ×2 (07:41→12:07)
[2021-11-17] MEDS: Midodrine HCl 5 MG TABLET PO ×3 (07:41→16:39)
[2021-11-17 07:45] LABS: Glucose, Whole Blood 144 mg/dL (60-115)
--- NOTE | 2021-11-17 07:51 | PC.NURSE ---
pt alert and oriented, skin appropriate for ethnicity, respirations even and unlabored, pt denies pain/nausea at this time, pt has a very small light brown bowel movement, bp on the lower sided 99/54 normal sinus on the monitor
[2021-11-17] MEDS: 0.9 % Sodium Chloride Flush 3 ML SYRINGE IVFLUSH ×2 (07:53→16:37)
[2021-11-17 07:54] LABS: Glucose, Whole Blood 132 mg/dL (60-115)
[2021-11-17] MEDS: FLUoxetine HCl 20 MG CAPSULE PO (08:48)
[2021-11-17] MEDS: Gabapentin 300 MG CAPSULE PO ×3 (08:49→20:35)
[2021-11-17] MEDS: Loratadine 10 MG TABLET PO (08:49)
[2021-11-17] MEDS: Tamoxifen Citrate 10 MG TABLET PO (08:49)
[2021-11-17] MEDS: Folic Acid 1 MG TABLET PO (08:49)
[2021-11-17 10:49] LABS: Alanine Aminotransferase 13 U/L (0-31); Albumin Level 2.6 g/dL (3.5-5.0); Alkaline Phosphatase 427 U/L (39-117); Anion Gap 19 (12-20); Aspartate Amino Transferase 31 U/L (5-31); Bilirubin Direct 0.4 mg/dL (0.0-0.5); Bilirubin Total 0.7 mg/dL (0.0-1.0); Blood Urea Nitrogen 27 mg/dL (9-16); Calcium 7.9 mg/dL (8.4-10.2); Carbon Dioxide 26 mmol/L (22-29); Chloride 93 mmol/L (96-108); Creatinine Clr Calc Pharmacy 9.4; Estimated Glomerular Filt Rate 11; Glucose Random 149 mg/dL (60-115); Potassium 3.7 mmol/L (3.3-5.1); Sodium 134 mmol/L (135-145); Total Protein 6.5 g/dL (6.5-8.0)
--- NOTE | 2021-11-17 11:16 | PM.GICN ---
History of Present Illness Data of Consult Service Date: 11/17/21 Requesting physician: Lei Sneed Primary Care Provider: Uzair Huffman MD HPI Reason for consult: UGI bleeding 71 y/o female with history of ESRD on HD, HTN, HLD, CAD s/p 2 vessel CABG 06/2017, cardiomyopathy, hx CVA, PVD, GERD, anemia, breast cancer s/p mastectomy 11/2020, hx diverticulitis, hx GI bleed with history of esophageal varices, Dieulafoy lesion in the duodenum, gastritis and portal HTN gastropathy presents to the ER with acute onset of nausea and bright red bloody vomitus that started at the end of her HD session today. She is a poor historian. She reports feeling fine yesterday and earlier today. She developed sudden nausea with 10 minutes left of her HD and had bright red blood in her vomit. EMS arrived and she had no further vomiting, mildly tachycardic 102. She denies any abdominal pain. She is not on anticoagulation. MD elicited complaint: nausea and vomiting Per nursing staff patient has not had further episodes of hematemesis, melena or hematochezia today. IMAGING STUDIES: 11/16/[address] SCAN SHOWED: Once again there is moderate bordering marked ascites. The bowel pattern is overall nonobstructing. Again some mesenteric soft tissue stranding. May represent edema. Carcinomatosis cannot be excluded Once again splenomegaly and irregular margin of the liver is seen. Consistent with cirrhosis Nonobstructive bowel pattern Once again device intimately associated with the second portion of the duodenum is unchanged in position (Likely OTS clip placed on last EGD). Etiology indeterminate. Atrophic kidneys once again seen. ENDOSCOPIC STUDIES: 10/10/21 EGD WAS PERFORMED BY DR REARDON: Esophagus: GE junction at 38? cm, diaphragm hiatus at 38 cm, three cords of grade III esophageal varices noted, not actively bleeding. These were banded x 3 bands with good collapse, some mucosal bleeding noted and hemospray was applied Stomach: Patchy gastric erythema with nodular appearing mucosa, possibly consistent with portal hypertensive gastropathy. Biopsies were obtained. Grade 2 flap valve on retroflexed examination of the cardia. No gastric varices noted. Duodenum: Edematous and swollen, inflammed mucosa. There was persistent oozing of blood from an area in the distal bulb from what appeared to be an inflammed [place] gland. A OTC clip was applied but the area was still bleeding. A TTC clip was applied and bleeding seemed to cease. Hemospray was applied for extra security. Intervention: Biopsies as noted above, control of acute GI bleeding, Variceal banding Impression/Findings: esophageal varices dieulafoy lesion, duodenum portal hypertensive gastropathy gastritis PLAN: NPO for next 4-6 hours, then can advance to liquids with full diet tomorrow high dose PPI, pantoprazole 40 mg BID carafate 1 g QID for 2 weeks iF BP allows and no CI then can try low dose beta marilyn like carvedilol or nadolol. repeat EGD in about 4-6 weeks She has a hx of chronic recurrent anemia for many years and had? seen Dr Fisher in past. She has colonoscopy 2011 with three small polyps removed.? Review of Systems Constitutional: Constitutional: Denies chills, Denies fever(s) and Denies headache(s) Eyes: Eyes: Denies irritation ENT: Denies dysphagia, Denies headache(s), Denies hoarseness and Denies sore throat Cardiovascular: Cardiovascular: Denies chest pain, Denies leg edema and Denies dyspnea Respiratory: Respiratory: Denies cough and Denies dyspnea Gastrointestinal: Gastrointestinal: Denies dysphagia, Reports nausea, Reports vomiting and Reports hematemesis Genitourinary: Genitourinary: Reports other (On HD) Musculoskeletal: Musculoskeletal: Denies arthralgias Integumentary/Breasts: Skin/Breast: Denies rash Neurologic: Denies headache(s) Psychiatric: Psychiatric: Reports anxiety and Reports depression [facility] Past Medical History Medical History (Updated 11/17/21 @ 15:05 by Vipin Gutierrez MD) Anemia Anxiety and depression Artery stenosis Arthritis Balance problem Breast calcification, left CAD (coronary artery disease) Cardiomyopathy CHF (congestive heart failure) COVID-19 vaccine series completed Diabetes mellitus Diabetic neuropathy Diverticulitis Ductal carcinoma in situ (DCIS) of left breast End stage renal disease ESRD (end stage renal disease) on dialysis [facility] patient History of CVA (cerebrovascular accident) Hx of myocardial infarction Hypercholesteremia Hypertension Incontinence Knee pain, right Melena Peripheral vascular disease Prolonged QT interval Urinary and bowel incontinence Family History Family History Paternal Grandmother Breast cancer Surgical History Surgical History (Updated 11/16/21 @ 16:12 by Lee Ann Martinez RN) History of lumpectomy of left breast Hx of CABG Hx of colonoscopy Hx of esophagogastroduodenoscopy Hx of lumpectomy Hx of tubal ligation Social History Social History Household Members: Family Household Members Other:: son Housing: House Are you a primary health care coach to a significant other at home: No Do you presently have visiting nurse or other home services: No (currently one week in rehab) Alcohol intake: former Patient Tobacco Use Status: Former Tobacco user Quit Date: 5 years ago Tobacco use type: Cigarette Cigarette Packs Per Day: 1 Cigarettes Per Day: 20.0 Years Smoked: 20 Advance Directives Date on File: 10/06/20 service: No Current occupational status: disabled Meds Allergies Allergy/AdvReac Type Severity Reaction Status Date / Time No Known Allergies Allergy Verified 11/16/21 16:09 Active Medications: Current Medications Acetaminophen (Acetaminophen 325 Mg Tablet) 650 mg PO Q6H PRN PRN Reason: Pain, Mild (Pain Scale 1-3) Atorvastatin Calcium (Atorvastatin Calcium 80 Mg Tablet) 80 mg PO BEDTIME COUNT INCLUDES THE [facility] Dextrose (Dextrose 50 % 25 Gm/50 Ml Syringe) 25 gm IVPUSH Q15M PRN; Protocol PRN Reason: per Hypoglycemia Standing Ord. Ergocalciferol (Ergocalciferol (Vitamin D2) 1,250 Mcg Capsule) 1,250 mcg PO Sa@0900 COUNT INCLUDES THE [facility] Fluoxetine HCl (Fluoxetine Hcl 20 Mg Capsule) 20 mg PO DAILY COUNT INCLUDES THE [facility] Last Admin: 11/17/21 08:48 Dose: 20 mg Documented by: Folic Acid (Folic Acid 1 Mg Tablet) 1 mg PO DAILY COUNT INCLUDES THE [facility] Last Admin: 11/17/21 08:49 Dose: 1 mg Documented by: Gabapentin (Gabapentin 300 Mg Capsule) 300 mg PO TID COUNT INCLUDES THE [facility] Last Admin: 11/17/21 08:49 Dose: 300 mg Documented by: Glucose (Glucose Gel 15 Gm Gel..Gram.) 15 gm PO Q15M PRN; Protocol PRN Reason: per Hypoglycemia Standing Ord. Octreotide Acetate 500 mcg/ (Sodium Chloride) 501 mls @ 50.1 mls/hr IVCONT .Q10H COUNT INCLUDES THE [facility] Last Admin: 11/17/21 06:11 Dose: Not Given Documented by: Insulin Human Lispro (Insulin Lispro 100 Unit/Ml 3 Ml Vial) 0 unit SUBCUT QIDACHS COUNT INCLUDES THE [facility]; Protocol Last Admin: 11/17/21 07:37 Dose: Not Given Documented by: Loratadine (Loratadine 10 Mg Tablet) 10 mg PO DAILY COUNT INCLUDES THE [facility] Last Admin: 11/17/21 08:49 Dose: 10 mg Documented by: Melatonin (Melatonin 3 Mg Tablet) 6 mg PO BEDTIME PRN PRN Reason: Insomnia Midodrine (Midodrine Hcl 5 Mg Tablet) 5 mg PO TIDAC COUNT INCLUDES THE [facility] Last Admin: 11/17/21 07:41 Dose: 5 mg Documented by: Pantoprazole Sodium (Pantoprazole Sodium 40 Mg/10 Ml Vial) 40 mg IVPUSH BID@0630,1630 COUNT INCLUDES THE [facility] Last Admin: 11/17/21 06:15 Dose: 40 mg Documented by: Pharmacy Consult (Consult Rx Perform Med Rec) 1 each MISCELLANE ONCE PRN PRN Reason: Consult order Senna (Sennosides 8.6 Mg Tablet) 17.2 mg PO BEDTIME PRN PRN Reason: Constipation Sevelamer Carbonate (Sevelamer Carbonate Tablet 800 Mg Tablet) 800 mg PO BID@0800,1200 COUNT INCLUDES THE [facility] Last Admin: 11/17/21 07:41 Dose: 800 mg Documented by: Sevelamer Carbonate (Sevelamer Carbonate Tablet 800 Mg Tablet) 1,600 mg PO DAILY@1700 COUNT INCLUDES THE [facility] Sodium Chloride (0.9 % Sodium Chloride Flush 3 Ml Syringe) [facility] Last Admin: 11/17/21 07:53 Dose: 3 ml Documented by: Tamoxifen Citrate (Tamoxifen Citrate 10 Mg Tablet) 10 mg PO BID COUNT INCLUDES THE [facility] Last Admin: 11/17/21 08:49 Dose: 10 mg Documented by: Home Medications Medication Instructions Recorded Confirmed Last Taken Type miscellaneous medical supply #1 08/02/20 09/20/21 Unknown History sevelamer carbonate 800 mg tablet 800 mg PO BID@0800,1200 tab 08/02/20 11/16/21 10/13/21 History (Renvela) fluoxetine 20 mg capsule 1 cap PO DAILY 12/21/20 11/16/21 10/13/21 History sevelamer carbonate 800 mg tablet 1,600 mg PO DAILY@1700 10/05/21 11/16/2122 History tamoxifen 10 mg tablet 10 mg PO BID 10/06/21 11/16/21 10/13/21 History insulin glargine 100 unit/mL 10 unit SUBCUT DAILY 10/14/21 11/16/21 Unknown History subcutaneous solution (Lantus U-100 Insulin) diclofenac sodium 1 % topical gel 1 g TOPICAL BID 11/16/21 11/16/21 Unknown History insulin lispro 100 unit/mL See Protocol SUBCUT QIDACHS 11/16/21 11/16/21 Unknown History subcutaneous pen Physical Exam Vital Signs: Vital Signs: Last Vital Signs Temp 98.0 F 11/17/21 10:45 Pulse 72 11/17/21 10:45 Resp 15 11/17/21 10:45 BP 93/52 L 11/17/21 10:45 Pulse Ox 95 11/17/21 10:45 BMI result Body Mass Index 23.8 Const: General: no acute distress and ill appearing Nutritional Appearance: average body habitus Orientation/consciousness: patient oriented x3 Limitations: no limitations HEENT: Head: Yes normal to inspection Ears: hearing grossly normal bilaterally Mouth: Normal oral and palatal mucosa present Eyes: Sclerae: sclerae normal Pupils: Equal, round and reactive pupils present Neck: Neck: Yes normal visual inspection Chest: Chest palpation & inspection: normal inspection of the chest Resp: Effort & Inspection: normal respiratory effort Auscultation: clear to auscultation bilaterally Cardio: Palpation: normal PMI Rate: regular rate Rhythm: regular rhythm Heart sounds: S1 normal heart sound present, S2 normal heart sound present and no murmurs GI: Inspection: Yes distended Palpation (GI): Soft to palpation, nontender and No hepatosplenomegaly present Auscultation: normal bowel sounds Rectal Exam - Female: deferred Skin: General skin exam: no rashes or lesions noted Neuro: General: patient oriented x3, gait normal and moves all extremities Cranial nerves: Yes Equal, round and reactive pupils present Psych: Appearance: grossly normal Mental Status: mental status grossly normal Results Labs CBC & Chem 7: 11/19/21 06:24 11/19/21 06:24 Labs: Short CBC 11/16/21 11/16/21 11/17/21 Range/Units 16:33 21:11 04:40 WBC 5.4 4.3 L (4.8-10.8) X10*3/uL Hgb 9.8 L 8.8 L 8.6 L (12.0-16.0) g/dl Hct 32.6 L 29.4 L 28.2 L (37.0-47.0) % Plt Count 133 L D 117 L (160-400) X10*3/uL BMP 11/16/21 11/17/21 16:33 10:20 Sodium 136 134 L Potassium 3.0 L 3.7 D Chloride 91 L 93 L Carbon Dioxide 29 26 BUN 19 H 27 H Creatinine 3.02 H 4.16 H* Calcium 8.4 D 7.9 L Liver Function 11/16/21 11/17/21 Range/Units 16:33 10:20 Total Bilirubin 1.3 H 0.7 (0.0-1.0) mg/dL Direct Bilirubin 0.9 H 0.4 (0.0-0.5) mg/dL AST 48 H 31 (5-31) U/L ALT 18 13 (0-31) U/L Alkaline Phosphatase 557 H D 427 H D (39-117) U/L Albumin 3.0 L 2.6 L (3.5-5.0) g/dL Assessment and Plan (1) Upper GI bleed: Status: Acute (2) Hematemesis: Status: Acute Plan 71 y/o female with history of ESRD on HD, HTN, HLD, CAD s/p 2 vessel CABG 06/2017, cardiomyopathy, hx CVA, PVD, GERD, anemia, breast cancer s/p mastectomy 11/2020, hx diverticulitis, hx GI bleed with history of esophageal varices, Dieulafoy lesion in the duodenum, gastritis and portal HTN gastropathy [place] [facility] [place] UGI [place]. Recent EGD showed grade III esophageal varices which were banded. Bleeding noted from duodenal bulb (?Dieulafoy lesion) controlled with OTC and TTC clips and hemospray. Recurrent UGI bleed likely from varices versus duodenal dieulafoy. RECOMMENDATIONS: 1. Agree with IV PPI and Octreotide infusion 2. Proceed with urgent EGD today - scheduled this afternoon with Dr Reardon. Procedures Date of Service Date of Service: 11/17/21
[2021-11-17 11:26] LABS: Hematocrit 32.1 % (37.0-47.0); Hemoglobin 9.8 g/dl (12.0-16.0)
[2021-11-17 12:04] LABS: Glucose, Whole Blood 128 mg/dL (60-115)
--- NOTE | 2021-11-17 12:04 | PC.NURSE ---
report give to short stay Noelle macedo
[2021-11-17 12:25] LABS: Glucose, Whole Blood 133 mg/dL (60-115)
--- NOTE | 2021-11-17 13:00 | HO.ANESPROP2 ---
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) Breast calcification, left (Acute) Urinary and bowel incontinence (Acute) CAD (coronary artery disease) (Acute) Cardiomyopathy (Acute) Diverticulitis (Acute) Past Medical History Medical History Anemia Anxiety and depression Artery stenosis Arthritis Balance problem Breast calcification, left CAD (coronary artery disease) Cardiomyopathy CHF (congestive heart failure) COVID-19 vaccine series completed Diabetes mellitus Diabetic neuropathy Diverticulitis Ductal carcinoma in situ (DCIS) of left breast End stage renal disease ESRD (end stage renal disease) on dialysis [place] [facility] patient History of CVA (cerebrovascular accident) Hx of myocardial infarction Hypercholesteremia Hypertension Incontinence Knee pain, right Melena Peripheral vascular disease Prolonged QT interval Urinary and bowel incontinence Family History Family History Paternal Grandmother Breast cancer Family history of problems with anesthesia: No Surgical History Surgical History History of lumpectomy of left breast Hx of CABG Hx of colonoscopy Hx of esophagogastroduodenoscopy Hx of lumpectomy Hx of tubal ligation History of Problems with Anesthesia: No Social History Social History Household Members: Family Household Members Other:: son Housing: House Are you a primary day care worker to a significant other at home: No Do you presently have visiting nurse or other home services: No (currently one week in rehab) Alcohol intake: former Patient Tobacco Use Status: Former Tobacco user Quit Date: 5 years ago Tobacco use type: Cigarette Cigarette Packs Per Day: 1 Cigarettes Per Day: 20.0 Years Smoked: 20 Advance Directives Date on File: 10/06/20 service: No Current occupational status: disabled Meds Allergies Allergy/AdvReac Type Severity Reaction Status Date / Time No Known Allergies Allergy Verified 11/16/21 16:09 Home Medications Medication Instructions Recorded Confirmed Last Taken Type miscellaneous medical supply #1 08/02/20 09/20/21 Unknown History sevelamer carbonate 800 mg tablet 800 mg PO BID@0800,1200 tab 08/02/20 11/16/21 10/13/21 History (Renvela) fluoxetine 20 mg capsule 1 cap PO DAILY 12/21/20 11/16/21 10/13/21 History sevelamer carbonate 800 mg tablet 1,600 mg PO DAILY@1700 10/05/21 11/16/21 10/12/21 History tamoxifen 10 mg tablet 10 mg PO BID 10/06/21 11/16/21 10/13/21 History insulin glargine 100 unit/mL 10 unit SUBCUT DAILY 10/14/21 11/16/21 Unknown History subcutaneous solution (Lantus U-100 Insulin) diclofenac sodium 1 % topical gel 1 g TOPICAL BID 11/16/21 11/16/21 Unknown History insulin lispro 100 unit/mL See Protocol SUBCUT QIDACHS 11/16/21 11/16/21 Unknown History subcutaneous pen Exam Exam Date and Time: November 24, 2021 1024 Height,Weight and Vital Signs: Height 5 ft 1 in Weight 126 lb 5.198 oz Last Vital Signs Temp 99.6 F 11/21/21 08:00 Pulse 94 11/21/21 08:00 Resp 16 11/21/21 08:00 BP 90/52 L 11/21/21 08:00 Pulse Ox 94 11/21/21 08:00 Pertinent Lab Results Pertinent Lab Results: Laboratory Tests 11/16/21 11/16/21 11/16/21 16:33 16:33 16:33 WBC 5.4 RBC 3.52 L Hgb 9.8 L Hct 32.6 L MCV 92.6 MCH 27.8 MCHC 30.1 L RDW 15.4 Plt Count 133 L D MPV 10.8 Immature Gran % (Auto) 1.1 H Neut % (Auto) 82.7 H Lymph % (Auto) 6.9 L [place] % (Auto) 8.2 Eos % (Auto) 0.7 Baso % (Auto) 0.4 Lymph # (Auto) 0.4 L [place] # (Auto) 0.4 Eos # (Auto) 0.0 Baso # (Auto) 0.0 Abs Immat Gran (auto) 0.06 H Absolute Neuts (auto) 4.4 Absolute Nucleated RBC 0.000 Nucleated RBC % (auto) 0.0 Smear Tech's Comments PT 12.2 INR 1.1 APTT 30.7 Sodium 136 Potassium 3.0 L Chloride 91 L Carbon Dioxide 29 Anion Gap 19 BUN 19 H Creatinine 3.02 H Estim Creat Clear Calc 13.0 Estimated GFR 15 POC Glucose Random Glucose 232 H Lactic Acid Calcium 8.4 D Magnesium 1.8 Total Bilirubin 1.3 H Direct Bilirubin 0.9 H AST 48 H ALT 18 Alkaline Phosphatase 557 H D Lactate Dehydrogenase Total Protein 7.5 Albumin 3.0 L Lipase 41 Peritoneal WBC Peritoneal RBC Periton Neutrophils Periton Lymphocytes Peritoneal Monocytes Peritoneal Tot Protein Peritoneal Albumin Peritoneal LDH Anti-Mitochondrial Ab Anti-Smooth Muscle Ab COVID-19 (SIMA) [employer] 11/16/21 11/16/21 11/16/21 16:33 16:33 21:11 WBC RBC Hgb 8.8 L Hct 29.4 L MCV MCH MCHC RDW Plt Count MPV Immature Gran % (Auto) Neut % (Auto) Lymph % (Auto) [place] % (Auto) Eos % (Auto) Baso % (Auto) Lymph # (Auto) [place] # (Auto) Eos # (Auto) Baso # (Auto) Abs Immat Gran (auto) Absolute Neuts (auto) Absolute Nucleated RBC Nucleated RBC % (auto) Smear Tech's Comments PT INR APTT Sodium Potassium Chloride Carbon Dioxide Anion Gap BUN Creatinine Estim Creat Clear Calc Estimated GFR POC Glucose Random Glucose Lactic Acid 1.5 Calcium Magnesium Total Bilirubin Direct Bilirubin AST ALT Alkaline Phosphatase Lactate Dehydrogenase Total Protein Albumin Lipase Peritoneal WBC Peritoneal RBC Periton Neutrophils Periton Lymphocytes Peritoneal Monocytes Peritoneal Tot Protein Peritoneal Albumin Peritoneal LDH Anti-Mitochondrial Ab Anti-Smooth Muscle Ab COVID-19 (SIMA) Negative [employer] See Note 11/17/21 11/17/21 11/17/21 04:40 07:05 07:30 WBC 4.3 L RBC 3.07 L Hgb 8.6 L Hct 28.2 L MCV 91.9 MCH 28.0 MCHC 30.5 L RDW 15.3 Plt Count 117 L MPV 11.5 Immature Gran % (Auto) 0.7 H Neut % (Auto) 66.2 Lymph % (Auto) 16.8 L [place] % (Auto) 14.0 H Eos % (Auto) 1.6 Baso % (Auto) 0.7 Lymph # (Auto) 0.7 L [place] # (Auto) 0.6 Eos # (Auto) 0.1 Baso # (Auto) 0.0 Abs Immat Gran (auto) 0.03 Absolute Neuts (auto) 2.8 Absolute Nucleated RBC 0.000 Nucleated RBC % (auto) 0.0 Smear Tech's Comments VERIFIED PT INR APTT Sodium Potassium Chloride Carbon Dioxide Anion Gap BUN Creatinine Estim Creat Clear Calc Estimated GFR POC Glucose 144 H 132 H Random Glucose Lactic Acid Calcium Magnesium Total Bilirubin Direct Bilirubin AST ALT Alkaline Phosphatase Lactate Dehydrogenase Total Protein Albumin Lipase Peritoneal WBC Peritoneal RBC Periton Neutrophils Periton Lymphocytes Peritoneal Monocytes Peritoneal Tot Protein Peritoneal Albumin Peritoneal LDH Anti-Mitochondrial Ab Anti-Smooth Muscle Ab COVID-19 (SIMA) COVID-19 Clin Com 11/17/21 11/17/21 11/17/21 10:20 10:59 11:54 WBC RBC Hgb 9.8 L Hct 32.1 L MCV MCH MCHC RDW Plt Count MPV Immature Gran % (Auto) Neut % (Auto) Lymph % (Auto) [place] % (Auto) Eos % (Auto) Baso % (Auto) Lymph # (Auto) [place] # (Auto) Eos # (Auto) Baso # (Auto) Abs Immat Gran (auto) Absolute Neuts (auto) Absolute Nucleated RBC Nucleated RBC % (auto) Smear Tech's Comments PT INR APTT Sodium 134 L Potassium 3.7 D Chloride 93 L Carbon Dioxide 26 Anion Gap 19 BUN 27 H Creatinine 4.16 H* Estim Creat Clear Calc 9.4 Estimated GFR 11 POC Glucose 133 H Random Glucose 149 H Lactic Acid Calcium 7.9 L Magnesium Total Bilirubin 0.7 Direct Bilirubin 0.4 AST 31 ALT 13 Alkaline Phosphatase 427 H D Lactate Dehydrogenase Total Protein 6.5 Albumin 2.6 L Lipase Peritoneal WBC Peritoneal RBC Periton Neutrophils Periton Lymphocytes Peritoneal Monocytes Peritoneal Tot Protein Peritoneal Albumin Peritoneal LDH Anti-Mitochondrial Ab Anti-Smooth Muscle Ab COVID-19 (SIMA) COVID-19 Interventional Spine 11/17/21 11/17/21 11/17/21 12:01 17:38 20:20 WBC RBC Hgb Hct MCV MCH MCHC RDW Plt Count MPV Immature Gran % (Auto) Neut % (Auto) Lymph % (Auto) [place] % (Auto) Eos % (Auto) Baso % (Auto) Lymph # (Auto) [place] # (Auto) Eos # (Auto) Baso # (Auto) Abs Immat Gran (auto) Absolute Neuts (auto) Absolute Nucleated RBC Nucleated RBC % (auto) Smear Tech's Comments PT INR APTT Sodium Potassium Chloride Carbon Dioxide Anion Gap BUN Creatinine Estim Creat Clear Calc Estimated GFR POC Glucose 128 H 119 H 119 H Random Glucose Lactic Acid Calcium Magnesium Total Bilirubin Direct Bilirubin AST ALT Alkaline Phosphatase Lactate Dehydrogenase Total Protein Albumin Lipase Peritoneal WBC Peritoneal RBC Periton Neutrophils Periton Lymphocytes Peritoneal Monocytes Peritoneal Tot Protein Peritoneal Albumin Peritoneal LDH Anti-Mitochondrial Ab Anti-Smooth Muscle Ab COVID-19 (SIMA) COVID-19 Interventional Spine 11/18/21 11/18/21 11/18/21 06:37 07:07 07:07 WBC 5.6 RBC 3.37 L Hgb 9.3 L Hct 31.1 L MCV 92.3 MCH 27.6 MCHC 29.9 L RDW 15.6 Plt Count 127 L MPV Not Reportable Immature Gran % (Auto) Neut % (Auto) Lymph % (Auto) [place] % (Auto) Eos % (Auto) Baso % (Auto) Lymph # (Auto) [place] # (Auto) Eos # (Auto) Baso # (Auto) Abs Immat Gran (auto) Absolute Neuts (auto) Absolute Nucleated RBC 0.000 Nucleated RBC % (auto) 0.0 Smear Tech's Comments PT INR APTT Sodium Potassium Chloride Carbon Dioxide Anion Gap BUN Creatinine Estim Creat Clear Calc Estimated GFR POC Glucose Random Glucose Lactic Acid Calcium Magnesium Total Bilirubin 0.7 Direct Bilirubin 0.4 AST 25 ALT 12 Alkaline Phosphatase 338 H D Lactate Dehydrogenase 295 H Total Protein 5.8 L Albumin 2.4 L Lipase Peritoneal WBC Peritoneal RBC Periton Neutrophils Periton Lymphocytes Peritoneal Monocytes Peritoneal Tot Protein Peritoneal Albumin Peritoneal LDH Anti-Mitochondrial Ab NEGATIVE Anti-Smooth Muscle Ab <20 COVID-19 (SIMA) COVID-19 Interventional Spine 11/18/21 11/18/21 11/18/21 07:38 13:51 15:24 WBC RBC Hgb Hct MCV MCH MCHC RDW Plt Count MPV Immature Gran % (Auto) Neut % (Auto) Lymph % (Auto) [place] % (Auto) Eos % (Auto) Baso % (Auto) Lymph # (Auto) [place] # (Auto) Eos # (Auto) Baso # (Auto) Abs Immat Gran (auto) Absolute Neuts (auto) Absolute Nucleated RBC Nucleated RBC % (auto) Smear Tech's Comments PT INR APTT Sodium Potassium Chloride Carbon Dioxide Anion Gap BUN Creatinine Estim Creat Clear Calc Estimated GFR POC Glucose 104 106 Random Glucose Lactic Acid Calcium Magnesium Total Bilirubin Direct Bilirubin AST ALT Alkaline Phosphatase Lactate Dehydrogenase Total Protein Albumin Lipase Peritoneal WBC 0.451 Peritoneal RBC < 0.002 Periton Neutrophils 57 Periton Lymphocytes 2 Peritoneal Monocytes 41 Peritoneal Tot Protein Peritoneal Albumin Peritoneal LDH Anti-Mitochondrial Ab Anti-Smooth Muscle Ab COVID-19 (SIMA) [employer] 11/18/21 11/18/21 11/18/21 15:54 19:47 Unknown WBC RBC Hgb Hct MCV MCH MCHC RDW Plt Count MPV Immature Gran % (Auto) Neut % (Auto) Lymph % (Auto) [place] % (Auto) Eos % (Auto) Baso % (Auto) Lymph # (Auto) [place] # (Auto) Eos # (Auto) Baso # (Auto) Abs Immat Gran (auto) Absolute Neuts (auto) Absolute Nucleated RBC Nucleated RBC % (auto) Smear Tech's Comments PT INR APTT Sodium Potassium Chloride Carbon Dioxide Anion Gap BUN Creatinine Estim Creat Clear Calc Estimated GFR POC Glucose 109 202 H Random Glucose Lactic Acid Calcium Magnesium Total Bilirubin Direct Bilirubin AST ALT Alkaline Phosphatase Lactate Dehydrogenase Total Protein Albumin Lipase Peritoneal WBC Peritoneal RBC Periton Neutrophils Periton Lymphocytes Peritoneal Monocytes Peritoneal Tot Protein 3.0 Peritoneal Albumin 1.4 Peritoneal LDH 180 Anti-Mitochondrial Ab Anti-Smooth Muscle Ab COVID-19 (SIMA) [employer] 11/19/21 11/19/21 11/19/21 06:24 06:24 07:43 WBC 5.5 RBC 3.65 L Hgb 10.0 L Hct 33.6 L MCV 92.1 MCH 27.4 MCHC 29.8 L RDW 15.7 Plt Count 142 L MPV 11.2 Immature Gran % (Auto) Neut % (Auto) Lymph % (Auto) [place] % (Auto) Eos % (Auto) Baso % (Auto) Lymph # (Auto) [place] # (Auto) Eos # (Auto) Baso # (Auto) Abs Immat Gran (auto) Absolute Neuts (auto) Absolute Nucleated RBC 0.000 Nucleated RBC % (auto) 0.0 Smear Tech's Comments PT INR APTT Sodium 132 L Potassium 4.1 Chloride 93 L Carbon Dioxide 24 Anion Gap 19 BUN 43 H D Creatinine 6.27 H* Estim Creat Clear Calc 6.3 Estimated GFR 7 POC Glucose 170 H Random Glucose 166 H Lactic Acid Calcium 7.3 L D Magnesium Total Bilirubin Direct Bilirubin AST ALT Alkaline Phosphatase Lactate Dehydrogenase Total Protein Albumin Lipase Peritoneal WBC Peritoneal RBC Periton Neutrophils Periton Lymphocytes Peritoneal Monocytes Peritoneal Tot Protein Peritoneal Albumin Peritoneal LDH Anti-Mitochondrial Ab Anti-Smooth Muscle Ab COVID-19 (SIMA) [place] 11/19/21 11/19/21 11/19/21 11:55 16:11 20:00 WBC RBC Hgb Hct MCV MCH MCHC RDW Plt Count MPV Immature Gran % (Auto) Neut % (Auto) Lymph % (Auto) [place] % (Auto) Eos % (Auto) Baso % (Auto) Lymph # (Auto) [place] # (Auto) Eos # (Auto) Baso # (Auto) Abs Immat Gran (auto) Absolute Neuts (auto) Absolute Nucleated RBC Nucleated RBC % (auto) Smear Tech's Comments PT INR APTT Sodium Potassium Chloride Carbon Dioxide Anion Gap BUN Creatinine Estim Creat Clear Calc Estimated GFR POC Glucose 89 158 H 205 H Random Glucose Lactic Acid Calcium Magnesium Total Bilirubin Direct Bilirubin AST ALT Alkaline Phosphatase Lactate Dehydrogenase Total Protein Albumin Lipase Peritoneal WBC Peritoneal RBC Periton Neutrophils Periton Lymphocytes Peritoneal Monocytes Peritoneal Tot Protein Peritoneal Albumin Peritoneal LDH Anti-Mitochondrial Ab Anti-Smooth Muscle Ab COVID-19 (SIMA) [employer] 11/20/21 11/20/21 11/20/21 07:27 11:29 16:02 WBC RBC Hgb Hct MCV MCH MCHC RDW Plt Count MPV Immature Gran % (Auto) Neut % (Auto) Lymph % (Auto) [place] % (Auto) Eos % (Auto) Baso % (Auto) Lymph # (Auto) [place] # (Auto) Eos # (Auto) Baso # (Auto) Abs Immat Gran (auto) Absolute Neuts (auto) Absolute Nucleated RBC Nucleated RBC % (auto) Smear Tech's Comments PT INR APTT Sodium Potassium Chloride Carbon Dioxide Anion Gap BUN Creatinine Estim Creat Clear Calc Estimated GFR POC Glucose 159 H 202 H 188 H Random Glucose Lactic Acid Calcium Magnesium Total Bilirubin Direct Bilirubin AST ALT Alkaline Phosphatase Lactate Dehydrogenase Total Protein Albumin Lipase Peritoneal WBC Peritoneal RBC Periton Neutrophils Periton Lymphocytes Peritoneal Monocytes Peritoneal Tot Protein Peritoneal Albumin Peritoneal LDH Anti-Mitochondrial Ab Anti-Smooth Muscle Ab COVID-19 (SIMA) COVID-19 Interventional Spine 11/20/21 11/21/21 11/21/21 20:53 07:55 12:31 WBC RBC Hgb Hct MCV MCH MCHC RDW Plt Count MPV Immature Gran % (Auto) Neut % (Auto) Lymph % (Auto) [place] % (Auto) Eos % (Auto) Baso % (Auto) Lymph # (Auto) [place] # (Auto) Eos # (Auto) Baso # (Auto) Abs Immat Gran (auto) Absolute Neuts (auto) Absolute Nucleated RBC Nucleated RBC % (auto) Smear Tech's Comments PT INR APTT Sodium Potassium Chloride Carbon Dioxide Anion Gap BUN Creatinine Estim Creat Clear Calc Estimated GFR POC Glucose 182 H 205 H 110 Random Glucose Lactic Acid Calcium Magnesium Total Bilirubin Direct Bilirubin AST ALT Alkaline Phosphatase Lactate Dehydrogenase Total Protein Albumin Lipase Peritoneal WBC Peritoneal RBC Periton Neutrophils Periton Lymphocytes Peritoneal Monocytes Peritoneal Tot Protein Peritoneal Albumin Peritoneal LDH Anti-Mitochondrial Ab Anti-Smooth Muscle Ab COVID-19 (SIMA) [employer] 11/21/21 11/21/21 15:43 16:13 WBC RBC Hgb Hct MCV MCH MCHC RDW Plt Count MPV Immature Gran % (Auto) Neut % (Auto) Lymph % (Auto) [place] % (Auto) Eos % (Auto) Baso % (Auto) Lymph # (Auto) [place] # (Auto) Eos # (Auto) Baso # (Auto) Abs Immat Gran (auto) Absolute Neuts (auto) Absolute Nucleated RBC Nucleated RBC % (auto) Smear Tech's Comments PT INR APTT Sodium Potassium Chloride Carbon Dioxide Anion Gap BUN Creatinine Estim Creat Clear Calc Estimated GFR POC Glucose 157 H Random Glucose Lactic Acid Calcium Magnesium Total Bilirubin Direct Bilirubin AST ALT Alkaline Phosphatase Lactate Dehydrogenase Total Protein Albumin Lipase Peritoneal WBC Peritoneal RBC Periton Neutrophils Periton Lymphocytes Peritoneal Monocytes Peritoneal Tot Protein Peritoneal Albumin Peritoneal LDH Anti-Mitochondrial Ab Anti-Smooth Muscle Ab COVID-19 (SIMA) Negative [facility] See Note Airway Mallampati Class: II TM Dist: >3cm Neck ROM: Full Loose/Missing/Broken Teeth: Yes Assessment and Plan Assessment Anesthesia Assessment: Anesthesia Plan Discussed and Chart Reviewed Final Anesthetic Review Family History of Problems with Anesthesia: No History of Problems with Anesthesia: No NPO: Yes ASA Class: III and Emergency Final Preanesthetic Review: No Changes in Pt Med Stat, Meds/Allgs Chart Reviewed, Consent Obtained/Reviewed and Anes Risks/Benef Reviewed Patient Risk: Intermediate Procedure Risk: Low Anesthetic Plan Anesthetic Plan: MAC: Disposition: Standard PACU
--- NOTE | 2021-11-17 13:15 | PC.NURSE ---
pt of to surgery
--- NOTE | 2021-11-17 13:40 | MHC.SHP ---
Pre-Procedural Eval Section A Date of Service: 11/17/21 The patient is an INPATIENT: Yes Section B Chief Complaint: Hematemesis Details of Present Illness: x 1 bloody emesis, hx of varices Allergies: Allergies Allergy/AdvReac Type Severity Reaction Status Date / Time No Known Allergies Allergy Verified 11/16/21 16:09 Plan Diagnosis/Plan: Unchanged I have reviewed the history and physical and performed a pertinent physical examination on my patient. No changes have occurred unless specified. EGD for assessment
--- NOTE | 2021-11-17 13:41 | PM.OP ---
Brief Operative Note Date of Service: 11/17/21 Pre-op diagnosis: bloody emesis Post-op diagnosis: same Procedure: see op note Surgeon: Tamiko Chirinos MD Anesthesia: MAC Was an Food Inspector used for this Procedure?: No Estimated blood loss (mL): 0 Condition: stable Disposition: PACU
--- NOTE | 2021-11-17 13:41 | W.PM.OPN ---
Operative Note Operative Note Date of Service: 11/17/21 Narrative: Procedure Description: EGD Indication: bloody emesis, nausea Anesthesia: MAC FLEXIBLE TRANSORAL UPPER GASTROINTESTINAL ENDOSCOPY UPPER ENDOSCOPY Consent: Indications for the procedure and potential complications of bleeding, perforation, reaction to medications and missed diagnosis were discussed with the patient and informed consent was obtained. Instrument: Olympus GIF H 190 J mid size upper endoscope Monitoring: Vital signs and clinical assessment, continuous EKG monitoring, Pulse oximetry, Carbon Dioxide monitoring and blood pressure monitoring were done throughout the procedure. Procedure: The patient was placed in the left lateral decubitis position and pre-procedure medications were administered and a bite block was placed. The endoscope was inserted into the mouth and advanced under direct vision to the third part of duodenum. A careful inspection was made as the upper endoscope was withdrawn including a retroflexed examination of the proximal stomach; Findings and interventions are described below. Findings: Larynx:normal Esophagus: GE junction at 36 cm, diaphragm hiatus at 38 cm, consistent with 2 cm sliding hiatal hernia, There was a small tear like area in the GEJ consistent with a Xochitl Clay tear. There was esophagitis and maceration of surrounding tissue. There was some retained food which was pushed down into the stomach. Grade I varices noted which collapsed with air insufflation, no active bleeding or high risk salas seen. Stomach: Patchy gastric erythema and mosaic pattern with nodularity consistent with portal hypertensive gastropathy. Grade 2 flap valve on retroflexed examination of the cardia. Duodenum: Patchy erythema, and edema of the duodenum consistent with portal hypertensive enteropathy. Clips from prior EGD 1 month were noted. No ulcers or bleeding. Intervention: none Impression/Findings: hiatal hernia esophageal varices esophagitis and MW tear possible caused by retained food Portal hypertensive gastropathy and enteropathy PLAN: High dose PPI e.g pantoprazole 40 mg for 3 months then titrate down sucralfate care with oral diet (she is edentulous), if no dentures then avoid thick foods and meats
--- NOTE | 2021-11-17 15:03 | PM.CNNEP ---
History of Present Illness Reason for Consult Consult date: 11/17/21 Reason for consult: ESRD on HD Chief Complaint Chief complaint: Hematemesis History of Present Illness Narrative: 71-year-old female with a past medical history of ESRD on hemodialysis, hypertension, hyperlipidemia, diabetes, diabetic neuropathy, CAD status post CABG CHF, CVA, GI bleed, breast cancer s/p mastectomy 11/2020, anxiety, depression, COVID-19 vaccinated, esophageal varices, gastritis, portal hypertensive gastropathy who presented to [facility] ED with chief complaint of hematemesis which she developed in the final 10 minutes of her outpatient dialysis session. In ED, H/H noted to be stable. GI consulted. She was kept npo and octreotide gtt initiated along with IV ppi and plans for egd. ROS otherwise negative. Review of Systems Constitutional: Reports as per HPI [facility] Past Medical History Medical History (Updated 11/17/21 @ 15:05 by Vipin Gutierrez MD) Anemia Anxiety and depression Artery stenosis Arthritis Balance problem Breast calcification, left CAD (coronary artery disease) Cardiomyopathy CHF (congestive heart failure) COVID-19 vaccine series completed Diabetes mellitus Diabetic neuropathy Diverticulitis Ductal carcinoma in situ (DCIS) of left breast End stage renal disease ESRD (end stage renal disease) on dialysis [place] Hemodialysis patient History of CVA (cerebrovascular accident) Hx of myocardial infarction Hypercholesteremia Hypertension Incontinence Knee pain, right Melena Peripheral vascular disease Prolonged QT interval Urinary and bowel incontinence Family History Family History Paternal Grandmother Breast cancer Surgical History Surgical History (Updated 11/16/21 @ 16:12 by LeeA nn Martinez RN) History of lumpectomy of left breast Hx of CABG Hx of colonoscopy Hx of esophagogastroduodenoscopy Hx of lumpectomy Hx of tubal ligation Social History Social History Household Members: Family and Children Household Members Other:: son Housing: House Are you a primary patient care representative to a significant other at home: No Do you presently have visiting nurse or other home services: No (currently one week in rehab) Alcohol intake: former Patient Tobacco Use Status: Former Tobacco user Quit Date: 5 years ago Tobacco use type: Cigarette Cigarette Packs Per Day: 1 Cigarettes Per Day: 20.0 Years Smoked: 20 Use of substances other than those prescribed or required for medical reasons: No Are you DNR?: No Advance Directives: Yes Advance Directives on File: Yes Advance Directives Date on File: 10/06/20 service: No Current occupational status: disabled Meds Allergies Allergy/AdvReac Type Severity Reaction Status Date / Time No Known Allergies Allergy Verified 11/16/21 16:09 Active Medications: Current Medications Acetaminophen (Acetaminophen 325 Mg Tablet) 650 mg PO Q6H PRN PRN Reason: Pain, Mild (Pain Scale 1-3) Atorvastatin Calcium (Atorvastatin Calcium 80 Mg Tablet) 80 mg PO BEDTIME [facility] Dextrose (Dextrose 50 % 25 Gm/50 Ml Syringe) 25 gm IVPUSH Q15M PRN; Protocol PRN Reason: per Hypoglycemia Standing Ord. Ergocalciferol (Ergocalciferol (Vitamin D2) 1,250 Mcg Capsule) 1,250 mcg PO Sa@0900 [facility] Fluoxetine HCl (Fluoxetine Hcl 20 Mg Capsule) 20 mg PO DAILY [facility] Last Admin: 11/17/21 08:48 Dose: 20 mg Documented by: Folic Acid (Folic Acid 1 Mg Tablet) 1 mg PO DAILY [facility] Last Admin: 11/17/21 08:49 Dose: 1 mg Documented by: Gabapentin (Gabapentin 300 Mg Capsule) 300 mg PO TID [facility] Last Admin: 11/17/21 08:49 Dose: 300 mg Documented by: Glucose (Glucose Gel 15 Gm Gel..Gram.) 15 gm PO Q15M PRN; Protocol PRN Reason: per Hypoglycemia Standing Ord. Octreotide Acetate 500 mcg/ (Sodium Chloride) 501 mls @ 50.1 mls/hr IVCONT .Q10H [facility] Last Admin: 11/17/21 06:11 Dose: Not Given Documented by: Insulin Human Lispro (Insulin Lispro 100 Unit/Ml 3 Ml Vial) 0 unit SUBCUT QIDACHS [facility]; Protocol Last Admin: 11/17/21 12:07 Dose: Not Given Documented by: Loratadine (Loratadine 10 Mg Tablet) 10 mg PO DAILY [facility] Last Admin: 11/17/21 08:49 Dose: 10 mg Documented by: Melatonin (Melatonin 3 Mg Tablet) 6 mg PO BEDTIME PRN PRN Reason: Insomnia Midodrine (Midodrine Hcl 5 Mg Tablet) 5 mg PO TIDAC [facility] Last Admin: 11/17/21 12:07 Dose: 5 mg Documented by: Pantoprazole Sodium (Pantoprazole Sodium 40 Mg/10 Ml Vial) 40 mg IVPUSH BID@0630,1630 [facility] Last Admin: 11/17/21 06:15 Dose: 40 mg Documented by: Pharmacy Consult (Consult Rx Perform Med Rec) 1 each MISCELLANE ONCE PRN PRN Reason: Consult order Senna (Sennosides 8.6 Mg Tablet) 17.2 mg PO BEDTIME PRN PRN Reason: Constipation Sevelamer Carbonate (Sevelamer Carbonate Tablet 800 Mg Tablet) 800 mg PO BID@0800,1200 [facility] Last Admin: 11/17/21 12:07 Dose: 800 mg Documented by: Sevelamer Carbonate (Sevelamer Carbonate Tablet 800 Mg Tablet) 1,600 mg PO DAILY@1700 [facility] Sodium Chloride (0.9 % Sodium Chloride Flush 3 Ml Syringe) 3 ml IVFLUSH QSHIFT [facility] Last Admin: 11/17/21 07:53 Dose: 3 ml Documented by: Tamoxifen Citrate (Tamoxifen Citrate 10 Mg Tablet) 10 mg PO BID [facility] Last Admin: 11/17/21 08:49 Dose: 10 mg Documented by: Home Medications Medication Instructions Recorded Confirmed Last Taken Type miscellaneous medical supply #1 08/02/20 09/20/21 Unknown History sevelamer carbonate 800 mg tablet 800 mg PO BID@0800,1200 tab 08/02/20 11/16/21 10/13/21 History (Phoebe) fluoxetine 20 mg capsule 1 cap PO DAILY 12/21/20 11/16/21 10/13/21 History sevelamer carbonate 800 mg tablet 1,600 mg PO DAILY@1700 10/05/21 11/16/21 10/12/21 History tamoxifen 10 mg tablet 10 mg PO BID 10/06/21 11/16/21 10/13/21 History insulin glargine 100 unit/mL 10 unit SUBCUT DAILY 10/14/21 11/16/21 Unknown History subcutaneous solution (Lantus U-100 Insulin) diclofenac sodium 1 % topical gel 1 g TOPICAL BID 11/16/21 11/16/21 Unknown History insulin lispro 100 unit/mL See Protocol SUBCUT QIDACHS 11/16/21 11/16/21 Unknown History subcutaneous pen Physical Exam Vital Signs: Last Vital Signs Temp 98.3 F 11/17/21 14:33 Pulse 82 11/17/21 14:33 Resp 16 11/17/21 14:33 BP 101/53 L 11/17/21 14:33 Pulse Ox 98 11/17/21 14:33 BMI result Body Mass Index 23.8 Const General: cooperative, comfortable and no acute distress HEENT Head: Yes normal to inspection, Yes normocephalic and Yes atraumatic Neck Neck: Yes no JVD Resp Effort & Inspection: normal respiratory effort Auscultation: clear to auscultation bilaterally Cardio Jugular venous distension: no JVD Rate: regular rate Rhythm: regular rhythm Heart sounds: S1 normal heart sound present and S2 normal heart sound present GI Auscultation: normal bowel sounds Neuro General: moves all extremities Extrem General: Yes no clubbing, cyanosis or edema Results Lab Results Result Diagrams: 11/17/21 10:59 11/17/21 10:20 Lab results: Chemistry 11/16/21 11/17/21 16:33 10:20 Sodium 136 134 L Potassium 3.0 L 3.7 D Carbon Dioxide 29 26 BUN 19 H 27 H Creatinine 3.02 H 4.16 H* Calcium 8.4 D 7.9 L Hematology 11/16/21 11/16/21 11/17/21 16:33 21:11 04:40 WBC 5.4 4.3 L Hgb 9.8 L 8.8 L 8.6 L Plt Count 133 L D 117 L 11/17/21 10:59 WBC Hgb 9.8 L Plt Count Assessment and Plan (1) ESRD (end stage renal disease) on dialysis: Status: Acute Plan 71-year-old female with a past medical history of hyperlipidemia, diabetes, CAD, CHF, ESRD on hemodialysis, history of CVA, peripheral vascular disease, anxiety, depression, arthritis, history of GI bleed, anemia presented to the hospital with hematemesis during last 10 minutes of outpatietn HD session. 1. End-stage renal disease. HD MWF schedule. No urgent indication for HD. Resume outpatient schedule. 2. Anemia. EPO 20,000 3x weekly; EGD during this admission per GI 3.ESRD-MBD: continue outpatient phosphate binders. Procedures Date of Service Date of Service: 11/17/21
--- NOTE | 2021-11-17 15:06 | MHC.CM.PN ---
Pt is presently in a procedure: information obtained from pt's HCP Sadia Spears. Pt has been residing at [facility] and will transition to LTC. She attends HD at the dialysis center on site 3x weekly. Pt uses a w/c and requires physical assistance to transfer and is impulsive and not always aware of her safety needs. D/C plan is for a return to [facility]: referral made: Gilberto arce, HCP on file, IMM in chart: BLS transport
--- NOTE | 2021-11-17 16:06 | P.PNIM_ITS ---
Subjective Subjective Date of Service: 11/17/21 Interval History: seen and examined this morning admitted with hemetemesis patient denies any abdominal pain, BP has been soft - she reports chronic dizziness, no change from baseline she denies any abdominal pain Review of Systems Review of Systems: Yes all other systems are reviewed and are negative Constitutional Constitutional: Denies chills and Denies fever(s) Cardiovascular Cardiovascular: Denies chest pain, Denies palpitations and Denies dyspnea Respiratory Respiratory: Denies cough and Denies dyspnea Gastrointestinal Gastrointestinal: Denies abdominal pain, Denies diarrhea and Denies nausea Endocrine Endocrine: Denies palpitations Physical Exam Vital Signs: Vital Signs: Last Vital Signs Temp 98.1 F 11/17/21 15:38 Pulse 80 11/17/21 15:38 Resp 20 11/17/21 15:38 BP 107/68 11/17/21 15:38 Pulse Ox 100 11/17/21 15:38 BMI result Body Mass Index 23.8 Const: General: cooperative, comfortable, alert and awake Orientation/c onsciousness: oriented to person and oriented to place Resp: Effort & Inspection: normal respiratory effort and able to speak in complete sentences Cardio: Rate: regular rate Heart sounds: S1 normal heart sound present and S2 normal heart sound present GI: Inspection: No distended Palpation (GI): Soft to palpation and nontender Neuro: General: oriented to person and oriented to place Extrem: General: Yes no pedal edema Objective Data Active Medications Acetaminophen (Acetaminophen 325 Mg Tablet) 650 mg PO Q6H PRN PRN Reason: Pain, Mild (Pain Scale 1-3) Atorvastatin Calcium (Atorvastatin Calcium 80 Mg Tablet) 80 mg PO BEDTIME [facility] Dextrose (Dextrose 50 % 25 Gm/50 Ml Syringe) 25 gm IVPUSH Q15M PRN; Protocol PRN Reason: per Hypoglycemia Standing Ord. Ergocalciferol (Ergocalciferol (Vitamin D2) 1,250 Mcg Capsule) 1,250 mcg PO Sa@0900 [facility] Fluoxetine HCl (Fluoxetine Hcl 20 Mg Capsule) 20 mg PO DAILY [facility] Last Admin: 11/17/21 08:48 Dose: 20 mg Documented by: LIZ Folic Acid (Folic Acid 1 Mg Tablet) 1 mg PO DAILY [facility] Last Admin: 11/17/21 08:49 Dose: 1 mg Documented by: LIZ Gabapentin (Gabapentin 300 Mg Capsule) 300 mg PO TID [facility] Last Admin: 11/17/21 08:49 Dose: 300 mg Documented by: LIZ Glucose (Glucose Gel 15 Gm Gel..Gram.) 15 gm PO Q15M PRN; Protocol PRN Reason: per Hypoglycemia Standing Ord. Octreotide Acetate 500 mcg/ (Sodium Chloride) 501 mls @ 50.1 mls/hr IVCONT .Q10H [facility] Last Admin: 11/17/21 06:11 Dose: Not Given Documented by: SHELBIE Non-Admin Reason: See Note Insulin Human Lispro (Insulin Lispro 100 Unit/Ml 3 Ml Vial) 0 unit SUBCUT QIDACHS [facility]; Protocol Last Admin: 11/17/21 12:07 Dose: Not Given Documented by: LIZ Non-Admin Reason: NPO Loratadine (Loratadine 10 Mg Tablet) 10 mg PO DAILY [facility] Last Admin: 11/17/21 08:49 Dose: 10 mg Documented by: LIZ Melatonin (Melatonin 3 Mg Tablet) 6 mg PO BEDTIME PRN PRN Reason: Insomnia Midodrine (Midodrine Hcl 5 Mg Tablet) 5 mg PO TIDAC [facility] Last Admin: 11/17/21 12:07 Dose: 5 mg Documented by: LIZ Pantoprazole Sodium (Pantoprazole Sodium 40 Mg/10 Ml Vial) 40 mg IVPUSH BID@0630,1630 [facility] Last Admin: 11/17/21 06:15 Dose: 40 mg Documented by: SHELBIE Pharmacy Consult (Consult Rx Perform Med Rec) 1 each MISCELLANE ONCE PRN PRN Reason: Consult order Senna (Sennosides 8.6 Mg Tablet) 17.2 mg PO BEDTIME PRN PRN Reason: Constipation Sevelamer Carbonate (Sevelamer Carbonate Tablet 800 Mg Tablet) 800 mg PO BID@0800,1200 [facility] Last Admin: 11/17/21 12:07 Dose: 800 mg Documented by: LIZ Sevelamer Carbonate (Sevelamer Carbonate Tablet 800 Mg Tablet) 1,600 mg PO DAILY@1700 [facility] Sodium Chloride (0.9 % Sodium Chloride Flush 3 Ml Syringe) 3 ml IVFLUSH QSHIFT [facility] Last Admin: 11/17/21 07:53 Dose: 3 ml Documented by: LIZ Tamoxifen Citrate (Tamoxifen Citrate 10 Mg Tablet) 10 mg PO BID [facility] Last Admin: 11/17/21 08:49 Dose: 10 mg Documented by: LIZ Labs CBC & Chem 7: 11/17/21 10:59 11/17/21 10:20 Labs: Laboratory Results - last 24 hr 11/16/21 11/16/21 11/16/21 16:33 16:33 16:33 MCV 92.6 MCH 27.8 MCHC 30.1 L RDW 15.4 Plt Count 133 L D MPV 10.8 Immature Gran % (Auto) 1.1 H Neut % (Auto) 82.7 H Lymph % (Auto) 6.9 L [place] % (Auto) 8.2 Eos % (Auto) 0.7 Baso % (Auto) 0.4 Lymph # (Auto) 0.4 L [place] # (Auto) 0.4 Eos # (Auto) 0.0 Baso # (Auto) 0.0 Abs Immat Gran (auto) 0.06 H Absolute Neuts (auto) 4.4 Absolute Nucleated RBC 0.000 Nucleated RBC % (auto) 0.0 Smear Tech's Comments PT 12.2 INR 1.1 APTT 30.7 Anion Gap 19 Estim Creat Clear Calc 13.0 Estimated GFR 15 POC Glucose Random Glucose 232 H Lactic Acid Calcium 8.4 D Magnesium 1.8 Total Bilirubin 1.3 H Direct Bilirubin 0.9 H AST 48 H ALT 18 Alkaline Phosphatase 557 H D Total Protein 7.5 Albumin 3.0 L Lipase 41 COVID-19 ([facility]) COVID-19 Clin Com 11/16/21 11/16/21 11/17/21 16:33 16:33 04:40 MCV 91.9 MCH 28.0 MCHC 30.5 L RDW 15.3 Plt Count 117 L MPV 11.5 Immature Gran % (Auto) 0.7 H Neut % (Auto) 66.2 Lymph % (Auto) 16.8 L [place] % (Auto) 14.0 H Eos % (Auto) 1.6 Baso % (Auto) 0.7 Lymph # (Auto) 0.7 L [place] # (Auto) 0.6 Eos # (Auto) 0.1 Baso # (Auto) 0.0 Abs Immat Gran (auto) 0.03 Absolute Neuts (auto) 2.8 Absolute Nucleated RBC 0.000 Nucleated RBC % (auto) 0.0 Smear Tech's Comments VERIFIED PT INR APTT Anion Gap Estim Creat Clear Calc Estimated GFR POC Glucose Random Glucose Lactic Acid 1.5 Calcium Magnesium Total Bilirubin Direct Bilirubin AST ALT Alkaline Phosphatase Total Protein Albumin Lipase COVID-19 ([facility]) Negative COVID-19 Clin Com See Note 11/17/21 11/17/21 11/17/21 07:05 07:30 10:20 MCV MCH MCHC RDW Plt Count MPV Immature Gran % (Auto) Neut % (Auto) Lymph % (Auto) [place] % (Auto) Eos % (Auto) Baso % (Auto) Lymph # (Auto) [place] # (Auto) Eos # (Auto) Baso # (Auto) Abs Immat Gran (auto) Absolute Neuts (auto) Absolute Nucleated RBC Nucleated RBC % (auto) Smear Tech's Comments PT INR APTT Anion Gap 19 Estim Creat Clear Calc 9.4 Estimated GFR 11 POC Glucose 144 H 132 H Random Glucose 149 H Lactic Acid Calcium 7.9 L Magnesium Total Bilirubin 0.7 Direct Bilirubin 0.4 AST 31 ALT 13 Alkaline Phosphatase 427 H D Total Protein 6.5 Albumin 2.6 L Lipase COVID-19 ([facility]) COVID-Xcerion Clin Com 11/17/21 11/17/21 11:54 12:01 MCV MCH MCHC RDW Plt Count MPV Immature Gran % (Auto) Neut % (Auto) Lymph % (Auto) [place] % (Auto) Eos % (Auto) Baso % (Auto) Lymph # (Auto) [place] # (Auto) Eos # (Auto) Baso # (Auto) Abs Immat Gran (auto) Absolute Neuts (auto) Absolute Nucleated RBC Nucleated RBC % (auto) Smear Tech's Comments PT INR APTT Anion Gap Estim Creat Clear Calc Estimated GFR POC Glucose 133 H 128 H Random Glucose Lactic Acid Calcium Magnesium Total Bilirubin Direct Bilirubin AST ALT Alkaline Phosphatase Total Protein Albumin Lipase COVID-19 ([facility]) COVID-19 Clin Com Assessment and Plan (1) ESRD (end stage renal disease) on dialysis: Status: Acute Plan 71-year-old female with a past medical history of hypertension, hyperlipidemia, diabetes, diabetic neuropathy, CAD status post CABG CHF, history of CVA, history of GI bleed, history of breast cancer, anxiety, depression, COVID-19 vaccinated, ESRD on hemodialysis, history of esophageal varices, gastritis, portal hypertensive gastropathy; presented to the hospital today with a chief complaint of hematemesis. Admitted for following Upper GI bleed: Patient reported brown colored vomitus. No further episodes of she came to the ER. Hemodialysis staff reported hematemesis-bright red blood. BP soft but H&H stable Continue IV PPI, octreotide seen by GI, recommend EGD today History of diabetes: Insulin sliding scale History of cardiomyopathy: Hold carvedilol for now given concerns for GI bleed. Monitor vitals closely. History of ESRD: Continue home sevelamer. Nephrology following to continue current MWF schedule for HD History of hyperlipidemia: Continue home statin History of a neuropathy: Continue home gabapentin History of depression: Continue home fluoxetine DVT prophylaxis: SCD boots Code status: Full code Attending: dr. deleno Patient requires ongoing inpatient hospitalization due to upper GI bleeding and need for GI evaluation/EGD Quality Stroke Does the patient have a stroke diagnosis?: No VTE Prior VTE?: No VTE Risk Level:: Medical - moderate - high VTE Device Contraindication: N/A - Device Ordered VTE Drug Contraindication: Treatment Not Indicated
[2021-11-17] MEDS: Octreotide Acetate 500 MCG in 0.9 % Sodium Chloride 500 ML 50.1 MCG IVCONT ×2 (16:40→22:07)
[2021-11-17 17:41] LABS: Glucose, Whole Blood 119 mg/dL (60-115)
--- NOTE | 2021-11-17 19:38 | PC.NURSE ---
Pt BP hypotensive sitting in 80s/60s, manual BP checked and is 88/66, MD Mayorga made aware awaiting orders at this time. Pt denies dizziness or headache. States I'm tired .
[2021-11-17 20:28] LABS: Glucose, Whole Blood 119 mg/dL (60-115)
[2021-11-17] MEDS: Atorvastatin Calcium 80 MG TABLET PO (20:35)
--- NOTE | 2021-11-17 20:55 | PC.NURSE ---
Pt alert and oriented x4 at this time, calm and cooperative. Pt denies pain now, denies headache or dizziness. Pt bedrest now. Pt turned and positioned every 2 hours. B/L pedal pulses checked, equal and strong. +2 pitting edema noted to B/L ankles, MD López aware. Pt BP hypotensive at times in the 80s/60s, currently sustaining 90/60. MD López states monitor patient and symptoms. Pt denies any symptoms now. IV intact and infusing medication now. Vitals stable. Pt resting in hospital bed now.
--- NOTE | 2021-11-17 23:00 | PC.NURSE ---
Assumed care of pt Pt resting on stretcher with eyes closed Breathing even and unlabored NAD Will continue to monitor
[2021-11-18] VITALS (9 sets, daily range): BP systolic 84–109; BP diastolic 50–62; PULSE 74–86; RESP 11–20; TEMP 36.3–37.3; O2SAT 94–97
--- NOTE | 2021-11-18 04:03 | PC.NURSE ---
Pt resting on stretcher BP osscilates between SBP 90s to low 100s. Will continue to monitor
[2021-11-18] MEDS: Pantoprazole Sodium 40 MG/10 ML VIAL IVPUSH (06:28)
[2021-11-18 07:01] LABS: Hematocrit 31.1 % (37.0-47.0); Hemoglobin 9.3 g/dl (12.0-16.0); Mean Corpuscular HGB Conc 29.9 g/dl (31.0-35.0); Mean Corpuscular Hemoglobin 27.6 pg (27.0-33.0); Mean Corpuscular Volume 92.3 fL (80.0-98.0); PLT CLUMP 1; Red Blood Count 3.37 X10*6/uL (4.20-5.50); Red Cell Distribution Width 15.6 % (11.0-16.0)
[2021-11-18 07:33] LABS: White Blood Count 5.6 X10*3/uL (4.8-10.8)
[2021-11-18 07:36] LABS: Platelet Count 127 X10*3/uL (160-400)
[2021-11-18 07:48] LABS: Glucose, Whole Blood 104 mg/dL (60-115)
[2021-11-18] MEDS: Loratadine 10 MG TABLET PO (08:34)
[2021-11-18] MEDS: Sevelamer Carbonate Tablet 800 MG TABLET PO ×2 (08:34→13:20)
[2021-11-18] MEDS: Folic Acid 1 MG TABLET PO (08:34)
[2021-11-18] MEDS: FLUoxetine HCl 20 MG CAPSULE PO (08:34)
[2021-11-18] MEDS: Gabapentin 300 MG CAPSULE PO ×2 (08:34→21:56)
--- NOTE | 2021-11-18 09:43 | HO.POSTANES ---
Post Anesthesia Evaluation Post Anesthesia Evaluation Vital Signs: Vital Signs Temp Pulse Resp BP Pulse Ox 11/18/21 07:48 80 11 L 84/53 L 94 11/18/21 04:29 97.6 F 82 18 96/57 L 96 11/18/21 00:02 98.3 F 79 14 109/61 97 11/17/21 22:10 83 15 106/62 94 Anesthesia: Monitored Mental Status: Awake Pain Control: Satisfactory Nausea/Vomiting: None Hydration: Adequate Anesthesia-Related Issues: No Anes. Related Issues
[2021-11-18] MEDS: Midodrine HCl 5 MG TABLET PO ×3 (11:50→17:22)
[2021-11-18] MEDS: Tamoxifen Citrate 10 MG TABLET PO ×2 (11:50→21:56)
--- NOTE | 2021-11-18 13:14 | P.CONAN_ITS ---
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) Breast calcification, left (Acute) Urinary and bowel incontinence (Acute) CAD (coronary artery disease) (Acute) Cardiomyopathy (Acute) Diverticulitis (Acute) Past Medical History Medical History (Updated 11/17/21 @ 15:05 by Vipin Gutierrez MD) Anemia Anxiety and depression Artery stenosis Arthritis Balance problem Breast calcification, left CAD (coronary artery disease) Cardiomyopathy CHF (congestive heart failure) COVID-19 vaccine series completed Diabetes mellitus Diabetic neuropathy Diverticulitis Ductal carcinoma in situ (DCIS) of left breast End stage renal disease ESRD (end stage renal disease) on dialysis [place] [facility] patient History of CVA (cerebrovascular accident) Hx of myocardial infarction Hypercholesteremia Hypertension Incontinence Knee pain, right Melena Peripheral vascular disease Prolonged QT interval Urinary and bowel incontinence Family History Family History Paternal Grandmother Breast cancer Family history of problems with anesthesia: No Surgical History Surgical History (Updated 11/16/21 @ 16:12 by Lee Ann Martinez RN) History of lumpectomy of left breast Hx of CABG Hx of colonoscopy Hx of esophagogastroduodenoscopy Hx of lumpectomy Hx of tubal ligation History of Problems with Anesthesia: No Social History Social History Household Members: Family and Children Household Members Other:: son Housing: House Are you a primary child care director to a significant other at home: No Do you presently have visiting nurse or other home services: No (currently one week in rehab) Alcohol intake: former Patient Tobacco Use Status: Former Tobacco user Quit Date: 5 years ago Tobacco use type: Cigarette Cigarette Packs Per Day: 1 Cigarettes Per Day: 20.0 Years Smoked: 20 Use of substances other than those prescribed or required for medical reasons: No Are you DNR?: No Advance Directives: Yes Advance Directives on File: Yes Advance Directives Date on File: 10/06/20 service: No Current occupational status: disabled Meds Allergies Allergy/AdvReac Type Severity Reaction Status Date / Time No Known Allergies Allergy Verified 11/16/21 16:09 Active Medications: Current Medications Acetaminophen (Acetaminophen 325 Mg Tablet) 650 mg PO Q6H PRN PRN Reason: Pain, Mild (Pain Scale 1-3) Atorvastatin Calcium (Atorvastatin Calcium 80 Mg Tablet) 80 mg PO BEDTIME [facility] Last Admin: 11/17/21 20:35 Dose: 80 mg Documented by: Dextrose (Dextrose 50 % 25 Gm/50 Ml Syringe) 25 gm IVPUSH Q15M PRN; Protocol PRN Reason: per Hypoglycemia Standing Ord. Ergocalciferol (Ergocalciferol (Vitamin D2) 1,250 Mcg Capsule) 1,250 mcg PO Sa@0900 [facility] Fluoxetine HCl (Fluoxetine Hcl 20 Mg Capsule) 20 mg PO DAILY [facility] Last Admin: 11/18/21 08:34 Dose: 20 mg Documented by: Folic Acid (Folic Acid 1 Mg Tablet) 1 mg PO DAILY [facility] Last Admin: 11/18/21 08:34 Dose: 1 mg Documented by: Gabapentin (Gabapentin 300 Mg Capsule) 300 mg PO TID [facility] Last Admin: 11/18/21 08:34 Dose: 300 mg Documented by: Glucose (Glucose Gel 15 Gm Gel..Gram.) 15 gm PO Q15M PRN; Protocol PRN Reason: per Hypoglycemia Standing Ord. Insulin Human Lispro (Insulin Lispro 100 Unit/Ml 3 Ml Vial) 0 unit SUBCUT QIDACHS [facility]; Protocol Last Admin: 11/18/21 08:26 Dose: Not Given Documented by: Loratadine (Loratadine 10 Mg Tablet) 10 mg PO DAILY [facility] Last Admin: 11/18/21 08:34 Dose: 10 mg Documented by: Melatonin (Melatonin 3 Mg Tablet) 6 mg PO BEDTIME PRN PRN Reason: Insomnia Midodrine (Midodrine Hcl 5 Mg Tablet) 5 mg PO TIDAC [facility] Last Admin: 11/18/21 11:50 Dose: 5 mg Documented by: Pantoprazole Sodium (Pantoprazole Sodium 40 Mg/10 Ml Vial) 40 mg IVPUSH BID@0630,1630 [facility] Last Admin: 11/18/21 06:28 Dose: 40 mg Documented by: Pharmacy Consult (Consult Rx Perform Med Rec) 1 each MISCELLANE ONCE PRN PRN Reason: Consult order Senna (Sennosides 8.6 Mg Tablet) 17.2 mg PO BEDTIME PRN PRN Reason: Constipation Sevelamer Carbonate (Sevelamer Carbonate Tablet 800 Mg Tablet) 800 mg PO BID@0800,1200 [facility] Last Admin: 11/18/21 08:34 Dose: 800 mg Documented by: Sevelamer Carbonate (Sevelamer Carbonate Tablet 800 Mg Tablet) 1,600 mg PO DAILY@1700 [facility] Last Admin: 11/17/21 18:57 Dose: Not Given Documented by: Sodium Chloride (0.9 % Sodium Chloride Flush 3 Ml Syringe) 3 ml IVFLUSH QSHIFT [facility] Last Admin: 11/18/21 08:26 Dose: Not Given Documented by: Tamoxifen Citrate (Tamoxifen Citrate 10 Mg Tablet) 10 mg PO BID [facility] Last Admin: 11/18/21 11:50 Dose: 10 mg Documented by: Home Medications Medication Instructions Recorded Confirmed Last Taken Type miscellaneous medical supply #1 08/02/20 09/20/21 Unknown History sevelamer carbonate 800 mg tablet 800 mg PO BID@0800,1200 tab 08/02/20 11/16/21 10/13/21 History (Markellvelperry) fluoxetine 20 mg capsule 1 cap PO DAILY 12/21/20 11/16/21 10/13/21 History sevelamer carbonate 800 mg tablet 1,600 mg PO DAILY@1700 10/05/21 11/16/21 10/12/21 History tamoxifen 10 mg tablet 10 mg PO BID 10/06/21 11/16/21 10/13/21 History insulin glargine 100 unit/mL 10 unit SUBCUT DAILY 10/14/21 11/16/21 Unknown History subcutaneous solution (Lantus U-100 Insulin) diclofenac sodium 1 % topical gel 1 g TOPICAL BID 11/16/21 11/16/21 Unknown History insulin lispro 100 unit/mL See Protocol SUBCUT QIDACHS 11/16/21 11/16/21 Unknown History subcutaneous pen Exam Exam Date and Time: November 18, 2021 1314 Height,Weight and Vital Signs: Height 5 ft 1 in Weight 126 lb 5.198 oz Last Vital Signs Temp 97.6 F 11/18/21 04:29 Pulse 80 11/18/21 07:48 Resp 11 L 11/18/21 07:48 BP 97/60 11/18/21 12:42 Pulse Ox 94 11/18/21 07:48 Pertinent Lab Results Pertinent Lab Results: Laboratory Tests 11/16/21 11/16/21 11/16/21 16:33 16:33 16:33 WBC 5.4 RBC 3.52 L Hgb 9.8 L Hct 32.6 L MCV 92.6 MCH 27.8 MCHC 30.1 L RDW 15.4 Plt Count 133 L D MPV 10.8 Immature Gran % (Auto) 1.1 H Neut % (Auto) 82.7 H Lymph % (Auto) 6.9 L Wake % (Auto) 8.2 Eos % (Auto) 0.7 Baso % (Auto) 0.4 Lymph # (Auto) 0.4 L Wake # (Auto) 0.4 Eos # (Auto) 0.0 Baso # (Auto) 0.0 Abs Immat Gran (auto) 0.06 H Absolute Neuts (auto) 4.4 Absolute Nucleated RBC 0.000 Nucleated RBC % (auto) 0.0 Smear Tech's Comments PT 12.2 INR 1.1 APTT 30.7 Sodium 136 Potassium 3.0 L Chloride 91 L Carbon Dioxide 29 Anion Gap 19 BUN 19 H Creatinine 3.02 H Estim Creat Clear Calc 13.0 Estimated GFR 15 POC Glucose Random Glucose 232 H Lactic Acid Calcium 8.4 D Magnesium 1.8 Total Bilirubin 1.3 H Direct Bilirubin 0.9 H AST 48 H ALT 18 Alkaline Phosphatase 557 H D Total Protein 7.5 Albumin 3.0 L Lipase 41 COVID-19 ([facility]) COVID-19 Clin Com 11/16/21 11/16/21 11/16/21 16:33 16:33 21:11 WBC RBC Hgb 8.8 L Hct 29.4 L MCV MCH MCHC RDW Plt Count MPV Immature Gran % (Auto) Neut % (Auto) Lymph % (Auto) Wake % (Auto) Eos % (Auto) Baso % (Auto) Lymph # (Auto) Wake # (Auto) Eos # (Auto) Baso # (Auto) Abs Immat Gran (auto) Absolute Neuts (auto) Absolute Nucleated RBC Nucleated RBC % (auto) Smear Tech's Comments PT INR APTT Sodium Potassium Chloride Carbon Dioxide Anion Gap BUN Creatinine Estim Creat Clear Calc Estimated GFR POC Glucose Random Glucose Lactic Acid 1.5 Calcium Magnesium Total Bilirubin Direct Bilirubin AST ALT Alkaline Phosphatase Total Protein Albumin Lipase COVID-19 ([facility]) Negative COVID-19 Clin Com See Note 11/17/21 11/17/21 11/17/21 04:40 07:05 07:30 WBC 4.3 L RBC 3.07 L Hgb 8.6 L Hct 28.2 L MCV 91.9 MCH 28.0 MCHC 30.5 L RDW 15.3 Plt Count 117 L MPV 11.5 Immature Gran % (Auto) 0.7 H Neut % (Auto) 66.2 Lymph % (Auto) 16.8 L Wake % (Auto) 14.0 H Eos % (Auto) 1.6 Baso % (Auto) 0.7 Lymph # (Auto) 0.7 L Wake # (Auto) 0.6 Eos # (Auto) 0.1 Baso # (Auto) 0.0 Abs Immat Gran (auto) 0.03 Absolute Neuts (auto) 2.8 Absolute Nucleated RBC 0.000 Nucleated RBC % (auto) 0.0 Smear Tech's Comments VERIFIED PT INR APTT Sodium Potassium Chloride Carbon Dioxide Anion Gap BUN Creatinine Estim Creat Clear Calc Estimated GFR POC Glucose 144 H 132 H Random Glucose Lactic Acid Calcium Magnesium Total Bilirubin Direct Bilirubin AST ALT Alkaline Phosphatase Total Protein Albumin Lipase COVID-19 ([facility]) COVID-19 Clin Com 11/17/21 11/17/21 11/17/21 10:20 10:59 11:54 WBC RBC Hgb 9.8 L Hct 32.1 L MCV MCH MCHC RDW Plt Count MPV Immature Gran % (Auto) Neut % (Auto) Lymph % (Auto) Wake % (Auto) Eos % (Auto) Baso % (Auto) Lymph # (Auto) Wake # (Auto) Eos # (Auto) Baso # (Auto) Abs Immat Gran (auto) Absolute Neuts (auto) Absolute Nucleated RBC Nucleated RBC % (auto) Smear Tech's Comments PT INR APTT Sodium 134 L Potassium 3.7 D Chloride 93 L Carbon Dioxide 26 Anion Gap 19 BUN 27 H Creatinine 4.16 H* Estim Creat Clear Calc 9.4 Estimated GFR 11 POC Glucose 133 H Random Glucose 149 H Lactic Acid Calcium 7.9 L Magnesium Total Bilirubin 0.7 Direct Bilirubin 0.4 AST 31 ALT 13 Alkaline Phosphatase 427 H D Total Protein 6.5 Albumin 2.6 L Lipase COVID-19 ([facility]) COVID-19 CUPS 11/17/21 11/17/21 11/17/21 12:01 17:38 20:20 WBC RBC Hgb Hct MCV MCH MCHC RDW Plt Count MPV Immature Gran % (Auto) Neut % (Auto) Lymph % (Auto) Wake % (Auto) Eos % (Auto) Baso % (Auto) Lymph # (Auto) Wake # (Auto) Eos # (Auto) Baso # (Auto) Abs Immat Gran (auto) Absolute Neuts (auto) Absolute Nucleated RBC Nucleated RBC % (auto) Smear Tech's Comments PT INR APTT Sodium Potassium Chloride Carbon Dioxide Anion Gap BUN Creatinine Estim Creat Clear Calc Estimated GFR POC Glucose 128 H 119 H 119 H Random Glucose Lactic Acid Calcium Magnesium Total Bilirubin Direct Bilirubin AST ALT Alkaline Phosphatase Total Protein Albumin Lipase COVID-19 ([facility]) COVID-19 CUPS 11/18/21 11/18/21 06:37 07:38 WBC 5.6 RBC 3.37 L Hgb 9.3 L Hct 31.1 L MCV 92.3 MCH 27.6 MCHC 29.9 L RDW 15.6 Plt Count 127 L MPV Not Reportable Immature Gran % (Auto) Neut % (Auto) Lymph % (Auto) Wake % (Auto) Eos % (Auto) Baso % (Auto) Lymph # (Auto) Wake # (Auto) Eos # (Auto) Baso # (Auto) Abs Immat Gran (auto) Absolute Neuts (auto) Absolute Nucleated RBC 0.000 Nucleated RBC % (auto) 0.0 Smear Tech's Comments PT INR APTT Sodium Potassium Chloride Carbon Dioxide Anion Gap BUN Creatinine Estim Creat Clear Calc Estimated GFR POC Glucose 104 Random Glucose Lactic Acid Calcium Magnesium Total Bilirubin Direct Bilirubin AST ALT Alkaline Phosphatase Total Protein Albumin Lipase COVID-19 (SIM[facility]) COVID-19 CUPS Airway Mallampati Class: II TM Dist: >3cm Denture: Upper and Lower Assessment and Plan Assessment Anesthesia Assessment: Anesthesia Plan Discussed and Chart Reviewed Final Anesthetic Review Family History of Problems with Anesthesia: No History of Problems with Anesthesia: No NPO: Yes ASA Class: III and Emergency Final Preanesthetic Review: No Changes in Pt Med Stat, Meds/Allgs Chart Reviewed, Consent Obtained/Reviewed and Anes Risks/Benef Reviewed Patient Risk: Intermediate Procedure Risk: Intermediate Anesthetic Plan Anesthetic Plan: MAC: and Agree w/ Assess. and Plan Disposition: Standard PACU
--- NOTE | 2021-11-18 13:21 | P.PNIM_ITS ---
Subjective Subjective Date of Service: 11/18/21 Interval History: seen and examined this morning; history obtained with the assistance of a spanish interpreter follow up for hematemesis s/p EGD showing keesha clay tear this morning reporting abdominal pain Review of Systems Review of Systems: Yes all other systems are reviewed and are negative Constitutional Constitutional: Denies chills and Denies fever(s) Cardiovascular Cardiovascular: Denies chest pain and Denies palpitations Gastrointestinal Gastrointestinal: Reports abdominal pain, Reports constipation, Denies nausea and Denies vomiting Endocrine Endocrine: Denies palpitations Physical Exam Vital Signs: Vital Signs: Last Vital Signs Temp 97.6 F 11/18/21 04:29 Pulse 80 11/18/21 07:48 Resp 11 L 11/18/21 07:48 BP 97/60 11/18/21 12:42 Pulse Ox 94 11/18/21 07:48 BMI result Body Mass Index 23.8 Const: General: cooperative, comfortable, alert and awake Orientation/cons ciousness: oriented to person and oriented to place Resp: Effort & Inspection: normal respiratory effort and able to speak in complete sentences Cardio: Rate: regular rate Heart sounds: S1 normal heart sound present and S2 normal heart sound present GI: Other: central abdominal tenderness; non-distended; +BS Palpation (GI): Soft to palpation Neuro: General: oriented to person and oriented to place Extrem: General: Yes no pedal edema Objective Data Active Medications Acetaminophen (Acetaminophen 325 Mg Tablet) 650 mg PO Q6H PRN PRN Reason: Pain, Mild (Pain Scale 1-3) Atorvastatin Calcium (Atorvastatin Calcium 80 Mg Tablet) 80 mg PO BEDTIME [facility] Last Admin: 11/17/21 20:35 Dose: 80 mg Documented by: EFFIE Dextrose (Dextrose 50 % 25 Gm/50 Ml Syringe) 25 gm IVPUSH Q15M PRN; Protocol PRN Reason: per Hypoglycemia Standing Ord. Ergocalciferol (Ergocalciferol (Vitamin D2) 1,250 Mcg Capsule) 1,250 mcg PO Sa@0900 [facility] Fluoxetine HCl (Fluoxetine Hcl 20 Mg Capsule) 20 mg PO DAILY [facility] Last Admin: 11/18/21 08:34 Dose: 20 mg Documented by: LINO Folic Acid (Folic Acid 1 Mg Tablet) 1 mg PO DAILY [facility] Last Admin: 11/18/21 08:34 Dose: 1 mg Documented by: LINO Gabapentin (Gabapentin 300 Mg Capsule) 300 mg PO TID [facility] Last Admin: 11/18/21 08:34 Dose: 300 mg Documented by: LINO Glucose (Glucose Gel 15 Gm Gel..Gram.) 15 gm PO Q15M PRN; Protocol PRN Reason: per Hypoglycemia Standing Ord. Insulin Human Lispro (Insulin Lispro 100 Unit/Ml 3 Ml Vial) 0 unit SUBCUT QIDACHS [facility]; Protocol Last Admin: 11/18/21 08:26 Dose: Not Given Documented by: LINO Non-Admin Reason: No Insulin Coverage Loratadine (Loratadine 10 Mg Tablet) 10 mg PO DAILY [facility] Last Admin: 11/18/21 08:34 Dose: 10 mg Documented by: LINO Melatonin (Melatonin 3 Mg Tablet) 6 mg PO BEDTIME PRN PRN Reason: Insomnia Midodrine (Midodrine Hcl 5 Mg Tablet) 5 mg PO TIDAC [facility] Last Admin: 11/18/21 13:21 Dose: 5 mg Documented by: LINO Pantoprazole Sodium (Pantoprazole Sodium 40 Mg/10 Ml Vial) 40 mg IVPUSH BID@0630,1630 [facility] Last Admin: 11/18/21 06:28 Dose: 40 mg Documented by: STEVE Pharmacy Consult (Consult Rx Perform Med Rec) 1 each MISCELLANE ONCE PRN PRN Reason: Consult order Senna (Sennosides 8.6 Mg Tablet) 17.2 mg PO BEDTIME PRN PRN Reason: Constipation Sevelamer Carbonate (Sevelamer Carbonate Tablet 800 Mg Tablet) 800 mg PO BID@0800,1200 [facility] Last Admin: 11/18/21 13:20 Dose: 800 mg Documented by: LINO Sevelamer Carbonate (Sevelamer Carbonate Tablet 800 Mg Tablet) 1,600 mg PO DAILY@1700 [facility] Last Admin: 11/17/21 18:57 Dose: Not Given Documented by: EFFIE Non-Admin Reason: NPO Sodium Chloride (0.9 % Sodium Chloride Flush 3 Ml Syringe) 3 ml IVFLUSH QSHIFT [facility] Last Admin: 11/18/21 08:26 Dose: Not Given Documented by: LINO Non-Admin Reason: IV Running Tamoxifen Citrate (Tamoxifen Citrate 10 Mg Tablet) 10 mg PO BID [facility] Last Admin: 11/18/21 11:50 Dose: 10 mg Documented by: LINO Labs CBC & Chem 7: 11/18/21 06:37 11/17/21 10:20 Labs: Laboratory Results - last 24 hr 11/17/21 11/17/21 11/18/21 17:38 20:20 06:37 MCV 92.3 MCH 27.6 MCHC 29.9 L RDW 15.6 Plt Count 127 L MPV Not Reportable Absolute Nucleated RBC 0.000 Nucleated RBC % (auto) 0.0 POC Glucose 119 H 119 H 11/18/21 07:38 MCV MCH MCHC RDW Plt Count MPV Absolute Nucleated RBC Nucleated RBC % (auto) POC Glucose 104 Assessment and Plan (1) Upper GI bleed: Status: Acute (2) ESRD (end stage renal disease) on dialysis: Status: Acute Plan 71-year-old female with a past medical history of hypertension, hyperlipidemia, diabetes, diabetic neuropathy, CAD status post CABG CHF, history of CVA, history of GI bleed, history of breast cancer, anxiety, depression, COVID-19 vaccinated, ESRD on hemodialysis, history of esophageal varices, gastritis, portal hypertensive gastropathy; presented to the hospital today with a chief complaint of hematemesis. 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 at that time paracentesis fluid showed portal hypertension as cause of ascites; no evidence of portal vein thrombosis, hepatitis serology and HIV were negative. MOISES pending will obtain paracentesis continue clear liqs, can advance as tolerated Upper GI bleed secondary to MW tear Initially presented with hematemesis. No further episodes since admission. Seen by GI, underwent EGD 11/17 showing esophageal varices, esophagitis, Xochitl-Clay tear possibly related to retained food, portal hypertensive gastropathy and enteropathy H&H stable d/c octreotide GI rec pantoprazole 40 for 3 months, then tirate down, sucralfate speech eval Hypotension seems chronic, was started on midodrine on previous admission Pt asymptomatic (reports chronic dizziness) Thrombocytopenia chronic. ? r/t liver disease History of diabetes: Insulin sliding scale History of cardiomyopathy: Hold carvedilol for now monitor BP closely ESRD on HD: Continue home sevelamer. Nephrology following History of hyperlipidemia: Continue home statin History of a neuropathy: Continue home gabapentin History of depression: Continue home fluoxetine h/o breast cancer continue tamoxifen DVT prophylaxis: SCD boots Code status: Full code Attending: dr. deleon dispo: to return back to [facility] when medically ready Patient requires ongoing inpatient hospitalization due to abdominal pain/ascites, need for paracentesis Quality Stroke Does the patient have a stroke diagnosis?: No VTE Prior VTE?: No VTE Risk Level:: Medical - moderate - high VTE Device Contraindication: N/A - Device Ordered VTE Drug Contraindication: Treatment Not Indicated
[2021-11-18 13:49] LABS: Alanine Aminotransferase 12 U/L (0-31); Albumin Level 2.4 g/dL (3.5-5.0); Alkaline Phosphatase 338 U/L (39-117); Aspartate Amino Transferase 25 U/L (5-31); Bilirubin Direct 0.4 mg/dL (0.0-0.5); Bilirubin Total 0.7 mg/dL (0.0-1.0); Lactate Dehydrogenase 295 U/L (122-220); Total Protein 5.8 g/dL (6.5-8.0)
[2021-11-18 13:56] LABS: Glucose, Whole Blood 106 mg/dL (60-115)
--- NOTE | 2021-11-18 14:14 | MHC.CLN ---
NUTRITION DIET=CLEAR LIQUIDS. PATIENT WITH ESRD AND RECEIVES HEMODIALYSIS. WHEN DIET RESUMES, RECOMMEND THERAPEUTIC DIET PER DIALYSIS PARAMETERS: 2 GRAM SODIUM, LOW POTASSIUM, LOW PHOSPHORUS.
--- NOTE | 2021-11-18 14:45 | MHC.SL.SWA ---
Speech Pathologist Impression: Pharyngosophageal phase dysphagia Dysphasia Diet Status: Upgrade when cleared from clear liquid diet Liquid Consistency and Strategies for Safe Swallow: Liquid Intake Recommendation: Thin Liquid Intake Strategies: Small Sips Solid Food Consistency: Dietary Recommendations: Chopped/Advanced (NDD3) Additional Modifications to Solid Foods: Patient is currently on clear liquid diet. Once patient is cleared for diet upgrade, recommend CHOPPED/ADVANCED solids (NDD3) with sauces/gravies and THIN liquids, pills WHOLE with LIQUID. Dentures must be in for PO. Recommend avoid tough consistencies, hard, difficult to chew solids. Recommend upright 90 degree position for PO intake and for at least 30 minutes afterwards. Updated MD, RN, RD via Cell[employer] Message. SALES PROMOTION REPRESENTATIVE will continue to follow. Oral Medication Intake: Whole with Liquid Please contact the pharmacy regarding appropriate crushable or liquid drug formulations that are available whenever modified delivery is recommended. Compensatory Strategies and Precautions to be Taken for Safe Swallow: Sitting Upright (90 deg) Small Bites and Sips Alternate Liquids/Solids Rate of Ingestion Change Avoid Specific Foods Supervision While Eating and Drinking for Safe Swallow: Total Supervision (1:1) Foods to Avoid: tough solids, hard to chew solids Swallowing Recommended Treatments: Compens. Strategy Educat. Recommendation for Speech: Inpatient Speech Therapy Comment: SALES PROMOTION REPRESENTATIVE will continue to follow. Frequency/Duration: M-F while inpatient Date Range for Service Req: Timeline to reassess: Manager Audit Clinican/Clinical Fellow: No Supervisory Statement: I have reviewed and agree with the student/clinical fellow's documentation: N/A Speech Language Pathologist: Nora Hickey M.A., CCC-SALES PROMOTION REPRESENTATIVE
[2021-11-18] MEDS: Lidocaine HCl 1 % MPF 5 ML VIAL SUBCUT (15:41)
[2021-11-18 15:58] LABS: Glucose, Whole Blood 109 mg/dL (60-115)
[2021-11-18 16:00] LABS: MN% 41.9 %; PMN% 58.1 %; WBC Peritoneal Fluid 0.451 X10*3/uL
[2021-11-18 16:03] LABS: RBC Peritoneal Fluid < 0.002 X10*6/uL
--- NOTE | 2021-11-18 16:24 | P.PNNP_ITS ---
Subjective Subjective Date of Service: 11/18/21 Interval history: Chart Reviewed. Events noted. s/p EGD today Physical Exam Vital Signs: Vital Signs: Last Vital Signs Temp 97.5 F 11/18/21 16:05 Pulse 82 11/18/21 16:05 Resp 20 11/18/21 16:05 BP 93/54 L 11/18/21 16:05 Pulse Ox 94 11/18/21 16:05 BMI result Body Mass Index 23.8 Const: General: cooperative and no acute distress O rientation/consciousness: patient oriented x3 HEENT: Head: Yes normocephalic and Yes atraumatic Neck: Neck: Yes no JVD Resp: Effort & Inspection: normal respiratory effort Auscultation: clear to auscultation bilaterally Cardio: Jugular venous distension: no JVD Rate: regular rate Rhythm: re gular rhythm Heart sounds: S1 normal heart sound present and S2 normal heart sound present GI: Auscultation: normal bowel sounds Neuro: General: patient oriented x3 and no focal motor deficits Extrem: General: Yes no clubbing, cyanosis or edema Objective Data Labs CBC & Chem 7: 11/18/21 06:37 11/17/21 10:20 Labs: Laboratory Results - last 24 hr 11/17/21 11/17/21 11/18/21 17:38 20:20 06:37 WBC 5.6 RBC 3.37 L Hgb 9.3 L Hct 31.1 L MCV 92.3 MCH 27.6 MCHC 29.9 L RDW 15.6 Plt Count 127 L MPV Not Reportable Absolute Nucleated RBC 0.000 Nucleated RBC % (auto) 0.0 POC Glucose 119 H 119 H Total Bilirubin Direct Bilirubin AST ALT Alkaline Phosphatase Lactate Dehydrogenase Total Protein Albumin Peritoneal WBC Peritoneal RBC 11/18/21 11/18/21 11/18/21 07:07 07:38 13:51 WBC RBC Hgb Hct MCV MCH MCHC RDW Plt Count MPV Absolute Nucleated RBC Nucleated RBC % (auto) POC Glucose 104 106 Total Bilirubin 0.7 Direct Bilirubin 0.4 AST 25 ALT 12 Alkaline Phosphatase 338 H D Lactate Dehydrogenase 295 H Total Protein 5.8 L Albumin 2.4 L Peritoneal WBC Peritoneal RBC 11/18/21 11/18/21 15:24 15:54 WBC RBC Hgb Hct MCV MCH MCHC RDW Plt Count MPV Absolute Nucleated RBC Nucleated RBC % (auto) POC Glucose 109 Total Bilirubin Direct Bilirubin AST ALT Alkaline Phosphatase Lactate Dehydrogenase Total Protein Albumin Peritoneal WBC 0.451 Peritoneal RBC < 0.002 Procedures Date of Service Date of Service: 11/18/21 Assessment & Plan Assessment and plan (1) ESRD (end stage renal disease) on dialysis: Status: Acute Plan 71-year-old female with a past medical history of hyperlipidemia, diabetes, CAD, CHF, ESRD on hemodialysis, history of CVA, peripheral vascular disease, anxiety, depression, arthritis, history of GI bleed, anemia presented to the hospital with hematemesis during last 10 minutes of outpatietn HD session. 1. End-stage renal disease. HD MWF schedule. She required EGD and diagnostics today. OK to hold HD today. I have scheduled for Sunday morning then resume outpatient schedule. 2. Anemia.? EPO 20,000 3x weekly; EGD during this admission per GI 3.ESRD-MBD: continue outpatient phosphate binders. Time Spent With Patient Time: Total time spent is greater than 50% in coordination of care (as documented) at patient's floor/unit and/or counseling patient: Progress Note: Quality Stroke Does the patient have a stroke diagnosis?: No
[2021-11-18] MEDS: Sevelamer Carbonate Tablet 800 MG TABLET 1600 MG PO (17:22)
[2021-11-18] MEDS: 0.9 % Sodium Chloride Flush 3 ML SYRINGE IVFLUSH (17:23)
[2021-11-18 17:34] LABS: BF Shift QC OK YES; Lymphocyte Peritoneal Fl 2 %; Monocytes Peritoneal Fl 41 %; Neutrophils Peritoneal Fluid 57 %
[2021-11-18 19:52] LABS: Glucose, Whole Blood 202 mg/dL (60-115)
[2021-11-18] MEDS: Atorvastatin Calcium 80 MG TABLET PO (21:56)
[2021-11-18] MEDS: Insulin Lispro 100 UNIT/ML 3 ML VIAL SUBCUT (21:56)
[2021-11-19] VITALS (7 sets, daily range): BP systolic 82–102; BP diastolic 50–69; PULSE 66–95; RESP 14–20; TEMP 36.6–37.8; O2SAT 90–97
[2021-11-19] MEDS: 0.9 % Sodium Chloride Flush 3 ML SYRINGE IVFLUSH ×3 (00:45→18:39)
[2021-11-19] MEDS: Omeprazole 40 MG CAPSULE.DR PO (06:13)
[2021-11-19 07:06] LABS: Hematocrit 33.6 % (37.0-47.0); Mean Corpuscular HGB Conc 29.8 g/dl (31.0-35.0); Mean Corpuscular Hemoglobin 27.4 pg (27.0-33.0); Mean Corpuscular Volume 92.1 fL (80.0-98.0); Mean Platelet Volume 11.2 fL (9.4-12.3); Platelet Count 142 X10*3/uL (160-400); Red Blood Count 3.65 X10*6/uL (4.20-5.50); Red Cell Distribution Width 15.7 % (11.0-16.0); White Blood Count 5.5 X10*3/uL (4.8-10.8)
[2021-11-19 07:29] LABS: Anion Gap 19 (12-20); Blood Urea Nitrogen 43 mg/dL (9-16); Calcium 7.3 mg/dL (8.4-10.2); Carbon Dioxide 24 mmol/L (22-29); Chloride 93 mmol/L (96-108); Creatinine Clr Calc Pharmacy 6.3; Estimated Glomerular Filt Rate 7; Glucose Random 166 mg/dL (60-115); Potassium 4.1 mmol/L (3.3-5.1); Sodium 132 mmol/L (135-145)
[2021-11-19 07:58] LABS: Glucose, Whole Blood 170 mg/dL (60-115)
[2021-11-19] MEDS: Ergocalciferol (Vitamin D2) 1,250 MCG CAPSULE 1250 MCG PO (08:56)
[2021-11-19] MEDS: Insulin Lispro 100 UNIT/ML 3 ML VIAL SUBCUT ×3 (08:56→20:46)
[2021-11-19] MEDS: Midodrine HCl 5 MG TABLET PO ×2 (08:56→14:07)
[2021-11-19] MEDS: Loratadine 10 MG TABLET PO (08:56)
[2021-11-19] MEDS: Tamoxifen Citrate 10 MG TABLET PO ×2 (08:56→20:22)
[2021-11-19] MEDS: Gabapentin 300 MG CAPSULE PO ×3 (08:56→20:22)
[2021-11-19] MEDS: Folic Acid 1 MG TABLET PO (08:56)
[2021-11-19] MEDS: FLUoxetine HCl 20 MG CAPSULE PO (08:56)
[2021-11-19] MEDS: Sevelamer Carbonate Tablet 800 MG TABLET PO (09:00)
[2021-11-19 12:07] LABS: Glucose, Whole Blood 89 mg/dL (60-115)
--- NOTE | 2021-11-19 12:50 | P.PNIM_ITS ---
Subjective Subjective Date of Service: 11/19/21 Review of Systems Follow up hemetemesis No further episodes sitting up in bed, had dialysis Physical Exam Vital Signs: Vital Signs: Last Vital Signs Temp 97.8 F 11/19/21 11:53 Pulse 82 11/19/21 11:53 Resp 16 11/19/21 11:53 BP 102/69 11/19/21 11:53 Pulse Ox 97 11/19/21 11:53 BMI result Body Mass Index 23.8 Appearing in no acute distress lung sounds are clear to auscultation heart regular rate rhythm, clear S1, S2 positive bowel sounds, abdomen is soft neuro patient is alert x3, no focal deficits Objective Data Active Medications Acetaminophen (Acetaminophen 325 Mg Tablet) 650 mg PO Q6H PRN PRN Reason: Pain, Mild (Pain Scale 1-3) Atorvastatin Calcium (Atorvastatin Calcium 80 Mg Tablet) 80 mg PO BEDTIME [facility] Last Admin: 11/18/21 21:56 Dose: 80 mg Documented by: JOSEFA Dextrose (Dextrose 50 % 25 Gm/50 Ml Syringe) 25 gm IVPUSH Q15M PRN; Protocol PRN Reason: per Hypoglycemia Standing Ord. Ergocalciferol (Ergocalciferol (Vitamin D2) 1,250 Mcg Capsule) 1,250 mcg PO Sa@0900 [facility] Last Admin: 11/19/21 08:56 Dose: 1,250 mcg Documented by: YAMILEX Fluoxetine HCl (Fluoxetine Hcl 20 Mg Capsule) 20 mg PO DAILY [facility] Last Admin: 11/19/21 08:56 Dose: 20 mg Documented by: YAMILEX Folic Acid (Folic Acid 1 Mg Tablet) 1 mg PO DAILY [facility] Last Admin: 11/19/21 08:56 Dose: 1 mg Documented by: YAMILEX Gabapentin (Gabapentin 300 Mg Capsule) 300 mg PO TID [facility] Last Admin: 11/19/21 08:56 Dose: 300 mg Documented by: YAMILEX Glucose (Glucose Gel 15 Gm Gel..Gram.) 15 gm PO Q15M PRN; Protocol PRN Reason: per Hypoglycemia Standing Ord. Insulin Human Lispro (Insulin Lispro 100 Unit/Ml 3 Ml Vial) 0 unit SUBCUT QIDACHS [facility]; Protocol Last Admin: 11/19/21 08:56 Dose: 2 unit Documented by: YAMILEX Loratadine (Loratadine 10 Mg Tablet) 10 mg PO DAILY [facility] Last Admin: 11/19/21 08:56 Dose: 10 mg Documented by: YAMILEX Melatonin (Melatonin 3 Mg Tablet) 6 mg PO BEDTIME PRN PRN Reason: Insomnia Midodrine (Midodrine Hcl 5 Mg Tablet) 5 mg PO TIDAC [facility] Last Admin: 11/19/21 08:56 Dose: 5 mg Documented by: YAMILEX Omeprazole (Omeprazole 40 Mg Capsule.Dr) 40 mg PO DAILY@0630 [facility] Last Admin: 11/19/21 06:13 Dose: 40 mg Documented by: RIP Pharmacy Consult (Consult Rx Perform Med Rec) 1 each MISCELLANE ONCE PRN PRN Reason: Consult order Senna (Sennosides 8.6 Mg Tablet) 17.2 mg PO BEDTIME PRN PRN Reason: Constipation Sevelamer Carbonate (Sevelamer Carbonate Tablet 800 Mg Tablet) 800 mg PO BID@ 0800,1200 [facility] Last Admin: 11/18/21 13:20 Dose: 800 mg Documented by: LINO Sevelamer Carbonate (Sevelamer Carbonate Tablet 800 Mg Tablet) 1,600 mg PO DAILY@1700 [facility] Last Admin: 11/18/21 17:22 Dose: 1,600 mg Documented by: JOSEFA Sodium Chloride (0.9 % Sodium Chloride Flush 3 Ml Syringe) 3 ml IVFLUSH QSHIFT [facility] Last Admin: 11/19/21 00:45 Dose: 3 ml Documented by: RIP Tamoxifen Citrate (Tamoxifen Citrate 10 Mg Tablet) 10 mg PO BID [facility] Last Admin: 11/19/21 08:56 Dose: 10 mg Documented by: YAMILEX Labs CBC & Chem 7: 11/19/21 06:24 11/19/21 06:24 Labs: Laboratory Results - last 24 hr 11/18/21 11/18/21 11/18/21 07:07 13:51 15:24 MCV MCH MCHC RDW Plt Count MPV Absolute Nucleated RBC Nucleated RBC % (auto) Anion Gap Estim Creat Clear Calc Estimated GFR POC Glucose 106 Random Glucose Calcium Total Bilirubin 0.7 Direct Bilirubin 0.4 AST 25 ALT 12 Alkaline Phosphatase 338 H D Lactate Dehydrogenase 295 H Total Protein 5.8 L Albumin 2.4 L Peritoneal WBC 0.451 Peritoneal RBC < 0.002 Periton Neutrophils 57 Periton Lymphocytes 2 Peritoneal Monocytes 41 11/18/21 11/18/21 11/19/21 15:54 19:47 06:24 MCV 92.1 MCH 27.4 MCHC 29.8 L RDW 15.7 Plt Count 142 L MPV 11.2 Absolute Nucleated RBC 0.000 Nucleated RBC % (auto) 0.0 Anion Gap Estim Creat Clear Calc Estimated GFR POC Glucose 109 202 H Random Glucose Calcium Total Bilirubin Direct Bilirubin AST ALT Alkaline Phosphatase Lactate Dehydrogenase Total Protein Albumin Peritoneal WBC Peritoneal RBC Periton Neutrophils Periton Lymphocytes Peritoneal Monocytes 11/19/21 11/19/21 11/19/21 06:24 07:43 11:55 MCV MCH MCHC RDW Plt Count MPV Absolute Nucleated RBC Nucleated RBC % (auto) Anion Gap 19 Estim Creat Clear Calc 6.3 Estimated GFR 7 POC Glucose 170 H 89 Random Glucose 166 H Calcium 7.3 L D Total Bilirubin Direct Bilirubin AST ALT Alkaline Phosphatase Lactate Dehydrogenase Total Protein Albumin Peritoneal WBC Peritoneal RBC Periton Neutrophils Periton Lymphocytes Peritoneal Monocytes Microbiology Microbiology Results: Microbiology 11/18/21 15:24 Gram Stain - Final Paracentesis Fluid Anaerobic Culture - Preliminary No growth to date. Body Fluid Culture - Preliminary No growth to date. Assessment and Plan (1) Upper GI bleed: Status: Acute (2) ESRD (end stage renal disease) on dialysis: Status: Acute Plan 71-year-old female with a past medical history of hypertension, hyperlipidemia, diabetes, diabetic neuropathy, CAD status post CABG CHF, history of CVA, history of GI bleed, history of breast cancer, anxiety, depression, COVID-19 vaccinated, ESRD on hemodialysis, history of esophageal varices, gastritis, portal hypertensive gastropathy; presented to the hospital today with a chief complaint of hematemesis. 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 at that time paracentesis fluid showed portal hypertension as cause of ascites; no evidence of portal vein thrombosis, hepatitis serology and HIV were negative. MOISES pending paracentesis 4Liters neg fluid cx continue clear liqs, can advance as tolerated Upper GI bleed secondary to MW tear Initially presented with hematemesis. No further episodes since admission. Seen by GI, underwent EGD 11/17 showing esophageal varices, esophagitis, Xochitl-Clay tear possibly related to retained food, portal hypertensive gastr opathy and enteropathy H&H stable octreotide stopped GI rec pantoprazole for 3 months, then tirate down, sucralfate speech eval rec chopped diet Hypotension. Stable seems chronic, was started on midodrine on previous admission Pt asymptomatic (reports chronic dizziness) Thrombocytopenia chronic. ? r/t liver disease History of diabetes: Insulin sliding scale History of cardiomyopathy: Hold carvedilol for now monitor BP closely ESRD on HD: Continue home sevelamer. Nephrology following History of hyperlipidemia: Continue home statin History of a neuropathy: Continue home gabapentin History of depression: Continue home fluoxetine h/o breast cancer continue tamoxifen DVT prophylaxis: SCD boots Code status: Full code Attending: Dr. Smith dispo: to return back to [facility] when medically ready Patient requires ongoing inpatient hospitalization due to abdominal pa in/ascites, need for paracentesis Quality Stroke Does the patient have a stroke diagnosis?: No VTE Prior VTE?: No VTE Risk Level:: Medical - moderate - high VTE Device Contraindication: N/A - Device Ordered VTE Drug Contraindication: Treatment Not Indicated
[2021-11-19 16:16] LABS: Glucose, Whole Blood 158 mg/dL (60-115)
--- NOTE | 2021-11-19 16:41 | PM.PNNEP ---
Subjective Subjective Date of Service: 11/19/21 Interval history: Chart Reviewed. Events noted. Physical Exam Vital Signs: Vital Signs: Last Vital Signs Temp 100.1 F 11/19/21 20:00 Pulse 95 11/19/21 20:00 Resp 14 11/19/21 20:00 BP 99/64 11/19/21 20:00 Pulse Ox 96 11/19/21 20:00 BMI result Body Mass Index 23.8 Const: General: cooperative and no acute distress Orientation/consciousness: patient oriented x3 HEENT: Head: Yes normocephalic Neck: Neck: Yes no JVD Resp: Auscultation: clear to auscultation bilaterally Cardio: Jugular venous distension: no JVD Rate: regular rate Rhythm: regular rhythm Heart sounds: S1 normal heart sound present and S2 normal heart sound present GI: Auscultation: normal bowel sounds Neuro: General: patient oriented x3 Extrem: General: Yes no clubbing, cyanosis or edema Objective Data Labs CBC & Chem 7: 11/19/21 06:24 11/19/21 06:24 Labs: Laboratory Results - last 24 hr 11/19/21 11/19/21 11/19/21 06:24 06:24 07:43 WBC 5.5 RBC 3.65 L Hgb 10.0 L Hct 33.6 L MCV 92.1 MCH 27.4 MCHC 29.8 L RDW 15.7 Plt Count 142 L MPV 11.2 Absolute Nucleated RBC 0.000 Nucleated RBC % (auto) 0.0 Sodium 132 L Potassium 4.1 Chloride 93 L Carbon Dioxide 24 Anion Gap 19 BUN 43 H D Creatinine 6.27 H* Estim Creat Clear Calc 6.3 Estimated GFR 7 POC Glucose 170 H Random Glucose 166 H Calcium 7.3 L D 11/19/21 11/19/21 11/19/21 11:55 16:11 20:00 WBC RBC Hgb Hct MCV MCH MCHC RDW Plt Count MPV Absolute Nucleated RBC Nucleated RBC % (auto) Sodium Potassium Chloride Carbon Dioxide Anion Gap BUN Creatinine Estim Creat Clear Calc Estimated GFR POC Glucose 89 158 H 205 H Random Glucose Calcium Microbiology Microbiology Results: Microbiology 11/18/21 15:24 Paracentesis Fluid Gram Stain - Final 11/18/21 15:24 Paracentesis Fluid Anaerobic Culture - Preliminary No growth to date. 11/18/21 15:24 Paracentesis Fluid Body Fluid Culture - Preliminary No growth to date. Procedures Date of Service Date of Service: 11/19/21 Assessment & Plan Assessment and plan (1) ESRD (end stage renal disease) on dialysis: Status: Acute Plan 71-year-old female with a past medical history of hyperlipidemia, diabetes, CAD, CHF, ESRD on hemodialysis, history of CVA, peripheral vascular disease, anxiety, depression, arthritis, history of GI bleed, anemia presented to the hospital with hematemesis during last 10 minutes of outpatient HD session. 1. End-stage renal disease. HD MWF schedule. She required EGD and diagnostics Sunday so HD was held. S/P HD Sunday morning with no complications. 2. Anemia.? EPO 20,000 3x weekly; EGD during this admission per GI 3.ESRD-MBD: continue outpatient phosphate binders. Time Spent With Patient Time: Total time spent is greater than 50% in coordination of care (as documented) at patient's floor/unit and/or counseling patient: Progress Note: Quality Stroke Does the patient have a stroke diagnosis?: No
[2021-11-19] MEDS: Sevelamer Carbonate Tablet 800 MG TABLET 1600 MG PO (18:38)
[2021-11-19] MEDS: Atorvastatin Calcium 80 MG TABLET PO (20:22)
[2021-11-19 20:35] LABS: Glucose, Whole Blood 205 mg/dL (60-115)
[2021-11-20] VITALS (7 sets, daily range): BP systolic 78–103; BP diastolic 50–60; PULSE 80–93; RESP 12–19; TEMP 36.4–37.8; O2SAT 94–98
[2021-11-20] MEDS: 0.9 % Sodium Chloride Flush 3 ML SYRINGE IVFLUSH ×4 (00:12→21:38)
[2021-11-20] MEDS: Omeprazole 40 MG CAPSULE.DR PO (06:23)
[2021-11-20 07:39] LABS: Glucose, Whole Blood 159 mg/dL (60-115)
[2021-11-20] MEDS: FLUoxetine HCl 20 MG CAPSULE PO (08:06)
[2021-11-20] MEDS: Folic Acid 1 MG TABLET PO (08:06)
[2021-11-20] MEDS: Tamoxifen Citrate 10 MG TABLET PO ×2 (08:06→21:38)
[2021-11-20] MEDS: Loratadine 10 MG TABLET PO (08:06)
[2021-11-20] MEDS: Midodrine HCl 5 MG TABLET PO ×3 (08:06→17:13)
[2021-11-20] MEDS: Insulin Lispro 100 UNIT/ML 3 ML VIAL SUBCUT ×4 (08:06→21:37)
[2021-11-20] MEDS: Gabapentin 300 MG CAPSULE PO ×3 (08:06→21:38)
[2021-11-20] MEDS: Sevelamer Carbonate Tablet 800 MG TABLET PO ×2 (08:07→12:29)
[2021-11-20] MEDS: 0.9 % Sodium Chloride 1,000 ML 500 ML IVCONT (08:07)
--- NOTE | 2021-11-20 09:12 | P.PNIM_ITS ---
Subjective Subjective Date of Service: 11/20/21 Review of Systems Follow up hemetemesis No further episodes sitting up in bed Physical Exam Vital Signs: Vital Signs: Last Vital Signs Temp 99.4 F 11/20/21 07:25 Pulse 91 11/20/21 07:25 Resp 12 11/20/21 07:25 BP 78/50 L 11/20/21 07:25 Pulse Ox 97 11/20/21 07:25 BMI result Body Mass Index 23.8 Appearing in no acute distress lung sounds are clear to auscultation heart regular rate rhythm, clear S1, S2 positive bowel sounds, abdomen is soft, nontender neuro patient is alert x3, no focal deficits Objective Data Active Medications Acetaminophen (Acetaminophen 325 Mg Tablet) 650 mg PO Q6H PRN PRN Reason: Pain, Mild (Pain Scale 1-3) Atorvastatin Calcium (Atorvastatin Calcium 80 Mg Tablet) 80 mg PO BEDTIME [facility] Last Admin: 11/19/21 20:22 Dose: 80 mg Documented by: SHIRLEY Dextrose (Dextrose 50 % 25 Gm/50 Ml Syringe) 25 gm IVPUSH Q15M PRN; Protocol PRN Reason: per Hypoglycemia Standing Ord. Ergocalciferol (Ergocalciferol (Vitamin D2) 1,250 Mcg Capsule) 1,250 mcg PO Sa@0900 [facility] Last Admin: 11/19/21 08:56 Dose: 1,250 mcg Documented by: YAMILEX Fluoxetine HCl (Fluoxetine Hcl 20 Mg Capsule) 20 mg PO DAILY [facility] Last Admin: 11/20/21 08:06 Dose: 20 mg Documented by: NILSON Folic Acid (Folic Acid 1 Mg Tablet) 1 mg PO DAILY [facility] Last Admin: 11/20/21 08:06 Dose: 1 mg Documented by: NILSON Gabapentin (Gabapentin 300 Mg Capsule) 300 mg PO TID [facility] Last Admin: 11/20/21 08:06 Dose: 300 mg Documented by: NILSON Glucose (Glucose Gel 15 Gm Gel..Gram.) 15 gm PO Q15M PRN; Protocol PRN Reason: per Hypoglycemia Standing Ord. Sodium Chloride (Ns) 1,000 mls @ 500 mls/hr IVCONT .Q2H [facility] Stop: 11/20/21 09:44 Last Admin: 11/20/21 08:07 Dose: 500 mls/hr Documented by: NILSON Insulin Human Lispro (Insulin Lispro 100 Unit/Ml 3 Ml Vial) 0 unit SUBCUT QIDACHS [facility]; Protocol Last Admin: 11/20/21 08:06 Dose: 2 unit Documented by: NILSON Loratadine (Loratadine 10 Mg Tablet) 10 mg PO DAILY [facility] Last Admin: 11/20/21 08:06 Dose: 10 mg Documented by: NILSON Melatonin (Melatonin 3 Mg Tablet) 6 mg PO BEDTIME PRN PRN Reason: Insomnia Midodrine (Midodrine Hcl 5 Mg Tablet) 5 mg PO TIDAC [facility] Last Admin: 11/20/21 08:06 Dose: 5 mg Documented by: NILSON Omeprazole (Omeprazole 40 Mg Capsule.Dr) 40 mg PO DAILY@0630 [facility] Last Admin: 11/20/21 06:23 Dose: 40 mg Documented by: RIP Pharmacy Consult (Consult Rx Perform Med Rec) 1 each MISCELLANE ONCE PRN PRN Reason: Consult order Senna (Sennosides 8.6 Mg Tablet) 17.2 mg PO BEDTIME PRN PRN Reason: Constipation Sevelamer Carbonate (Sevelamer Carbonate Tablet 800 Mg Tablet) 800 mg PO BID@0800,1200 [facility] Last Admin: 11/20/21 08:07 Dose: 800 mg Documented by: NILSON Sevelamer Carbonate (Sevelamer Carbonate Tablet 800 Mg Tablet) 1,600 mg PO DAILY@1700 [facility] Last Admin: 11/19/21 18:38 Dose: 1,600 mg Documented by: SHIRLEY Sodium Chloride (0.9 % Sodium Chloride Flush 3 Ml Syringe) 3 ml IVFLUSH QSHIFT [facility] Last Admin: 11/20/21 08:07 Dose: 3 ml Documented by: NILSON Tamoxifen Citrate (Tamoxifen Citrate 10 Mg Tablet) 10 mg PO BID [facility] Last Admin: 11/20/21 08:06 Dose: 10 mg Documented by: NILSON Labs CBC & Chem 7: 11/19/21 06:24 11/19/21 06:24 Labs: Laboratory Results - last 24 hr 11/19/21 11/19/21 11/19/21 11:55 16:11 20:00 POC Glucose 89 158 H 205 H 11/20/21 07:27 POC Glucose 159 H Microbiology Microbiology Results: Microbiology 11/18/21 15:24 Gram Stain - Final Paracentesis Fluid Anaerobic Culture - Preliminary No growth to date. Body Fluid Culture - Preliminary No growth to date. Assessment and Plan (1) Upper GI bleed: Status: Acute (2) ESRD (end stage renal disease) on dialysis: Status: Acute Plan 71-year-old female with a past medical history of hypertension, hyperlipidemia, diabetes, diabetic neuropathy, CAD status post CABG CHF, history of CVA, history of GI bleed, history of breast cancer, anxiety, depression, COVID-19 vaccinated, ESRD on hemodialysis, history of esophageal varices, gastritis, portal hypertensive gastropathy; presented to the hospital today with a chief complaint of hematemesis. 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 at that time paracentesis fluid showed portal hypertension as cause of ascites; no evidence of portal vein thrombosis, hepatitis serology and HIV were negative. MOISES pending paracentesis 4Liters neg fluid cx continue clear liqs, can advance as tolerated Upper GI bleed secondary to MW tear Initially presented with hematemesis. No further episodes since admission. Seen by GI, underwent EGD 11/17 showing esophageal varices, esophagitis, Xochitl-Clay tear possibly related to retained food, portal hypertensive gastropathy and enteropathy H&H stable octreotide stopped GI rec pantoprazole for 3 months, then tirate down, sucralfate speech eval rec chopped diet Hypotension. Stable seems chronic, was started on midodrine on previous admission Pt asymptomatic (reports chronic dizziness) Thrombocytopenia chronic. ? r/t liver disease History of diabetes: Insulin sliding scale History of cardiomyopathy: Hold carvedilol for now monitor BP closely ESRD on HD: Continue home sevelamer. Nephrology following History of hyperlipidemia: Continue home statin History of a neuropathy: Continue home gabapentin History of depression: Continue home fluoxetine h/o breast cancer continue tamoxifen DVT prophylaxis: SCD boots Code status: Full code Attending: Dr. Smith dispo: to return back to [facility] likely in am Patient requires ongoing inpatient hospitalization due to abdominal pain/a scites, need for paracentesis Quality Stroke Does the patient have a stroke diagnosis?: No VTE Prior VTE?: No VTE Risk Level:: Medical - moderate - high VTE Device Contraindication: N/A - Device Ordered VTE Drug Contraindication: Treatment Not Indicated
[2021-11-20 11:33] LABS: Glucose, Whole Blood 202 mg/dL (60-115)
--- NOTE | 2021-11-20 16:33 | PM.PNNEP ---
Subjective Subjective Date of Service: 11/20/21 Principal diagnosis: ESRD on HD Interval history: Chart Reviewed. Events noted Physical Exam Vital Signs: Vital Signs: Last Vital Signs Temp 100.0 F 11/20/21 19:39 Pulse 81 11/20/21 19:39 Resp 19 11/20/21 19:39 BP 103/57 L 11/20/21 19:39 Pulse Ox 95 11/20/21 19:39 BMI result Body Mass Index 23.8 Const: General: cooperative, comfortable and no acute distress Orientation/consciousness: patient oriented x3 HEENT: Head: Yes normocephalic Neck: Neck: Yes no JVD Resp: Auscultation: clear to auscultation bilaterally Cardio: Jugular venous distension: no JVD Rate: regular rate Rhythm: regular rhythm Heart sounds: S1 normal heart sound present and S2 normal heart sound present GI: Auscultation: normal bowel sounds Neuro: General: patient oriented x3 Extrem: General: Yes no clubbing, cyanosis or edema Objective Data Labs CBC & Chem 7: 11/19/21 06:24 11/19/21 06:24 Labs: Laboratory Results - last 24 hr 11/20/21 11/20/21 11/20/21 07:27 11:29 16:02 POC Glucose 159 H 202 H 188 H 11/20/21 20:53 POC Glucose 182 H Microbiology Microbiology Results: Microbiology 11/18/21 15:24 Paracentesis Fluid Gram Stain - Final 11/18/21 15:24 Paracentesis Fluid Anaerobic Culture - Preliminary No growth to date. 11/18/21 15:24 Paracentesis Fluid Body Fluid Culture - Final No growth after 2 days Procedures Date of Service Date of Service: 11/20/21 Assessment & Plan Assessment and plan (1) ESRD (end stage renal disease) on dialysis: Status: Acute Assessment and Plan: 71-year-old female with a past medical history of hyperlipidemia, diabetes, CAD, CHF, ESRD on hemodialysis, history of CVA, peripheral vascular disease, anxiety, depression, arthritis, history of GI bleed, anemia presented to the hospital with hematemesis during last 10 minutes of outpatient HD session. 1. End-stage renal disease. HD MWF schedule. She required EGD and diagnostics Sunday so HD was held. S/P HD Sunday with no complications.K bath per protocol. 2. Anemia.? EPO 20,000 3x weekly; EGD during this admission per GI 3.ESRD-MBD: continue outpatient phosphate binders. Time Spent With Patient Time: Total time spent is greater than 50% in coordination of care (as documented) at patient's floor/unit and/or counseling patient: Progress Note: Quality Stroke Does the patient have a stroke diagnosis?: No
[2021-11-20 16:50] LABS: Glucose, Whole Blood 188 mg/dL (60-115)
[2021-11-20] MEDS: Sevelamer Carbonate Tablet 800 MG TABLET 1600 MG PO (17:14)
[2021-11-20 21:06] LABS: Glucose, Whole Blood 182 mg/dL (60-115)
[2021-11-20] MEDS: Atorvastatin Calcium 80 MG TABLET PO (21:38)
[2021-11-21 03:56] VITALS: BP 108/56; PULSE 90; RESP 20; TEMP 37.3; O2SAT 97
[2021-11-21] MEDS: Omeprazole 40 MG CAPSULE.DR PO (06:09)
[2021-11-21 07:59] LABS: Glucose, Whole Blood 205 mg/dL (60-115)
[2021-11-21 08:00] VITALS: BP 90/52; PULSE 94; RESP 16; TEMP 37.6; O2SAT 94
[2021-11-21] MEDS: Insulin Lispro 100 UNIT/ML 3 ML VIAL SUBCUT ×2 (08:14→16:31)
[2021-11-21] MEDS: Tamoxifen Citrate 10 MG TABLET PO (08:15)
[2021-11-21] MEDS: 0.9 % Sodium Chloride Flush 3 ML SYRINGE IVFLUSH ×2 (08:15→16:31)
[2021-11-21] MEDS: Sevelamer Carbonate Tablet 800 MG TABLET PO ×2 (08:15→12:34)
[2021-11-21] MEDS: Midodrine HCl 5 MG TABLET PO ×3 (08:15→16:31)
[2021-11-21] MEDS: FLUoxetine HCl 20 MG CAPSULE PO (08:15)
[2021-11-21] MEDS: Gabapentin 300 MG CAPSULE PO ×2 (08:16→16:31)
[2021-11-21] MEDS: Folic Acid 1 MG TABLET PO (08:16)
[2021-11-21] MEDS: Loratadine 10 MG TABLET PO (08:16)
[2021-11-21 09:35] LABS: Albumin Peritoneal Fluid 1.4; LDH Peritoneal Fluid 180
--- NOTE | 2021-11-21 10:40 | MHC.SLORD ---
Speech Language Pathology Order Status: Patient sleeping when [employer] arrived this morning- No trials administered. Evaluated 11/18 and recommended chopped/advanced (NDD3) solids and thin liquids- Plan to f/u 1-2x times.
--- NOTE | 2021-11-21 11:55 | PM.PNNEP ---
Subjective Subjective Date of Service: 11/21/21 Principal diagnosis: ESRD on HD Interval history: Events noted All recent data reviewed. D/W HD RN Physical Exam Vital Signs: Vital Signs: Last Vital Signs Temp 99.6 F 11/21/21 08:00 Pulse 94 11/21/21 08:00 Resp 16 11/21/21 08:00 BP 90/52 L 11/21/21 08:00 Pulse Ox 94 11/21/21 08:00 BMI result Body Mass Index 23.8 Const: General: no acute distress Orientation/consciousness: patient oriented x3 Eyes: EOM: EOMs intact bilaterally Resp: Auscultation: diminished lung sounds Cardio: Rate: regular rate GI: Palpation (GI): Soft to palpation Neuro: General: patient oriented x3 and moves all extremities Objective Data Labs CBC & Chem 7: 11/19/21 06:24 11/19/21 06:24 Labs: Laboratory Results - last 24 hr 11/18/21 11/20/21 11/20/21 Unknown 16:02 20:53 POC Glucose 188 H 182 H Peritoneal Tot Protein 3.0 Peritoneal Albumin 1.4 Peritoneal LDH 180 11/21/21 07:55 POC Glucose 205 H Peritoneal Tot Protein Peritoneal Albumin Peritoneal LDH Microbiology Microbiology Results: Microbiology 11/18/21 15:24 Paracentesis Fluid Gram Stain - Final 11/18/21 15:24 Paracentesis Fluid Anaerobic Culture - Preliminary No growth to date. 11/18/21 15:24 Paracentesis Fluid Body Fluid Culture - Final No growth after 2 days Procedures Date of Service Date of Service: 11/21/21 Assessment & Plan Assessment and plan (1) ESRD (end stage renal disease) on dialysis: Status: Acute Assessment and Plan: Usually gets HD on MWF For HD this morning Continued volume optimization on HD Renal Diet; Phos binders with meals Continue rest of current management Shall arrange outpatient HD follow up when D/Sharath Time Spent With Patient Time: Total time spent is greater than 50% in coordination of care (as documented) at patient's floor/unit and/or counseling patient: Progress Note: Quality Stroke Does the patient have a stroke diagnosis?: No
[2021-11-21 12:06] VITALS: BMI 23.8
--- NOTE | 2021-11-21 12:13 | MHC.CLN ---
RE: CONSULT PT WITH INCREASED NUTRITION RISK R/T PRESSURE INJURIES PO INTAKE 75% AVG DIET RX: 1800DM CHOPPED-RECOMMEND ADDING 2GM NA LOW K+, LOW PHOS R/T ESRD ON HD AND FLUID RESTRICTION R/T LOW SERUM NA RECOMMEND ADDING ENSURE MAX BID TO INCREASE PO PROTEIN AND PROMOTE WOUND HEALING SUPP TO PROVIDE 300KCALS, 60G PROTEIN, 600ML FREE WATER (FOR FLUID RESTRICTION; 11OZ CARTON =300ML FREE WATER) MONITOR PO INTAKE AND SUPPLEMENT ACCEPTANCE CLOSELY SEE ALSO FULL CLINICAL NUTRITION ASSESSMENT
--- NOTE | 2021-11-21 12:29 | MHC.CM.PN ---
Addendum entered by Miri Ragsdale 11/21/21 14:11: A VM MESSAGE WAS LEFT FOR PTS DAUGHTER/HCP, ZACH SALEEM ([phone]) INFORMING HER OF DC AND PTS MEDICARE RIGHTS COPY OF IMM TO BE MAILED Original Note: PER MD ROUNDS, PT LIKELY TO BE MEDICALLY CLEARED TODAY TO RETURN TO LTC AT [facility] UPDATES SENT TO SNF PT WILL RETURN TO LTC AT [facility] PENDING NEGATIVE COVID RESULTS BLS TRANSPORT
[2021-11-21 12:34] LABS: Glucose, Whole Blood 110 mg/dL (60-115)
--- NOTE | 2021-11-21 13:30 | P.DS_ITS ---
DS: Providers Provider Date of Service: 11/21/21 Date of admission: 11/16/21 21:53 Primary care physician: Uzair Huffman MD Consults: 11/16/21 19:53 Consult to Gastroenterology Stat Consulting Provider: Landon Clay Reason for consultation: UGIB Has provider been notified: Yes 11/16/21 22:04 Consult to Nephrology Routine Consulting Provider: Uche Harrington Reason for consultation: ESRD 11/18/21 19:20 Consult to Wound Care Routine Consulting Provider: Ashley Garcia Reason for consultation: pressure injury to coccyx and right heel Attending physician on discharge: Freddie Morillo Discharging clinician: Sabrina Carter DS: Diagnosis Discharge Diagnosis (1) ESRD (end stage renal disease) on dialysis: Status: Acute DS: Summary Hospital Course Hospital Course: HP as per amiloring provider 71-year-old female with a past medical history of hypertension, hyperlipidemia, diabetes, diabetic neuropathy, CAD status post CABG CHF, history of CVA, history of GI bleed, history of breast cancer, anxiety, depression, COVID-19 vaccinated, ESRD on hemodialysis, history of esophageal varices, gastritis, portal hypertensive gastropathy; presented to the hospital today with a chief complaint of hematemesis.? Per EMS, ER staff patient reportedly had episode of hematemesis vitals she was almost finishing that dialysis session at the dialysis center today hence she was sent to the ER for further evaluation.?Patient mentioned that she had at least 4 episodes of vomiting but mentions brown colored vomitus.? Denies any bright red blood.?Denies any lightheadedness dizziness.?Denies any chest pain or palpitations.?Denies any nausea vomiting or abdominal discomfort.?Review of all other systems is negative except mentioned above ER course: Per ER team patient was reportedly had hematemesis; but H&H stable; vitals stable; patient did not have any further episodes after she came to the ER.? Discussed with Gastroenterology who suggested to keep the patient NPO, start octreotide drip, admitted to medicine service . Abdominal pain. Resolved CT showing ascites; ? 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 at that time paracentesis fluid showed portal hypertension as cause of ascites; no evidence of portal vein thrombosis, hepatitis serology and HIV were negative. MOISES pending paracentesis 4Liters neg fluid cx Upper GI bleed secondary to MW tear. Resolved Initially presented with hematemesis. No further episodes since admission. Seen by GI, underwent EGD 11/17 showing? esophageal varices, esophagitis, Xochitl-Clay tear possibly related to retained food, portal hypertensive gastropathy and enteropathy H&H stable octreotide stopped GI rec pantoprazole for 3 months, then tirate down, sucralfate speech eval rec chopped diet Hypotension. Stable seems chronic, was started on midodrine on previous admission Pt asymptomatic (reports chronic dizziness) Thrombocytopenia chronic. r/t liver disease History of diabetes Insulin sliding scale continue home medications History of cardiomyopathy: carvedilol ? ESRD on HD: Continue home sevelamer.? Nephrology following History of hyperlipidemia: Continue home statin History of a neuropathy: Continue home gabapentin History of depression: Continue home fluoxetine h/o breast cancer continue tamoxifen Time Spent with Patient Time attestation: Total time spent providing and/or coordinating discharge services: Discharge coordination time: Greater than 30 minutes Quality: Safe Use of Opioids Does Pt have an Active Cancer Diagnosis on the Problem List?: No Quality: Stroke Does the patient have a stroke diagnosis?: No Physical Exam Vital Signs: Vital Signs: Last Vital Signs Temp 99.6 F 11/21/21 08:00 Pulse 94 11/21/21 08:00 Resp 16 11/21/21 08:00 BP 90/52 L 11/21/21 08:00 Pulse Ox 94 11/21/21 08:00 BMI result Body Mass Index 23.8 Appearing in no acute distress head is normocephalic atraumatic eyes pupils are PERRLA sclera is anicteric mouth throat mucous membranes are intact and moist neck is supple no lymphadenopathy, no JVD noted lung sounds are clear to auscultation heart regular rate rhythm, clear S1, S2 positive bowel sounds, abdomen is soft, nontender neuro patient is alert x3, no focal deficits DS: Data Data Completed and Pending Completed studies during hospitalization [Text1]: Procedures Drainage of Peritoneal Cavity, Percutaneous Approach (10/05/21) Excision of Stomach, Pylorus, Via Natural or Artificial Opening Endoscopic, Diagnostic (10/05/21) Introduction of Mineral-based Topical Hemostatic Agent into Upper GI, Via Natura l or Artificial Opening Endoscopic, [employer] 6 (10/05/21) Occlusion of Esophageal Vein with Extraluminal Device, Via Natural or Artificial Opening Endoscopic (10/05/21) Performance of Urinary Filtration, Intermittent, Less than 6 Hours Per Day (10/14/21) Transfusion of Nonautologous Red Blood Cells into Peripheral Vein, Percutaneous Approach (10/05/21) Pending studies at discharge: Pending at discharge 11/18/21 14:41 Cytology [PTH] Urgent Labs on day of discharge: Laboratory Results - last 24 hr 11/18/21 11/20/21 11/20/21 Unknown 16:02 20:53 POC Glucose 188 H 182 H Peritoneal Tot Protein 3.0 Peritoneal Albumin 1.4 Peritoneal LDH 180 11/21/21 11/21/21 07:55 12:31 POC Glucose 205 H 110 Peritoneal Tot Protein Peritoneal Albumin Peritoneal LDH Preliminary micro results at discharge 11/18/21 15:24 Anaerobic Culture - Preliminary Paracentesis Fluid No growth to date. Discharge Plan Discharge Anticipated Discharge Date/Time: 11/21/21 13:13 Patient Disposition: Xfer Inpatient Rehab Fac Discharge Diagnosis: End-stage renal disease on dialysis hematemesis Referrals: Uzair Huffman MD [Primary Care Provider] - 1 Week Discharge Medications: Continued (DME) LIGHTWEIGHT MANUAL WHEELCHAIR See Rx Instructions .Route .MEDSUPPLY Qty: 1 0RF Rx Instructions: As directed (DME) insulin syringe-needle U-100 [BD Insulin Syringe Ultra-Fine] 0.5 mL 31 gauge x 5/16 syringe See Rx Instructions .ROUTE .MEDSUPPLY Qty: 100 0RF Rx Instructions: TID (DME) incontinence pad, liner, disp Pad See Rx Instructions .ROUTE .MEDSUPPLY Qty: 100 12RF Rx Instructions: As directed (DME) diaper,brief,adult,disposable Misc See Rx Instructions .ROUTE .MEDSUPPLY Qty: 100 12RF Rx Instructions: As directed (DME) pen needle, diabetic [BD Anna 2nd Gen Pen Needle] 32 gauge x 5/32 needle See Rx Instructions .ROUTE .MEDSUPPLY Qty: 100 12RF Rx Instructions: As directed use with insulin 3x day atorvastatin 80 mg tablet 80 mg PO BEDTIME Qty: 90 5RF gabapentin 300 mg capsule 300 mg PO TID Qty: 90 2RF loratadine 10 mg tablet 10 mg PO DAILY 90 Days Qty: 90 1RF ergocalciferol (vitamin D2) 1,250 mcg (50,000 unit) capsule 1,250 mcg PO QWEEK Qty: 4 0RF Rx Instructions: needs an appointment for refills folic acid 1 mg Tablet 1 mg PO DAILY Qty: 90 6RF fluoxetine 20 mg capsule 1 cap PO DAILY 0RF sevelamer carbonate 800 mg Tablet 1,600 mg PO DAILY@1700 0RF Rx Instructions: must administer with a meal/food tamoxifen 10 mg tablet 10 mg PO BID 0RF omeprazole 40 mg Capsule,Delayed Release(Dr/Ec) 40 mg PO BID@0630,1630 Qty: 60 0RF carvedilol 3.125 mg Tablet 3.125 mg PO MoWeFr@1645 Qty: 20 0RF carvedilol 3.125 mg Tablet 3.125 mg PO SuTuThSa@0900,2100 Qty: 60 0RF Lantus U-100 Insulin 100 unit/mL Solution 10 unit SUBCUT DAILY 0RF midodrine 5 mg Tablet 5 mg PO TIDAC Qty: 90 0RF oxycodone-acetaminophen [Percocet] 5-325 mg tablet 1 tab PO Q8H PRN (Reason: pain) 3 Days Qty: 9 0RF insulin lispro 100 unit/mL insulin pen See Protocol sliding scale dose subcut QIDACHS 0RF Protocol: Insulin Correction Scale Less than or equal to 110 ---- Give (units): 0 111 to 150 Give (units): 0 151 to 200 Give (units): 2 201 to 250 Give (units): 4 251 to 300 Give (units): 6 301 to 350 Give (units): 8 Greater than 350 Give (units): 10 Call MD if Blood Glucose > : 350 diclofenac sodium 1 % gel 1 g topical BID 0RF sevelamer carbonate [Renvela] 800 mg tablet 800 mg PO BID@0800,1200 0RF Rx Instructions: must administer with a meal/food (DME) miscellaneous medical supply Unit See Rx Instructions .ROUTE .MEDSUPPLY Qty: 1 0RF Rx Instructions: one touch verio test strip 3 times daily As directed (DME) blood-glucose meter [FreeStyle Lite Meter] Kit See Rx Instructions .ROUTE .MEDSUPPLY Qty: 1 0RF Rx Instructions: As directed Diet: advance to usual diet Activity on Discharge: As tolerated Stand Alone Forms: Patient Portal Discharge page Care Plan Goals: complete resolution of symptoms Health Concerns: end-stage renal disease on dialysis hematemesis Plan of Treatment: follow-up with primary care provider as needed Last dialysis today 11/21/2021 Assessment: see discharge summary
--- NOTE | 2021-11-21 13:55 | HO.WOUNDCONS ---
History of Present Illness Data of Consult Service Date: 11/21/21 Requesting physician: Ellie Mora Primary Care Provider: Uzair Huffman MD HPI Reason for consult: coccyx and heal ulcer [id number]: 71-year-old female with extensive medical history here with hematemesis and recent EGD for concern of esophageal varicose sees for which she has history. She is on HD for ESRD. She has a history of breast cancer, CAD, CABG, CHF, renal failure and diverticulitis. She does not walk in the home. We are asked to view the right lateral foot wound. A coccygeal ulcer is also reported. Review of Systems Review of Systems: Yes all other systems are reviewed and are negative [facility], [facility] Medical History (Updated 11/21/21 @ 14:39 by WES Jackson) Anemia Anxiety and depression Artery stenosis Arthritis Balance problem Breast calcification, left CAD (coronary artery disease) Cardiomyopathy CHF (congestive heart failure) COVID-19 vaccine series completed Diabetes mellitus Diabetic neuropathy Diverticulitis Ductal carcinoma in situ (DCIS) of left breast End stage renal disease ESRD (end stage renal disease) on dialysis [place] Hemodialysis patient History of CVA (cerebrovascular accident) Hx of myocardial infarction Hypercholesteremia Hypertension Incontinence Knee pain, right Melena Peripheral vascular disease Prolonged QT interval Urinary and bowel incontinence Family History Paternal Grandmother Breast cancer Surgical History (Updated 11/16/21 @ 16:12 by Lee Ann Martinez RN) History of lumpectomy of left breast Hx of CABG Hx of colonoscopy Hx of esophagogastroduodenoscopy Hx of lumpectomy Hx of tubal ligation Social History Household Members: Family Household Members Other:: son Housing: House Are you a primary career developer to a significant other at home: No Do you presently have visiting nurse or other home services: No (currently one week in rehab) Alcohol intake: former Patient Tobacco Use Status: Former Tobacco user Quit Date: 5 years ago Tobacco use type: Cigarette Cigarette Packs Per Day: 1 Cigarettes Per Day: 20.0 Years Smoked: 20 Advance Directives Date on File: 10/06/20 service: No Current occupational status: disabled Meds Allergies Allergy/AdvReac Type Severity Reaction Status Date / Time No Known Allergies Allergy Verified 11/16/21 16:09 Active Medications: Current Medications Acetaminophen (Acetaminophen 325 Mg Tablet) 650 mg PO Q6H PRN PRN Reason: Pain, Mild (Pain Scale 1-3) Atorvastatin Calcium (Atorvastatin Calcium 80 Mg Tablet) 80 mg PO BEDTIME [facility] Last Admin: 11/20/21 21:38 Dose: 80 mg Documented by: Dextrose (Dextrose 50 % 25 Gm/50 Ml Syringe) 25 gm IVPUSH Q15M PRN; Protocol PRN Reason: per Hypoglycemia Standing Ord. Ergocalciferol (Ergocalciferol (Vitamin D2) 1,250 Mcg Capsule) 1,250 mcg PO Sa@0900 [facility] Last Admin: 11/19/21 08:56 Dose: 1,250 mcg Documented by: Fluoxetine HCl (Fluoxetine Hcl 20 Mg Capsule) 20 mg PO DAILY [facility] Last Admin: 11/21/21 08:15 Dose: 20 mg Documented by: Folic Acid (Folic Acid 1 Mg Tablet) 1 mg PO DAILY [facility] Last Admin: 11/21/21 08:16 Dose: 1 mg Documented by: Gabapentin (Gabapentin 300 Mg Capsule) 300 mg PO TID [facility] Last Admin: 11/21/21 08:16 Dose: 300 mg Documented by: Glucose (Glucose Gel 15 Gm Gel..Gram.) 15 gm PO Q15M PRN; Protocol PRN Reason: per Hypoglycemia Standing Ord. Insulin Human Lispro (Insulin Lispro 100 Unit/Ml 3 Ml Vial) 0 unit SUBCUT QIDACHS [facility]; Protocol Last Admin: 11/21/21 12:33 Dose: Not Given Documented by: Loratadine (Loratadine 10 Mg Tablet) 10 mg PO DAILY [facility] Last Admin: 11/21/21 08:16 Dose: 10 mg Documented by: Melatonin (Melatonin 3 Mg Tablet) 6 mg PO BEDTIME PRN PRN Reason: Insomnia Midodrine (Midodrine Hcl 5 Mg Tablet) 5 mg PO TIDAC [facility] Last Admin: 11/21/21 12:34 Dose: 5 mg Documented by: Omeprazole (Omeprazole 40 Mg Capsule.) 40 mg PO DAILY@0630 [facility] Last Admin: 11/21/21 06:09 Dose: 40 mg Documented by: Pharmacy Consult (Consult Rx Perform Med Rec) 1 each MISCELLANE ONCE PRN PRN Reason: Consult order Senna (Sennosides 8.6 Mg Tablet) 17.2 mg PO BEDTIME PRN PRN Reason: Constipation Sevelamer Carbonate (Sevelamer Carbonate Tablet 800 Mg Tablet) 800 mg PO BID@0800,1200 [facility] Last Admin: 11/21/21 12:34 Dose: 800 mg Documented by: Sevelamer Carbonate (Sevelamer Carbonate Tablet 800 Mg Tablet) 1,600 mg PO DAILY@1700 [facility] Last Admin: 11/20/21 17:14 Dose: 1,600 mg Documented by: Sodium Chloride (0.9 % Sodium Chloride Flush 3 Ml Syringe) 3 ml IVFLUSH QSHIFT [facility] Last Admin: 11/21/21 08:15 Dose: 3 ml Documented by: Tamoxifen Citrate (Tamoxifen Citrate 10 Mg Tablet) 10 mg PO BID [facility] Last Admin: 11/21/21 08:15 Dose: 10 mg Documented by: Home Medications Medication Instructions Recorded Confirmed Last Taken Type miscellaneous medical supply #1 08/02/20 09/20/21 Unknown History sevelamer carbonate 800 mg tablet 800 mg PO BID@0800,1200 tab 08/02/20 11/16/21 10/13/21 History (Renvelperry) fluoxetine 20 mg capsule 1 cap PO DAILY 12/21/20 11/16/21 10/13/21 History sevelamer carbonate 800 mg tablet 1,600 mg PO DAILY@1700 10/05/21 11/16/21 10/12/21 History tamoxifen 10 mg tablet 10 mg PO BID 10/06/21 11/16/21 10/13/21 History insulin glargine 100 unit/mL 10 unit SUBCUT DAILY 10/14/21 11/16/21 Unknown History subcutaneous solution (Lantus U-100 Insulin) diclofenac sodium 1 % topical gel 1 g TOPICAL BID 11/16/21 11/16/21 Unknown History insulin lispro 100 unit/mL See Protocol SUBCUT QIDACHS 11/16/21 11/16/21 Unknown History subcutaneous pen Physical Exam Vital Signs and Narrative: Vital Signs: Last Vital Signs Temp 99.6 F 11/21/21 08:00 Pulse 94 11/21/21 08:00 Resp 16 11/21/21 08:00 BP 90/52 L 11/21/21 08:00 Pulse Ox 94 11/21/21 08:00 BMI result Body Mass Index 23.8 The patient is actively being dialyzed at the time of the examination. With the assistance of the HD nurse, the patient is rolled onto the left side at a 45 degree angle to allow for visualization of the coccyx. The nurse has care of the lines to and from dialyzer at all times. No skin breakdown is identified on the coccyx. The right ischium is clear. It appears that the left ischium is clear. Full blanching is identified to the best that we can evaluate of coccygeal tissue.. I do not see any wounds in this vicinity. She does however have a right lateral calcaneus wound which is likely from pressuere, looking macerated and at risk for ulceration. Results Labs CBC and Chem 7: 11/19/21 06:24 11/19/21 06:24 Labs: Laboratory Results - last 24 hr 11/18/21 11/20/21 11/20/21 Unknown 16:02 20:53 POC Glucose 188 H 182 H Peritoneal Tot Protein 3.0 Peritoneal Albumin 1.4 Peritoneal LDH 180 11/21/21 11/21/21 07:55 12:31 POC Glucose 205 H 110 Peritoneal Tot Protein Peritoneal Albumin Peritoneal LDH Assessment and Plan (1) Pressure ulcer of right heel, unstageable: Status: Acute Plan This is a 71-year-old female with end-stage renal disease on hemodialysis, extensive cardiac history admitted for concern of GI bleed in the setting of breast cancer history. Her mobility is clearly affected and she is nonambulatory. History of stroke does not clarify weakness. Suspect that this right lateral calcaneus wound has been present for several months based on its appearance with darkened tissue and suspected deep tissue involvement. This is likely not hospital acquired based on history of impairment and extent of wound. Recommend continued offloading and support of the right lower extremity with floating heels and frequent positional change. Suggest Betadine may be a better option to discourage ulceration of this macerated area rather than occlusive foam dressing.
[2021-11-21 16:15] LABS: Glucose, Whole Blood 157 mg/dL (60-115)
[2021-11-21] MEDS: Sevelamer Carbonate Tablet 800 MG TABLET 1600 MG PO (16:31)
--- NOTE | 2021-11-21 16:43 | MHC.CM.PN ---
Called Serology for covid test result. t/w was instructed that the nurse needs to address collection so that result can be posted. No result yet. RN and Pens And Pencils Repairer have been instructed to send negative result with the patient. If the result is + she can not dc. BLS scheduled for 5pm
[2021-11-21 16:46] LABS: COVID-19 Test Negative (Negative)
[2021-11-22 15:06] LABS: Mitochondrial Antibodies NEGATIVE (NEGATIVE)
[2021-11-23 13:56] LABS: Smooth Muscle Antibody <20 U (<20)
== END 2021-11-21 20:05 | DRG 368 ==
LOC: HO.ED 20:28 → HO.EDOVER 22:03 → HO.IMC 11-18 08:19
PROVIDERS: Internal Medicine Gastroenterology; Physician Assistant; Physician Assistant Medical; Radiology Diagnostic Radiology; Admitting Provider Hospitalist; Emergency Provider Emergency Medicine Emergency Medical Services; PCP Internal Medicine; Visit Provider Nurse Practitioner Acute Care
PROC: 0DJ08ZZ Inspection of Upper Intestinal Tract, Via Natural or Artificial Opening Endoscopic (ICD-10-PCS; CPT 43235; principal; 2021-11-17 15:20)
PROC: 0W9G3ZZ Drainage of Peritoneal Cavity, Percutaneous Approach (ICD-10-PCS; principal; 2021-11-18 14:30)
DX: K22.6 Gastro-esophageal laceration-hemorrhage syndrome (principal); N18.6 End stage renal disease; I13.2 Hypertensive heart and chronic kidney disease with heart failure and with stage 5 chronic kidney disease, or end stage renal disease; K76.6 Portal hypertension; I42.9 Cardiomyopathy, unspecified; I85.01 Esophageal varices with bleeding; K20.91 Esophagitis, unspecified with bleeding; I25.10 Atherosclerotic heart disease of native coronary artery without angina pectoris; K44.9 Diaphragmatic hernia without obstruction or gangrene; K31.89 Other diseases of stomach and duodenum; E11.22 Type 2 diabetes mellitus with diabetic chronic kidney disease; Z99.2 Dependence on renal dialysis; I25.2 Old myocardial infarction; Z86.73 Personal history of transient ischemic attack (TIA), and cerebral infarction without residual deficits; E78.5 Hyperlipidemia, unspecified; F41.9 Anxiety disorder, unspecified; F32.A Depression, unspecified; D63.1 Anemia in chronic kidney disease; N25.0 Renal osteodystrophy; I95.9 Hypotension, unspecified; E11.40 Type 2 diabetes mellitus with diabetic neuropathy, unspecified; D69.59 Other secondary thrombocytopenia; C50.919 Malignant neoplasm of unspecified site of unspecified female breast; L89.610 Pressure ulcer of right heel, unstageable; Z95.1 Presence of aortocoronary bypass graft; Z20.822 Contact with and (suspected) exposure to COVID-19; Z87.891 Personal history of nicotine dependence; Z79.4 Long term (current) use of insulin; Z79.818 Long term (current) use of other agents affecting estrogen receptors and estrogen levels; Z79.899 Other long term (current) drug therapy
CPT/HCPCS: 36415; 49083; 74176; 80048; 80076; 82042; 82947; 83605; 83615; 83690; 83735; 84157; 85014; 85018; 85025; 85027; 85610; 85730; 86015; 86255; 86256; 87070; 87073; 87205; 87635; 88112; 89051; 90999; 92610; 93005; 96365; 96375; 99285; J0885; J2354; J2405

== ENCOUNTER 2021-11-21 09:19 | Outpatient (REF) | payer MEDICARE, MEDICAID, SELFPAY | END 2021-11-21 09:20 | disposition home or self-care (01) | LOC: HO.MMNH1L 09:19 | PROVIDERS: Visit Provider Family Medicine | DX: Z13.89 Encounter for screening for other disorder (principal) ==

== ENCOUNTER 2021-12-08 10:56 | Outpatient (REF) | payer MEDICARE, MEDICAID, SELFPAY ==
[2021-12-06 06:31] LABS: MANUAL DIFF FLAG NO
[2021-12-06 06:47] LABS: Eosinophils Absolute Auto 0.1 X10*3/uL (0.0-0.4); Eosinophils Percent Auto 1.9 % (0-4); Hematocrit 31.6 % (37.0-47.0); Hemoglobin 9.2 g/dl (12.0-16.0); Imm Gran Abs Auto 0.01 X10*3/uL (0.00-0.03); Imm Gran Pct Auto 0.2 % (0.0-0.4); Lymphocytes Absolute Auto 0.6 X10*3/uL (1.2-4.9); Lymphocytes Percent Auto 14.8 % (20-40); Mean Corpuscular HGB Conc 29.1 g/dl (31.0-35.0); Mean Corpuscular Hemoglobin 27.4 pg (27.0-33.0); Mean Platelet Volume 11.7 fL (9.4-12.3); Monocytes Absolute Auto 0.5 X10*3/uL (0.1-1.2); Monocytes Percent Auto 10.9 % (2-11); Neutrophils Absolute Auto 2.9 x10*3/uL (2.0-8.3); Neutrophils Percent Auto 71.2 % (45-73); Red Blood Count 3.36 X10*6/uL (4.20-5.50); Red Cell Distribution Width 17.6 % (11.0-16.0); White Blood Count 4.1 X10*3/uL (4.8-10.8)
[2021-12-06 06:52] LABS: Platelet Count 95 X10*3/uL (160-400)
[2021-12-06 07:46] LABS: Anion Gap 17 (12-20); Blood Urea Nitrogen 40 mg/dL (9-16); Carbon Dioxide 28 mmol/L (22-29); Chloride 97 mmol/L (96-108); Estimated Glomerular Filt Rate 9; Glucose Random 225 mg/dL (60-115); Potassium 3.1 mmol/L (3.3-5.1); Sodium 139 mmol/L (135-145)
== END 2021-12-08 10:57 | disposition home or self-care (01) ==
LOC: HO.MMNH2L 10:56
PROVIDERS: Visit Provider Family Medicine
DX: Z13.89 Encounter for screening for other disorder (principal)
CPT/HCPCS: 36415; 80048; 85025

== ENCOUNTER 2021-12-08 11:18 | Outpatient (REF) | payer MEDICARE, MEDICAID, SELFPAY ==
[2021-11-28 06:47] LABS: MANUAL DIFF FLAG NO
[2021-11-28 06:53] LABS: Basophils Percent Auto 0.8 % (0-2); Eosinophils Absolute Auto 0.1 X10*3/uL (0.0-0.4); Eosinophils Percent Auto 2.7 % (0-4); Hematocrit 31.2 % (37.0-47.0); Hemoglobin 9.3 g/dl (12.0-16.0); Imm Gran Abs Auto 0.01 X10*3/uL (0.00-0.03); Imm Gran Pct Auto 0.3 % (0.0-0.4); Lymphocytes Absolute Auto 0.7 X10*3/uL (1.2-4.9); Lymphocytes Percent Auto 18.7 % (20-40); Mean Corpuscular HGB Conc 29.8 g/dl (31.0-35.0); Mean Corpuscular Hemoglobin 27.3 pg (27.0-33.0); Mean Corpuscular Volume 91.5 fL (80.0-98.0); Mean Platelet Volume 11.7 fL (9.4-12.3); Monocytes Absolute Auto 0.5 X10*3/uL (0.1-1.2); Monocytes Percent Auto 12.3 % (2-11); Neutrophils Absolute Auto 2.4 x10*3/uL (2.0-8.3); Neutrophils Percent Auto 65.2 % (45-73); Platelet Count 100 X10*3/uL (160-400); Red Blood Count 3.41 X10*6/uL (4.20-5.50); Red Cell Distribution Width 16.6 % (11.0-16.0); White Blood Count 3.7 X10*3/uL (4.8-10.8)
[2021-11-28 07:24] LABS: Anion Gap 17 (12-20); Blood Urea Nitrogen 61 mg/dL (9-16); Calcium 7.6 mg/dL (8.4-10.2); Carbon Dioxide 28 mmol/L (22-29); Chloride 93 mmol/L (96-108); Estimated Glomerular Filt Rate 6; Glucose Random 136 mg/dL (60-115); Potassium 3.2 mmol/L (3.3-5.1); Sodium 135 mmol/L (135-145)
== END 2021-12-08 11:19 | disposition home or self-care (01) ==
LOC: HO.MMNH2L 11:18
PROVIDERS: Visit Provider Family Medicine
DX: E11.9 Type 2 diabetes mellitus without complications (principal); I10 Essential (primary) hypertension
CPT/HCPCS: 36415; 80048; 85025

== ENCOUNTER 2021-12-12 06:34 | Outpatient (REF) | payer MEDICARE, MEDICAID, SELFPAY ==
[2021-12-12 06:32] LABS: MANUAL DIFF FLAG NO
[2021-12-12 07:18] LABS: Basophils Percent Auto 1.2 % (0-2); Eosinophils Absolute Auto 0.1 X10*3/uL (0.0-0.4); Eosinophils Percent Auto 2.6 % (0-4); Hematocrit 34.4 % (37.0-47.0); Imm Gran Abs Auto 0.01 X10*3/uL (0.00-0.03); Imm Gran Pct Auto 0.3 % (0.0-0.4); Lymphocytes Absolute Auto 0.8 X10*3/uL (1.2-4.9); Lymphocytes Percent Auto 21.6 % (20-40); Mean Corpuscular HGB Conc 29.1 g/dl (31.0-35.0); Mean Platelet Volume 11.6 fL (9.4-12.3); Monocytes Absolute Auto 0.4 X10*3/uL (0.1-1.2); Monocytes Percent Auto 12.1 % (2-11); Neutrophils Absolute Auto 2.2 x10*3/uL (2.0-8.3); Neutrophils Percent Auto 62.2 % (45-73); Platelet Count 101 X10*3/uL (160-400); Red Cell Distribution Width 17.2 % (11.0-16.0); White Blood Count 3.5 X10*3/uL (4.8-10.8)
[2021-12-12 07:51] LABS: Anion Gap 19 (12-20); Blood Urea Nitrogen 46 mg/dL (9-16); Calcium 8.1 mg/dL (8.4-10.2); Carbon Dioxide 26 mmol/L (22-29); Chloride 93 mmol/L (96-108); Estimated Glomerular Filt Rate 7; Glucose Random 220 mg/dL (60-115); Potassium 3.1 mmol/L (3.3-5.1); Sodium 135 mmol/L (135-145)
== END 2021-12-12 06:35 | disposition home or self-care (01) ==
LOC: HO.MMNH2L 06:34
PROVIDERS: Visit Provider Family Medicine
DX: I10 Essential (primary) hypertension (principal); E11.9 Type 2 diabetes mellitus without complications
CPT/HCPCS: 36415; 80048; 85025

== ENCOUNTER 2021-12-19 06:17 | Outpatient (REF) | payer MEDICARE, MEDICAID, SELFPAY ==
[2021-12-19 06:24] LABS: MANUAL DIFF FLAG NO
[2021-12-19 07:00] LABS: Basophils Percent Auto 0.7 % (0-2); Eosinophils Absolute Auto 0.1 X10*3/uL (0.0-0.4); Eosinophils Percent Auto 1.8 % (0-4); Hematocrit 34.9 % (37.0-47.0); Hemoglobin 10.2 g/dl (12.0-16.0); Imm Gran Abs Auto 0.01 X10*3/uL (0.00-0.03); Imm Gran Pct Auto 0.2 % (0.0-0.4); Lymphocytes Absolute Auto 0.7 X10*3/uL (1.2-4.9); Mean Corpuscular HGB Conc 29.2 g/dl (31.0-35.0); Mean Corpuscular Hemoglobin 26.9 pg (27.0-33.0); Mean Corpuscular Volume 92.1 fL (80.0-98.0); Mean Platelet Volume 11.7 fL (9.4-12.3); Monocytes Absolute Auto 0.6 X10*3/uL (0.1-1.2); Monocytes Percent Auto 12.6 % (2-11); Neutrophils Percent Auto 68.7 % (45-73); Red Blood Count 3.79 X10*6/uL (4.20-5.50); Red Cell Distribution Width 17.2 % (11.0-16.0); White Blood Count 4.4 X10*3/uL (4.8-10.8)
[2021-12-19 07:03] LABS: Platelet Count 88 X10*3/uL (160-400)
[2021-12-19 07:13] LABS: Anion Gap 18 (12-20); Blood Urea Nitrogen 55 mg/dL (9-16); Calcium 8.1 mg/dL (8.4-10.2); Carbon Dioxide 27 mmol/L (22-29); Chloride 92 mmol/L (96-108); Estimated Glomerular Filt Rate 7; Glucose Random 204 mg/dL (60-115); Potassium 2.9 mmol/L (3.3-5.1); Sodium 134 mmol/L (135-145)
== END 2021-12-19 06:18 | disposition home or self-care (01) ==
LOC: HO.MMNH2L 06:17
PROVIDERS: Visit Provider Family Medicine
DX: R14.0 Abdominal distension (gaseous) (principal); I10 Essential (primary) hypertension; E11.9 Type 2 diabetes mellitus without complications
CPT/HCPCS: 36415; 80048; 85025; Q3014

== ENCOUNTER 2021-12-22 07:34 | Day surgery (SDC) | payer MEDICARE, MEDICAID, SELFPAY ==
[2021-12-22] VITALS (7 sets, daily range): BP systolic 92–105; BP diastolic 48–62; PULSE 87–97; RESP 15–16; TEMP 36.6; O2SAT 97; BMI 21.2
--- NOTE | ~2021-12-22 | US_ITS ---
EXAMINATION: US GUIDED PARACENTESIS CLINICAL INFORMATION: Ascites. Cirrhosis. COMPARISON: None TECHNIQUE: Following explaining ultrasound-guided paracentesis procedure, benefits and risks via a equipment monitor phototypesetting, a written consent was obtained. Preliminary ultrasound imaging was performed through the abdomen and the right lower quadrant optimal site was selected and marked on the skin. Marked site was cleaned and draped in usual sterile manner. 1% lidocaine was injected at puncture site. Through a small skin incision a 5-Jordanian myTips catheter was advanced into the peritoneal space. After observing fluid return, stylet was withdrawn and catheter connected to vacuum bottle with connecting cannula. After obtaining all fluid and observing normal fluid return, catheter was withdrawn and complete hemostasis achieved at puncture site. Sterile dressing was applied postprocedure. Patient tolerated the procedure extremely well. FINDINGS: On preliminary ultrasound imaging, there is moderate ascites noted. Approximately 9.5 L of clear light marian-colored fluid was drained from the right lower quadrant. Part of the fluid was sent to the lab for cytology. US/US paracentesis abd w/image IMPRESSION: Successful ultrasound-guided diagnostic and therapeutic paracentesis performed without immediate complications.
[2021-12-22 08:00] LABS: MANUAL DIFF FLAG NO
[2021-12-22 08:03] LABS: Basophils Percent Auto 0.6 % (0-2); Eosinophils Absolute Auto 0.1 X10*3/uL (0.0-0.4); Eosinophils Percent Auto 1.5 % (0-4); Hematocrit 36.3 % (37.0-47.0); Hemoglobin 10.7 g/dl (12.0-16.0); Imm Gran Abs Auto 0.01 X10*3/uL (0.00-0.03); Imm Gran Pct Auto 0.2 % (0.0-0.4); Lymphocytes Absolute Auto 0.7 X10*3/uL (1.2-4.9); Lymphocytes Percent Auto 14.4 % (20-40); Mean Corpuscular HGB Conc 29.5 g/dl (31.0-35.0); Mean Corpuscular Hemoglobin 27.5 pg (27.0-33.0); Mean Corpuscular Volume 93.3 fL (80.0-98.0); Mean Platelet Volume 10.6 fL (9.4-12.3); Monocytes Absolute Auto 0.6 X10*3/uL (0.1-1.2); Monocytes Percent Auto 12.1 % (2-11); Neutrophils Absolute Auto 3.3 x10*3/uL (2.0-8.3); Neutrophils Percent Auto 71.2 % (45-73); Platelet Count 73 X10*3/uL (160-400); Red Blood Count 3.89 X10*6/uL (4.20-5.50); Red Cell Distribution Width 17.8 % (11.0-16.0); White Blood Count 4.6 X10*3/uL (4.8-10.8)
[2021-12-22 08:17] LABS: INTERNATIONAL NORM RATIO 1.1 (0.9-1.1); Prothrombin Time 12.5 SEC (9.9-13.0)
[2021-12-22 08:19] LABS: Partial Thromboplastin Time 36.4 SEC (24.1-38.0)
[2021-12-22 08:20] LABS: Glucose, Whole Blood 139 mg/dL (60-115)
[2021-12-22] MEDS: Lidocaine HCl 1 % MPF 5 ML VIAL SUBCUT (10:38)
== END 2021-12-22 12:25 | disposition home or self-care (01) ==
PROVIDERS: Radiology Diagnostic Radiology; PCP Internal Medicine; Visit Provider Radiology Diagnostic Radiology
DX: R18.8 Other ascites (principal); K74.60 Unspecified cirrhosis of liver; E11.22 Type 2 diabetes mellitus with diabetic chronic kidney disease; E11.40 Type 2 diabetes mellitus with diabetic neuropathy, unspecified; I13.2 Hypertensive heart and chronic kidney disease with heart failure and with stage 5 chronic kidney disease, or end stage renal disease; I50.9 Heart failure, unspecified; N18.6 End stage renal disease; Z99.2 Dependence on renal dialysis; Z79.4 Long term (current) use of insulin; D05.12 Intraductal carcinoma in situ of left breast; Z79.810 Long term (current) use of selective estrogen receptor modulators (SERMs); Z79.899 Other long term (current) drug therapy; Z86.73 Personal history of transient ischemic attack (TIA), and cerebral infarction without residual deficits; Z87.891 Personal history of nicotine dependence; Z91.81 History of falling; Z66 Do not resuscitate
CPT/HCPCS: 36415; 49083; 82947; 85025; 85610; 85730; 88112; 88305

== ENCOUNTER 2021-12-26 09:14 | Outpatient (REF) | payer MEDICARE, MEDICAID, SELFPAY ==
[2021-12-26 06:41] LABS: MANUAL DIFF FLAG NO
[2021-12-26 06:50] LABS: Basophils Percent Auto 0.4 % (0-2); Eosinophils Absolute Auto 0.1 X10*3/uL (0.0-0.4); Eosinophils Percent Auto 1.8 % (0-4); Imm Gran Abs Auto 0.03 X10*3/uL (0.00-0.03); Imm Gran Pct Auto 0.7 % (0.0-0.4); Lymphocytes Absolute Auto 0.6 X10*3/uL (1.2-4.9); Lymphocytes Percent Auto 14.2 % (20-40); Mean Corpuscular HGB Conc 29.4 g/dl (31.0-35.0); Mean Corpuscular Hemoglobin 27.2 pg (27.0-33.0); Mean Corpuscular Volume 92.6 fL (80.0-98.0); Mean Platelet Volume 11.8 fL (9.4-12.3); Monocytes Absolute Auto 0.5 X10*3/uL (0.1-1.2); Monocytes Percent Auto 11.1 % (2-11); Neutrophils Absolute Auto 3.2 x10*3/uL (2.0-8.3); Neutrophils Percent Auto 71.8 % (45-73); Red Blood Count 3.67 X10*6/uL (4.20-5.50); Red Cell Distribution Width 16.8 % (11.0-16.0); White Blood Count 4.5 X10*3/uL (4.8-10.8)
[2021-12-26 06:51] LABS: Platelet Count 64 X10*3/uL (160-400)
[2021-12-26 07:22] LABS: Anion Gap 16 (12-20); Blood Urea Nitrogen 51 mg/dL (9-16); Calcium 7.6 mg/dL (8.4-10.2); Carbon Dioxide 27 mmol/L (22-29); Chloride 95 mmol/L (96-108); Estimated Glomerular Filt Rate 7; Glucose Random 167 mg/dL (60-115); Potassium 2.9 mmol/L (3.3-5.1); Sodium 135 mmol/L (135-145)
== END 2021-12-26 09:15 | disposition home or self-care (01) ==
LOC: HO.MMNH2L 09:14
PROVIDERS: Visit Provider Family Medicine
DX: I10 Essential (primary) hypertension (principal); E11.9 Type 2 diabetes mellitus without complications
CPT/HCPCS: 36415; 80048; 85025

== ENCOUNTER 2021-12-28 06:22 | Outpatient (REF) | payer MEDICARE, MEDICAID, SELFPAY ==
[2021-12-28 06:59] LABS: Anion Gap 16 (12-20); Blood Urea Nitrogen 44 mg/dL (9-16); Calcium 7.6 mg/dL (8.4-10.2); Carbon Dioxide 27 mmol/L (22-29); Chloride 94 mmol/L (96-108); Estimated Glomerular Filt Rate 8; Glucose Random 153 mg/dL (60-115); Potassium 3.8 mmol/L (3.3-5.1); Sodium 133 mmol/L (135-145)
== END 2021-12-28 06:23 | disposition home or self-care (01) ==
LOC: HO.MMNH2L 06:22
PROVIDERS: Visit Provider Family Medicine
DX: I12.0 Hypertensive chronic kidney disease with stage 5 chronic kidney disease or end stage renal disease (principal); N18.6 End stage renal disease
CPT/HCPCS: 36415; 80048

== ENCOUNTER 2022-01-02 06:29 | Outpatient (REF) | payer MEDICARE, MEDICAID, SELFPAY ==
[2022-01-02 06:50] LABS: Hematocrit 35.8 % (37.0-47.0); Hemoglobin 10.9 g/dl (12.0-16.0); Mean Corpuscular HGB Conc 30.4 g/dl (31.0-35.0); Mean Corpuscular Hemoglobin 27.9 pg (27.0-33.0); Mean Corpuscular Volume 91.8 fL (80.0-98.0); Mean Platelet Volume 11.7 fL (9.4-12.3); Red Cell Distribution Width 16.7 % (11.0-16.0); White Blood Count 5.4 X10*3/uL (4.8-10.8)
[2022-01-02 07:10] LABS: Platelet Count 85 X10*3/uL (160-400)
[2022-01-02 07:23] LABS: Anion Gap 16 (12-20); Blood Urea Nitrogen 36 mg/dL (9-16); Carbon Dioxide 28 mmol/L (22-29); Chloride 93 mmol/L (96-108); Estimated Glomerular Filt Rate 7; Glucose Random 219 mg/dL (60-115); Potassium 2.8 mmol/L (3.3-5.1); Sodium 134 mmol/L (135-145)
== END 2022-01-02 06:30 | disposition home or self-care (01) ==
LOC: HO.MMNH2L 06:29
PROVIDERS: Visit Provider Family Medicine
DX: I10 Essential (primary) hypertension (principal); E11.9 Type 2 diabetes mellitus without complications
CPT/HCPCS: 36415; 80048; 85027

== ENCOUNTER 2022-01-10 06:55 | Outpatient (REF) | payer MEDICARE, MEDICAID, SELFPAY ==
[2022-01-10 07:01] LABS: Hematocrit 40.3 % (37.0-47.0); Mean Corpuscular HGB Conc 29.8 g/dl (31.0-35.0); Mean Corpuscular Hemoglobin 27.8 pg (27.0-33.0); Mean Corpuscular Volume 93.3 fL (80.0-98.0); Mean Platelet Volume 12.2 fL (9.4-12.3); Red Blood Count 4.32 X10*6/uL (4.20-5.50); Red Cell Distribution Width 17.3 % (11.0-16.0); White Blood Count 4.4 X10*3/uL (4.8-10.8)
[2022-01-10 07:02] LABS: Platelet Count 94 X10*3/uL (160-400)
[2022-01-10 07:14] LABS: Anion Gap 17 (12-20); Blood Urea Nitrogen 38 mg/dL (9-16); Calcium 8.1 mg/dL (8.4-10.2); Carbon Dioxide 29 mmol/L (22-29); Chloride 93 mmol/L (96-108); Estimated Glomerular Filt Rate 10; Glucose Random 165 mg/dL (60-115); Potassium 2.9 mmol/L (3.3-5.1); Sodium 136 mmol/L (135-145)
== END 2022-01-10 06:56 | disposition home or self-care (01) ==
LOC: HO.MMNH2L 06:55
PROVIDERS: Visit Provider Family Medicine
DX: I10 Essential (primary) hypertension (principal); E11.9 Type 2 diabetes mellitus without complications
CPT/HCPCS: 36415; 80048; 85027

== ENCOUNTER 2022-01-16 06:35 | Outpatient (REF) | payer MEDICARE, MEDICAID, SELFPAY ==
[2022-01-16 06:51] LABS: Hemoglobin 11.6 g/dl (12.0-16.0); Mean Corpuscular HGB Conc 29.7 g/dl (31.0-35.0); Mean Corpuscular Hemoglobin 27.6 pg (27.0-33.0); Mean Corpuscular Volume 92.6 fL (80.0-98.0); Mean Platelet Volume 11.8 fL (9.4-12.3); Platelet Count 82 X10*3/uL (160-400); Red Blood Count 4.21 X10*6/uL (4.20-5.50); Red Cell Distribution Width 17.1 % (11.0-16.0); White Blood Count 4.7 X10*3/uL (4.8-10.8)
[2022-01-16 07:39] LABS: Anion Gap 17 (12-20); Blood Urea Nitrogen 51 mg/dL (9-16); Calcium 8.4 mg/dL (8.4-10.2); Carbon Dioxide 27 mmol/L (22-29); Chloride 91 mmol/L (96-108); Estimated Glomerular Filt Rate 7; Glucose Random 209 mg/dL (60-115); Potassium 3.1 mmol/L (3.3-5.1); Sodium 132 mmol/L (135-145)
== END 2022-01-16 06:36 | disposition home or self-care (01) ==
LOC: HO.MMNH2L 06:35
PROVIDERS: Visit Provider Family Medicine
DX: Z13.89 Encounter for screening for other disorder (principal)
CPT/HCPCS: 36415; 80048; 85027

== ENCOUNTER 2022-01-16 10:06 | Day surgery (SDC) | payer MEDICARE, MEDICAID, SELFPAY ==
--- NOTE | ~2022-01-16 | US_ITS ---
EXAMINATION: ULTRASOUND-GUIDED PARACENTESIS CLINICAL INFORMATION: Ascites. COMPARISON: Previous exam most recent December 2021. TECHNIQUE: Procedure and risks and benefits including bleeding, infection and low blood pressure were discussed with the patient through an grounds maintenance worker and informed consent was obtained. The right lower quadrant was prepped and draped in the usual sterile fashion. The skin and soft tissues were anesthetized with 1% lidocaine plain. Using ultrasound guidance and a 5 Stateless rapid centesis catheter, access to the ascitic fluid was obtained. 8.8 L of clear yellow fluid was removed. No diagnostic specimen was sent. Patient received 50 g of intravenous albumin during the procedure. FINDINGS: There is a large amount of ascites. US/US paracentesis abd w/image IMPRESSION: Ultrasound-guided paracentesis.
[2022-01-16 10:16] VITALS: BMI 27.6
[2022-01-16 10:19] LABS: Glucose, Whole Blood 282 mg/dL (60-115)
[2022-01-16] MEDS: Lidocaine HCl 1 % MPF 5 ML VIAL SUBCUT (12:09)
--- NOTE | 2022-01-16 12:15 | HO.RADPN ---
RADIOLOGY Narrative Narrative: RLQ paracentesis using 5 fr catheter., 8.8 L clear yellow fluid removed. No specimen sent. given 50g IV albumin.
[2022-01-16 12:35] VITALS: BP 93/53; PULSE 92; RESP 16; TEMP 37.2; O2SAT 98
[2022-01-16 12:50] VITALS: BP 90/46; PULSE 97; RESP 17; O2SAT 97
[2022-01-16 13:05] VITALS: BP 91/55; PULSE 101; RESP 20; O2SAT 98
[2022-01-16 13:20] VITALS: BP 88/53; PULSE 103; RESP 17; O2SAT 98
[2022-01-16 13:47] VITALS: BP 95/57; PULSE 100; RESP 18; TEMP 37.4; O2SAT 98
== END 2022-01-16 13:54 | disposition home or self-care (01) ==
PROVIDERS: PCP Internal Medicine; Visit Provider Radiology Diagnostic Radiology
DX: R18.8 Other ascites (principal); I13.2 Hypertensive heart and chronic kidney disease with heart failure and with stage 5 chronic kidney disease, or end stage renal disease; E11.22 Type 2 diabetes mellitus with diabetic chronic kidney disease; N18.6 End stage renal disease; Z79.4 Long term (current) use of insulin; Z99.2 Dependence on renal dialysis; I42.9 Cardiomyopathy, unspecified; I50.9 Heart failure, unspecified; I25.10 Atherosclerotic heart disease of native coronary artery without angina pectoris; Z95.1 Presence of aortocoronary bypass graft; K76.6 Portal hypertension; K31.89 Other diseases of stomach and duodenum; D64.89 Other specified anemias; E78.5 Hyperlipidemia, unspecified; Z86.73 Personal history of transient ischemic attack (TIA), and cerebral infarction without residual deficits; Z87.891 Personal history of nicotine dependence
CPT/HCPCS: 36415; 49083; 80048; 82947; 85027; P9047

== ENCOUNTER 2022-01-17 09:11 | Outpatient (REF) | payer MEDICARE, MEDICAID, SELFPAY ==
--- NOTE | ~2022-01-17 | CT_ITS ---
EXAMINATION: CT ABDOMEN AND PELVIS WITHOUT CONTRAST CLINICAL INFORMATION: Cirrhosis and ascites COMPARISON: Previous CT of the abdomen and pelvis November 2021 TECHNIQUE: Multidetector volumetric imaging was performed from the superior aspect of the liver through the pubic symphysis. Sagittal and coronal reformatted images were obtained on the technologist's workstation. This CT examination was performed using dose optimization techniques as appropriate, variously including the following: *Automated exposure control *Adjustment of mA and/or kV according to patient size (this includes techniques or standardized protocols for targeted exams where dose is matched to indication/reason for exam; i.e. extremities or head) *Use of iterative reconstruction technique DLP: 4-5 mGy-cm FINDINGS: LUNG BASES: There is a catheter in the right atrium. There is severe coronary artery calcification. There is atelectasis at the lung bases. LIVER, GALLBLADDER, AND BILIARY TREE: Cirrhotic appearing liver, large amount of ascites and gallstones. PANCREAS: Unremarkable. SPLEEN: Unremarkable. ADRENAL GLANDS: Unremarkable. KIDNEYS AND URETERS: 1.5 cm high attenuation lesion in the lower pole of the right kidney probably representing a hyperdense cyst. There may be smaller bilateral hyperdense cysts. The left kidney is small. BLADDER: Bladder is empty. GASTROINTESTINAL TRACT: Severe diverticulosis of the colon. Radiopaque device in the duodenum is unchanged. Fold thickening of the stomach. There is a moderate to large amount of ascites. There is some fat stranding of the small bowel mesentery. ABDOMINAL WALL: No significant hernia is appreciated. LYMPH NODES: Normal. VASCULAR: Atherosclerotic disease. There are small abdominal aortic aneurysms of the mid and distal abdominal aorta. Largest is in the mid abdominal aorta measuring 2.8 x 3.9 cm. PELVIC VISCERA: There is low-attenuation seen centrally in the uterus suggestive of endometrial fluid or thickening. Endometrial thickness measures 1.4 cm. OSSEOUS STRUCTURES: Degenerative changes of the spine and scoliosis. Right lateral rib fractures. CT/CT abdomen pelvis wo con IMPRESSION: Cirrhotic-appearing liver large and large amount of ascites. Severe diverticulosis of the colon. Wall thickening of the stomach. Radiopaque device in the duodenum that is unchanged. Correlation with history recommended. Atherosclerotic disease and small abdominal aneurysms. Low-attenuation in the uterus questionable for endometrial fluid or thickening. Follow-up pelvic ultrasound recommended Fleischner guidelines were followed.
[2022-01-17] MEDS: Barium Sulfate Oral (Berry) 450 ML ORAL.SUSP 900 ML PO (11:49)
== END 2022-01-17 09:12 | disposition home or self-care (01) ==
LOC: HO.CT 09:11
PROVIDERS: Visit Provider Nurse Practitioner Family
DX: R93.5 Abnormal findings on diagnostic imaging of other abdominal regions, including retroperitoneum (principal)
CPT/HCPCS: 74176

== ENCOUNTER 2022-01-23 06:48 | Outpatient (REF) | payer MEDICARE, MEDICAID, SELFPAY ==
[2022-01-23 06:37] LABS: Hematocrit 39.8 % (37.0-47.0); Hemoglobin 12.1 g/dl (12.0-16.0); Mean Corpuscular HGB Conc 30.4 g/dl (31.0-35.0); Mean Corpuscular Hemoglobin 27.9 pg (27.0-33.0); Mean Corpuscular Volume 91.9 fL (80.0-98.0); Mean Platelet Volume 12.1 fL (9.4-12.3); Red Blood Count 4.33 X10*6/uL (4.20-5.50); Red Cell Distribution Width 15.9 % (11.0-16.0); White Blood Count 4.7 X10*3/uL (4.8-10.8)
[2022-01-23 06:38] LABS: Platelet Count 77 X10*3/uL (160-400)
[2022-01-23 07:14] LABS: Anion Gap 17 (12-20); Blood Urea Nitrogen 49 mg/dL (9-16); Calcium 7.8 mg/dL (8.4-10.2); Carbon Dioxide 26 mmol/L (22-29); Chloride 95 mmol/L (96-108); Estimated Glomerular Filt Rate 8; Glucose Random 160 mg/dL (60-115); Potassium 2.6 mmol/L (3.3-5.1); Sodium 135 mmol/L (135-145)
== END 2022-01-23 06:49 | disposition home or self-care (01) ==
LOC: HO.MMNH2L 06:48
PROVIDERS: Visit Provider Family Medicine
DX: E11.9 Type 2 diabetes mellitus without complications (principal); I10 Essential (primary) hypertension
CPT/HCPCS: 36415; 80048; 85027

== ENCOUNTER 2022-01-25 09:18 | Outpatient (REF) | payer MEDICARE, MEDICAID, SELFPAY ==
[2022-01-25 05:59] LABS: Anion Gap 15 (12-20); Blood Urea Nitrogen 45 mg/dL (9-16); Calcium 8.3 mg/dL (8.4-10.2); Carbon Dioxide 26 mmol/L (22-29); Chloride 96 mmol/L (96-108); Estimated Glomerular Filt Rate 9; Glucose Random 156 mg/dL (60-115); Potassium 3.5 mmol/L (3.3-5.1); Sodium 133 mmol/L (135-145)
== END 2022-01-25 09:19 ==
LOC: HO.MMNH2L 09:18
PROVIDERS: Visit Provider Family Medicine
DX: E87.6 Hypokalemia (principal); N18.6 End stage renal disease
CPT/HCPCS: 36415; 80048

== ENCOUNTER 2022-01-30 06:14 | Outpatient (REF) | payer MEDICARE, MEDICAID, SELFPAY ==
[2022-01-30 06:24] LABS: MANUAL DIFF FLAG NO
[2022-01-30 06:59] LABS: Basophils Percent Auto 0.9 % (0-2); Eosinophils Absolute Auto 0.1 X10*3/uL (0.0-0.4); Eosinophils Percent Auto 2.4 % (0-4); Hematocrit 40.2 % (37.0-47.0); Hemoglobin 12.2 g/dl (12.0-16.0); Imm Gran Abs Auto 0.01 X10*3/uL (0.00-0.03); Imm Gran Pct Auto 0.2 % (0.0-0.4); Lymphocytes Absolute Auto 0.8 X10*3/uL (1.2-4.9); Lymphocytes Percent Auto 17.8 % (20-40); Mean Corpuscular HGB Conc 30.3 g/dl (31.0-35.0); Mean Corpuscular Hemoglobin 27.8 pg (27.0-33.0); Mean Corpuscular Volume 91.6 fL (80.0-98.0); Mean Platelet Volume 12.1 fL (9.4-12.3); Monocytes Absolute Auto 0.5 X10*3/uL (0.1-1.2); Monocytes Percent Auto 10.8 % (2-11); Neutrophils Absolute Auto 3.1 x10*3/uL (2.0-8.3); Neutrophils Percent Auto 67.9 % (45-73); Red Blood Count 4.39 X10*6/uL (4.20-5.50); Red Cell Distribution Width 15.6 % (11.0-16.0); White Blood Count 4.6 X10*3/uL (4.8-10.8)
[2022-01-30 07:05] LABS: Platelet Count 86 X10*3/uL (160-400)
[2022-01-30 07:27] LABS: Anion Gap 17 (12-20); Blood Urea Nitrogen 51 mg/dL (9-16); Calcium 8.3 mg/dL (8.4-10.2); Carbon Dioxide 27 mmol/L (22-29); Chloride 93 mmol/L (96-108); Estimated Glomerular Filt Rate 7; Glucose Random 123 mg/dL (60-115); Potassium 2.9 mmol/L (3.3-5.1); Sodium 134 mmol/L (135-145)
== END 2022-01-30 06:15 | disposition home or self-care (01) ==
LOC: HO.MMNH2L 06:14
PROVIDERS: Visit Provider Family Medicine
DX: I10 Essential (primary) hypertension (principal); E11.9 Type 2 diabetes mellitus without complications
CPT/HCPCS: 36415; 80048; 85025

== ENCOUNTER 2022-02-01 09:19 | Outpatient (REF) | payer MEDICARE, MEDICAID, SELFPAY ==
[2022-02-01 07:19] LABS: Anion Gap 18 (12-20); Blood Urea Nitrogen 51 mg/dL (9-16); Calcium 8.2 mg/dL (8.4-10.2); Carbon Dioxide 25 mmol/L (22-29); Chloride 96 mmol/L (96-108); Estimated Glomerular Filt Rate 8; Glucose Random 150 mg/dL (60-115); Potassium 3.9 mmol/L (3.3-5.1); Sodium 135 mmol/L (135-145)
== END 2022-02-01 09:20 ==
LOC: HO.MMNH2L 09:19
PROVIDERS: Visit Provider Family Medicine
DX: E87.6 Hypokalemia (principal)
CPT/HCPCS: 36415; 80048

== ENCOUNTER 2022-02-06 06:42 | Outpatient (REF) | payer MEDICARE, MEDICAID, SELFPAY ==
[2022-02-06 06:31] LABS: MANUAL DIFF FLAG NO
[2022-02-06 06:46] LABS: Basophils Percent Auto 0.4 % (0-2); Eosinophils Absolute Auto 0.1 X10*3/uL (0.0-0.4); Hematocrit 34.3 % (37.0-47.0); Hemoglobin 10.4 g/dl (12.0-16.0); Imm Gran Abs Auto 0.02 X10*3/uL (0.00-0.03); Imm Gran Pct Auto 0.4 % (0.0-0.4); Lymphocytes Absolute Auto 0.8 X10*3/uL (1.2-4.9); Lymphocytes Percent Auto 17.8 % (20-40); Mean Corpuscular HGB Conc 30.3 g/dl (31.0-35.0); Mean Corpuscular Hemoglobin 27.6 pg (27.0-33.0); Mean Platelet Volume 11.9 fL (9.4-12.3); Monocytes Absolute Auto 0.5 X10*3/uL (0.1-1.2); Monocytes Percent Auto 11.7 % (2-11); Neutrophils Percent Auto 67.7 % (45-73); Red Blood Count 3.77 X10*6/uL (4.20-5.50); Red Cell Distribution Width 15.6 % (11.0-16.0); White Blood Count 4.5 X10*3/uL (4.8-10.8)
[2022-02-06 06:54] LABS: Platelet Count 80 X10*3/uL (160-400)
[2022-02-06 07:35] LABS: Anion Gap 19 (12-20); Blood Urea Nitrogen 59 mg/dL (9-16); Calcium 8.5 mg/dL (8.4-10.2); Carbon Dioxide 28 mmol/L (22-29); Chloride 96 mmol/L (96-108); Estimated Glomerular Filt Rate 8; Glucose Random 169 mg/dL (60-115); Potassium 3.5 mmol/L (3.3-5.1); Sodium 139 mmol/L (135-145)
== END 2022-02-06 06:43 | disposition home or self-care (01) ==
LOC: HO.MMNH2L 06:42
PROVIDERS: Visit Provider Family Medicine
DX: I10 Essential (primary) hypertension (principal); E11.9 Type 2 diabetes mellitus without complications
CPT/HCPCS: 36415; 80048; 85025

== ENCOUNTER 2022-02-13 06:30 | Outpatient (REF) | payer MEDICARE, MEDICAID, SELFPAY ==
[2022-02-13 06:25] LABS: MANUAL DIFF FLAG NO
[2022-02-13 07:20] LABS: Basophils Percent Auto 0.6 % (0-2); Eosinophils Absolute Auto 0.1 X10*3/uL (0.0-0.4); Eosinophils Percent Auto 2.4 % (0-4); Hematocrit 35.6 % (37.0-47.0); Hemoglobin 10.9 g/dl (12.0-16.0); Imm Gran Abs Auto 0.02 X10*3/uL (0.00-0.03); Imm Gran Pct Auto 0.4 % (0.0-0.4); Lymphocytes Absolute Auto 0.7 X10*3/uL (1.2-4.9); Lymphocytes Percent Auto 15.8 % (20-40); Mean Corpuscular HGB Conc 30.6 g/dl (31.0-35.0); Mean Corpuscular Hemoglobin 27.6 pg (27.0-33.0); Mean Corpuscular Volume 90.1 fL (80.0-98.0); Mean Platelet Volume 12.3 fL (9.4-12.3); Monocytes Absolute Auto 0.5 X10*3/uL (0.1-1.2); Monocytes Percent Auto 10.3 % (2-11); Neutrophils Absolute Auto 3.3 x10*3/uL (2.0-8.3); Neutrophils Percent Auto 70.5 % (45-73); Red Blood Count 3.95 X10*6/uL (4.20-5.50); Red Cell Distribution Width 15.9 % (11.0-16.0); White Blood Count 4.7 X10*3/uL (4.8-10.8)
[2022-02-13 07:22] LABS: Platelet Count 79 X10*3/uL (160-400)
[2022-02-13 07:24] LABS: Anion Gap 19 (12-20); Blood Urea Nitrogen 61 mg/dL (9-16); Calcium 8.2 mg/dL (8.4-10.2); Carbon Dioxide 27 mmol/L (22-29); Chloride 92 mmol/L (96-108); Estimated Glomerular Filt Rate 8; Glucose Random 125 mg/dL (60-115); Potassium 3.1 mmol/L (3.3-5.1); Sodium 135 mmol/L (135-145)
== END 2022-02-13 06:31 | disposition home or self-care (01) ==
LOC: HO.MMNH2L 06:30
PROVIDERS: Visit Provider Family Medicine
DX: I10 Essential (primary) hypertension (principal); E11.9 Type 2 diabetes mellitus without complications
CPT/HCPCS: 36415; 80048; 85025

== ENCOUNTER 2022-02-20 06:29 | Outpatient (REF) | payer MEDICARE, MEDICAID, SELFPAY ==
[2022-02-20 06:13] LABS: MANUAL DIFF FLAG NO
[2022-02-20 06:24] LABS: Basophils Percent Auto 0.4 % (0-2); Eosinophils Percent Auto 0.9 % (0-4); Hematocrit 33.4 % (37.0-47.0); Hemoglobin 10.1 g/dl (12.0-16.0); Imm Gran Abs Auto 0.01 X10*3/uL (0.00-0.03); Imm Gran Pct Auto 0.2 % (0.0-0.4); Lymphocytes Absolute Auto 0.6 X10*3/uL (1.2-4.9); Lymphocytes Percent Auto 12.7 % (20-40); Mean Corpuscular HGB Conc 30.2 g/dl (31.0-35.0); Mean Corpuscular Hemoglobin 27.3 pg (27.0-33.0); Mean Corpuscular Volume 90.3 fL (80.0-98.0); Mean Platelet Volume 11.6 fL (9.4-12.3); Monocytes Absolute Auto 0.5 X10*3/uL (0.1-1.2); Monocytes Percent Auto 11.4 % (2-11); Neutrophils Absolute Auto 3.4 x10*3/uL (2.0-8.3); Neutrophils Percent Auto 74.4 % (45-73); Red Cell Distribution Width 15.8 % (11.0-16.0); White Blood Count 4.6 X10*3/uL (4.8-10.8)
[2022-02-20 06:25] LABS: Platelet Count 74 X10*3/uL (160-400)
[2022-02-20 07:16] LABS: Anion Gap 20 (12-20); Blood Urea Nitrogen 52 mg/dL (9-16); Calcium 8.4 mg/dL (8.4-10.2); Carbon Dioxide 26 mmol/L (22-29); Chloride 92 mmol/L (96-108); Estimated Glomerular Filt Rate 9; Glucose Random 221 mg/dL (60-115); Potassium 2.9 mmol/L (3.3-5.1); Sodium 135 mmol/L (135-145)
== END 2022-02-20 06:30 | disposition home or self-care (01) ==
LOC: HO.MMNH2L 06:29
PROVIDERS: Visit Provider Family Medicine
DX: E11.9 Type 2 diabetes mellitus without complications (principal); I10 Essential (primary) hypertension
CPT/HCPCS: 36415; 80048; 85025

== ENCOUNTER 2022-02-21 09:34 | Day surgery (SDC) | payer MEDICARE, MEDICAID, SELFPAY ==
--- NOTE | ~2022-02-21 | US_ITS ---
EXAMINATION: US PARACENTESIS CLINICAL INFORMATION: Ascites COMPARISON: Previous CT of the abdomen and pelvis 01/17/2022. TECHNIQUE: Procedure and risks and benefits including bleeding, infection and low blood pressure were discussed with the patient through an hop farmer and informed consent was obtained. The right lower quadrant was prepped and draped in the usual sterile fashion. The skin and soft tissues were anesthetized with 1% lidocaine plain. Using ultrasound guidance and a 5-Lao catheter, access to the ascitic fluid was obtained. 8.3 L of clear yellow fluid was removed. No diagnostic specimen was sent. Patient received albumin 50 g IV during the procedure. FINDINGS: There is a large amount of ascites. US/US paracentesis abd w/image IMPRESSION: Ultrasound-guided paracentesis.
[2022-02-21 06:53] VITALS: BMI 22.8
[2022-02-21 09:38] LABS: Glucose, Whole Blood 171 mg/dL (60-115)
[2022-02-21 09:45] VITALS: BP 116/55; PULSE 90; RESP 19; TEMP 36.3; O2SAT 96
[2022-02-21 10:11] LABS: Partial Thromboplastin Time 34.9 SEC (26.0-36.4)
[2022-02-21] MEDS: Lidocaine HCl 1 % MPF 5 ML VIAL 4 ML SUBCUT (11:38)
--- NOTE | 2022-02-21 11:45 | HO.RADPN ---
RADIOLOGY Narrative Narrative: RLQ paracentesis performed using 5 frangiocath. Clear yellow fluid removed. No specimen sent.
[2022-02-21 12:25] VITALS: BP 85/43; PULSE 94; RESP 16; TEMP 36.9; O2SAT 100
[2022-02-21 12:40] VITALS: BP 84/43; PULSE 96; RESP 16; O2SAT 100
[2022-02-21] MEDS: Albumin Human 25 % 100 ML IV (12:50)
[2022-02-21 12:55] VITALS: BP 81/47; PULSE 95; RESP 16; O2SAT 100
[2022-02-21 13:10] VITALS: BP 84/49; PULSE 92; RESP 16; O2SAT 100
[2022-02-21 13:25] VITALS: BP 91/45; PULSE 88; RESP 16; TEMP 36.9; O2SAT 100
== END 2022-02-21 13:40 | disposition home or self-care (01) ==
LOC: HO.SSS 09:34
PROVIDERS: Radiology Diagnostic Radiology; PCP Internal Medicine; Visit Provider Nurse Practitioner Family
DX: R18.8 Other ascites (principal); E11.22 Type 2 diabetes mellitus with diabetic chronic kidney disease; I13.2 Hypertensive heart and chronic kidney disease with heart failure and with stage 5 chronic kidney disease, or end stage renal disease; I50.9 Heart failure, unspecified; N18.6 End stage renal disease; Z99.2 Dependence on renal dialysis; Z87.891 Personal history of nicotine dependence; Z79.4 Long term (current) use of insulin; Z79.899 Other long term (current) drug therapy
CPT/HCPCS: 36415; 49083; 82947; 85610; 85730; P9047

== ENCOUNTER 2022-02-27 06:25 | Outpatient (REF) | payer MEDICARE, MEDICAID, SELFPAY ==
[2022-02-27 06:19] LABS: MANUAL DIFF FLAG NO
[2022-02-27 06:28] LABS: Basophils Percent Auto 0.2 % (0-2); Eosinophils Absolute Auto 0.1 X10*3/uL (0.0-0.4); Eosinophils Percent Auto 1.9 % (0-4); Hematocrit 30.4 % (37.0-47.0); Hemoglobin 9.2 g/dl (12.0-16.0); Imm Gran Abs Auto 0.01 X10*3/uL (0.00-0.03); Imm Gran Pct Auto 0.2 % (0.0-0.4); Lymphocytes Absolute Auto 0.7 X10*3/uL (1.2-4.9); Lymphocytes Percent Auto 15.4 % (20-40); Mean Corpuscular HGB Conc 30.3 g/dl (31.0-35.0); Mean Corpuscular Hemoglobin 27.5 pg (27.0-33.0); Mean Platelet Volume 12.2 fL (9.4-12.3); Monocytes Absolute Auto 0.4 X10*3/uL (0.1-1.2); Monocytes Percent Auto 10.2 % (2-11); Neutrophils Absolute Auto 3.1 x10*3/uL (2.0-8.3); Neutrophils Percent Auto 72.1 % (45-73); Red Blood Count 3.34 X10*6/uL (4.20-5.50); Red Cell Distribution Width 15.8 % (11.0-16.0); White Blood Count 4.2 X10*3/uL (4.8-10.8)
[2022-02-27 06:52] LABS: Platelet Count 67 X10*3/uL (160-400)
[2022-02-27 06:54] LABS: Anion Gap 18 (12-20); Blood Urea Nitrogen 62 mg/dL (9-16); Calcium 8.4 mg/dL (8.4-10.2); Carbon Dioxide 28 mmol/L (22-29); Chloride 95 mmol/L (96-108); Estimated Glomerular Filt Rate 8; Glucose Random 166 mg/dL (60-115); Potassium 3.7 mmol/L (3.3-5.1); Sodium 137 mmol/L (135-145)
== END 2022-02-27 06:26 | disposition home or self-care (01) ==
LOC: HO.MMNH2L 06:25
PROVIDERS: Visit Provider Family Medicine
DX: I10 Essential (primary) hypertension (principal); E11.9 Type 2 diabetes mellitus without complications
CPT/HCPCS: 36415; 80048; 85025

== ENCOUNTER 2022-03-06 06:37 | Outpatient (REF) | payer MEDICARE, MEDICAID, SELFPAY ==
[2022-03-06 06:31] LABS: MANUAL DIFF FLAG NO
[2022-03-06 06:35] LABS: Basophils Percent Auto 0.7 % (0-2); Eosinophils Absolute Auto 0.1 X10*3/uL (0.0-0.4); Eosinophils Percent Auto 1.3 % (0-4); Hematocrit 29.5 % (37.0-47.0); Hemoglobin 8.9 g/dl (12.0-16.0); Imm Gran Abs Auto 0.02 X10*3/uL (0.00-0.03); Imm Gran Pct Auto 0.4 % (0.0-0.4); Lymphocytes Absolute Auto 0.6 X10*3/uL (1.2-4.9); Lymphocytes Percent Auto 12.5 % (20-40); Mean Corpuscular HGB Conc 30.2 g/dl (31.0-35.0); Mean Corpuscular Hemoglobin 27.4 pg (27.0-33.0); Mean Corpuscular Volume 90.8 fL (80.0-98.0); Mean Platelet Volume 11.9 fL (9.4-12.3); Monocytes Absolute Auto 0.4 X10*3/uL (0.1-1.2); Monocytes Percent Auto 9.2 % (2-11); Neutrophils Absolute Auto 3.5 x10*3/uL (2.0-8.3); Neutrophils Percent Auto 75.9 % (45-73); Platelet Count 81 X10*3/uL (160-400); Red Blood Count 3.25 X10*6/uL (4.20-5.50); Red Cell Distribution Width 15.6 % (11.0-16.0); White Blood Count 4.6 X10*3/uL (4.8-10.8)
[2022-03-06 07:06] LABS: Anion Gap 20 (12-20); Blood Urea Nitrogen 44 mg/dL (9-16); Calcium 8.6 mg/dL (8.4-10.2); Carbon Dioxide 25 mmol/L (22-29); Chloride 95 mmol/L (96-108); Estimated Glomerular Filt Rate 9; Glucose Random 159 mg/dL (60-115); Potassium 4.3 mmol/L (3.3-5.1); Sodium 136 mmol/L (135-145)
== END 2022-03-06 06:38 | disposition home or self-care (01) ==
LOC: HO.MMNH2L 06:37
PROVIDERS: Visit Provider Family Medicine
DX: I10 Essential (primary) hypertension (principal); E11.9 Type 2 diabetes mellitus without complications
CPT/HCPCS: 36415; 80048; 85025

== ENCOUNTER 2022-03-11 19:29 | Emergency (ER) | payer MEDICARE, MEDICAID, SELFPAY ==
--- NOTE | ~2022-03-11 | XR_ITS ---
EXAMINATION: XR CHEST CLINICAL INFORMATION: Cough. COMPARISON: Chest x-ray 10/13/2021 TECHNIQUE: Frontal cortical view of the chest was obtained. 10:16 PM FINDINGS: Status post median sternotomy. Large bore dialysis catheter terminating in the right atrium unchanged position since prior study. Vascular stents are present the right upper arm and axilla. Surgical clips in the right upper arm. Lung volume is low. Patchy bilateral airspace opacities accentuated by the low airspace disease similar to prior examination 01/25/2022. There is no dense consolidation. No large pleural effusion or pneumothorax. Surgical clips right upper quadrant of abdomen XR/XR chest 1V IMPRESSION: Patchy bilateral airspace opacities accentuated by low inspiratory effort. No dense consolidation.
[2022-03-11 19:45] VITALS: BP 90/50; BP 90/51; PULSE 93; PULSE 95; RESP 12; TEMP 37; O2SAT 100; O2SAT 94; BMI 21.2
[2022-03-11 19:55] VITALS: BP 90/51; PULSE 96; RESP 12; TEMP 36.9; O2SAT 94; O2SAT 95
--- NOTE | 2022-03-11 20:10 | PC.NURSE ---
Upon inspection, we found a pressure wound on the coccyx. Pt was cleaned and barrier cream was applied to the wound. Pt was positioned on her left side and assessed for comfort. Will continue to monitor.
[2022-03-11 21:31] LABS: MANUAL DIFF FLAG NO
[2022-03-11] MEDS: 0.9 % Sodium Chloride 500 ML 999 ML IV (21:34)
[2022-03-11 21:36] LABS: Basophils Percent Auto 0.5 % (0-2); Eosinophils Absolute Auto 0.1 X10*3/uL (0.0-0.4); Eosinophils Percent Auto 1.2 % (0-4); Hematocrit 27.2 % (37.0-47.0); Hemoglobin 8.3 g/dl (12.0-16.0); Imm Gran Abs Auto 0.01 X10*3/uL (0.00-0.03); Imm Gran Pct Auto 0.2 % (0.0-0.4); Lymphocytes Absolute Auto 0.5 X10*3/uL (1.2-4.9); Lymphocytes Percent Auto 11.1 % (20-40); Mean Corpuscular HGB Conc 30.5 g/dl (31.0-35.0); Mean Corpuscular Hemoglobin 28.1 pg (27.0-33.0); Mean Corpuscular Volume 92.2 fL (80.0-98.0); Mean Platelet Volume 11.9 fL (9.4-12.3); Monocytes Absolute Auto 0.4 X10*3/uL (0.1-1.2); Monocytes Percent Auto 10.9 % (2-11); Neutrophils Absolute Auto 3.1 x10*3/uL (2.0-8.3); Neutrophils Percent Auto 76.1 % (45-73); Red Blood Count 2.95 X10*6/uL (4.20-5.50); Red Cell Distribution Width 16.1 % (11.0-16.0); White Blood Count 4.1 X10*3/uL (4.8-10.8)
[2022-03-11 21:40] LABS: Platelet Count 95 X10*3/uL (160-400)
[2022-03-11 22:00] VITALS: BP 78/49; PULSE 92; RESP 14; O2SAT 95
[2022-03-11 22:03] LABS: Alanine Aminotransferase 14 U/L (0-31); Albumin Level 2.6 g/dL (3.5-5.0); Alkaline Phosphatase 368 U/L (39-117); Anion Gap 19 (12-20); Aspartate Amino Transferase 23 U/L (5-31); Bilirubin Total 0.6 mg/dL (0.0-1.0); Blood Urea Nitrogen 38 mg/dL (9-16); Calcium 8.9 mg/dL (8.4-10.2); Carbon Dioxide 29 mmol/L (22-29); Chloride 93 mmol/L (96-108); Creatinine Clr Calc Pharmacy 9.9; Estimated Glomerular Filt Rate 12; Glucose Random 328 mg/dL (60-115); Potassium 3.8 mmol/L (3.3-5.1); Sodium 137 mmol/L (135-145); Total Protein 6.1 g/dL (6.5-8.0)
[2022-03-11 22:04] LABS: B Type Natriuretic Peptide 2084 pg/mL (<100)
--- NOTE | 2022-03-11 23:29 | ED.GENADULT ---
HPI - General Adult General Chief complaint: Failure to Thrive Stated complaint: Fluid Retention Time Seen by Provider: 03/11/22 20:37 Source: family ( Daughter) and EMS Mode of arrival: EMS History of Present Illness HPI narrative: 72-year-old female with extensive past medical history is brought in by EMS from the [facility] where the staff was concerned regarding reaccumulation of abdominal ascites as well as fluid around the fistula. On reviewing patient's current health conditions she denies any fever, chills, she denies any shortness of breath or chest pain as well as denying any abdominal discomfort. Related Data Home Medications Medication Instructions Recorded Confirmed fluoxetine 20 mg capsule 1 cap PO DAILY 12/21/20 03/12/22 tamoxifen 10 mg tablet 10 mg PO BID 10/06/21 03/12/22 diclofenac sodium 1 % topical gel 1 g topical BID 11/16/21 03/12/22 insulin lispro 100 unit/mL See Protocol subcut QIDACHS 11/16/21 03/12/22 subcutaneous pen insulin glargine-yfgn 100 unit/mL 10 unit subcut DAILY 12/19/21 03/12/22 (3 mL) subcutaneous pen potassium chloride 20 mEq oral 10 packet PO DAILY 02/21/22 03/12/22 packet sucralfate 1 gram tablet 1 tab PO QID 02/21/22 03/12/22 lactulose 10 gram/15 mL oral ml PO 03/12/22 solution Previous Rx's Medication Instructions Recorded atorvastatin 80 mg tablet 80 mg PO BEDTIME #90 tabs 07/25/21 folic acid 1 mg tablet 1 mg PO DAILY #90 tabs 08/19/21 gabapentin 300 mg capsule 300 mg PO TID #90 caps 08/19/21 loratadine 10 mg tablet 10 mg PO DAILY 90 days #90 tabs 09/30/21 carvedilol 3.125 mg tablet 3.125 mg PO MoWeFr@1645 #20 tabs 10/13/21 omeprazole 40 mg capsule,delayed 40 mg PO BID@0630,1630 #60 caps 10/13/21 release midodrine 5 mg tablet 5 mg PO TIDAC #90 tabs 10/17/21 ergocalciferol (vitamin D2) 1,250 1,250 mcg PO QWEEK #4 caps 11/07/21 mcg (50,000 unit) capsule Allergies Allergy/AdvReac Type Severity Reaction Status Date / Time No Known Allergies Allergy Verified 11/16/21 16:09 Review of Systems Review of Systems: Pertinent positives and negatives as stated in HPI 10 point review of systems is otherwise negative. [facility] Past Medical History Source: nursing notes reviewed Medical History Anemia Anxiety and depression Artery stenosis Arthritis Balance problem Breast calcification, left CAD (coronary artery disease) Cardiomyopathy CHF (congestive heart failure) COVID-19 vaccine series completed Diabetes mellitus Diabetic neuropathy Diverticulitis Ductal carcinoma in situ (DCIS) of left breast End stage renal disease ESRD (end stage renal disease) on dialysis Fall Fistula Hemodialysis patient History of CVA (cerebrovascular accident) Hx of myocardial infarction Hypercholesteremia Hypertension Incontinence Knee pain, right Melena Peripheral vascular disease Pressure ulcer of right heel, unstageable Prolonged QT interval Urinary and bowel incontinence Surgical History History of lumpectomy of left breast Hx of CABG Hx of colonoscopy Hx of esophagogastroduodenoscopy Hx of lumpectomy Hx of tubal ligation Family History Family History Paternal Grandmother Breast cancer Social History Social History Household Members: Family Household Members Other:: son Housing: House Are you a primary vision care associate to a significant other at home: No Do you presently have visiting nurse or other home services: No (currently one week in rehab) Alcohol intake: never Patient Tobacco Use Status: Former Tobacco user Quit Date: 5 years ago Tobacco use type: Cigarette Cigarette Packs Per Day: 1 Cigarettes Per Day: 20.0 Years Smoked: 20 Smoked in Last 30 Days: No Use of substances other than those prescribed or required for medical reasons: No Advance Directives: Yes Advance Directives on File: Yes Advance Directives Date on File: 10/06/20 service: No Current occupational status: disabled Physical Exam ED Vital Signs: Vital Signs - 24 hr 03/11/22 19:45 03/11/22 19:55 03/11/22 19:55 Temperature 98.6 F 98.4 F Pulse Rate 93 96 Respiratory Rate 12 12 Blood Pressure 90/51 L 90/51 L Pulse Oximetry 94 94 95 Oxygen Delivery Method Room Air Room Air Room Air 03/11/22 22:00 03/12/22 00:00 Temperature Pulse Rate 92 89 Respiratory Rate 14 17 Blood Pressure 78/49 L 81/37 L Pulse Oximetry 95 97 Oxygen Delivery Method Room Air Room Air BMI result Body Mass Index 21.2 VITAL SIGNS: Reviewed. GENERAL: Chronically ill, cachectic, in no acute distress. HEAD: Normocephalic/atraumatic EYES: PERRLA, EOMI EARS: Ext canals without abnormality OROPHARYNX: no oral lesions noted, posterior pharynx clear LUNGS: Normal breath sounds. No adventitious sounds or accessory muscle use. SpO2<95> CARDIOVASCULAR: Regular rate and rhythm without noted murmurs, no JVD or lower extremity edema. ABDOMEN: Soft, non-tender, non-distended with bowel sounds. MUSCULOSKELETAL: No tenderness, deformities, or effusions noted on gross inspection. EXTREMITIES: No cyanosis, clubbing or edema; RUE: fistula appears in functional order without erythema/ edema /induration SKIN: Inspection of the skin reveals no rashes NEUROLOGIC: Alert and oriented x 4. Strength and sensation to light touch were grossly intact x 4. Course Course Course Narrative: 72-year-old female with history and clinical presentation consistent with low blood pressure, however patient is communicating well verbally and appears comfortable, on review of patient's medication list she is on medication for low blood pressure. On review of all investigations patient is noted be mildly hyperglycemic but otherwise lab work appears chronically stable. Patient does not have significant abdominal ascites and there is no noted swelling around the fistula site. However, there is mild swelling on the right forearm but likely due to patient positioning. Patient was provided with her midodrine known, she continues to have a low blood pressure, but on review prior blood pressures from 02/21 they are stable. Patient is otherwise hemodynamically stable for discharge back to the the group home facility. The daughter was informed that her mother would be transferred back but that the actual transport may not occur and tell tomorrow morning. Reevaluation(s) Reevaluation #1: I called the patient's healthcare proxy, her daughter Sadia Yin, and left a message for her to call the emergency room back at her earliest convenience. The daughter called right back and informs me that Nephrology has informed her that dialysis is going to be stopped as it is no longer helping her mother. In addition, patient has been deemed unable to make decisions for herself and will be placed on hospice in the near future. I explained to the daughter that overall the lab work looks good and that her mother appears comfortable and that I was not able to find any evidence increasing fluid in the abdomen and I did not notice any swelling around the fistula site. Time: 23:31 Medical Decision Making Lab Data Result diagrams: 03/11/22 21:25 03/11/22 21:25 Labs: Lab Results 03/11/22 03/11/22 03/11/22 Range/Units 21:25 21:25 21:25 WBC 4.1 L (4.8-10.8) X10*3/uL RBC 2.95 L (4.20-5.50) X10*6/uL Hgb 8.3 L (12.0-16.0) g/dl Hct 27.2 L (37.0-47.0) % MCV 92.2 (80.0-98.0) fL MCH 28.1 (27.0-33.0) pg MCHC 30.5 L (31.0-35.0) g/dl RDW 16.1 H (11.0-16.0) % Plt Count 95 L (160-400) X10*3/uL MPV 11.9 (9.4-12.3) fL Immature Gran % (Auto) 0.2 (0.0-0.4) % Neut % (Auto) 76.1 H (45-73) % Lymph % (Auto) 11.1 L (20-40) % Chambers % (Auto) 10.9 (2-11) % Eos % (Auto) 1.2 (0-4) % Baso % (Auto) 0.5 (0-2) % Lymph # (Auto) 0.5 L (1.2-4.9) X10*3/uL Chambers # (Auto) 0.4 (0.1-1.2) X10*3/uL Eos # (Auto) 0.1 (0.0-0.4) X10*3/uL Baso # (Auto) 0.0 (0.0-0.2) X10*3/uL Abs Immat Gran (auto) 0.01 (0.00-0.03) X10*3/uL Absolute Neuts (auto) 3.1 (2.0-8.3) x10*3/uL Absolute Nucleated RBC 0.000 (0.0-0.012) X10*3/uL Nucleated RBC % (auto) 0.0 (0.0-0.2) /100WBC Sodium 137 (135-145) mmol/L Potassium 3.8 (3.3-5.1) mmol/L Chloride 93 L (96-108) mmol/L Carbon Dioxide 29 (22-29) mmol/L Anion Gap 19 (12-20) BUN 38 H (9-16) mg/dL Creatinine 3.75 H (0.5-1.4) mg/dL Estim Creat Clear Calc 9.9 Estimated GFR 12 Random Glucose 328 H (60-115) mg/dL Calcium 8.9 (8.4-10.2) mg/dL Total Bilirubin 0.6 (0.0-1.0) mg/dL AST 23 (5-31) U/L ALT 14 (0-31) U/L Alkaline Phosphatase 368 H (39-117) U/L B-Natriuretic Peptide 2084 H (<100) pg/mL Total Protein 6.1 L (6.5-8.0) g/dL Albumin 2.6 L (3.5-5.0) g/dL Discharge Plan Discharge Clinical Impression: ESRD on dialysis, Hyperglycemia, Anemia in chronic renal disease Patient Disposition: Xfer SNF Instructions: End Stage Kidney Disease (ED), Dialysis Diet (DC), Ascites (ED) Additional Instructions: 1. Resume all home medications. 2. Recommend arrangement for scheduled paracentesis. 3. Follow-up with primary care provider on Sunday morning. Return to the ER for worsening symptoms. Prescriptions: No [facility] atorvastatin 80 mg tablet 80 mg PO BEDTIME Qty: 90 5RF gabapentin 300 mg capsule 300 mg PO TID Qty: 90 2RF loratadine 10 mg tablet 10 mg PO DAILY 90 Days Qty: 90 1RF ergocalciferol (vitamin D2) 1,250 mcg (50,000 unit) capsule 1,250 mcg PO QWEEK Qty: 4 0RF Rx Instructions: needs an appointment for refills folic acid 1 mg Tablet 1 mg PO DAILY Qty: 90 6RF fluoxetine 20 mg capsule 1 cap PO DAILY tamoxifen 10 mg tablet 10 mg PO BID omeprazole 40 mg Capsule,Delayed Release(Dr/Ec) 40 mg PO BID@0630,1630 Qty: 60 0RF carvedilol 3.125 mg Tablet 3.125 mg PO MoWeFr@1645 Qty: 20 0RF midodrine 5 mg Tablet 5 mg PO TIDAC Qty: 90 0RF insulin lispro 100 unit/mL insulin pen See Protocol subcut QIDACHS Protocol: Insulin Correction Scale Less than or equal to 110 ---- Give (units): 0 111 to 150 Give (units): 0 151 to 200 Give (units): 0 201 to 250 Give (units): 2 251 to 300 Give (units): 4 301 to 350 Give (units): 6 Greater than 350 Give (units): 8 Call MD if Blood Glucose > : 350 diclofenac sodium 1 % gel 1 g topical BID lactulose 10 gram/15 mL solution PO sucralfate 1 gram tablet 1 tab PO QID potassium chloride 20 mEq packet 10 packet PO DAILY insulin glargine-yfgn 100 unit/mL (3 mL) insulin pen 10 unit subcut DAILY
[2022-03-11] MEDS: Midodrine HCl 5 MG TABLET PO (23:57)
[2022-03-12] VITALS: BP 81/37; PULSE 89; RESP 17; O2SAT 97
[2022-03-12 02:00] VITALS: BP 148/58; PULSE 89; RESP 18; O2SAT 97
--- NOTE | 2022-03-12 02:24 | PC.NURSE ---
Patient blood pressure was low at 62/44 on left upper extremity. Dr. Arias notified re took blood pressure on left thigh blood pressure 145/54. Lactulose should be held patient had 8 loose bowel movements in 6 hours. Patient scheduled for transport back to [facility] tomorrow. Medications reconciled and MD notified. Will continue with plan of care.
[2022-03-12] MEDS: Atorvastatin Calcium 80 MG TABLET PO (02:29)
--- NOTE | 2022-03-12 03:14 | PC.NURSE ---
This US/Pct called [facility] at 0129 for a transport back to [facility] spoke with Margaret she stated there will be no transport until around 1130AM. RN and Charge Nurse aware
[2022-03-12 03:51] VITALS: BP 131/47; PULSE 69; RESP 10; O2SAT 97
[2022-03-12 06:00] VITALS: BP 149/65; PULSE 95; O2SAT 96
[2022-03-12] MEDS: Omeprazole 40 MG CAPSULE.DR PO (06:29)
[2022-03-12] MEDS: Insulin Glargine,Hum.rec.anlog 100 UNIT/ML 10 ML VIAL 10 UNIT SUBCUT (07:49)
[2022-03-12] MEDS: Loratadine 10 MG TABLET PO (07:50)
[2022-03-12] MEDS: Folic Acid 1 MG TABLET PO (07:50)
[2022-03-12] MEDS: Potassium Chloride Packet 20 MEQ PACKET PO (07:50)
[2022-03-12] MEDS: Midodrine HCl 5 MG TABLET PO ×2 (07:50→12:24)
[2022-03-12] MEDS: FLUoxetine HCl 20 MG CAPSULE PO (07:50)
[2022-03-12] MEDS: Sucralfate 1 GM TABLET PO ×2 (07:51→12:24)
[2022-03-12] MEDS: Gabapentin 300 MG CAPSULE PO (07:51)
[2022-03-12] MEDS: Tamoxifen Citrate 10 MG TABLET PO (09:28)
[2022-03-12 12:21] LABS: Glucose, Whole Blood 170 mg/dL (60-115)
[2022-03-12 15:09] LABS: Glucose, Whole Blood 261 mg/dL (60-115)
[2022-03-13 06:53] LABS: Glucose, Whole Blood 294 mg/dL (60-115)
== END 2022-03-12 13:44 | disposition skilled nursing facility (03) ==
PROVIDERS: Nurse Practitioner Family; Student in an Organized Health Care Education/Training Program; Emergency Provider Emergency Medicine Emergency Medical Services
DX: R62.7 Adult failure to thrive (principal); Z68.21 Body mass index [BMI] 21.0-21.9, adult; E11.22 Type 2 diabetes mellitus with diabetic chronic kidney disease; E11.65 Type 2 diabetes mellitus with hyperglycemia; I13.2 Hypertensive heart and chronic kidney disease with heart failure and with stage 5 chronic kidney disease, or end stage renal disease; I50.9 Heart failure, unspecified; N18.6 End stage renal disease; D63.1 Anemia in chronic kidney disease; Z99.2 Dependence on renal dialysis; Z79.4 Long term (current) use of insulin; Z79.899 Other long term (current) drug therapy; Z79.02 Long term (current) use of antithrombotics/antiplatelets; Z87.891 Personal history of nicotine dependence
CPT/HCPCS: 36415; 71045; 80053; 82947; 83880; 85025; 96360; 99285

== ENCOUNTER 2022-03-14 06:28 | Outpatient (REF) | payer MEDICARE, MEDICAID, SELFPAY ==
[2022-03-14 06:32] LABS: MANUAL DIFF FLAG NO
[2022-03-14 06:45] LABS: Basophils Percent Auto 0.3 % (0-2); Eosinophils Percent Auto 0.7 % (0-4); Hematocrit 26.8 % (37.0-47.0); Hemoglobin 8.1 g/dl (12.0-16.0); Imm Gran Abs Auto 0.02 X10*3/uL (0.00-0.03); Imm Gran Pct Auto 0.3 % (0.0-0.4); Lymphocytes Absolute Auto 0.5 X10*3/uL (1.2-4.9); Lymphocytes Percent Auto 7.8 % (20-40); Mean Corpuscular HGB Conc 30.2 g/dl (31.0-35.0); Mean Corpuscular Volume 89.3 fL (80.0-98.0); Monocytes Absolute Auto 0.7 X10*3/uL (0.1-1.2); Monocytes Percent Auto 11.1 % (2-11); Neutrophils Absolute Auto 4.7 x10*3/uL (2.0-8.3); Neutrophils Percent Auto 79.8 % (45-73); Red Cell Distribution Width 16.5 % (11.0-16.0); White Blood Count 5.9 X10*3/uL (4.8-10.8)
[2022-03-14 06:48] LABS: Platelet Count 98 X10*3/uL (160-400)
[2022-03-14 07:59] LABS: Anion Gap 17 (12-20); Blood Urea Nitrogen 24 mg/dL (9-16); Calcium 8.2 mg/dL (8.4-10.2); Carbon Dioxide 29 mmol/L (22-29); Chloride 95 mmol/L (96-108); Estimated Glomerular Filt Rate 14; Glucose Random 127 mg/dL (60-115); Potassium 3.7 mmol/L (3.3-5.1); Sodium 137 mmol/L (135-145)
== END 2022-03-14 06:29 | disposition home or self-care (01) ==
LOC: HO.MMNH2L 06:28
PROVIDERS: Visit Provider Family Medicine
DX: E11.9 Type 2 diabetes mellitus without complications (principal); I10 Essential (primary) hypertension
CPT/HCPCS: 36415; 80048; 85025

== ENCOUNTER → 2022-03-21 12:06 | Day surgery (SDC) | payer OTHER, MEDICARE, MEDICAID, SELFPAY ==
--- NOTE | ~2022-03-21 | US_ITS ---
EXAMINATION: US INSERTION PLEURX CATHETER CLINICAL INFORMATION: Ascites and peritoneal carcinomatosis. COMPARISON: Previous CT January 2022 and abdominal ultrasound February 2022. TECHNIQUE: Procedure and risks and benefits including bleeding and infection were discussed with the patient's healthcare proxy, her [id number], by telephone and informed consent was obtained. The patient was positioned in a supine/slight left decubitus position. The right abdomen was prepped and draped in the usual sterile fashion. The skin and soft tissues were anesthetized with 1% lidocaine plain. Using ultrasound guidance and a 5-Prydeinig angiocath, access to the ascitic fluid was obtained. The skin and soft tissues of the more inferior right abdominal wall were anesthetized with 1% lidocaine plain. A small incision was made. A subcutaneous tunnel from the second to the first incision was anesthetized with 1% lidocaine plain. Using a tunneler, a 15-Prydeinig PleurX catheter was tunneled from the second to the first incision. An .035 guidewire was advanced through the 5-Prydeinig dilator into the abdominal cavity. Following serial dilatation and through a peel-away sheath, the PleurX catheter was advanced. The first skin incision was closed using a 3-0 absorbable subcuticular suture. The second skin incision around the drain was closed using a 3-0 absorbable mattress suture. The catheter was attached to Vacutainer bottles and 3.3 L of clear yellow fluid was removed. No diagnostic specimen was sent. Conscious sedation was provided by a registered nurse under my direct supervision using continuous hemodynamic monitoring. Total sedation time was 30 minutes. The patient received 0.5 mg of Versed and 25 mcg of fentanyl IV during the procedure. FINDINGS: There is a [id number] amount of ascites. US/US insertion pluerx cath IMPRESSION: Ultrasound-guided 15-Prydeinig tunneled abdominal PleurX catheter placement.
--- NOTE | 2022-03-21 12:34 | PC.NURSE ---
repositioned two assist. pillow underneath buttock area. pressure ulcer patch noted to left upper buttock area. dry and intact.
[2022-03-21 12:35] LABS: MANUAL DIFF FLAG NO
[2022-03-21 12:38] VITALS: BMI 21.5
[2022-03-21 12:39] LABS: Basophils Percent Auto 0.5 % (0-2); Eosinophils Absolute Auto 0.1 X10*3/uL (0.0-0.4); Eosinophils Percent Auto 1.6 % (0-4); Hematocrit 26.6 % (37.0-47.0); Hemoglobin 8.1 g/dl (12.0-16.0); Imm Gran Abs Auto 0.03 X10*3/uL (0.00-0.03); Imm Gran Pct Auto 0.5 % (0.0-0.4); Lymphocytes Absolute Auto 0.6 X10*3/uL (1.2-4.9); Lymphocytes Percent Auto 10.1 % (20-40); Mean Corpuscular HGB Conc 30.5 g/dl (31.0-35.0); Mean Corpuscular Hemoglobin 26.4 pg (27.0-33.0); Mean Corpuscular Volume 86.6 fL (80.0-98.0); Mean Platelet Volume 10.5 fL (9.4-12.3); Monocytes Absolute Auto 0.5 X10*3/uL (0.1-1.2); Monocytes Percent Auto 8.3 % (2-11); Neutrophils Absolute Auto 4.4 x10*3/uL (2.0-8.3); Platelet Count 129 X10*3/uL (160-400); Red Blood Count 3.07 X10*6/uL (4.20-5.50); Red Cell Distribution Width 15.5 % (11.0-16.0); White Blood Count 5.6 X10*3/uL (4.8-10.8)
[2022-03-21 12:50] LABS: Partial Thromboplastin Time 39.2 SEC (26.0-36.4)
[2022-03-21 13:06] LABS: Glucose, Whole Blood 95 mg/dL (60-115)
[2022-03-21 13:55] VITALS: BMI 20.5
--- NOTE | 2022-03-21 15:23 | HO.RADPN ---
RADIOLOGY Narrative Narrative: Right 15fr pleurex catheter placed in abdominal cavity. 3.3 L clear yellow fluid removed.
[2022-03-21] MEDS: Lidocaine HCl 1 % MPF 5 ML VIAL 10 ML SUBCUT (15:38)
[2022-03-21 15:40] VITALS: BP 130/43; PULSE 79; RESP 14; TEMP 36.9; O2SAT 100
[2022-03-21 15:55] VITALS: BP 131/45; PULSE 83; RESP 16; O2SAT 100
[2022-03-21 16:10] VITALS: BP 141/48; PULSE 81; RESP 16; TEMP 37.3; O2SAT 100
[2022-03-21 16:25] VITALS: BP 150/51; PULSE 88; RESP 16; O2SAT 100
== END | disposition home or self-care (01) ==
PROVIDERS: Radiology Diagnostic Radiology; Visit Provider Nurse Practitioner Family
DX: R18.8 Other ascites (principal); C78.6 Secondary malignant neoplasm of retroperitoneum and peritoneum; E11.22 Type 2 diabetes mellitus with diabetic chronic kidney disease; I13.2 Hypertensive heart and chronic kidney disease with heart failure and with stage 5 chronic kidney disease, or end stage renal disease; I50.9 Heart failure, unspecified; N18.6 End stage renal disease; Z99.2 Dependence on renal dialysis; Z79.4 Long term (current) use of insulin
CPT/HCPCS: 32550; 36415; 82947; 85025; 85730; 99152; 99153; C1729; J0690; J2250; J3010